=== PATIENT | female | born 1950 | race Caucasian/White ===

== ENCOUNTER 2016-03-28 08:00 | Outpatient (CLI) | payer MEDICARE, OTHER | END 2016-03-28 08:01 | disposition home or self-care (01) | DX: Z79.899 Other long term (current) drug therapy (principal); I48.91 Unspecified atrial fibrillation ==

== ENCOUNTER 2016-04-11 12:36 | Outpatient (CLI) | payer MEDICARE, OTHER | END 2016-04-11 12:37 | disposition home or self-care (01) | DX: I48.91 Unspecified atrial fibrillation (principal); Z79.899 Other long term (current) drug therapy ==

== ENCOUNTER 2016-04-17 12:35 | Outpatient (CLI) | payer MEDICARE, OTHER | END 2016-04-17 12:36 | disposition home or self-care (01) | DX: I48.91 Unspecified atrial fibrillation (principal); Z79.899 Other long term (current) drug therapy ==

== ENCOUNTER 2016-05-06 12:35 | Outpatient (CLI) | payer MEDICARE, OTHER | END 2016-05-06 12:36 | disposition home or self-care (01) | DX: I48.91 Unspecified atrial fibrillation (principal); Z79.899 Other long term (current) drug therapy ==

== ENCOUNTER 2016-05-27 12:36 | Outpatient (CLI) | payer MEDICARE, OTHER | END 2016-05-27 12:37 | disposition home or self-care (01) | DX: I48.91 Unspecified atrial fibrillation (principal); Z79.899 Other long term (current) drug therapy ==

== ENCOUNTER 2016-06-27 12:37 | Outpatient (CLI) | payer MEDICARE, OTHER | END 2016-06-27 12:38 | disposition home or self-care (01) | DX: I48.91 Unspecified atrial fibrillation (principal); Z79.899 Other long term (current) drug therapy ==

== ENCOUNTER 2016-08-05 12:35 | Outpatient (CLI) | payer MEDICARE, OTHER | END 2016-08-05 12:36 | disposition home or self-care (01) | LOC: LAB.F 12:35 | PROVIDERS: ATTEND Nurse Practitioner Family | DX: I48.91 Unspecified atrial fibrillation (principal); Z79.899 Other long term (current) drug therapy | CPT/HCPCS: 85610 ==

== ENCOUNTER 2016-09-15 08:00 | Outpatient (CLI) | payer MEDICARE, OTHER | END 2016-09-15 08:01 | disposition home or self-care (01) | LOC: LAB.F 08:00 | PROVIDERS: ATTEND Nurse Practitioner Family | DX: I48.91 Unspecified atrial fibrillation (principal); Z79.899 Other long term (current) drug therapy | CPT/HCPCS: 85610 ==

== ENCOUNTER 2016-10-01 10:57 | Outpatient (CLI) | payer MEDICARE, OTHER ==
[2016-10-01 18:39] LABS: BASOPHILS # (AUTO) 0.1 10^3/uL (0.0-0.1); BASOPHILS % (AUTO) 0.9 %; EOSINOPHILS # (AUTO) 0.1 10^3/uL (0.0-0.7); HCT - HEMATOCRIT 46.6 % (37.0-47.0); HGB - HEMOGLOBIN 15.1 g/dL (12.0-16.0); LYMPHOCYTES # (AUTO) 1.3 10^3/uL (1.5-3.5); LYMPHOCYTES % (AUTO) 16.8 %; MEAN CORPUSCULAR HEMOGLOBIN 30.8 pg (27.0-31.0); MEAN CORPUSCULAR HGB CONC 32.4 g/dL (32.0-36.0); MEAN CORPUSCULAR VOLUME 95.1 fL (81.0-99.0); MEAN PLATELET VOLUME 7.9 fL (7.9-10.8); MONOCYTES # (AUTO) 0.6 10^3/uL (0.0-1.0); MONOCYTES % (AUTO) 7.7 %; NEUTROPHILS # (AUTO) 5.9 10^3/uL (1.5-6.6); NEUTROPHILS % (AUTO) 73.6 %; NUCLEATED RED BLOOD CELLS AUTO 0.1 /100WBC; RED CELL DISTRIBUTION WIDTH 13.7 % (12.0-15.0)
[2016-10-01 18:59] LABS: BILIRUBIN,TOTAL 0.6 mg/dL (0.2-1.0); BUN - BLOOD UREA NITROGEN 18 mg/dL (6-20); CALCIUM 9.1 mg/dL (8.5-10.3); CARBON DIOXIDE - CO2 30 mmol/L (21-32); CHLORIDE 100 mmol/L (101-111); CHOL/HDL RATIO 3.5 (<4.4); CHOLESTEROL 162 mg/dL; CREATININE 0.8 mg/dL (0.4-1.0); GFR - MDRD 72 (>89); GLUCOSE 117 mg/dL (70-100); HDL CHOLESTEROL 46 mg/dL; IRON 88 ug/dL (28-170); LDL/HDL RATIO 1.7 (<4.4); SODIUM 139 mmol/L (135-145); TOTAL IRON BINDING CAPACITY 419 ug/dL (250-450); TOTAL PROTEIN 7.3 g/dL (6.7-8.2); TRANSFERRIN 299 mg/dL (192-382); TRIGLYCERIDES 179 mg/dL; VLDL CHOLESTEROL 36 mg/dL
[2016-10-01 19:20] LABS: HEMOGLOBIN A1C 0.77 g/dL
== END 2016-10-01 10:58 | disposition home or self-care (01) ==
LOC: LAB.F 10:57
PROVIDERS: ATTEND Nurse Practitioner Family
DX: I50.9 Heart failure, unspecified (principal); E11.9 Type 2 diabetes mellitus without complications; R53.83 Other fatigue
CPT/HCPCS: 36415; 80053; 80061; 80162; 82043; 83036; 83540; 83880; 84443; 84466; 85025

== ENCOUNTER 2016-10-02 08:00 | Outpatient (CLI) | payer MEDICARE, OTHER | END 2016-10-02 08:01 | disposition home or self-care (01) | LOC: LAB.R 08:00 | PROVIDERS: ATTEND Nurse Practitioner Family | DX: E11.9 Type 2 diabetes mellitus without complications (principal) | CPT/HCPCS: 82043 ==

== ENCOUNTER 2016-10-07 09:46 | Outpatient (CLI) | payer MEDICARE, OTHER ==
--- NOTE | 2016-10-07 13:47 | XRAY Report ---
TWO-VIEW CHEST: 10/07/2016 CLINICAL INDICATION: Cough. FINDINGS: Frontal and lateral views of the chest demonstrate a normal cardiac silhouette. Calcified mediastinal nodes are noted, compatible with old granulomatous disease. The lungs are clear. No ef fusion or pneumothorax is present. IMPRESSION: NO EVIDENCE OF ACUTE CARDIOPULMONARY DISEASE. JOB #: [id number] EXT JOB #:[id number]
== END 2016-10-07 09:47 | disposition home or self-care (01) ==
LOC: DI.S 09:46
PROVIDERS: ATTEND Nurse Practitioner Family
DX: R05 Cough (principal); R06.02 Shortness of breath
CPT/HCPCS: 71020; 93005

== ENCOUNTER 2016-10-15 12:47 | Outpatient (CLI) | payer MEDICARE, OTHER | END 2016-10-15 12:48 | disposition home or self-care (01) | LOC: LAB.F 12:47 | PROVIDERS: ATTEND Nurse Practitioner Family | DX: I48.91 Unspecified atrial fibrillation (principal); Z79.899 Other long term (current) drug therapy | CPT/HCPCS: 85610 ==

== ENCOUNTER 2016-10-20 10:33 | Outpatient (CLI) | payer MEDICARE, OTHER ==
--- NOTE | 2016-10-31 14:29 | Mammography Report ---
DIGITAL SCREENING MAMMOGRAM: 10/20/2016 CLINICAL INDICATION: A 66-year-old nulliparous patient for screening. The patient reports having had previous mammograms in [place], [place], but films are not yet avai lable for direct comparison. If they become available, an addendum will be issued. Otherwise, this will serve as a new baseline. TECHNIQUE: Routine CC and MLO projections were obtained of the breasts. FINDINGS: The breasts demonstrate scattered fibroglandular densities bilaterally. Coarse and puncta te, typically benign calcifications are present. No suspicious masses, clustered microcalcifications , or regions of architectural distortion are identified. IMPRESSION: BENIGN FINDINGS. RECOMMENDATION: Routine annual screening unless otherwise clinically indicated. BIRADS CATEGORY 2 - BENIGN FINDINGS. STANDARD QUALIFYING STATEMENTS 1. This examination was reviewed with the aid of Computer-Aided Detection (CAD). 2. A negative or benign imaging report should not delay biopsy if clinically suspicious findings are present. Consider surgical consultation if warranted. More than 5% of cancers are not identified by i maging. 3. Dense breasts may obscure an underlying neoplasm. JOB #: [id number] EXT JOB #:[id number]
== END 2016-10-20 10:34 | disposition home or self-care (01) ==
LOC: DI.S 10:33
PROVIDERS: ATTEND Nurse Practitioner Family
DX: Z12.31 Encounter for screening mammogram for malignant neoplasm of breast (principal)
CPT/HCPCS: 77067; 85610

== ENCOUNTER 2016-11-12 11:21 | Outpatient (CLI) | payer MEDICARE, OTHER | END 2016-11-12 11:22 | disposition home or self-care (01) | LOC: LAB.F 11:21 | PROVIDERS: ATTEND Nurse Practitioner Family | DX: I48.91 Unspecified atrial fibrillation (principal); Z79.899 Other long term (current) drug therapy | CPT/HCPCS: 85610 ==

== ENCOUNTER 2016-12-10 10:29 | Outpatient (CLI) | payer MEDICARE, OTHER | END 2016-12-10 10:30 | disposition home or self-care (01) | LOC: LAB.F 10:29 | PROVIDERS: ATTEND Nurse Practitioner Family | DX: I48.91 Unspecified atrial fibrillation (principal); Z79.899 Other long term (current) drug therapy | CPT/HCPCS: 85610 ==

== ENCOUNTER 2017-02-12 12:32 | Outpatient (CLI) | payer MEDICARE, OTHER | END 2017-02-12 12:33 | disposition home or self-care (01) | LOC: LAB.F 12:32 | PROVIDERS: ATTEND Nurse Practitioner Family | DX: I48.91 Unspecified atrial fibrillation (principal); Z79.899 Other long term (current) drug therapy | CPT/HCPCS: 85610 ==

== ENCOUNTER 2017-03-19 11:01 | Outpatient (CLI) | payer MEDICARE, OTHER ==
[2017-03-19 17:54] LABS: BASOPHILS # (AUTO) 0.1 10^3/uL (0.0-0.1); BASOPHILS % (AUTO) 0.9 %; EOSINOPHILS # (AUTO) 0.2 10^3/uL (0.0-0.7); EOSINOPHILS % (AUTO) 1.9 %; HGB - HEMOGLOBIN 14.6 g/dL (12.0-16.0); LYMPHOCYTES # (AUTO) 1.4 10^3/uL (1.5-3.5); LYMPHOCYTES % (AUTO) 18.4 %; MEAN CORPUSCULAR HEMOGLOBIN 30.9 pg (27.0-31.0); MEAN CORPUSCULAR HGB CONC 32.5 g/dL (32.0-36.0); MEAN CORPUSCULAR VOLUME 95.2 fL (81.0-99.0); MEAN PLATELET VOLUME 8.1 fL (7.9-10.8); MONOCYTES # (AUTO) 0.6 10^3/uL (0.0-1.0); MONOCYTES % (AUTO) 7.7 %; NEUTROPHILS # (AUTO) 5.6 10^3/uL (1.5-6.6); NEUTROPHILS % (AUTO) 71.1 %; PLT - PLATELET COUNT 245 10^3/uL (130-450); RED BLOOD COUNT 4.74 10^6/uL (4.20-5.40); RED CELL DISTRIBUTION WIDTH 13.6 % (12.0-15.0); WHITE BLOOD COUNT 7.8 x10^3/uL (4.8-10.8)
[2017-03-19 18:24] LABS: % IRON SATURATION 17 % (20-50); ALBUMIN 3.7 g/dL (3.2-5.5); ALBUMIN/GLOBULIN RATIO 0.9 (1.0-2.2); ALKALINE PHOSPHATASE 93 IU/L (42-121); ALT ALANINE AMINOTRANSFERASE 14 IU/L (10-60); AST ASPARTATE AMINOTRANSFERASE 18 IU/L (10-42); BILIRUBIN,TOTAL 0.5 mg/dL (0.2-1.0); BUN - BLOOD UREA NITROGEN 17 mg/dL (6-20); CALCIUM 9.2 mg/dL (8.5-10.3); CARBON DIOXIDE - CO2 33 mmol/L (21-32); CHLORIDE 98 mmol/L (101-111); CHOL/HDL RATIO 3.3 (<4.4); CHOLESTEROL 146 mg/dL; CREATININE 0.8 mg/dL (0.4-1.0); GFR - MDRD 72 (>89); GLUCOSE 115 mg/dL (70-100); HDL CHOLESTEROL 44 mg/dL; IRON 67 ug/dL (28-170); LDL CHOLESTEROL,CALCULATED 74 mg/dL; LDL/HDL RATIO 1.7 (<4.4); SODIUM 140 mmol/L (135-145); TOTAL IRON BINDING CAPACITY 403 ug/dL (250-450); TOTAL PROTEIN 7.9 g/dL (6.7-8.2); TRANSFERRIN 288 mg/dL (192-382); VLDL CHOLESTEROL 28 mg/dL
[2017-03-19 18:29] LABS: THYROID STIMULATING HORMONE 1.05 uIU/mL (0.34-5.60)
[2017-03-19 18:35] LABS: FERRITIN 84.1 ng/mL (11.0-306.8)
[2017-03-19 18:46] LABS: HB2 TOTAL 15.4 g/dL; HEMOGLOBIN A1C 0.74 g/dL; HEMOGLOBIN A1C % 6.5 % (4.6-6.2)
== END 2017-03-19 11:02 | disposition home or self-care (01) ==
LOC: LAB.F 11:01
PROVIDERS: ATTEND Nurse Practitioner Family
DX: R06.02 Shortness of breath (principal); I50.9 Heart failure, unspecified; E11.9 Type 2 diabetes mellitus without complications; E78.1 Pure hyperglyceridemia; I48.91 Unspecified atrial fibrillation; Z79.899 Other long term (current) drug therapy
CPT/HCPCS: 36415; 80053; 80061; 82728; 83036; 83540; 84443; 84466; 85025; 85610

== ENCOUNTER 2017-04-13 09:04 | Outpatient (CLI) | payer MEDICARE, OTHER ==
[2017-04-13] MEDS ORDERED: ALBUTEROL NEB 2.5 MG/3 ML INH ONE (10:45)
== END 2017-04-13 09:05 | disposition home or self-care (01) ==
LOC: RT 09:04
PROVIDERS: ATTEND Nurse Practitioner Family
DX: R05 Cough (principal)
CPT/HCPCS: 94060; 94664; J7613

== ENCOUNTER 2017-04-23 12:36 | Outpatient (CLI) | payer MEDICARE, OTHER | END 2017-04-23 12:37 | disposition home or self-care (01) | LOC: LAB.F 12:36 | PROVIDERS: ATTEND Nurse Practitioner Family | DX: Z79.899 Other long term (current) drug therapy (principal); I48.91 Unspecified atrial fibrillation | CPT/HCPCS: 85610 ==

== ENCOUNTER 2017-04-30 11:55 | Outpatient (CLI) | payer MEDICARE, OTHER ==
--- NOTE | 2017-04-30 17:12 | CT Report ---
CT CHEST WITHOUT CONTRAST: 04/30/2017 CLINICAL INDICATION: Shortness of breath. TECHNIQUE: Axial CT images of the chest were obtained without intravenous contrast. In accordance with CT protocol optimization, one or more of the following dose reduction techniques were utilized for this exam: Automated exposure control, adjustment of mA and/or KV based on patient size, or use of iterative reconstructive technique. No previous CT is available for comparison. FINDINGS: The heart and great vessels are unremarkable. Calcifications of previous granulomatous disease are noted. There is minimal dependent atelectasis present. No suspicious pulmonary nodule or mass lesion is appreciated. No effusion or pneumothorax is present. Limited evaluation of upper abdominal structures demonstrates calcified granulomas in the spleen and hepatic cysts as well as cholelithiasis. The adrenal glands are unremarkable. IMPRESSION: CHANGES OF OLD GRANULOMATOUS DISEASE. NO EVIDENCE OF ACUTE CARDIOPULMONARY DISEASE. TD: 04/30/2017 17:10
== END 2017-04-30 11:56 | disposition home or self-care (01) ==
LOC: DI 11:55
PROVIDERS: ATTEND Nurse Practitioner Family
DX: R06.02 Shortness of breath (principal)
CPT/HCPCS: 71250

== ENCOUNTER 2017-05-22 12:25 | Outpatient (CLI) | payer MEDICARE, OTHER | END 2017-05-22 12:26 | disposition home or self-care (01) | LOC: LAB.S 12:25 | PROVIDERS: ATTEND Nurse Practitioner Family | DX: I48.91 Unspecified atrial fibrillation (principal); Z79.899 Other long term (current) drug therapy | CPT/HCPCS: 85610 ==

== ENCOUNTER 2017-05-28 12:35 | Outpatient (CLI) | payer MEDICARE, OTHER | END 2017-05-28 12:36 | disposition home or self-care (01) | LOC: LAB.F 12:35 | PROVIDERS: ATTEND Nurse Practitioner Family | DX: I48.91 Unspecified atrial fibrillation (principal); Z79.899 Other long term (current) drug therapy | CPT/HCPCS: 85610 ==

== ENCOUNTER 2017-06-30 10:35 | Outpatient (CLI) | payer MEDICARE, OTHER | END 2017-06-30 10:36 | disposition home or self-care (01) | LOC: LAB.F 10:35 | PROVIDERS: ATTEND Nurse Practitioner Family | DX: I48.91 Unspecified atrial fibrillation (principal); Z79.899 Other long term (current) drug therapy | CPT/HCPCS: 85610 ==

== ENCOUNTER 2017-08-12 11:00 | Outpatient (CLI) | payer MEDICARE, OTHER | END 2017-08-12 11:01 | disposition home or self-care (01) | LOC: LAB.F 11:00 | PROVIDERS: ATTEND Nurse Practitioner Family | DX: I48.91 Unspecified atrial fibrillation (principal); Z79.899 Other long term (current) drug therapy | CPT/HCPCS: 85610 ==

== ENCOUNTER 2017-09-09 12:45 | Outpatient (CLI) | payer MEDICARE, OTHER ==
[2017-09-09 18:09] LABS: HB2 TOTAL 15.6 g/dL; HEMOGLOBIN A1C 0.78 g/dL; HEMOGLOBIN A1C % 6.7 % (4.6-6.2)
== END 2017-09-09 12:46 | disposition home or self-care (01) ==
LOC: LAB.F 12:45
PROVIDERS: ATTEND Nurse Practitioner Family
DX: I48.91 Unspecified atrial fibrillation (principal); E11.9 Type 2 diabetes mellitus without complications; Z79.899 Other long term (current) drug therapy
CPT/HCPCS: 36415; 83036; 85610

== ENCOUNTER 2017-10-12 10:58 | Outpatient (CLI) | payer MEDICARE, OTHER | END 2017-10-12 10:59 | disposition home or self-care (01) | LOC: LAB.F 10:58 | PROVIDERS: ATTEND Nurse Practitioner Family | DX: I48.91 Unspecified atrial fibrillation (principal); Z79.899 Other long term (current) drug therapy | CPT/HCPCS: 85610 ==

== ENCOUNTER 2017-12-03 10:58 | Outpatient (CLI) | payer MEDICARE, OTHER | END 2017-12-03 10:59 | disposition home or self-care (01) | LOC: LAB.F 10:58 | PROVIDERS: ATTEND Nurse Practitioner Family | DX: I48.91 Unspecified atrial fibrillation (principal); Z79.899 Other long term (current) drug therapy | CPT/HCPCS: 85610 ==

== ENCOUNTER → 2017-12-22 | Outpatient (CLI) | payer MEDICARE, OTHER | LOC: LAB.F 08:00 | PROVIDERS: ATTEND Nurse Practitioner Family | DX: Z79.899 Other long term (current) drug therapy (principal); I48.91 Unspecified atrial fibrillation | CPT/HCPCS: 85610 ==

== ENCOUNTER 2018-01-28 11:35 | Outpatient (CLI) | payer MEDICARE, OTHER ==
[2018-01-28 18:51] LABS: INR 2.3 (0.8-1.2); PT - PROTHROMBIN TIME 25.7 secs (9.9-12.6)
== END 2018-01-28 11:36 | disposition home or self-care (01) ==
LOC: LAB.F 11:35
PROVIDERS: ATTEND Nurse Practitioner Family
DX: I48.91 Unspecified atrial fibrillation (principal); Z79.899 Other long term (current) drug therapy
CPT/HCPCS: 36415; 85610

== ENCOUNTER 2018-02-22 10:13 | Outpatient (CLI) | payer MEDICARE, OTHER ==
[2018-02-22 18:36] LABS: BASOPHILS # (AUTO) 0.1 10^3/uL (0.0-0.1); BASOPHILS % (AUTO) 0.9 %; EOSINOPHILS # (AUTO) 0.1 10^3/uL (0.0-0.7); EOSINOPHILS % (AUTO) 1.4 %; HGB - HEMOGLOBIN 14.8 g/dL (12.0-16.0); LYMPHOCYTES # (AUTO) 1.4 10^3/uL (1.5-3.5); LYMPHOCYTES % (AUTO) 19.5 %; MEAN CORPUSCULAR HEMOGLOBIN 30.4 pg (27.0-31.0); MEAN CORPUSCULAR HGB CONC 32.2 g/dL (32.0-36.0); MEAN CORPUSCULAR VOLUME 94.5 fL (81.0-99.0); MONOCYTES # (AUTO) 0.5 10^3/uL (0.0-1.0); MONOCYTES % (AUTO) 6.8 %; NEUTROPHILS # (AUTO) 5.3 10^3/uL (1.5-6.6); NEUTROPHILS % (AUTO) 71.4 %; PLT - PLATELET COUNT 277 10^3/uL (130-450); RED BLOOD COUNT 4.88 10^6/uL (4.20-5.40); RED CELL DISTRIBUTION WIDTH 13.7 % (12.0-15.0); WHITE BLOOD COUNT 7.4 x10^3/uL (4.8-10.8)
[2018-02-22 18:53] LABS: ALBUMIN 3.6 g/dL (3.2-5.5); ALBUMIN/GLOBULIN RATIO 0.9 (1.0-2.2); ALKALINE PHOSPHATASE 90 IU/L (42-121); ALT ALANINE AMINOTRANSFERASE 16 IU/L (10-60); AST ASPARTATE AMINOTRANSFERASE 15 IU/L (10-42); BILIRUBIN,TOTAL 0.7 mg/dL (0.2-1.0); BUN - BLOOD UREA NITROGEN 16 mg/dL (6-20); CALCIUM 8.9 mg/dL (8.5-10.3); CARBON DIOXIDE - CO2 29 mmol/L (21-32); CHLORIDE 100 mmol/L (101-111); CHOL/HDL RATIO 3.9 (<4.4); CHOLESTEROL 158 mg/dL; CREATININE 0.8 mg/dL (0.4-1.0); GFR - MDRD 72 (>89); GLUCOSE 134 mg/dL (70-100); HDL CHOLESTEROL 41 mg/dL; LDL CHOLESTEROL,CALCULATED 74 mg/dL; LDL/HDL RATIO 1.8 (<4.4); SODIUM 137 mmol/L (135-145); TOTAL PROTEIN 7.7 g/dL (6.7-8.2); VLDL CHOLESTEROL 43 mg/dL
[2018-02-22 18:55] LABS: HB2 TOTAL 15.5 g/dL; HEMOGLOBIN A1C 0.87 g/dL; HEMOGLOBIN A1C % 7.3 % (4.6-6.2)
== END 2018-02-22 10:14 | disposition home or self-care (01) ==
LOC: LAB.F 10:13
PROVIDERS: ATTEND Nurse Practitioner Family
DX: I48.91 Unspecified atrial fibrillation (principal); Z79.899 Other long term (current) drug therapy; I50.9 Heart failure, unspecified; E11.9 Type 2 diabetes mellitus without complications; E78.1 Pure hyperglyceridemia; I48.2 Chronic atrial fibrillation; R53.83 Other fatigue
CPT/HCPCS: 36415; 80053; 80061; 82043; 83036; 83721; 84443; 85025; 85610

== ENCOUNTER 2018-03-24 10:50 | Outpatient (CLI) | payer MEDICARE, OTHER ==
[2018-03-24 19:23] LABS: RHEUMATOID FACTOR NEGATIVE (Negative)
== END 2018-03-24 10:51 | disposition home or self-care (01) ==
LOC: LAB.F 10:50
PROVIDERS: ATTEND Nurse Practitioner Family
DX: I48.2 Chronic atrial fibrillation (principal); R53.83 Other fatigue
CPT/HCPCS: 36415; 85610; 85651; 86038; 86140; 86430

== ENCOUNTER 2018-04-08 11:04 | Outpatient (CLI) | payer MEDICARE, OTHER | END 2018-04-08 11:05 | disposition home or self-care (01) | LOC: LAB.F 11:04 | PROVIDERS: ATTEND Nurse Practitioner Family | DX: I48.2 Chronic atrial fibrillation (principal) | CPT/HCPCS: 85610 ==

== ENCOUNTER 2018-04-15 10:08 | Outpatient (CLI) | payer MEDICARE, OTHER | END 2018-04-15 10:09 | disposition home or self-care (01) | LOC: LAB.F 10:08 | PROVIDERS: ATTEND Nurse Practitioner Family | DX: I48.2 Chronic atrial fibrillation (principal) | CPT/HCPCS: 85610 ==

== ENCOUNTER 2018-05-25 11:05 | Outpatient (CLI) | payer MEDICARE, OTHER | END 2018-05-25 11:06 | disposition home or self-care (01) | LOC: LAB.F 11:05 | PROVIDERS: ATTEND Registered Nurse | DX: I48.2 Chronic atrial fibrillation (principal) | CPT/HCPCS: 85610 ==

== ENCOUNTER 2018-05-28 10:57 | Outpatient (CLI) | payer MEDICARE, OTHER ==
[2018-05-28 18:12] LABS: BASOPHILS # (AUTO) 0.1 10^3/uL (0.0-0.1); BASOPHILS % (AUTO) 1.1 %; EOSINOPHILS # (AUTO) 0.1 10^3/uL (0.0-0.7); EOSINOPHILS % (AUTO) 1.4 %; HGB - HEMOGLOBIN 14.6 g/dL (12.0-16.0); LYMPHOCYTES # (AUTO) 1.4 10^3/uL (1.5-3.5); LYMPHOCYTES % (AUTO) 21.2 %; MEAN CORPUSCULAR HEMOGLOBIN 30.6 pg (27.0-31.0); MEAN CORPUSCULAR HGB CONC 32.8 g/dL (32.0-36.0); MEAN CORPUSCULAR VOLUME 93.3 fL (81.0-99.0); MEAN PLATELET VOLUME 7.9 fL (7.9-10.8); MONOCYTES # (AUTO) 0.5 10^3/uL (0.0-1.0); MONOCYTES % (AUTO) 7.5 %; NEUTROPHILS # (AUTO) 4.6 10^3/uL (1.5-6.6); NEUTROPHILS % (AUTO) 68.8 %; PLT - PLATELET COUNT 263 10^3/uL (130-450); RED BLOOD COUNT 4.78 10^6/uL (4.20-5.40); RED CELL DISTRIBUTION WIDTH 13.5 % (12.0-15.0); WHITE BLOOD COUNT 6.7 x10^3/uL (4.8-10.8)
[2018-05-28 18:38] LABS: CRP - C-REACTIVE PROTEIN 1.3 mg/dL (0-1.0)
[2018-05-28 19:53] LABS: CREATININE 0.8 mg/dL (0.4-1.0)
[2018-05-31 23:37] LABS: ANCA SCREEN NEGATIVE (NEGATIVE)
== END 2018-05-28 10:58 | disposition home or self-care (01) ==
LOC: LAB.F 10:57
PROVIDERS: ATTEND Internal Medicine Rheumatology
DX: M25.50 Pain in unspecified joint (principal)
CPT/HCPCS: 36415; 82164; 82565; 84460; 85025; 85651; 86021; 86140; 86200

== ENCOUNTER 2018-06-21 11:53 | Outpatient (CLI) | payer MEDICARE, OTHER ==
--- NOTE | 2018-06-21 14:55 | XRAY Report ---
Reason: PAIN IN RIGHT SHOULDER Procedure Date: 06/21/2018 Accession Number: [id number] / [id number] Procedure: XR - Cervical Spine 2 View CPT Code: FULL RESULT: EXAM: CERVICAL SPINE RADIOGRAPHY EXAM DATE: 06/21/2018 12:13 PM. CLINICAL HISTORY: Pain in right shoulder. COMPARISONS: None. TECHNIQUE: 3 views. FINDINGS: Alignment: Normal. No spondylolisthesis or scoliosis. Bones: The cervical vertebral bodies and posterior elements are well visualized from the skull base through C6-C7. No fractures or bone lesions. Disks: Multilevel degenerative disk disease which is most pronounced at C4-C6 with disk osteophyte complex formation. Facets: Multilevel facet and lateral mass hypertrophy also most pronounced in the lower cervical spine. Soft Tissues: Normal. No prevertebral soft tissue swelling. The visualized lung apices are clear. IMPRESSION: Degenerative changes. RADIA
== END 2018-06-21 11:54 | disposition home or self-care (01) ==
LOC: DI 11:53
PROVIDERS: ATTEND Registered Nurse
DX: M25.511 Pain in right shoulder (principal); M50.321 Other cervical disc degeneration at C4-C5 level; M25.78 Osteophyte, vertebrae
CPT/HCPCS: 72040

== ENCOUNTER 2018-07-08 13:20 | Outpatient (CLI) | payer MEDICARE, OTHER | END 2018-07-08 13:21 | disposition home or self-care (01) | LOC: LAB.F 13:20 | PROVIDERS: ATTEND Registered Nurse | DX: I48.2 Chronic atrial fibrillation (principal) | CPT/HCPCS: 85610 ==

== ENCOUNTER 2018-08-17 14:41 | Outpatient (CLI) | payer MEDICARE, OTHER ==
[2018-08-17 17:45] LABS: BASOPHILS # (AUTO) 0.1 10^3/uL (0.0-0.1); BASOPHILS % (AUTO) 0.8 %; EOSINOPHILS # (AUTO) 0.1 10^3/uL (0.0-0.7); HGB - HEMOGLOBIN 15.7 g/dL (12.0-16.0); LYMPHOCYTES # (AUTO) 1.6 10^3/uL (1.5-3.5); LYMPHOCYTES % (AUTO) 20.6 %; MEAN CORPUSCULAR HEMOGLOBIN 30.8 pg (27.0-31.0); MEAN CORPUSCULAR HGB CONC 32.5 g/dL (32.0-36.0); MEAN CORPUSCULAR VOLUME 94.7 fL (81.0-99.0); MEAN PLATELET VOLUME 7.6 fL (7.9-10.8); MONOCYTES # (AUTO) 0.7 10^3/uL (0.0-1.0); MONOCYTES % (AUTO) 8.5 %; NEUTROPHILS # (AUTO) 5.5 10^3/uL (1.5-6.6); NEUTROPHILS % (AUTO) 69.1 %; PLT - PLATELET COUNT 298 10^3/uL (130-450); RED BLOOD COUNT 5.12 10^6/uL (4.20-5.40); RED CELL DISTRIBUTION WIDTH 13.6 % (12.0-15.0); WHITE BLOOD COUNT 7.9 x10^3/uL (4.8-10.8)
[2018-08-17 17:55] LABS: CALCIUM 8.9 mg/dL (8.5-10.3); CREATININE 0.8 mg/dL (0.4-1.0)
== END 2018-08-17 14:42 | disposition home or self-care (01) ==
LOC: LAB.F 14:41
PROVIDERS: ATTEND Registered Nurse
DX: R06.02 Shortness of breath (principal); R53.83 Other fatigue; I48.2 Chronic atrial fibrillation
CPT/HCPCS: 36415; 80048; 83880; 84484; 85025; 85610

== ENCOUNTER 2018-08-20 12:24 | Outpatient (CLI) | payer MEDICARE, OTHER | END 2018-08-20 12:25 | disposition home or self-care (01) | LOC: LAB.F 12:24 | PROVIDERS: ATTEND Registered Nurse | DX: I48.2 Chronic atrial fibrillation (principal) | CPT/HCPCS: 85610 ==

== ENCOUNTER 2018-09-07 14:39 | Outpatient (CLI) | payer MEDICARE, OTHER ==
[2018-09-07 17:37] LABS: BASOPHILS # (AUTO) 0.1 10^3/uL (0.0-0.1); BASOPHILS % (AUTO) 0.9 %; EOSINOPHILS # (AUTO) 0.1 10^3/uL (0.0-0.7); EOSINOPHILS % (AUTO) 1.9 %; HGB - HEMOGLOBIN 15.6 g/dL (12.0-16.0); LYMPHOCYTES # (AUTO) 1.3 10^3/uL (1.5-3.5); LYMPHOCYTES % (AUTO) 19.4 %; MEAN CORPUSCULAR HEMOGLOBIN 29.7 pg (27.0-31.0); MEAN CORPUSCULAR HGB CONC 31.1 g/dL (32.0-36.0); MEAN CORPUSCULAR VOLUME 95.6 fL (81.0-99.0); MEAN PLATELET VOLUME 10.6 fL (7.9-10.8); MONOCYTES # (AUTO) 0.7 10^3/uL (0.0-1.0); MONOCYTES % (AUTO) 10.4 %; NEUTROPHILS # (AUTO) 4.5 10^3/uL (1.5-6.6); NEUTROPHILS % (AUTO) 67.1 %; PLT - PLATELET COUNT 241 10^3/uL (130-450); RED BLOOD COUNT 5.25 10^6/uL (4.20-5.40); RED CELL DISTRIBUTION WIDTH 13.7 % (12.0-15.0); WHITE BLOOD COUNT 6.8 x10^3/uL (4.8-10.8)
[2018-09-07 18:01] LABS: ALBUMIN 3.5 g/dL (3.2-5.5); ALBUMIN/GLOBULIN RATIO 0.9 (1.0-2.2); BILIRUBIN,TOTAL 0.8 mg/dL (0.2-1.0); CALCIUM 8.9 mg/dL (8.5-10.3); CREATININE 0.9 mg/dL (0.4-1.0); TOTAL PROTEIN 7.5 g/dL (6.7-8.2)
== END 2018-09-07 14:40 | disposition home or self-care (01) ==
LOC: LAB.F 14:39
PROVIDERS: ATTEND Internal Medicine Rheumatology
DX: I48.2 Chronic atrial fibrillation (principal); M06.9 Rheumatoid arthritis, unspecified
CPT/HCPCS: 36415; 80053; 85025; 85610; 85651

== ENCOUNTER 2018-09-09 14:32 | Outpatient (CLI) | payer MEDICARE, OTHER | END 2018-09-09 14:33 | disposition home or self-care (01) | LOC: LAB.F 14:32 | PROVIDERS: ATTEND Registered Nurse | DX: I48.2 Chronic atrial fibrillation (principal) | CPT/HCPCS: 85610 ==

== ENCOUNTER 2018-09-13 11:36 | Outpatient (CLI) | payer MEDICARE, OTHER | END 2018-09-13 11:37 | disposition home or self-care (01) | LOC: LAB.S 11:36 | PROVIDERS: ATTEND Registered Nurse | DX: I48.2 Chronic atrial fibrillation (principal) | CPT/HCPCS: 85610 ==

== ENCOUNTER 2018-09-21 10:51 | Outpatient (CLI) | payer MEDICARE, OTHER | END 2018-09-21 10:52 | disposition home or self-care (01) | LOC: LAB.S 10:51 | PROVIDERS: ATTEND Registered Nurse | DX: I48.2 Chronic atrial fibrillation (principal) | CPT/HCPCS: 85610 ==

== ENCOUNTER 2018-09-27 14:07 | Outpatient (CLI) | payer MEDICARE, OTHER | END 2018-09-27 14:08 | disposition home or self-care (01) | LOC: LAB.S 14:07 | PROVIDERS: ATTEND Registered Nurse | DX: I48.2 Chronic atrial fibrillation (principal) | CPT/HCPCS: 85610 ==

== ENCOUNTER 2018-10-04 14:28 | Outpatient (CLI) | payer MEDICARE, OTHER | END 2018-10-04 14:29 | disposition home or self-care (01) | LOC: LAB.S 14:28 | PROVIDERS: ATTEND Registered Nurse | DX: I48.2 Chronic atrial fibrillation (principal) | CPT/HCPCS: 85610 ==

== ENCOUNTER 2018-10-11 14:27 | Outpatient (CLI) | payer MEDICARE, OTHER | END 2018-10-11 14:28 | disposition home or self-care (01) | LOC: LAB.S 14:27 | PROVIDERS: ATTEND Registered Nurse | DX: I48.2 Chronic atrial fibrillation (principal) | CPT/HCPCS: 85610 ==

== ENCOUNTER 2018-10-19 14:19 | Outpatient (CLI) | payer MEDICARE, OTHER | END 2018-10-19 14:20 | disposition home or self-care (01) | LOC: LAB.S 14:19 | PROVIDERS: ATTEND Registered Nurse | DX: I48.2 Chronic atrial fibrillation (principal) | CPT/HCPCS: 85610 ==

== ENCOUNTER 2018-10-27 11:41 | Emergency (ER) | payer MEDICARE, OTHER ==
[2018-10-27] MEDS ORDERED: SODIUM CHLORIDE 0.9% 1,000 ML IV ONE (12:29)
[2018-10-27] MEDS ORDERED: PIPERACILLIN/TAZOBACTAM 4.5 GM in SODIUM CHLORIDE 0.9% MINIBAG 100 ML IV STA (12:29)
[2018-10-27] MEDS ORDERED: VANCOMYCIN INJ 2 GM in SODIUM CHLORIDE 0.9% 500 ML IV STA (12:30)
[2018-10-27] MEDS ORDERED: CLINDAMYCIN 900 MG/50 ML 50 ML IV ONE (12:30)
--- NOTE | 2018-10-27 12:31 | ED Physician Documentation ---
History of Present Illness - Stated complaint Stated Complaint: SOA - Chief complaint Chief Complaint: Resp - History obtained from History obtained from: Patient - History of Present Illness Timing: Today (This is a very pleasant 68-year-old woman with borderline diabetes, history of CHF, atrial fibrillation on warfarin who has allergic asthma. Over the last 3 days she is been more short of breath and normal without cough, chest pain, or pedal edema. Last night she was quite diaphoretic and chilled at the same time and she has had a little wound that she described as a blackhead on the left side of the pubis that came open today with a foul smell.) Review of Systems Ten Systems: 10 systems reviewed and negative Constitutional: reports: Fever, Chills, Myalgias, Fatigue Cardiac: denies: Chest pain / pressure, Palpitations, Pedal edema, Calf pain Respiratory: reports: Dyspnea. denies: Cough PD PAST MEDICAL HISTORY - Past Medical History Past Medical History: Yes Cardiovascular: Congestive heart failure, Atrial fibrillation Respiratory: Asthma - Allergies Allergies/Adverse Reactions: Allergies Allergy/AdvReac Type Severity Reaction Status Date / Time codeine Allergy Hallucinati Verified 10/27/18 13:15 ons - Living Situation Living Situation: reports: Alone - Social History Does the pt drink ETOH?: No Does the pt have substance abuse?: No - Family History Family history: reports: Non contributory PD ED PE NORMAL - Vitals Vital signs reviewed: Yes - General General: Alert and oriented X 3, Other (She is a pleasant but morbidly obese 68-year-old woman laying in bed and appears comfortable, she is modestly hypotensive and diaphoretic. There is a foul smell about her.) - HEENT HEENT: PERRL, EOMI - Neck Neck: Supple, no meningeal sign, No bony TTP - Cardiac Cardiac: Other (Irregularly irregular without murmur) - Respiratory Respiratory: Other (Diminished throughout) - Abdomen Abdomen: Soft, Non tender - Female Female : Kaiako Kura [place] present (Suha PRATHER), Other (There is a pinpoint wound to the left of midline over the mons pubis that is draining foul-smelling thin liquid with some redness of the mons itself. 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 although she does not have pain out of proportion to examination or crepitance.) - Extremities Extremities: No edema, No calf tenderness / cord - Neuro Neuro: Alert and oriented X 3, Normal speech Results - Vitals Vitals: Vital Signs - 24 hr 10/27/18 10/27/18 10/27/18 11:56 13:07 13:13 Temperature 36 C L 37.4 C Heart Rate 102 H 98 104 H Respiratory 24 16 22 Rate Blood Pressure 84/61 L 127/108 H 101/54 L O2 Saturation 95 96 94 Oxygen O2 Source Room air - EKG (time done) 1212 Rate: Rate (enter#) (101) Rhythm: Atrial fibrillation [place]: Normal Ischemia: ST depression (She has significant ST depression especially V2 through V6 which is new compared with an EKG on file from 2 years ago.) Computer interpretation: Agree with computer - Labs Labs: Laboratory Tests 10/27/18 10/27/18 10/27/18 12:55 12:55 12:55 WBC 20.0 H RBC 4.52 Hgb 13.8 Hct 42.1 MCV 93.1 MCH 30.5 MCHC 32.8 RDW 13.8 Plt Count 229 MPV 9.5 Neut # (Auto) Not Reportable Lymph # (Auto) Not Reportable Maver[place] # (Auto) Not Reportable Eos # (Auto) Not Reportable Baso # (Auto) Not Reportable Absolute Nucleated RBC Not Reportable Total Counted 100 Band Neuts % (Manual) 13 H Abnorm Lymph % (Manual) 0 Nucleated RBC % Not Reportable Neutrophils # (Manual) 17.4 H Lymphocytes # (Manual) 1.6 Monocytes # (Manual) 0.8 Eosinophils # (Manual) 0.0 Basophils # (Manual) 0.2 H Differential Comment MANUAL DIFFERENTIAL WBC Morphology 1+ DOHLE BODIES Platelet Estimate NORMAL (130-450,000) Platelet Morphology NORMAL APPEARANCE RBC Morph Micro Appear 1+ POLYCHROMASIA PT 30.0 H INR 2.7 H Sodium 135 Potassium 3.1 L Chloride 93 L Carbon Dioxide 25 Anion Gap 17.0 H BUN 17 Creatinine 1.5 H Estimated GFR (MDRD) 35 L Glucose 170 H Lactic Acid Calcium 8.4 L Total Bilirubin 1.0 AST 39 ALT 19 Alkaline Phosphatase 70 Troponin I High Sens B-Natriuretic Peptide Total Protein 7.2 Albumin 2.9 L Globulin 4.3 H Albumin/Globulin Ratio 0.7 L Lipase 19 L 10/27/18 10/27/18 10/27/18 12:55 12:55 12:55 WBC RBC Hgb Hct MCV MCH MCHC RDW Plt Count MPV Neut # (Auto) Lymph # (Auto) Maverick # (Auto) Eos # (Auto) Baso # (Auto) Absolute Nucleated RBC Total Counted Band Neuts % (Manual) Abnorm Lymph % (Manual) Nucleated RBC % Neutrophils # (Manual) Lymphocytes # (Manual) Monocytes # (Manual) Eosinophils # (Manual) Basophils # (Manual) Differential Comment WBC Morphology Platelet Estimate Platelet Morphology RBC Morph Micro Appear PT INR Sodium Potassium Chloride Carbon Dioxide Anion Gap BUN Creatinine Estimated GFR (MDRD) Glucose Lactic Acid 3.4 H* Calcium Total Bilirubin AST ALT Alkaline Phosphatase Troponin I High Sens 21.2 H* B-Natriuretic Peptide 337 H Total Protein Albumin Globulin Albumin/Globulin Ratio Lipase - Rads (name of study) CT A/P Radiology: EMP read contemporaneously (Irregular gas collections within the subcutaneous fat of the perineum without organized fluid collection to suggest abscess, this is consistent with necrotizing soft tissue infection such as Anselmo's gangrene.) PD MEDICAL DECISION MAKING - ED course ED course: This is a 68-year-old woman with history of atrial fibrillation, CHF, and allergic rate asthma who presents with shortness of breath without cough or chest pain. 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 She was administered Zosyn, Clindamycin, vancomycin after blood cultures were obtained, CT will be obtained. Her EKG is ischemic, but the overall picture would suggest more of a demand ischemia from infection as opposed to a primary cardiac insult. 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 [facility] was contacted and she was accepted there by Dr. Welch at 3:05 PM. She received Zosyn 4.5 g, clindamycin, 900 mg, and vancomycin, 2 g. The surgeon requested 300 more milligrams of clindamycin and 2 units of FFP prior to transport. Unfortunately the time course of flying the FFP was prohibitive prior to transport and she did not receive this, but she did receive the clindamycin. 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
[2018-10-27] MEDS ORDERED: LACTATED RINGERS 2,000 ML IV STA (12:46)
--- NOTE | 2018-10-27 13:00 | XRAY Report ---
Reason: shortness of breath, congestion, hx asthma Procedure Date: 10/27/2018 Accession Number: [id number] / [id number] Procedure: XR - Chest 1 View X-Ray CPT Code: 65413 FULL RESULT: EXAM: CHEST RADIOGRAPHY EXAM DATE: 10/27/2018 12:20 PM. CLINICAL HISTORY: Shortness of breath, congestion, hx asthma. COMPARISON: CHEST 2 VIEW PA/LAT 10/07/2016 9:59 AM CHEST W/O 04/30/2017 12:13 PM. TECHNIQUE: 1 view. FINDINGS: Lungs/Pleura: There is mild pulmonary vascular congestion. There is mild streaky opacity at the right lung base. The patient is mildly rotated. There is mild symmetric elevation of the right hemidiaphragm. No pleural effusion or pneumothorax. Mediastinum: There is stable borderline enlargement of the cardiac silhouette, which may be exaggerated by mild patient rotation. Calcified left hilar/mediastinal nodes are again noted, consistent with prior granulomatous disease. Other: No acute osseous abnormality. IMPRESSION: 1. Mild pulmonary vascular congestion. 2. Mild streaky opacity at the right lung base may represent subsegmental atelectasis, edema, pneumonia, or aspiration in the appropriate medical context. There is mild asymmetric elevation of the right hemidiaphragm. 3. Borderline enlargement of the cardiac silhouette, which may be exaggerated by mild patient rotation. RADIA
[2018-10-27 13:03] LABS: BASOPHILS % (AUTO) 0.7 %; EOSINOPHILS % (AUTO) 0.1 %; HGB - HEMOGLOBIN 13.8 g/dL (12.0-16.0); LYMPHOCYTES % (AUTO) 5.2 %; MEAN CORPUSCULAR HEMOGLOBIN 30.5 pg (27.0-31.0); MEAN CORPUSCULAR HGB CONC 32.8 g/dL (32.0-36.0); MEAN CORPUSCULAR VOLUME 93.1 fL (81.0-99.0); MEAN PLATELET VOLUME 9.5 fL (7.9-10.8); MONOCYTES % (AUTO) 8.3 %; NEUTROPHILS % (AUTO) 84.3 %; PLT - PLATELET COUNT 229 10^3/uL (130-450); RED BLOOD COUNT 4.52 10^6/uL (4.20-5.40); RED CELL DISTRIBUTION WIDTH 13.8 % (12.0-15.0)
[2018-10-27 13:05] LABS: ABNORMAL LYMPHS % (MANUAL) 0 %
[2018-10-27] MEDS ORDERED: IOVERSOL 320 100 ML VIAL IVP ONE ×2 (13:10→18:09)
[2018-10-27 13:11] LABS: INR 2.7 (0.8-1.2)
[2018-10-27 13:22] LABS: ALBUMIN 2.9 g/dL (3.2-5.5); ALBUMIN/GLOBULIN RATIO 0.7 (1.0-2.2); CALCIUM 8.4 mg/dL (8.5-10.3); CREATININE 1.5 mg/dL (0.4-1.0); TOTAL PROTEIN 7.2 g/dL (6.7-8.2)
[2018-10-27 13:55] LABS: BAND NEUTROPHILS % (MANUAL) 13 %; BASOPHILS # (MANUAL) 0.2 10^3/uL (0-0.1); BASOPHILS % (MANUAL) 1 %; LYMPHOCYTES # (MANUAL) 1.6 10^3/uL (1.5-3.5); LYMPHOCYTES % (MANUAL) 8 %; MONOCYTES # (MANUAL) 0.8 10^3/uL (0.0-1.0)
[2018-10-27 13:56] LABS: DIFFERENTIAL COMMENT MANUAL DIFFERENTIAL; PLATELET ESTIMATE, MANUAL NORMAL (130-450,000) (NORMAL); PLATELET MORPHOLOGY NORMAL APPEARANCE (NORMAL); RBC MORPHOLOGY (MULTIPLE) 1+ POLYCHROMASIA (NORMAL)
--- NOTE | 2018-10-27 15:26 | CT Report ---
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 CLINICAL HISTORY: L groin wound, suspect clarisse's. COMPARISONS: None available. TECHNIQUE: Routine helical CT imaging was performed through the abdomen and pelvis. IV contrast: OPTI 320 100 mL. Enteric contrast: No. Reconstructions: Coronal and sagittal. In accordance with CT protocol optimization, one or more of the following dose reduction techniques were utilized for this exam: automated exposure control, adjustment of mA and/or KV based on patient size, or use of iterative reconstructive technique. FINDINGS: Lung Bases: Unremarkable. Liver: There are a few hypodense lesions scattered in the liver with the larger lesions measuring simple fluid density. These likely represent cysts. Gallbladder/Bile Ducts: There are small calcified stones within the gallbladder. No gallbladder wall thickening or pericholecystic fluid. Spleen: Small calcified granulomas scattered throughout the spleen likely from prior granulomatous disease. Pancreas: Normal. Adrenal Glands: Normal. Kidneys: Symmetric renal perfusion. No hydronephrosis or nephrolithiasis. Peritoneal Cavity/Bowel: Nonobstructive bowel gas pattern. No free air or free fluid. The appendix is well visualized and normal. Pelvic Organs: Unremarkable by CT. Vasculature: Scattered calcified plaques in the abdominal aorta and iliac arteries without evidence of aneurysm. Bones: No acute fracture or dislocation. Degenerative disk disease at L3-L4 and L4-L5. Other: There are irregular gas collections within the perineum mostly involving the left perineum subcutaneous fat. Small locules of gas are also seen in the labial folds, left greater than right. There is stranding/inflammation to the subcutaneous fat at these locations. No drainable fluid collections to suggest abscess. IMPRESSION: Irregular gas collections within the subcutaneous fat of the perineum, as described above. No organized fluid collections suggestive of abscess. But his could be secondary to a necrotizing infection, such as Clarisse's gangrene. Cholelithiasis. No CT evidence of acute cholecystitis. RADIA The call report notification system was initiated by Dr. Jewel Cruz at 03:19 PM on 10/27/2018. The above call report findings were discussed with Carl Hess by Dr. Jewel Cruz at 03:24 PM on 10/27/2018.
[2018-10-27 15:39] VITALS: BP 70/48
[2018-10-27] MEDS ORDERED: CLINDAMYCIN 600 MG/50 ML IV ONE (16:00)
== END 2018-10-27 15:40 | disposition short-term general hospital (02) ==
LOC: ED 11:41
DX: N76.89 Other specified inflammation of vagina and vulva (principal); R73.03 Prediabetes
CPT/HCPCS: 36415; 71045; 74177; 80053; 83605; 83690; 83880; 84484; 85025; 85610; 87040; 93005; 96365; 96366; 96368; 96375; 99285; 99291; J3370; J7120; Q9967; 86900; 86901

== ENCOUNTER 2018-11-08 14:21 | Outpatient (CLI) | payer MEDICARE, OTHER | END 2018-11-08 14:22 | disposition home or self-care (01) | LOC: LAB.S 14:21 | PROVIDERS: ATTEND Registered Nurse | DX: I48.2 Chronic atrial fibrillation (principal) | CPT/HCPCS: 85610 ==

== ENCOUNTER 2018-11-19 14:21 | Outpatient (CLI) | payer MEDICARE, OTHER ==
[2018-11-19 17:25] LABS: ALBUMIN 3.2 g/dL (3.2-5.5); ALBUMIN/GLOBULIN RATIO 0.8 (1.0-2.2); BILIRUBIN,TOTAL 0.8 mg/dL (0.2-1.0); CALCIUM 8.5 mg/dL (8.5-10.3); CREATININE 1.1 mg/dL (0.4-1.0)
== END 2018-11-19 14:22 | disposition home or self-care (01) ==
LOC: LAB.S 14:21
PROVIDERS: ATTEND Registered Nurse
DX: I48.2 Chronic atrial fibrillation (principal); E87.6 Hypokalemia
CPT/HCPCS: 36415; 80053; 85610

== ENCOUNTER 2018-12-03 14:25 | Outpatient (CLI) | payer MEDICARE, OTHER ==
[2018-12-03 17:43] LABS: CREATININE 1.4 mg/dL (0.4-1.0)
[2018-12-03 18:16] LABS: HB2 TOTAL 12.8 g/dL; HEMOGLOBIN A1C 0.6 g/dL; HEMOGLOBIN A1C % 6.4 % (4.6-6.2)
== END 2018-12-03 14:26 | disposition home or self-care (01) ==
LOC: LAB.S 14:25
PROVIDERS: ATTEND Registered Nurse
DX: I48.2 Chronic atrial fibrillation (principal); E87.6 Hypokalemia; R73.9 Hyperglycemia, unspecified
CPT/HCPCS: 36415; 80048; 82043; 82570; 83036; 85610

== ENCOUNTER 2019-01-03 11:58 | Outpatient (CLI) | payer MEDICARE, OTHER | END 2019-01-03 11:59 | disposition home or self-care (01) | LOC: LAB.S 11:58 | PROVIDERS: ATTEND Registered Nurse | DX: I48.91 Unspecified atrial fibrillation (principal) ==

== ENCOUNTER 2019-01-07 14:35 | Outpatient (CLI) | payer MEDICARE, OTHER | END 2019-01-07 14:36 | disposition home or self-care (01) | LOC: LAB.S 14:35 | PROVIDERS: ATTEND Registered Nurse | DX: I48.91 Unspecified atrial fibrillation (principal) | CPT/HCPCS: 85610 ==

== ENCOUNTER 2019-02-09 11:31 | Outpatient (CLI) | payer MEDICARE, OTHER ==
[2019-02-09 17:14] LABS: BASOPHILS # (AUTO) 0.1 10^3/uL (0.0-0.1); BASOPHILS % (AUTO) 1.1 %; EOSINOPHILS # (AUTO) 0.1 10^3/uL (0.0-0.7); EOSINOPHILS % (AUTO) 1.1 %; LYMPHOCYTES # (AUTO) 1.4 10^3/uL (1.5-3.5); LYMPHOCYTES % (AUTO) 15.4 %; MEAN CORPUSCULAR HEMOGLOBIN 30.5 pg (27.0-31.0); MEAN CORPUSCULAR HGB CONC 30.6 g/dL (32.0-36.0); MEAN CORPUSCULAR VOLUME 99.8 fL (81.0-99.0); MEAN PLATELET VOLUME 10.5 fL (7.9-10.8); MONOCYTES # (AUTO) 0.5 10^3/uL (0.0-1.0); NEUTROPHILS # (AUTO) 6.8 10^3/uL (1.5-6.6); NEUTROPHILS % (AUTO) 75.8 %; PLT - PLATELET COUNT 255 10^3/uL (130-450); RED BLOOD COUNT 4.59 10^6/uL (4.20-5.40); RED CELL DISTRIBUTION WIDTH 13.6 % (12.0-15.0)
[2019-02-09 17:41] LABS: ALBUMIN 3.6 g/dL (3.2-5.5); ALBUMIN/GLOBULIN RATIO 0.9 (1.0-2.2); BILIRUBIN,TOTAL 0.6 mg/dL (0.2-1.0); CALCIUM 8.8 mg/dL (8.5-10.3); TOTAL PROTEIN 7.5 g/dL (6.7-8.2)
== END 2019-02-09 11:32 | disposition home or self-care (01) ==
LOC: LAB.S 11:31
PROVIDERS: ATTEND Registered Nurse
DX: M06.9 Rheumatoid arthritis, unspecified (principal); I48.91 Unspecified atrial fibrillation
CPT/HCPCS: 36415; 80053; 85025; 85610; 85651

== ENCOUNTER 2019-02-24 09:45 | Outpatient (CLI) | payer MEDICARE, OTHER ==
[2019-02-24 17:41] LABS: CALCIUM 8.9 mg/dL (8.5-10.3); CREATININE 0.9 mg/dL (0.4-1.0)
[2019-02-24 17:47] LABS: HB2 TOTAL 14.2 g/dL; HEMOGLOBIN A1C 0.83 g/dL; HEMOGLOBIN A1C % 7.5 % (4.6-6.2)
[2019-02-24 17:48] LABS: CREATININE,URINE 42.6 mg/dL; MICROALBUM/CREATININE RATIO,UR 9.4 ug/mg (<30.0); MICROALBUMIN,URINE 0.4 mg/dL (0-300.0)
== END 2019-02-24 09:46 | disposition home or self-care (01) ==
LOC: LAB.S 09:45
PROVIDERS: ATTEND Registered Nurse
DX: E11.9 Type 2 diabetes mellitus without complications (principal)
CPT/HCPCS: 36415; 80048; 82043; 82570; 83036

== ENCOUNTER 2019-03-21 11:46 | Outpatient (CLI) | payer MEDICARE, OTHER | END 2019-03-21 11:47 | disposition home or self-care (01) | LOC: LAB.S 11:46 | PROVIDERS: ATTEND Registered Nurse | DX: I48.91 Unspecified atrial fibrillation (principal) | CPT/HCPCS: 85610 ==

== ENCOUNTER 2019-03-30 10:19 | Outpatient (CLI) | payer MEDICARE, OTHER | END 2019-03-30 10:20 | disposition home or self-care (01) | LOC: LAB.S 10:19 | PROVIDERS: ATTEND Registered Nurse | DX: I48.91 Unspecified atrial fibrillation (principal) | CPT/HCPCS: 85610 ==

== ENCOUNTER 2019-04-07 11:30 | Outpatient (CLI) | payer MEDICARE, OTHER | END 2019-04-07 11:31 | disposition home or self-care (01) | LOC: LAB.S 11:30 | PROVIDERS: ATTEND Registered Nurse | DX: I48.91 Unspecified atrial fibrillation (principal) | CPT/HCPCS: 85610 ==

== ENCOUNTER 2019-04-15 11:17 | Outpatient (CLI) | payer MEDICARE, OTHER | END 2019-04-15 11:18 | disposition home or self-care (01) | LOC: LAB.S 11:17 | PROVIDERS: ATTEND Registered Nurse | DX: I48.91 Unspecified atrial fibrillation (principal) | CPT/HCPCS: 85610 ==

== ENCOUNTER 2019-04-26 10:11 | Outpatient (CLI) | payer MEDICARE, OTHER | END 2019-04-26 10:12 | disposition home or self-care (01) | LOC: LAB.S 10:11 | PROVIDERS: ATTEND Registered Nurse | DX: I48.91 Unspecified atrial fibrillation (principal) | CPT/HCPCS: 85610 ==

== ENCOUNTER 2019-05-11 11:44 | Outpatient (CLI) | payer MEDICARE, OTHER | END 2019-05-11 11:45 | disposition home or self-care (01) | LOC: LAB.S 11:44 | PROVIDERS: ATTEND Registered Nurse | DX: I48.91 Unspecified atrial fibrillation (principal) | CPT/HCPCS: 85610 ==

== ENCOUNTER 2019-08-24 09:40 | Outpatient (CLI) | payer MEDICARE, OTHER ==
[2019-08-24 15:12] LABS: BASOPHILS # (AUTO) 0.1 10^3/uL (0.0-0.1); BASOPHILS % (AUTO) 0.8 %; EOSINOPHILS # (AUTO) 0.1 10^3/uL (0.0-0.7); HGB - HEMOGLOBIN 13.8 g/dL (12.0-16.0); LYMPHOCYTES # (AUTO) 1.5 10^3/uL (1.5-3.5); LYMPHOCYTES % (AUTO) 17.3 %; MEAN CORPUSCULAR HEMOGLOBIN 28.6 pg (27.0-31.0); MEAN CORPUSCULAR HGB CONC 30.7 g/dL (32.0-36.0); MEAN CORPUSCULAR VOLUME 93.2 fL (81.0-99.0); MEAN PLATELET VOLUME 9.8 fL (7.9-10.8); MONOCYTES # (AUTO) 0.6 10^3/uL (0.0-1.0); MONOCYTES % (AUTO) 6.3 %; NEUTROPHILS # (AUTO) 6.5 10^3/uL (1.5-6.6); NEUTROPHILS % (AUTO) 74.1 %; PLT - PLATELET COUNT 291 10^3/uL (130-450); RED BLOOD COUNT 4.82 10^6/uL (4.20-5.40); RED CELL DISTRIBUTION WIDTH 14.2 % (12.0-15.0); WHITE BLOOD COUNT 8.7 x10^3/uL (4.8-10.8)
[2019-08-24 15:41] LABS: HB2 TOTAL 14.6 g/dL; HEMOGLOBIN A1C 0.78 g/dL
[2019-08-24 15:47] LABS: ALBUMIN 3.7 g/dL (3.2-5.5); ALBUMIN/GLOBULIN RATIO 0.9 (1.0-2.2); ALKALINE PHOSPHATASE 84 IU/L (42-121); ALT ALANINE AMINOTRANSFERASE 12 IU/L (10-60); AST ASPARTATE AMINOTRANSFERASE 14 IU/L (10-42); BILIRUBIN,TOTAL 0.5 mg/dL (0.2-1.0); BUN - BLOOD UREA NITROGEN 19 mg/dL (6-20); CARBON DIOXIDE - CO2 27 mmol/L (21-32); CHLORIDE 102 mmol/L (101-111); CHOLESTEROL 170 mg/dL; GLUCOSE 152 mg/dL (70-100); HDL CHOLESTEROL 43 mg/dL; LDL CHOLESTEROL,CALCULATED 84 mg/dL; SODIUM 138 mmol/L (135-145); TOTAL PROTEIN 7.7 g/dL (6.7-8.2); VLDL CHOLESTEROL 43 mg/dL
== END 2019-08-24 09:41 | disposition home or self-care (01) ==
LOC: LAB.S 09:40
PROVIDERS: ATTEND Registered Nurse
DX: E11.51 Type 2 diabetes mellitus with diabetic peripheral angiopathy without gangrene (principal); G47.30 Sleep apnea, unspecified; M06.9 Rheumatoid arthritis, unspecified; R05 Cough; E66.9 Obesity, unspecified; Z79.01 Long term (current) use of anticoagulants; I48.0 Paroxysmal atrial fibrillation; I50.9 Heart failure, unspecified
CPT/HCPCS: 36415; 80053; 80061; 83036; 83721; 84443; 85025; 85651

== ENCOUNTER 2020-01-05 11:00 | Outpatient (CLI) | payer MEDICARE, OTHER ==
[2020-01-05 15:25] LABS: BASOPHILS # (AUTO) 0.1 10^3/uL (0.0-0.1); BASOPHILS % (AUTO) 0.7 %; EOSINOPHILS # (AUTO) 0.1 10^3/uL (0.0-0.7); EOSINOPHILS % (AUTO) 1.1 %; LYMPHOCYTES # (AUTO) 1.6 10^3/uL (1.5-3.5); LYMPHOCYTES % (AUTO) 21.4 %; MEAN CORPUSCULAR HEMOGLOBIN 29.2 pg (27.0-31.0); MEAN CORPUSCULAR HGB CONC 30.6 g/dL (32.0-36.0); MEAN CORPUSCULAR VOLUME 95.4 fL (81.0-99.0); MEAN PLATELET VOLUME 9.8 fL (7.9-10.8); MONOCYTES # (AUTO) 0.5 10^3/uL (0.0-1.0); MONOCYTES % (AUTO) 6.8 %; NEUTROPHILS # (AUTO) 5.2 10^3/uL (1.5-6.6); NEUTROPHILS % (AUTO) 69.6 %; PLT - PLATELET COUNT 266 10^3/uL (130-450); RED BLOOD COUNT 4.79 10^6/uL (4.20-5.40); WHITE BLOOD COUNT 7.5 x10^3/uL (4.8-10.8)
[2020-01-05 15:31] LABS: ALT ALANINE AMINOTRANSFERASE 12 IU/L (10-60); AST ASPARTATE AMINOTRANSFERASE 12 IU/L (10-42)
== END 2020-01-05 11:01 | disposition home or self-care (01) ==
LOC: LAB.S 11:00
PROVIDERS: ATTEND Registered Nurse
DX: M25.50 Pain in unspecified joint (principal); M06.9 Rheumatoid arthritis, unspecified
CPT/HCPCS: 36415; 84450; 84460; 85025; 85651

== ENCOUNTER 2020-06-21 10:58 | Outpatient (CLI) | payer MEDICARE, OTHER ==
[2020-06-21 15:18] LABS: BASOPHILS # (AUTO) 0.1 10^3/uL (0.0-0.1); BASOPHILS % (AUTO) 0.9 %; EOSINOPHILS # (AUTO) 0.1 10^3/uL (0.0-0.7); EOSINOPHILS % (AUTO) 1.1 %; HCT - HEMATOCRIT 51.4 % (37.0-47.0); HGB - HEMOGLOBIN 15.2 g/dL (12.0-16.0); LYMPHOCYTES # (AUTO) 1.4 10^3/uL (1.5-3.5); LYMPHOCYTES % (AUTO) 21.6 %; MEAN CORPUSCULAR HEMOGLOBIN 28.7 pg (27.0-31.0); MEAN CORPUSCULAR HGB CONC 29.6 g/dL (32.0-36.0); MEAN CORPUSCULAR VOLUME 97.2 fL (81.0-99.0); MEAN PLATELET VOLUME 9.9 fL (7.9-10.8); MONOCYTES # (AUTO) 0.5 10^3/uL (0.0-1.0); MONOCYTES % (AUTO) 7.7 %; NEUTROPHILS # (AUTO) 4.5 10^3/uL (1.5-6.6); NEUTROPHILS % (AUTO) 68.4 %; PLT - PLATELET COUNT 268 10^3/uL (130-450); RED BLOOD COUNT 5.29 10^6/uL (4.20-5.40); WHITE BLOOD COUNT 6.6 x10^3/uL (4.8-10.8)
[2020-06-21 15:55] LABS: ALBUMIN/GLOBULIN RATIO 1.1 (1.0-2.2); BILIRUBIN,TOTAL 0.5 mg/dL (0.2-1.0); CREATININE 0.9 mg/dL (0.4-1.0); TOTAL PROTEIN 7.7 g/dL (6.7-8.2)
== END 2020-06-21 10:59 | disposition home or self-care (01) ==
LOC: LAB.S 10:58
PROVIDERS: ATTEND Registered Nurse
DX: M25.50 Pain in unspecified joint (principal); M06.9 Rheumatoid arthritis, unspecified
CPT/HCPCS: 36415; 80053; 85025; 85651

== ENCOUNTER 2020-10-04 10:01 | Outpatient (CLI) | payer MEDICARE, OTHER ==
[2020-10-04 14:41] LABS: BASOPHILS % (AUTO) 0.6 %; EOSINOPHILS # (AUTO) 0.1 10^3/uL (0.0-0.7); HCT - HEMATOCRIT 45.7 % (37.0-47.0); LYMPHOCYTES # (AUTO) 1.5 10^3/uL (1.5-3.5); LYMPHOCYTES % (AUTO) 21.9 %; MEAN CORPUSCULAR HGB CONC 30.6 g/dL (32.0-36.0); MEAN CORPUSCULAR VOLUME 94.6 fL (81.0-99.0); MEAN PLATELET VOLUME 9.7 fL (7.9-10.8); MONOCYTES # (AUTO) 0.5 10^3/uL (0.0-1.0); MONOCYTES % (AUTO) 7.6 %; NEUTROPHILS # (AUTO) 4.7 10^3/uL (1.5-6.6); NEUTROPHILS % (AUTO) 68.5 %; PLT - PLATELET COUNT 261 10^3/uL (130-450); RED BLOOD COUNT 4.83 10^6/uL (4.20-5.40); WHITE BLOOD COUNT 6.9 x10^3/uL (4.8-10.8)
[2020-10-04 15:17] LABS: ALBUMIN 3.6 g/dL (3.2-5.5); ALBUMIN/GLOBULIN RATIO 1.1 (1.0-2.2); ALKALINE PHOSPHATASE 78 IU/L (42-121); ALT ALANINE AMINOTRANSFERASE 12 IU/L (10-60); AST ASPARTATE AMINOTRANSFERASE 11 IU/L (10-42); BILIRUBIN,TOTAL 0.8 mg/dL (0.2-1.0); BUN - BLOOD UREA NITROGEN 16 mg/dL (6-20); CALCIUM 8.9 mg/dL (8.5-10.3); CARBON DIOXIDE - CO2 28 mmol/L (21-32); CHLORIDE 97 mmol/L (101-111); CHOL/HDL RATIO 3.8 (<4.4); CHOLESTEROL 166 mg/dL; CREATININE 0.9 mg/dL (0.4-1.0); GFR - MDRD 62 (>89); GLUCOSE 127 mg/dL (70-100); HDL CHOLESTEROL 44 mg/dL; LDL CHOLESTEROL,CALCULATED 84 mg/dL; LDL/HDL RATIO 1.9 (<4.4); POTASSIUM 3.8 mmol/L (3.5-5.0); SODIUM 137 mmol/L (135-145); TOTAL PROTEIN 6.9 g/dL (6.7-8.2); TRIGLYCERIDES 189 mg/dL; VLDL CHOLESTEROL 38 mg/dL
[2020-10-04 15:41] LABS: THYROID STIMULATING HORMONE 1.63 uIU/mL (0.34-5.60)
[2020-10-04 20:35] LABS: ESTIMATED AVERAGE GLUCOSE 154 mg/dL (70-100)
== END 2020-10-04 10:02 | disposition home or self-care (01) ==
LOC: LAB.S 10:01
PROVIDERS: ATTEND Internal Medicine Rheumatology
DX: M25.50 Pain in unspecified joint (principal); M06.9 Rheumatoid arthritis, unspecified; E11.59 Type 2 diabetes mellitus with other circulatory complications; I48.0 Paroxysmal atrial fibrillation; I50.9 Heart failure, unspecified; Z79.01 Long term (current) use of anticoagulants
CPT/HCPCS: 36415; 80053; 80061; 81599; 82043; 82570; 83036; 83721; 84443; 85025; 85598; 85613; 85651; 85730

== ENCOUNTER 2020-10-23 09:27 | Outpatient (CLI) | payer MEDICARE, OTHER | END 2020-10-23 09:28 | disposition home or self-care (01) | LOC: LAB.S 09:27 | PROVIDERS: ATTEND Registered Nurse | DX: M25.50 Pain in unspecified joint (principal); M06.9 Rheumatoid arthritis, unspecified | CPT/HCPCS: 36415; 85651 ==

== ENCOUNTER 2020-10-26 08:00 | Outpatient (CLI) | payer MEDICARE, OTHER ==
[2020-10-26 15:37] LABS: CREATININE,URINE 92.6 mg/dL; MICROALBUM/CREATININE RATIO,UR 4.3 ug/mg (<30.0); MICROALBUMIN,URINE 0.4 mg/dL (0-300.0)
== END 2020-10-26 23:59 | disposition home or self-care (01) ==
LOC: LAB.S 08:00
PROVIDERS: ATTEND Registered Nurse
DX: E11.59 Type 2 diabetes mellitus with other circulatory complications (principal); I48.0 Paroxysmal atrial fibrillation; I50.9 Heart failure, unspecified
CPT/HCPCS: 82043; 82570

== ENCOUNTER 2021-05-22 14:06 | Outpatient (CLI) | payer MEDICARE, OTHER ==
[2021-05-22 20:06] LABS: BASOPHILS % (AUTO) 0.5 %; EOSINOPHILS # (AUTO) 0.1 10^3/uL (0.0-0.7); HCT - HEMATOCRIT 45.8 % (37.0-47.0); HGB - HEMOGLOBIN 14.3 g/dL (12.0-16.0); LYMPHOCYTES # (AUTO) 1.7 10^3/uL (1.5-3.5); LYMPHOCYTES % (AUTO) 18.9 %; MEAN CORPUSCULAR HGB CONC 31.2 g/dL (32.0-36.0); MEAN CORPUSCULAR VOLUME 92.9 fL (81.0-99.0); MEAN PLATELET VOLUME 9.7 fL (7.9-10.8); MONOCYTES # (AUTO) 0.7 10^3/uL (0.0-1.0); MONOCYTES % (AUTO) 8.2 %; NEUTROPHILS # (AUTO) 6.3 10^3/uL (1.5-6.6); NEUTROPHILS % (AUTO) 71.2 %; PLT - PLATELET COUNT 297 10^3/uL (130-450); RED BLOOD COUNT 4.93 10^6/uL (4.20-5.40); RED CELL DISTRIBUTION WIDTH 14.5 % (12.0-15.0); WHITE BLOOD COUNT 8.8 x10^3/uL (4.8-10.8)
[2021-05-22 20:27] LABS: CALCIUM 9.3 mg/dL (8.5-10.3); POTASSIUM 4.2 mmol/L (3.5-5.0); TOTAL PROTEIN 7.3 g/dL (6.7-8.2)
[2021-05-22 20:54] LABS: ALBUMIN 3.6 g/dL (3.2-5.5); BILIRUBIN,TOTAL 0.6 mg/dL (0.2-1.0); CREATININE 0.9 mg/dL (0.4-1.0); CRP - C-REACTIVE PROTEIN 1.4 mg/dL (0-1.0)
== END 2021-05-22 14:07 | disposition home or self-care (01) ==
LOC: LAB.S 14:06
PROVIDERS: ATTEND Internal Medicine Rheumatology
DX: M06.9 Rheumatoid arthritis, unspecified (principal)
CPT/HCPCS: 36415; 80053; 85025; 85651; 86140

== ENCOUNTER 2021-09-18 10:57 | Outpatient (CLI) | payer MEDICARE, OTHER ==
[2021-09-18 14:26] LABS: BASOPHILS # (AUTO) 0.1 10^3/uL (0.0-0.1); BASOPHILS % (AUTO) 0.6 %; EOSINOPHILS # (AUTO) 0.1 10^3/uL (0.0-0.7); EOSINOPHILS % (AUTO) 0.8 %; HCT - HEMATOCRIT 43.8 % (37.0-47.0); HGB - HEMOGLOBIN 13.6 g/dL (12.0-16.0); LYMPHOCYTES # (AUTO) 1.4 10^3/uL (1.5-3.5); LYMPHOCYTES % (AUTO) 17.9 %; MEAN CORPUSCULAR HEMOGLOBIN 28.8 pg (27.0-31.0); MEAN CORPUSCULAR HGB CONC 31.1 g/dL (32.0-36.0); MEAN CORPUSCULAR VOLUME 92.6 fL (81.0-99.0); MEAN PLATELET VOLUME 9.2 fL (7.9-10.8); MONOCYTES # (AUTO) 0.6 10^3/uL (0.0-1.0); MONOCYTES % (AUTO) 7.6 %; NEUTROPHILS # (AUTO) 5.7 10^3/uL (1.5-6.6); NEUTROPHILS % (AUTO) 72.6 %; PLT - PLATELET COUNT 256 10^3/uL (130-450); RED BLOOD COUNT 4.73 10^6/uL (4.20-5.40); WHITE BLOOD COUNT 7.9 x10^3/uL (4.8-10.8)
[2021-09-18 14:45] LABS: ALBUMIN 3.6 g/dL (3.2-5.5); ALBUMIN/GLOBULIN RATIO 1.1 (1.0-2.2); BILIRUBIN,TOTAL 0.7 mg/dL (0.2-1.0); CALCIUM 9.2 mg/dL (8.5-10.3); CRP - C-REACTIVE PROTEIN 1.7 mg/dL (0-1.0); TOTAL PROTEIN 6.9 g/dL (6.7-8.2)
== END 2021-09-18 10:58 | disposition home or self-care (01) ==
LOC: LAB.S 10:57
PROVIDERS: ATTEND Internal Medicine Rheumatology
DX: M06.9 Rheumatoid arthritis, unspecified (principal); M25.50 Pain in unspecified joint
CPT/HCPCS: 36415; 80053; 85025; 85651; 86140

== ENCOUNTER 2022-01-17 11:03 | Outpatient (CLI) | payer MEDICARE, OTHER ==
[2022-01-17 14:51] LABS: BASOPHILS # (AUTO) 0.1 10^3/uL (0.0-0.1); BASOPHILS % (AUTO) 0.7 %; EOSINOPHILS # (AUTO) 0.1 10^3/uL (0.0-0.7); EOSINOPHILS % (AUTO) 0.9 %; HCT - HEMATOCRIT 44.4 % (37.0-47.0); HGB - HEMOGLOBIN 13.1 g/dL (12.0-16.0); LYMPHOCYTES # (AUTO) 1.3 10^3/uL (1.5-3.5); LYMPHOCYTES % (AUTO) 18.7 %; MEAN CORPUSCULAR HEMOGLOBIN 27.7 pg (27.0-31.0); MEAN CORPUSCULAR HGB CONC 29.5 g/dL (32.0-36.0); MEAN CORPUSCULAR VOLUME 93.9 fL (81.0-99.0); MEAN PLATELET VOLUME 9.9 fL (7.9-10.8); MONOCYTES # (AUTO) 0.6 10^3/uL (0.0-1.0); MONOCYTES % (AUTO) 8.7 %; NEUTROPHILS # (AUTO) 4.9 10^3/uL (1.5-6.6); NEUTROPHILS % (AUTO) 70.6 %; PLT - PLATELET COUNT 254 10^3/uL (130-450); RED BLOOD COUNT 4.73 10^6/uL (4.20-5.40); RED CELL DISTRIBUTION WIDTH 14.9 % (12.0-15.0)
[2022-01-17 15:13] LABS: ALBUMIN 3.6 g/dL (3.2-5.5); ALBUMIN/GLOBULIN RATIO 1.1 (1.0-2.2); ALKALINE PHOSPHATASE 93 IU/L (42-121); ALT ALANINE AMINOTRANSFERASE 15 IU/L (10-60); AST ASPARTATE AMINOTRANSFERASE 13 IU/L (10-42); BILIRUBIN,TOTAL 0.7 mg/dL (0.2-1.0); BUN - BLOOD UREA NITROGEN 18 mg/dL (6-20); CALCIUM 8.8 mg/dL (8.5-10.3); CARBON DIOXIDE - CO2 28 mmol/L (21-32); CHLORIDE 101 mmol/L (101-111); CHOLESTEROL 162 mg/dL; CREATININE 0.9 mg/dL (0.4-1.0); GFR - MDRD 62 (>89); GLUCOSE 125 mg/dL (70-100); HDL CHOLESTEROL 54 mg/dL; LDL CHOLESTEROL,CALCULATED 65 mg/dL; LDL/HDL RATIO 1.2 (<4.4); SODIUM 138 mmol/L (135-145); TOTAL PROTEIN 6.8 g/dL (6.7-8.2); TRIGLYCERIDES 215 mg/dL; VLDL CHOLESTEROL 43 mg/dL
[2022-01-17 16:07] LABS: THYROID STIMULATING HORMONE 1.77 uIU/mL (0.34-5.60)
[2022-01-17 18:58] LABS: ESTIMATED AVERAGE GLUCOSE 166 mg/dL (70-100); HEMOGLOBIN A1c% 7.4 % (4.27-6.07)
== END 2022-01-17 11:04 | disposition home or self-care (01) ==
LOC: LAB.S 11:03
PROVIDERS: ATTEND Registered Nurse
DX: E11.59 Type 2 diabetes mellitus with other circulatory complications (principal); Z79.01 Long term (current) use of anticoagulants; I48.0 Paroxysmal atrial fibrillation; I50.9 Heart failure, unspecified
CPT/HCPCS: 36415; 80053; 80061; 83036; 83721; 84443; 85025

== ENCOUNTER 2022-06-26 11:40 | Outpatient (CLI) | payer MEDICARE, OTHER | END 2022-06-26 23:59 | disposition critical access hospital (66) | LOC: EMS 11:40 | DX: U07.1 COVID-19 (principal); R06.02 Shortness of breath; R46.4 Slowness and poor responsiveness | CPT/HCPCS: A0425; A0427 ==

== ENCOUNTER 2022-06-26 12:24 | Inpatient (IN) | payer MEDICARE, OTHER ==
--- NOTE | 2022-06-26 13:03 | ED Physician Documentation ---
History of Present Illness - Stated complaint Stated Complaint: C+ SOA - History obtained from History obtained from: EMS - Additonal information Additional information: Patient presents to the emergency department with decreased responsiveness, increased difficulty breathing and shallow respirations. EMS does not know any of her medical history. They state they did bring a bag of medications. They state that she was from a private residence where there were 2 other people but they did not ask who those people were. They do not know if she has a POLST form. No other history is available currently. Upon chart review, it appears that she has a history of congestive heart failure and atrial fibrillation. She had been on warfarin in the past, unclear if she is still on warfarin or not. Medication review shows that she picked up Paxlovid on 24 June. She also appears to be on omeprazole, diltiazem, sulfasalazine, famotidine, bisoprolol, furosemide, metformin. Review of Systems Unable to obtain: Unresponsive PD PAST MEDICAL HISTORY - Past Medical History Cardiovascular: Congestive heart failure, Atrial fibrillation Respiratory: Asthma - Present Medications Home Medications: Ambulatory Orders Medication Instructions Recorded Confirmed Digoxin [Lanoxin] 125 mcg PO DAILY 06/26/22 06/26/22 Famotidine 40 mg PO DAILY 06/26/22 06/26/22 Furosemide [Lasix] 80 mg PO BIDDIURETIC 06/26/22 06/26/22 Losartan Potassium 25 mg PO DAILY 06/26/22 06/26/22 Metoprolol Tartrate [Lopressor] 100 mg PO BID 06/26/22 06/26/22 Omeprazole 40 mg PO QDAC 06/26/22 06/26/22 Pravastatin [Pravachol] 40 mg PO QPM 06/26/22 06/26/22 Warfarin [Coumadin] 2.5 mg PO WESA 06/26/22 06/26/22 Warfarin [Coumadin] 5 mg PO SUMOTUTHFR 06/26/22 06/26/22 bisoproloL fumarate [Bisoprolol 10 mg PO DAILY 06/26/22 06/26/22 Fumarate] dilTIAZem HCL [Diltiazem 24Hr ER 180 mg PO DAILY 06/26/22 06/26/22 (Xr)] metFORMIN [Glucophage] 500 mg PO BIDWM 06/26/22 06/26/22 sulfaSALAzine [Azulfidine] 750 mg PO BIDWM 06/26/22 06/26/22 - Allergies Allergies/Adverse Reactions: Allergies Allergy/AdvReac Type Severity Reaction Status Date / Time codeine Allergy Hallucinati Verified 10/27/18 13:15 ons - Social History Does the pt smoke?: No Smoking Status: Never smoker Does the pt drink ETOH?: No Does the pt have substance abuse?: No PD ED PE NORMAL - Vitals Vital signs reviewed: Yes - General General: Other (Patient is minimally responsive) - HEENT HEENT: Moist mucous membranes, Pharynx benign, Other (Pupils pinpoint bilaterally) - Neck Neck: Supple, no meningeal sign - Cardiac Cardiac: Other (Irregular heartbeat) - Respiratory Respiratory: Other (Very shallow respirations, diminished breath sounds bilaterally) - Abdomen Abdomen: Soft, Non tender, Non distended - Derm Derm: Warm and dry - Extremities Extremities: Other (Obese female, no discrete edema) - Neuro Eye Opening: None Motor: None Verbal: Incomprehensible GCS Score: 4 Results - Vitals Vitals: Vital Signs - 24 hr 06/26/22 06/26/22 06/26/22 13:09 13:48 13:50 Temperature 35.2 C L Heart Rate 82 58 L 88 Respiratory 26 H Rate Blood Pressure 98/83 H O2 Saturation 80 L 06/26/22 06/26/22 15:18 15:55 Temperature 35.1 C L Heart Rate 58 L 77 Respiratory 21 Rate Blood Pressure 93/72 O2 Saturation 90 L Oxygen O2 Source BIPAP Oxygen Flow Rate 15 - EKG (time done) 1342 EKG releavant findings:: EKG personally interpreted by author of this note. Relevant findings are: Rate: Rate (enter#) (78) Rhythm: Atrial fibrillation [place]: Normal Intervals: Wide QRS Ischemia: Normal ST segments - Labs Labs: Laboratory Tests 06/26/22 06/26/22 06/26/22 13:10 13:58 14:52 WBC 11.1 H RBC 5.00 Hgb 13.5 Hct 46.5 MCV 93.0 MCH 27.0 MCHC 29.0 L RDW 15.8 H Plt Count 315 MPV 8.8 Neut # (Auto) 9.8 H Lymph # (Auto) 0.6 L [place] # (Auto) 0.5 Eos # (Auto) 0.0 Baso # (Auto) 0.0 Absolute Nucleated RBC 0.04 Nucleated RBC % 0.4 Bld Gas Analysis Time 1316 Sample Site LEFT RADIAL ABG pH 7.06 L* ABG pCO2 95 H* ABG pO2 112 H ABG HCO3 26.2 H ABG Total CO2 29.1 H ABG O2 Saturation 97 ABG Base Excess -6.6 L [place] Test POSITIVE Respiration Rate 16 O2 Delivery Device BiPAP FiO2 100.00 EPAP IPAP Sodium Potassium Chloride Carbon Dioxide Anion Gap BUN Creatinine Estimated GFR (MDRD) Glucose Lactic Acid Calcium Total Bilirubin AST ALT Alkaline Phosphatase Troponin I High Sens B-Natriuretic Peptide Total Protein Albumin Globulin Albumin/Globulin Ratio Urine Color Urine Clarity Urine pH Ur Specific [place] Urine Protein Urine Glucose (UA) Urine Ketones Urine Occult Blood Urine Nitrite Urine Bilirubin Urine Urobilinogen Ur Leukocyte Esterase Urine RBC Urine WBC Ur Squamous Epith Cells Urine Bacteria Urine Casts Urine Culture Comments Nasal Adenovirus (PCR) NOT DETECTED Nasal B. parapertussis DNA (PCR) NOT DETECTED Nasal Coronavir 229E PCR NOT DETECTED Nasal Coronavir HKU1 PCR NOT DETECTED Nasal Coronavir NL63 PCR NOT DETECTED Nasal Coronavir OC43 PCR NOT DETECTED Nasal Enterovir/Rhinovir PCR NOT DETECTED Nasal Influenza B PCR NOT DETECTED Nasal Influenza A PCR NOT DETECTED Nasal Parainfluen 1 PCR NOT DETECTED Nasal Parainfluen 2 PCR NOT DETECTED Nasal Parainfluen 3 PCR NOT DETECTED Nasal Parainfluen 4 PCR NOT DETECTED Nasal RSV (PCR) NOT DETECTED Nasal B.pertussis DNA PCR NOT DETECTED Nasal C.pneumoniae (PCR) NOT DETECTED Nba Human Metapneumo PCR NOT DETECTED Nasal M.pneumoniae (PCR) NOT DETECTED Nasal SARS-CoV-2 (PCR) DETECTED A Salicylates Urine Opiates Screen Ur Oxycodone Screen Urine Methadone Screen Ur Propoxyphene Screen Acetaminophen Ur Barbiturates Screen Ur Tricyclics Screen Ur Phencyclidine Scrn Ur Amphetamine Screen U Methamphetamines Scrn U Benzodiazepines Scrn Urine Cocaine Screen U Cannabinoids Screen Ethyl Alcohol 06/26/22 06/26/22 06/26/22 14:52 14:52 14:52 WBC RBC Hgb Hct MCV MCH MCHC RDW Plt Count MPV Neut # (Auto) Lymph # (Auto) [place] # (Auto) Eos # (Auto) Baso # (Auto) Absolute Nucleated RBC Nucleated RBC % Bld Gas Analysis Time Sample Site ABG pH ABG pCO2 ABG pO2 ABG HCO3 ABG Total CO2 ABG O2 Saturation ABG Base Excess Clemente Test Respiration Rate O2 Delivery Device FiO2 EPAP IPAP Sodium 138 Potassium 5.1 H Chloride 99 L Carbon Dioxide 30 Anion Gap 9.0 BUN 35 H Creatinine 1.8 H Estimated GFR (MDRD) 28 L Glucose 156 H Lactic Acid 2.4 H Calcium 8.3 L Total Bilirubin 0.4 AST 516 H ALT 356 H Alkaline Phosphatase 84 Troponin I High Sens B-Natriuretic Peptide 305 H Total Protein 5.5 L Albumin 3.1 L Globulin 2.4 Albumin/Globulin Ratio 1.3 Urine Color Urine Clarity Urine pH Ur Specific [place] Urine Protein Urine Glucose (UA) Urine Ketones Urine Occult Blood Urine Nitrite Urine Bilirubin Urine Urobilinogen Ur Leukocyte Esterase Urine RBC Urine WBC Ur Squamous Epith Cells Urine Bacteria Urine Casts Urine Culture Comments Nasal Adenovirus (PCR) Nasal B. parapertussis DNA (PCR) Nasal Coronavir 229E PCR Nasal Coronavir HKU1 PCR Nasal Coronavir NL63 PCR Nasal Coronavir OC43 PCR Nasal Enterovir/Rhinovir PCR Nasal Influenza B PCR Nasal Influenza A PCR Nasal Parainfluen 1 PCR Nasal Parainfluen 2 PCR Nasal Parainfluen 3 PCR Nasal Parainfluen 4 PCR Nasal RSV (PCR) Nasal B.pertussis DNA PCR Nasal C.pneumoniae (PCR) Nba Human Metapneumo PCR Nasal M.pneumoniae (PCR) Nasal SARS-CoV-2 (PCR) Salicylates 10.9 Urine Opiates Screen Ur Oxycodone Screen Urine Methadone Screen Ur Propoxyphene Screen Acetaminophen < 10 L Ur Barbiturates Screen Ur Tricyclics Screen Ur Phencyclidine Scrn Ur Amphetamine Screen U Methamphetamines Scrn U Benzodiazepines Scrn Urine Cocaine Screen U Cannabinoids Screen Ethyl Alcohol < 5.0 06/26/22 06/26/22 06/26/22 14:52 15:10 15:30 WBC RBC Hgb Hct MCV MCH MCHC RDW Plt Count MPV Neut # (Auto) Lymph # (Auto) [place] # (Auto) Eos # (Auto) Baso # (Auto) Absolute Nucleated RBC Nucleated RBC % Bld Gas Analysis Time 1515 Sample Site LEFT RADIAL ABG pH 7.19 L* ABG pCO2 70 H* ABG pO2 109 H ABG HCO3 25.9 ABG Total CO2 28.0 ABG O2 Saturation 97 ABG Base Excess -4.0 L [place] Test POSITIVE Respiration Rate O2 Delivery Device BiPAP FiO2 100.00 EPAP 5 IPAP 16 Sodium Potassium Chloride Carbon Dioxide Anion Gap BUN Creatinine Estimated GFR (MDRD) Glucose Lactic Acid Calcium Total Bilirubin AST ALT Alkaline Phosphatase Troponin I High Sens 42.2 H* B-Natriuretic Peptide Total Protein Albumin Globulin Albumin/Globulin Ratio Urine Color DARK YELLOW Urine Clarity HAZY Urine pH 5.5 Ur Specific [place] >=1.030 H Urine Protein 100 H Urine Glucose (UA) NEGATIVE Urine Ketones NEGATIVE Urine Occult Blood NEGATIVE Urine Nitrite NEGATIVE Urine Bilirubin NEGATIVE Urine Urobilinogen 0.2 (NORMAL) Ur Leukocyte Esterase NEGATIVE Urine RBC 0-5 Urine WBC 0-3 Ur Squamous Epith Cells FEW Squamous Urine Bacteria Few Urine Casts 0-2 Hyaline Casts Urine Culture Comments NOT INDICATED Nasal Adenovirus (PCR) Nasal B. parapertussis DNA (PCR) Nasal Coronavir 229E PCR Nasal Coronavir HKU1 PCR Nasal Coronavir NL63 PCR Nasal Coronavir OC43 PCR Nasal Enterovir/Rhinovir PCR Nasal Influenza B PCR Nasal Influenza A PCR Nasal Parainfluen 1 PCR Nasal Parainfluen 2 PCR Nasal Parainfluen 3 PCR Nasal Parainfluen 4 PCR Nasal RSV (PCR) Nasal B.pertussis DNA PCR Nasal C.pneumoniae (PCR) Nba Human Metapneumo PCR Nasal M.pneumoniae (PCR) Nasal SARS-CoV-2 (PCR) Salicylates Urine Opiates Screen Ur Oxycodone Screen Urine Methadone Screen Ur Propoxyphene Screen Acetaminophen Ur Barbiturates Screen Ur Tricyclics Screen Ur Phencyclidine Scrn Ur Amphetamine Screen U Methamphetamines Scrn U Benzodiazepines Scrn Urine Cocaine Screen U Cannabinoids Screen Ethyl Alcohol 06/26/22 15:30 WBC RBC Hgb Hct MCV MCH MCHC RDW Plt Count MPV Neut # (Auto) Lymph # (Auto) [place] # (Auto) Eos # (Auto) Baso # (Auto) Absolute Nucleated RBC Nucleated RBC % Bld Gas Analysis Time Sample Site ABG pH ABG pCO2 ABG pO2 ABG HCO3 ABG Total CO2 ABG O2 Saturation ABG Base Excess Clemente Test Respiration Rate O2 Delivery Device FiO2 EPAP IPAP Sodium Potassium Chloride Carbon Dioxide Anion Gap BUN Creatinine Estimated GFR (MDRD) Glucose Lactic Acid Calcium Total Bilirubin AST ALT Alkaline Phosphatase Troponin I High Sens B-Natriuretic Peptide Total Protein Albumin Globulin Albumin/Globulin Ratio Urine Color Urine Clarity Urine pH Ur Specific [place] Urine Protein Urine Glucose (UA) Urine Ketones Urine Occult Blood Urine Nitrite Urine Bilirubin Urine Urobilinogen Ur Leukocyte Esterase Urine RBC Urine WBC Ur Squamous Epith Cells Urine Bacteria Urine Casts Urine Culture Comments Nasal Adenovirus (PCR) Nasal B. parapertussis DNA (PCR) Nasal Coronavir 229E PCR Nasal Coronavir HKU1 PCR Nasal Coronavir NL63 PCR Nasal Coronavir OC43 PCR Nasal Enterovir/Rhinovir PCR Nasal Influenza B PCR Nasal Influenza A PCR Nasal Parainfluen 1 PCR Nasal Parainfluen 2 PCR Nasal Parainfluen 3 PCR Nasal Parainfluen 4 PCR Nasal RSV (PCR) Nasal B.pertussis DNA PCR Nasal C.pneumoniae (PCR) Nba Human Metapneumo PCR Nasal M.pneumoniae (PCR) Nasal SARS-CoV-2 (PCR) Salicylates Urine Opiates Screen NEGATIVE Ur Oxycodone Screen NEGATIVE Urine Methadone Screen NEGATIVE Ur Propoxyphene Screen NEGATIVE Acetaminophen Ur Barbiturates Screen NEGATIVE Ur Tricyclics Screen NEGATIVE Ur Phencyclidine Scrn NEGATIVE Ur Amphetamine Screen NEGATIVE U Methamphetamines Scrn NEGATIVE U Benzodiazepines Scrn NEGATIVE Urine Cocaine Screen NEGATIVE U Cannabinoids Screen NEGATIVE Ethyl Alcohol - Rads (name of study) cxr Relevant Findings:: Final report received, See rad report Procedures - Central Line - Major Central Line Preparation: Unable to obtain consent, Time out completed, Ultrasound used, Sterile prep and drape Central line location: Right IJ Central line type: Triple lumen Central line aftercare: Chlorhexidine disc placed, Secured, Placement confirmed, No pneumothorax, No complications, Bundle checklist complete, Pt tolerated well PD Medical Decision Making - ED course Complexity details: reviewed results, re-evaluated patient, considered differential, d/w patient, d/w 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 PCO2 95 with a base excess of -6.6. Her repeat ABG had improved to a pH of 7.19, PCO2 of 70, base excess -4. Her initial chemistry showed a mildly el evated potassium of 5.1, creatinine 1.8 and elevated lactate at 2.4. She has elevations of her liver function tests as well, AST 516, ALT 356. BNP is also elevated at 305. Her high sensitive troponin was mildly elevated, 42.2, but not significant to be considered a non-STEMI. Urinalysis was concentrated. Respiratory PCR is positive for COVID. Toxicology screen does show a positive salicylate at 10.9, otherwise negative. ED course: 72-year-old female presents to the emergency department after being positive for COVID 2 days ago, started on Paxlovid yesterday. She was noted to have decreased responsiveness today and 911 was called. Patient is essentially GCS 4 on arrival. Due to her body habitus, no IV access was able to be established. Therefore a right-sided central line was placed in her IJ. Patient was placed on BiPAP as well. Gradually her PCO2 decreased, her acidosis improved and her mental status improved. After approximately 2 hours, she is able to speak and respond to questions. GCS is up to a 14. We will admit the patient for respiratory failure, CHF and COVID. Discussed the case with Dr. Rodriguez, hospitalist who accepts This document was made in part using voice recognition software. While efforts are made to proofread this document, sound alike and grammatical errors may occur. - Critical Care Time(min): 45 Time Includes: Direct patient care Data interpretation: See progress note Procedures excluded from critical care time: Central IV, See progress note Departure - Departure Disposition: 66 [facility] DC/Xfer Clinical Impression: COVID-19, Metabolic acidosis Respiratory failure Qualifiers: Chronicity: acute Respiratory failure complication: hypoxia and hypercapnia Qualified Code(s): J96.01 - Acute respiratory failure with hypoxia Condition: Serious Discharge Date/Time: 06/26/22 18:13
--- OUTSIDE RECORDS SUMMARY | 2022-06-26 13:03 | EXTERNAL MEDICAL SUMMARY RPT | Continuity of Care Document ---
:1950 Author Organization [facility] Address [address] [place] [address] Phone Care Team Providers Name Role Phone Unavailable Unavailable Unavailable Daniela Grant Unavailable Unavailable Allergies No information. Encounters No information. Functional Status No information. Immunizations No information. Medications date description facility 2022-05-15 00:00 diltiazem hcl All 2022-05-15 00:00 diltiazem hcl All 2022-05-15 00:00 diltiazem hcl All 2022-05-15 00:00 diltiazem hcl All Problems date description facility 2022-03-28 00:00 Shoulder joint pain All 2022-03-28 00:00 Hypertriglyceridemia All 2022-03-28 00:00 Anticoagulant control - finding All 2022-03-28 00:00 Impaired fasting glycemia All 2022-03-28 00:00 Obesity All 2022-03-28 00:00 Atrial fibrillation All 2022-03-28 00:00 Congestive heart failure, unspecified All 2022-03-28 00:00 Pain in joint involving shoulder region All 2022-03-28 00:00 Chronic congestive heart failure All 2022-03-28 00:00 Obesity, unspecified All 2022-03-28 00:00 Pure hyperglyceridemia All 2022-03-28 00:00 Chronic atrial fibrillation All 2022-03-28 00:00 Heart failure, unspecified All 2022-03-28 00:00 Pain in left shoulder All 2022-03-28 00:00 Impaired fasting glucose All 2022-03-28 00:00 Long-term (current) use of anticoagulan ts All 2022-03-28 00:00 intermediate card tender (current) use of anticoagulan ts All 2022-04-02 00:00 Shoulder joint pain All 2022-04-02 00:00 Hypertriglyceridemia All 2022-04-02 00:00 Anticoagulant control - finding All 2022-04-02 00:00 Impaired fasting glycemia All 2022-04-02 00:00 Obesity All 2022-04-02 00:00 Atrial fibrillation All 2022-04-02 00:00 Congestive heart failure, unspecified All 2022-04-02 00:00 Pain in joint involving shoulder region All 2022-04-02 00:00 Chronic congestive heart failure All 2022-04-02 00:00 Obesity, unspecified All 2022-04-02 00:00 Pure hyperglyceridemia All 2022-04-02 00:00 Chronic atrial fibrillation All 2022-04-02 00:00 Heart failure, unspecified All 2022-04-02 00:00 Pain in left shoulder All 2022-04-02 00:00 Impaired fasting glucose All 2022-04-02 00:00 Long-term (current) use of anticoagulan ts All 2022-04-02 00:00 intermediate card tender (current) use of anticoagulan ts All 2022-04-03 00:00 Shoulder joint pain All 2022-04-03 00:00 Hypertriglyceridemia All 2022-04-03 00:00 Anticoagulant control - finding All 2022-04-03 00:00 Impaired fasting glycemia All 2022-04-03 00:00 Obesity All 2022-04-03 00:00 Atrial fibrillation All 2022-04-03 00:00 Congestive heart failure, unspecified All 2022-04-03 00:00 Pain in joint involving shoulder region All 2022-04-03 00:00 Chronic congestive heart failure All 2022-04-03 00:00 Obesity, unspecified All 2022-04-03 00:00 Pure hyperglyceridemia All 2022-04-03 00:00 Chronic atrial fibrillation All 2022-04-03 00:00 Heart failure, unspecified All 2022-04-03 00:00 Pain in left shoulder All 2022-04-03 00:00 Impaired fasting glucose All 2022-04-03 00:00 Long-term (current) use of anticoagulan ts All 2022-04-03 00:00 detention (current) use of anticoagulan ts All 2022-04-10 00:00 Shoulder joint pain All 2022-04-10 00:00 Hypertriglyceridemia All 2022-04-10 00:00 Anticoagulant control - finding All 2022-04-10 00:00 Impaired fasting glycemia All 2022-04-10 00:00 Obesity All 2022-04-10 00:00 Atrial fibrillation All 2022-04-10 00:00 Congestive heart failure, unspecified All 2022-04-10 00:00 Pain in joint involving shoulder region All 2022-04-10 00:00 Chronic congestive heart failure All 2022-04-10 00:00 Obesity, unspecified All 2022-04-10 00:00 Pure hyperglyceridemia All 2022-04-10 00:00 Chronic atrial fibrillation All 2022-04-10 00:00 Heart failure, unspecified All 2022-04-10 00:00 Pain in left shoulder All 2022-04-10 00:00 Impaired fasting glucose All 2022-04-10 00:00 Long-term (current) use of anticoagulan ts All 2022-04-10 00:00 intermediate card tender (current) use of anticoagulan ts All 2022-04-17 00:00 Shoulder joint pain All 2022-04-17 00:00 Hypertriglyceridemia All 2022-04-17 00:00 Anticoagulant control - finding All 2022-04-17 00:00 Impaired fasting glycemia All 2022-04-17 00:00 Obesity All 2022-04-17 00:00 Atrial fibrillation All 2022-04-17 00:00 Congestive heart failure, unspecified All 2022-04-17 00:00 Pain in joint involving shoulder region All 2022-04-17 00:00 Chronic congestive heart failure All 2022-04-17 00:00 Obesity, unspecified All 2022-04-17 00:00 Pure hyperglyceridemia All 2022-04-17 00:00 Chronic atrial fibrillation All 2022-04-17 00:00 Heart failure, unspecified All 2022-04-17 00:00 Pain in left shoulder All 2022-04-17 00:00 Impaired fasting glucose All 2022-04-17 00:00 Long-term (current) use of anticoagulan ts All 2022-04-17 00:00 intermediate card tender (current) use of anticoagulan ts All 2022-04-18 00:00 Shoulder joint pain All 2022-04-18 00:00 Hypertriglyceridemia All 2022-04-18 00:00 Anticoagulant control - finding All 2022-04-18 00:00 Impaired fasting glycemia All 2022-04-18 00:00 Obesity All 2022-04-18 00:00 Atrial fibrillation All 2022-04-18 00:00 Congestive heart failure, unspecified All 2022-04-18 00:00 Pain in joint involving shoulder region All 2022-04-18 00:00 Chronic congestive heart failure All 2022-04-18 00:00 Obesity, unspecified All 2022-04-18 00:00 Pure hyperglyceridemia All 2022-04-18 00:00 Chronic atrial fibrillation All 2022-04-18 00:00 Heart failure, unspecified All 2022-04-18 00:00 Pain in left shoulder All 2022-04-18 00:00 Impaired fasting glucose All 2022-04-18 00:00 Long-term (current) use of anticoagulan ts All 2022-04-18 00:00 detention (current) use of anticoagulan ts All 2022-04-25 00:00 Shoulder joint pain All 2022-04-25 00:00 Hypertriglyceridemia All 2022-04-25 00:00 Anticoagulant control - finding All 2022-04-25 00:00 Impaired fasting glycemia All 2022-04-25 00:00 Obesity All 2022-04-25 00:00 Atrial fibrillation All 2022-04-25 00:00 Congestive heart failure, unspecified All 2022-04-25 00:00 Pain in joint involving shoulder region All 2022-04-25 00:00 Chronic congestive heart failure All 2022-04-25 00:00 Obesity, unspecified All 2022-04-25 00:00 Pure hyperglyceridemia All 2022-04-25 00:00 Chronic atrial fibrillation All 2022-04-25 00:00 Heart failure, unspecified All 2022-04-25 00:00 Pain in left shoulder All 2022-04-25 00:00 Impaired fasting glucose All 2022-04-25 00:00 Long-term (current) use of anticoagulan ts All 2022-04-25 00:00 detention (current) use of anticoagulan ts All 2022-04-28 00:00 Shoulder joint pain All 2022-04-28 00:00 Hypertriglyceridemia All 2022-04-28 00:00 Anticoagulant control - finding All 2022-04-28 00:00 Impaired fasting glycemia All 2022-04-28 00:00 Obesity All 2022-04-28 00:00 Atrial fibrillation All 2022-04-28 00:00 Congestive heart failure, unspecified All 2022-04-28 00:00 Pain in joint involving shoulder region All 2022-04-28 00:00 Chronic congestive heart failure All 2022-04-28 00:00 Obesity, unspecified All 2022-04-28 00:00 Pure hyperglyceridemia All 2022-04-28 00:00 Chronic atrial fibrillation All 2022-04-28 00:00 Heart failure, unspecified All 2022-04-28 00:00 Pain in left shoulder All 2022-04-28 00:00 Impaired fasting glucose All 2022-04-28 00:00 Long-term (current) use of anticoagulan ts All 2022-04-28 00:00 intermediate card tender (current) use of anticoagulan ts All 2022-05-07 00:00 Shoulder joint pain All 2022-05-07 00:00 Hypertriglyceridemia All 2022-05-07 00:00 Anticoagulant control - finding All 2022-05-07 00:00 Impaired fasting glycemia All 2022-05-07 00:00 Obesity All 2022-05-07 00:00 Atrial fibrillation All 2022-05-07 00:00 Congestive heart failure, unspecified All 2022-05-07 00:00 Pain in joint involving shoulder region All 2022-05-07 00:00 Chronic congestive heart failure All 2022-05-07 00:00 Obesity, unspecified All 2022-05-07 00:00 Pure hyperglyceridemia All 2022-05-07 00:00 Chronic atrial fibrillation All 2022-05-07 00:00 Heart failure, unspecified All 2022-05-07 00:00 Pain in left shoulder All 2022-05-07 00:00 Impaired fasting glucose All 2022-05-07 00:00 Long-term (current) use of anticoagulan ts All 2022-05-07 00:00 detention (current) use of anticoagulan ts All 2022-05-15 00:00 Shoulder joint pain All 2022-05-15 00:00 Hypertriglyceridemia All 2022-05-15 00:00 Anticoagulant control - finding All 2022-05-15 00:00 Impaired fasting glycemia All 2022-05-15 00:00 Obesity All 2022-05-15 00:00 Atrial fibrillation All 2022-05-15 00:00 Congestive heart failure, unspecified All 2022-05-15 00:00 Pain in joint involving shoulder region All 2022-05-15 00:00 Chronic congestive heart failure All 2022-05-15 00:00 Obesity, unspecified All 2022-05-15 00:00 Pure hyperglyceridemia All 2022-05-15 00:00 Chronic atrial fibrillation All 2022-05-15 00:00 Heart failure, unspecified All 2022-05-15 00:00 Pain in left shoulder All 2022-05-15 00:00 Impaired fasting glucose All 2022-05-15 00:00 Long-term (current) use of anticoagulan ts All 2022-05-15 00:00 detention (current) use of anticoagulan ts All 2022-05-22 00:00 Shoulder joint pain All 2022-05-22 00:00 Hypertriglyceridemia All 2022-05-22 00:00 Anticoagulant control - finding All 2022-05-22 00:00 Impaired fasting glycemia All 2022-05-22 00:00 Obesity All 2022-05-22 00:00 Atrial fibrillation All 2022-05-22 00:00 Congestive heart failure, unspecified All 2022-05-22 00:00 Pain in joint involving shoulder region All 2022-05-22 00:00 Chronic congestive heart failure All 2022-05-22 00:00 Obesity, unspecified All 2022-05-22 00:00 Pure hyperglyceridemia All 2022-05-22 00:00 Chronic atrial fibrillation All 2022-05-22 00:00 Heart failure, unspecified All 2022-05-22 00:00 Pain in left shoulder All 2022-05-22 00:00 Impaired fasting glucose All 2022-05-22 00:00 Long-term (current) use of anticoagulan ts All 2022-05-22 00:00 intermediate card tender (current) use of anticoagulan ts All Procedures date description facility 2022-04-02 00:00 ANTICOAG MGMT PT WARFARIN All 2022-04-17 00:00 ANTICOAG MGMT PT WARFARIN All 2022-04-25 00:00 ANTICOAG MGMT PT WARFARIN All 2022-05-06 00:00 ANTICOAG MGMT PT WARFARIN All 2022-05-07 00:00 ANTICOAG MGMT PT WARFARIN All 2022-05-14 00:00 ANTICOAG MGMT PT WARFARIN All Results/Labs test date author facility value unit interpret ation Result panel 1 (unknown) (no date) (unknown) All (no value) (units unknown ) (unknown) Result panel 2 (unknown) (no date) (unknown) All (no value) (units unknown ) (unknown) Result panel 3 (unknown) (no date) (unknown) All (no value) (units unknown ) (unknown) Result panel 4 (unknown) (no date) (unknown) All (no value) (units unknown ) (unknown) Result panel 5 (unknown) (no date) (unknown) All (no value) (units unknown ) (unknown) Result panel 6 (unknown) (no date) (unknown) All (no value) (units unknown ) (unknown) Result panel 7 (unknown) (no date) (unknown) All (no value) (units unknown ) (unknown) Result panel 8 (unknown) (no date) (unknown) All (no value) (units unknown ) (unknown) Result panel 9 (unknown) (no date) (unknown) All (no value) (units unknown ) (unknown) Result panel 10 (unknown) (no date) (unknown) All (no value) (units unknown ) (unknown) Result panel 11 (unknown) (no date) (unknown) All (no value) (units unknown ) (unknown) Result panel 12 (unknown) (no date) (unknown) All (no value) (units unknown ) (unknown) Result panel 13 (unknown) (no date) (unknown) All (no value) (units unknown ) (unknown) Result panel 14 (unknown) (no date) (unknown) All (no value) (units unknown ) (unknown) Social History No information. Vital Signs No information.
[2022-06-26 13:22] LABS: ABG BASE EXCESS -6.6 mmol/L (-2.0-3.0); ABG HCO3 26.2 mmol/L (22.0-26.0); ABG OXYGEN SATURATION 97 % (94-98); ABG PO2 112 mmHg (80-100); ABG TCO2 29.1 MMOL/L (21.0-29.0)
[2022-06-26 13:23] LABS: ABG RESPIRATORY RATE 16 b/min; ALLEN TEST POSITIVE
[2022-06-26 13:26] LABS: ABG PCO2 95 mmHg (34-45); ABG PH 7.06 (7.35-7.45)
[2022-06-26] MEDS ORDERED: SODIUM CHLORIDE 0.9% 1,000 ML IV STA (14:28)
--- NOTE | 2022-06-26 14:37 | XRAY Report ---
PROCEDURE: Chest 1 View X-Ray INDICATIONS: Sepsis TECHNIQUE: One view of the chest was acquired. COMPARISON: 10/27/2018 FINDINGS: Surgical changes and devices: None. Lungs and pleura: Diffuse interstitial prominence bilaterally. Asymmetric right hemidiaphragm elevat ion. Small focal lateral right midlung opacity. Probable right pleural effusion. No pneumothorax. Mediastinum: Moderately enlarged heart. Stable mediastinal contour. Congested central venous structu res. Bones and chest wall: No suspicious bony lesions. Overlying soft tissues appear unremarkable. IMPRESSION: 1. Cardiomegaly, central vascular and interstitial congestion suggests CHF. 2. Right lung opacity and effusion may indicate pulmonary edema or pneumonia. 3. Small focal right lateral lung opacity is new and of uncertain etiology. Consider chest CT for fur ther evaluation once acute disease clears. Reviewed by: Azalia Hoskins MD on 06/26/2022 2:36 PM PDT Approved by: Azalia Hoskins MD on 06/26/2022 2:36 PM PDT Station ID: [id number]
[2022-06-26 15:00] LABS: BASOPHILS % (AUTO) 0.1 %; HCT - HEMATOCRIT 46.5 % (37.0-47.0); HGB - HEMOGLOBIN 13.5 g/dL (12.0-16.0); LYMPHOCYTES # (AUTO) 0.6 10^3/uL (1.5-3.5); LYMPHOCYTES % (AUTO) 5.7 %; MEAN PLATELET VOLUME 8.8 fL (7.9-10.8); MONOCYTES # (AUTO) 0.5 10^3/uL (0.0-1.0); MONOCYTES % (AUTO) 4.9 %; NEUTROPHILS # (AUTO) 9.8 10^3/uL (1.5-6.6); NEUTROPHILS % (AUTO) 88.4 %; NRBC ABSOLUTE COUNT (AUTO) 0.04 x10^3/uL; NUCLEATED RED BLOOD CELLS AUTO 0.4 /100WBC; PLT - PLATELET COUNT 315 10^3/uL (130-450); RED CELL DISTRIBUTION WIDTH 15.8 % (12.0-15.0); WHITE BLOOD COUNT 11.1 x10^3/uL (4.8-10.8)
[2022-06-26 15:08] LABS: CORONAVIRUS 229E-RESP PCR NOT DETECTED; CORONAVIRUS HKU1-RESP PCR NOT DETECTED; CORONAVIRUS NL63-RESP PCR NOT DETECTED; CORONAVIRUS OC43-RESP PCR NOT DETECTED
[2022-06-26 15:09] LABS: B. PARAPERTUSSIS- RESP PCR PAN NOT DETECTED; B. PERTUSSIS- RESP PCR PANEL NOT DETECTED; C. PNEUMONIAE- RESP PCR PANEL NOT DETECTED; HUMAN METAPNEUMOVIRUS NOT DETECTED; INFLUENZA A- RESP PCR PANEL NOT DETECTED; INFLUENZA B - RESP PCR PANEL NOT DETECTED; M. PNEUMONIAE- RESP PCR PANEL NOT DETECTED; PARAINFLUENZA VIRUS 1 NOT DETECTED; PARAINFLUENZA VIRUS 2 NOT DETECTED; PARAINFLUENZA VIRUS 3 NOT DETECTED; PARAINFLUENZA VIRUS 4 NOT DETECTED; RHINOVIRUS/ENTEROVIRUS NOT DETECTED; RSV- RESP PCR PANEL NOT DETECTED; SARS-CoV-2 -RESP PCR PANEL DETECTED
[2022-06-26 15:12] LABS: LACTIC ACID, VENOUS 2.4 mmol/L (0.5-2.2)
[2022-06-26 15:22] LABS: ABG HCO3 25.9 mmol/L (22.0-26.0); ABG PO2 109 mmHg (80-100)
[2022-06-26 15:23] LABS: ABG OXYGEN SATURATION 97 % (94-98); ALLEN TEST POSITIVE
[2022-06-26 15:24] LABS: ABG PH 7.19 (7.35-7.45)
[2022-06-26 15:25] LABS: ABG PCO2 70 mmHg (34-45)
[2022-06-26 15:29] LABS: ACETAMINOPHEN < 10 ug/mL (10-30); ALBUMIN 3.1 g/dL (3.2-5.5); ALBUMIN/GLOBULIN RATIO 1.3 (1.0-2.2); ALKALINE PHOSPHATASE 84 IU/L (42-121); ALT ALANINE AMINOTRANSFERASE 356 IU/L (10-60); AST ASPARTATE AMINOTRANSFERASE 516 IU/L (10-42); BILIRUBIN,TOTAL 0.4 mg/dL (0.2-1.0); BUN - BLOOD UREA NITROGEN 35 mg/dL (6-20); CALCIUM 8.3 mg/dL (8.5-10.3); CARBON DIOXIDE - CO2 30 mmol/L (21-32); CHLORIDE 99 mmol/L (101-111); CREATININE 1.8 mg/dL (0.4-1.0); ETOH - ETHANOL < 5.0 mg/dL; GFR - MDRD 28 (>89); GLUCOSE 156 mg/dL (70-100); POTASSIUM 5.1 mmol/L (3.5-5.0); SALICYLATE 10.9 mg/dL; SODIUM 138 mmol/L (135-145); TOTAL PROTEIN 5.5 g/dL (6.7-8.2)
--- NOTE | 2022-06-26 15:32 | XRAY Report ---
PROCEDURE: Chest for Line Placement INDICATIONS: s/p R IJ central line TECHNIQUE: One view of the chest was acquired. COMPARISON: 06/26/2022 at 1323 hours FINDINGS: Surgical changes and devices: New right IJ central venous line. The tip projects in the expected loc ation of the cavoatrial junction. Lungs and pleura: Diffuse interstitial thickening and hazy left perihilar and infrahilar alveolar op acity. Dense right infrahilar opacity. Probable small right pleural effusion and fluid in the right m inor fissure. No pneumothorax. Mediastinum: Moderate cardiomegaly and congested central vasculature. Stable aorta. Bones and chest wall: No suspicious bony lesions. Overlying soft tissues appear unremarkable. IMPRESSION: 1. Adequate position of right IJ central venous line. 2. Stable findings of probable CHF/volume overload. Reviewed by: Azalia Hoskins MD on 06/26/2022 3:31 PM PDT Approved by: Azalia Hoskins MD on 06/26/2022 3:31 PM PDT Station ID: [id number]
[2022-06-26 15:43] LABS: MUDS CUTOFF CONCENTRATIONS CUTOFF CONC BELOW:
[2022-06-26 15:45] LABS: BILIRUBIN,URINE NEGATIVE (NEGATIVE); GLUCOSE, URINE (UA) NEGATIVE (NEGATIVE); KETONES,URINE (UA) NEGATIVE (NEGATIVE); LEUKOCYTE ESTERASE, URINE NEGATIVE (NEGATIVE); NITRITE,URINE NEGATIVE (NEGATIVE); OCCULT BLOOD,URINE NEGATIVE (NEGATIVE); PH,URINE 5.5 PH (5.0-7.5); PROTEIN,URINE 100 mg/dL (NEGATIVE); UROBILINOGEN,URINE 0.2 (NORMAL) E.U./dL (NORMAL)
[2022-06-26 15:47] LABS: CLARITY,URINE HAZY (CLEAR)
[2022-06-26 16:00] LABS: AMPHETAMINE SCREEN,URINE NEGATIVE (NEGATIVE); BACTERIA,URINE Few /HPF (None Seen); BARBITURATE SCREEN,UR NEGATIVE (NEGATIVE); BENZODIAZEPINES SCREEN, URINE NEGATIVE (NEGATIVE); CASTS, URINE 0-2 Hyaline Casts /LPF; COCAINE SCREEN URINE NEGATIVE (NEGATIVE); METHADONE SCREEN, URINE NEGATIVE (NEGATIVE); METHAMPHETAMINES SCREEN, URINE NEGATIVE (NEGATIVE); OPIATE SCREEN, URINE NEGATIVE (NEGATIVE); OXYCODONE SCREEN, URINE NEGATIVE (NEGATIVE); RBC,URINE 0-5 /HPF (0-5); SQUAMOUS EPITHELIAL CELL,UR FEW Squamous (<= Few); THC CANNABINOID SCREEN, URINE NEGATIVE (NEGATIVE); TRICYCLIC ANTIDEPRESSANT,URINE NEGATIVE (NEGATIVE); WBC,URINE 0-3 /HPF (0-5)
[2022-06-26 16:01] LABS: PROPOXYPHENE SCREEN, URINE NEGATIVE (NEGATIVE)
[2022-06-26] MEDS ORDERED: FUROSEMIDE 40 MG/4 ML VIAL IVP STA (16:03)
[2022-06-26] MEDS ORDERED: ONDANSETRON ODT 4 MG TABLET TL PRN (16:03)
[2022-06-26] MEDS ORDERED: oxyCODONE 5 MG TABLET PO PRN (16:03)
[2022-06-26] MEDS ORDERED: MORPHINE 2 MG/ML CARPUJECT IVP PRN (16:03)
[2022-06-26] MEDS ORDERED: ACETAMINOPHEN 325 MG TABLET PO PRN (16:03)
[2022-06-26] MEDS ORDERED: SODIUM CHLORIDE FLUSH 0.9% 10 ML SYRINGE IVP PRN (16:03)
[2022-06-26] MEDS ORDERED: ONDANSETRON 4 MG/2 ML VIAL IVP PRN (16:03)
--- NOTE | 2022-06-26 17:17 | PHARMACY PROGRESS NOTE ---
- Best Possible Medication History Admit Date and Time: 06/26/22 Processed by: Pharmacy Medication History completed: Yes Patient Interview: Pt unable to participate Secondary Source(s): Physician records, Pharmacy records, Insurance records As the person ultimately responsible for medication therapy, providers are able to order a medication from an existing home medication list in [facility] via the "Reconcile Routine" prior to Confirmation of that medication by network support engineer. Such practice is discouraged except when the physician, in their clinical judgment, deems that a medical need exists for a medication without regard to previous use.
[2022-06-26] MEDS: SODIUM CHLORIDE FLUSH 0.9% 10 ML SYRINGE IVP SCH (18:16)
[2022-06-26] MEDS: DEXAMETHASONE 10 MG/ML VIAL IVP SCH (18:23)
--- NOTE | 2022-06-26 18:25 | HISTORY & PHYSICAL EXAMINATION ---
Chief Complaint - Chief Complaint Chief Complaint: Altered mental status, breathing difficulty History of Present Illness - Admitted From Admitted From:: Emergency department - History Obtained From History obtained from: Patient, ED physician Exam Limitations: Patient's mentation, poor recall, BiPAP during admission interview - History of Present Illness HPI Comment/Other: Patient is a 72-year-old female with morbid obesity, history of A-fib on warfarin, type 2 diabetes, GERD, who was brought to the ED by paramedics after she was found confused, unresponsive and showing difficulty breathing at home. Patient is not aware of her circumstances requiring admission and has no memory of recent events and is unable to provide much history. Paramedics were not able to obtain much history. Limited history is provided by ED physician. Patient was immediately assessed to have acute respiratory failure in the ED. She was also hypotensive. A central line was placed. Chest x-ray shows evidence of fluid overload suggestive of heart failure. COVID test came back positive. Patient gives conflicting information stating that she does recall a positive COVID test, then stating she does not recall this. A Paxlovid prescription was picked up 2 days ago. In the ED, patient had no fever. Heart rates were normal in the 80s. Respiratory rates in the 20s. Blood pressure in the 90s over 70s. Patient was responding to BiPAP at 15 L oxygen.Initial blood gas was pH of 7.06, PCO2 of 95, and PO2 of 112.This was taken shortly after being placed on BiPAP.Patient's blood work also remarkable for elevated LFTs, troponin of 42, lactic acid of 2 .4, creatinine of 1.8. Chest x-ray in the ED shows cardiomegaly with interstitial congestion and right lung opacity and effusion suggestive of either pulmonary edema or pneumonia. Given the acute respiratory failure with hypoxia, positive COVID, requiring BiPAP, hospital admission ICU was requested. History - Past Medical History Cardiovascular: reports: Congestive heart failure, Atrial fibrillation Respiratory: reports: Asthma Endocrine/Autoimmune: reports: Type 2 diabetes GI: reports: GERD MRSA Hx?: No Meds/Allgy - Home Medications Home Medications: Ambulatory Orders Medication Instructions Recorded Confirmed Digoxin [Lanoxin] 125 mcg PO DAILY 06/26/22 06/26/22 Famotidine 40 mg PO DAILY 06/26/22 06/26/22 Furosemide [Lasix] 80 mg PO BIDDIURETIC 06/26/22 06/26/22 Losartan Potassium 25 mg PO DAILY 06/26/22 06/26/22 Metoprolol Tartrate [Lopressor] 100 mg PO BID 06/26/22 06/26/22 Omeprazole 40 mg PO QDAC 06/26/22 06/26/22 Pravastatin [Pravachol] 40 mg PO QPM 06/26/22 06/26/22 Warfarin [Coumadin] 2.5 mg PO WESA 06/26/22 06/26/22 Warfarin [Coumadin] 5 mg PO SUMOTUTHFR 06/26/22 06/26/22 bisoproloL fumarate [Bisoprolol 10 mg PO DAILY 06/26/22 06/26/22 Fumarate] dilTIAZem HCL [Diltiazem 24Hr ER 180 mg PO DAILY 06/26/22 06/26/22 (Xr)] metFORMIN [Glucophage] 500 mg PO BIDWM 06/26/22 06/26/22 sulfaSALAzine [Azulfidine] 750 mg PO BIDWM 06/26/22 06/26/22 - Allergies Allergies/Adverse Reactions: Allergies Allergy/AdvReac Type Severity Reaction Status Date / Time codeine Allergy Hallucinati Verified 10/27/18 13:15 ons Review of Systems - Other Findings Other Findings: Unable to obtain reliable review of systems due to patient's still confused status, and poor memory recall. However at the time of admission patient denies any chest pain or shortness of breath or other acute complaints despite her level of illness and respiratory failure requiring BiPAP Prior Level of Functionality: Unknown, lives with her sister Exam - Vital Signs Reviewed Vital Signs: Yes Vital Signs: Vital Signs x48h Temp Pulse Resp BP Pulse Ox 06/26/22 18:10 66 06/26/22 17:19 36.0 C L 93 24 91/73 88 L 06/26/22 16:48 35.7 C L 80 22 94/71 90 L 06/26/22 15:55 35.1 C L 77 21 93/72 90 L 06/26/22 15:18 58 L 06/26/22 13:50 88 06/26/22 13:48 58 L 06/26/22 13:09 35.2 C L 82 26 H 98/83 H 80 L - Physical Exam General Appearance: positive: Mild distress, Lethargic, Other (Moderately confused, morbidly obese) Eyes Bilateral: positive: EOMI ENT: positive: ENT inspection nml Neck: positive: Nml inspection. negative: Lymphadenopathy (R), Lymphadenopathy (L), Stiff neck Respiratory: positive: Other (Diminished breath sounds bilaterally) Cardiovascular: positive: No murmur, No gallop, Irregularly irregular Abdomen: positive: Non-tender, No organomegaly, Nml bowel sounds Skin: positive: Other (Multiple areas of ecchymosis, purpura, various stages of healing, varicose veins of the lower extremities, dry skin with mild mottling) Extremities: positive: Other (Mild lower extremity edema, cool to touch) Neurologic/Psychiatric: positive: Disoriented to time, Other (Mildly confused). negative: Disoriented to person, Disoriented to place Sepsis Event Note (H) - Evaluation Current Stage of Sepsis: Sepsis Possible source of Sepsis: positive: Pulmonary - Sepsis Criteria Sepsis Criteria: Suspected or Documented, Recorded Respiratory Rate greater than 20, Respiratory: Increasing oxygen requirements, Metabolic: lactate > 2 mmol/L Conclusion/Plan - Problem List (1) Sepsis Conclusion/Plan: Patient meets sepsis criteria given hypotension, tachypnea, respiratory failure, lactic acid elevation. Likely secondary to COVID Further exacerbated by acute heart failure exacerbation Given heart failure and fluid overload on chest x-ray, will defer IV fluid resuscitation pending repeat lactic acid levels (2) Acute exacerbation of congestive heart failure Conclusion/Plan: Patient with acute respiratory failure with hypoxia in the setting of COVID as well as findings suggestive of acute heart failure exacerbation, likely triggered by COVID infection Mild elevation in troponin, will trend Given blood pressure soft, hold off on Lasix pending improvement in blood pressure. With BiPAP, fluid redistribution may help support blood pressure at which point diuresis can be reattempted in the morning if blood pressure allows Check echocardiogram (3) Type 2 diabetes mellitus Conclusion/Plan: Patient takes metformin at home Hold metformin in the setting of lactic acidosis and respiratory failure as well as MORRO Insulin sliding scale N.p.o. while on BiPAP then diabetic diet (4) Hypertension Conclusion/Plan: Patient with primary hypertension currently blood pressures are soft Hold home medications (5) Atrial fibrillation Conclusion/Plan: Patient with what appears to be persistent atrial fibrillation on warfarin Given current hypotension, hold digoxin, diltiazem, metoprolol Pending overnight vitals, may need to restart medications if heart rate increase s and if blood pressure allows (7) COVID-19 Conclusion/Plan: Chest x-ray consistent with fluid overload and possible focal pneumonia For now, start remdesivir and Decadron We will determine pending clinical course if patient meets criteria for antibiotic therapy as well (8) Respiratory failure Qualifiers: Chronicity: acute Respiratory failure complication: hypoxia and hypercapnia Qualified Code(s): J96.01 - Acute respiratory failure with hypoxia; J96.02 - Acute respiratory failure with hypercapnia; J96.02 - Acute respiratory failure with hypercapnia - Lab Results Lab results reviewed: Yes Fish Bones: 06/26/22 14:52 06/26/22 14:52 - Diagnostic Imaging Results Diagnostic Imaging Results: positive: Final report reviewed - EKG Results EKG Interpreted Independently: Yes Core Measures - Anticipated LOS I expect patient to be DC'd or transferred within 96 hours.: Yes - DVT/VTE - Prophylaxis VTE/DVT Device ordered at admit?: Yes
[2022-06-26] MEDS ORDERED: REMDESIVIR 100MG VIAL 200 MG in SODIUM CHLORIDE 0.9% 250 ML IV ONE (19:00)
[2022-06-26 20:51] LABS: ABG BASE EXCESS -2.1 mmol/L (-2.0-3.0); ABG HCO3 28.7 mmol/L (22.0-26.0); ABG OXYGEN SATURATION 99 % (94-98); ABG TCO2 31.2 MMOL/L (21.0-29.0); ALLEN TEST POSITIVE
[2022-06-26 20:52] LABS: ABG MODE OF VENTILATION SYNCHRONOUS/TIMES; ABG RESPIRATORY RATE 24 b/min
[2022-06-26 20:59] LABS: ABG PCO2 82 mmHg (34-45); ABG PH 7.16 (7.35-7.45); ABG PO2 171 mmHg (80-100)
[2022-06-26] MEDS ORDERED: HEPARIN 5,000 UNIT/ML VIAL SUBQ SCH (21:00)
[2022-06-26] MEDS: INSULIN LISPRO 300 UNIT/3 ML PEN SUBQ SCH (22:17)
[2022-06-26] MEDS: CHLORHEXIDINE GLUCONATE 15 ML UDC PO SCH (22:18)
[2022-06-26 23:09] LABS: ABG BASE EXCESS -1.8 mmol/L (-2.0-3.0); ABG HCO3 29.3 mmol/L (22.0-26.0); ABG OXYGEN SATURATION 99 % (94-98); ABG TCO2 31.9 MMOL/L (21.0-29.0)
[2022-06-26 23:10] LABS: ALLEN TEST POSITIVE
[2022-06-26 23:11] LABS: ABG MODE OF VENTILATION SYNCHRONOUS/TIMES; ABG PCO2 84 mmHg (34-45); ABG PH 7.16 (7.35-7.45); ABG RESPIRATORY RATE 28 b/min
[2022-06-26 23:12] LABS: ABG PO2 159 mmHg (80-100)
[2022-06-26] MEDS ORDERED: MIDAZOLAM 2 MG/2 ML VIAL ONE (23:37)
[2022-06-26] MEDS ORDERED: PROPOFOL 200 MG/20 ML VIAL IVP ONE (23:38)
[2022-06-26] MEDS ORDERED: SUCCINYLCHOLINE 200 MG/10 ML VIAL ONE (23:38)
[2022-06-26] MEDS ORDERED: PROPOFOL 1000 MG/100 ML 1,000 MG/100 ML BOTTLE IV ONE (23:38)
[2022-06-26] MEDS ORDERED: ROCURONIUM 50 MG/5 ML VIAL ONE (23:38)
[2022-06-26] MEDS ORDERED: KETAMINE 500 MG/10 ML VIAL ONE (23:38)
[2022-06-26] MEDS ORDERED: ETOMIDATE 40 MG/20 ML VIAL IVP ONE ×2 (23:38→23:52)
[2022-06-26] MEDS ORDERED: SUCCINYLCHOLINE 200 MG/10 ML VIAL IVP ONE (23:52)
--- NOTE | 2022-06-26 23:55 | ED Physician Documentation ---
ED Addendum - Addendum Addendum: Patient was admitted during dayshift for hypoxia in the setting of COVID infection. Patient has Continued to be acidotic despite BiPAP with no improvement and has declined over the past several hours in regards to her mentation. [facility] had asked ICU staff to reach out to me for intubation. I also spoke with Dr. Morales To confirm that he would like us to intubate this patient. Patient is found to be on BiPAP, nonresponsive to any stimuli. Blood sugar had recently been checked by RN and was reportedly normal.Patient has a triple-lumen central line.Appears to be oxygenating adequately based on ABG. Patient was intubated without any difficulty. Please see procedure note. Postintubation chest x-ray was also reviewed. ET tube appears to be in appropriate position. Procedures - Intubation - Major Provider: Emergency physician Medications: Etomidate, Succinylcholine Blade: Glidescope Tube: Size-enter number (8), Cuffed Route: Oral Confirmation: Direct visualization, Bilateral breath sounds, End tidal CO2, Pulse ox, Chest xray Complications: No compications
[2022-06-27] MEDS: PROPOFOL 1000 MG/100 ML 1,000 MG/100 ML BOTTLE IV SCH ×8 (00:10→21:18)
[2022-06-27] MEDS: SODIUM CHLORIDE FLUSH 0.9% 10 ML SYRINGE IVP SCH ×3 (00:21→17:11)
--- NOTE | 2022-06-27 00:24 | XRAY Report ---
PROCEDURE: Chest for Line Placement INDICATIONS: post intubation placement check TECHNIQUE: One view of the chest was acquired. COMPARISON: CXR 06/26/2022 at 2:36 PM and 1:23 PM. FINDINGS: Surgical changes and devices: Endotracheal tube in the mid trachea. Right IJ central venous line wit h the catheter tip at the lower third of the SVC.. Lungs and pleura: No pleural effusions or pneumothorax. Patchy opacity most pronounced in the left l mani. Mediastinum: Mediastinal contours appear normal. Heart size is normal. Bones and chest wall: No suspicious bony lesions. Overlying soft tissues appear unremarkable. IMPRESSION: Tubes and lines project in the expected location. No pneumothorax. Patchy opacity most passed in the left lung is similar. Reviewed by: Sonu Marquez MD on 06/27/2022 12:23 AM PDT Approved by: Sonu Marquez MD on 06/27/2022 12:23 AM PDT Station ID: [id number]
[2022-06-27] MEDS ORDERED: fentaNYL 100 MCG/2 ML VIAL IVP PRN (00:34)
--- NOTE | 2022-06-27 00:34 | PROVIDER PROGRESS NOTE ---
Academic Support Coordinator Note - Academic Support Coordinator Note Academic Support Coordinator Note: I was called by RN with ABG which shows Ph of 7.16, co2 of 82, had a nice and lengthy discussion with CRESCENCIO Fuentes, patient was discussed in detail with RN. I spoke with RT Marcos, we tried to adjust her Bipap but based on her current setting not much room we still tried to see if patient improves, patient continues to be letahrgic and obtunded as per RN patient has declined and at this time to protect the airway, we decided to intubate patient, I appreciate the assitance by ER MD Dr Mena who graciously helped with intubation, patient PO2 is in acceptable range, but she is getting more hypercapneic Patient intubated and started on sedtation with propofol and fentanyl, I called the RN and have confirmed she has all the orders needed for now. Repeat ABG in an hour and call the data conversion operator MD and RT to discuss the vent settings and adjust as per the ABG.
--- NOTE | 2022-06-27 01:07 | PROVIDER PROGRESS NOTE ---
Preschool Assistant Note - Preschool Assistant Note Preschool Assistant Note: CXr reviewed and ET tube in right place, continue current management
[2022-06-27 01:32] LABS: ABG PCO2 44 mmHg (34-45); ABG PH 7.37 (7.35-7.45); ABG PO2 123 mmHg (80-100)
[2022-06-27 01:33] LABS: ABG BASE EXCESS -0.7 mmol/L (-2.0-3.0); ABG HCO3 24.7 mmol/L (22.0-26.0); ABG OXYGEN SATURATION 98 % (94-98); ALLEN TEST POSITIVE
[2022-06-27 01:34] LABS: ABG MODE OF VENTILATION ASSIST/CONTROL; ABG RESPIRATORY RATE 24 b/min
[2022-06-27] MEDS: CHLORHEXIDINE GLUCONATE 15 ML UDC PO SCH ×2 (04:30→20:25)
[2022-06-27 05:15] LABS: BASOPHILS % (AUTO) 0.1 %; HGB - HEMOGLOBIN 11.9 g/dL (12.0-16.0); LYMPHOCYTES # (AUTO) 0.7 10^3/uL (1.5-3.5); LYMPHOCYTES % (AUTO) 7.2 %; MEAN CORPUSCULAR HGB CONC 30.5 g/dL (32.0-36.0); MEAN CORPUSCULAR VOLUME 88.6 fL (81.0-99.0); MEAN PLATELET VOLUME 9.1 fL (7.9-10.8); MONOCYTES # (AUTO) 0.3 10^3/uL (0.0-1.0); MONOCYTES % (AUTO) 3.3 %; NEUTROPHILS # (AUTO) 8.4 10^3/uL (1.5-6.6); NRBC ABSOLUTE COUNT (AUTO) 0.02 x10^3/uL; NUCLEATED RED BLOOD CELLS AUTO 0.2 /100WBC; PLT - PLATELET COUNT 236 10^3/uL (130-450); RED CELL DISTRIBUTION WIDTH 15.2 % (12.0-15.0); WHITE BLOOD COUNT 9.5 x10^3/uL (4.8-10.8)
[2022-06-27 05:21] LABS: PT - PROTHROMBIN TIME 59.8 secs (9.9-12.6)
[2022-06-27 05:22] LABS: CREATININE 1.8 mg/dL (0.4-1.0); POTASSIUM 4.5 mmol/L (3.5-5.0)
[2022-06-27 05:33] LABS: INR 5.9 (0.8-1.2)
[2022-06-27] MEDS ORDERED: FUROSEMIDE 40 MG/4 ML VIAL IVP SCH (06:00)
[2022-06-27 06:17] LABS: ABG PCO2 32 mmHg (34-45); ABG PH 7.49 (7.35-7.45)
[2022-06-27 06:18] LABS: ABG BASE EXCESS 1.3 mmol/L (-2.0-3.0); ABG HCO3 23.9 mmol/L (22.0-26.0); ABG MODE OF VENTILATION ASSIST/CONTROL; ABG OXYGEN SATURATION 99 % (94-98); ABG PO2 137 mmHg (80-100); ABG RESPIRATORY RATE 24 b/min; ABG TCO2 24.9 MMOL/L (21.0-29.0); ALLEN TEST POSITIVE
[2022-06-27] MEDS: PANTOPRAZOLE 40 MG VIAL IVP SCH (06:58)
[2022-06-27] MEDS ORDERED: NON FORMULARY MED (Omeprazole [Omeprazole] 40 MG Capsule.Dr) PO SCH (07:00)
[2022-06-27] MEDS: DEXAMETHASONE 10 MG/ML VIAL IVP SCH (08:31)
[2022-06-27] MEDS: INSULIN LISPRO 300 UNIT/3 ML PEN SUBQ SCH ×4 (08:36→21:38)
--- NOTE | 2022-06-27 10:15 | XRAY Report ---
PROCEDURE: Abdomen 1 View X-Ray INDICATIONS: og tube placement TECHNIQUE: One view of the abdomen acquired. COMPARISON: None FINDINGS: Surgical changes and devices: Orogastric tube tip projects in the distal body of the stomach. Bowel: Transverse colon is prominent Soft tissues: No suspicious abdominal calcifications. Visualized solid organ contours appear normal in size. Bones: No suspicious bony lesions. IMPRESSION: Orogastric tube tip projects of the distal body of the stomach. Reviewed by: Akin Ny MD on 06/27/2022 10:14 AM PDT Approved by: Akin Ny MD on 06/27/2022 10:14 AM PDT Station ID: [id number]
[2022-06-27] MEDS ORDERED: FUROSEMIDE 20 MG/2 ML VIAL IVP ONE (13:30)
[2022-06-27] MEDS ORDERED: WARFARIN 5 MG TABLET PO SCH (14:00)
[2022-06-27] MEDS: REMDESIVIR 100MG VIAL 100 MG in SODIUM CHLORIDE 0.9% 100ML 100 ML IV SCH (15:01)
--- NOTE | 2022-06-27 17:33 | PROVIDER PROGRESS NOTE ---
Assessment/Plan - Problem List (1) Sepsis Qualifiers: Sepsis type: sepsis due to unspecified organism Sepsis acute organ dysfunction status: with acute organ dysfunction Severe sepsis acute organ dysfunction type: acute respiratory failure Acute respiratory failure type: with hypoxia Severe sepsis shock status: without septic shock Qualified Code(s): A41.9 - Sepsis, unspecified organism; R65.20 - Severe sepsis without septic shock; J96.01 - Acute respiratory failure with hypoxia Assessment/Plan: Sepsis present on admission Likely secondary to COVID-pneumonia Patient had deteriorating respiratory status last night, required intubation Currently critical condition in the ICU mechanically ventilated Blood gas has been reassuring Continue supportive care, no vent settings changes at this time Blood pressure has somewhat improved, will continue to follow cultures and fever curve Given COVID and lack of evidence of bacterial pneumonia or consolidation, defer antibiotics for now (2) Acute exacerbation of congestive heart failure Qualifiers: Heart failure type: unspecified Qualified Code(s): I50.9 - Heart failure, unspecified Assessment/Plan: Patient with clinical evidence of fluid overload, with respiratory failure requiring intubation Initially patient hypotensive, making diuresis somewhat difficult Blood pressure improved somewhat today, allowing a trial of Lasix 20 mg IV BP has responded well We will continue Lasix 20 mg IV twice daily pending clinical course (3) Type 2 diabetes mellitus Qualifiers: Diabetes mellitus detention insulin use: without detention use Diabetes mellitus complication status: without complication Qualified Code(s): E11.9 - Type 2 diabetes mellitus without complications Assessment/Plan: Patient currently n.p.o. due to intubated status Continue Accu-Cheks We will start TPN tomorrow at low rate to avoid fluid overload Insulin sliding scale for n.p.o. (4) Hypertension Qualifiers: Hypertension type: primary hypertension Qualified Code(s): I10 - Essential (primary) hypertension Assessment/Plan: Due to relative hypotension home blood pressure medications have been held (5) Atrial fibrillation Assessment/Plan: Patient with what appears to be persistent atrial fibrillation on warfarin Given current hypotension, hold digoxin, diltiazem, metoprolol INR 5, hold warfarin tonight (6) GERD (gastroesophageal reflux disease) Assessment/Plan: Continue IV Protonix (7) COVID-19 Assessment/Plan: Chest x-ray consistent with fluid overload and possible focal pneumonia For now, start remdesivir and Decadron We will determine pending clinical course if patient meets criteria for antibiotic therapy as well (8) Respiratory failure Qualifiers: Chronicity: acute Respiratory failure complication: hypoxia and hypercapnia Qualified Code(s): J96.01 - Acute respiratory failure with hypoxia; J96.02 - Acute respiratory failure with hypercapnia; J96.02 - Acute respiratory failure with hypercapnia - Current Meds Current Meds: Current Medications Generic Name Dose Route Start Last Admin Trade Name Freq PRN Reason Stop Dose Admin Acetaminophen 650 mg 06/26/22 16:03 06/27/22 11:32 Acetaminophen 325 Mg Tablet PO 650 mg Q4HR PRN Administration Pain 1 to 4, or Fever Chlorhexidine Gluconate 15 ml 06/26/22 21:00 06/27/22 04:30 Chlorhexidine Gluconate 15 Ml Udc PO 15 ml BID WILIAM Administration Dexamethasone Sodium Phosphate 6 mg 06/26/22 19:00 06/27/22 08:31 Dexamethasone 10 Mg/Ml Vial IVP 6 mg DAILY WILIAM Administration Fentanyl 25 mcg 06/27/22 00:34 06/27/22 17:14 Fentanyl 100 Mcg/2 Ml Vial IVP 25 mcg Q1HR PRN Administration Anesthesia Remdesivir 100 mg/ Sodium 100 mls @ 200 mls/hr 06/27/22 14:00 06/27/22 15:34 Chloride IV 06/30/22 09:29 Infused DAILY WILIAM Infusion Propofol 1,000 mg in 100 mls @ 10.26 mls/hr 06/27/22 01:00 06/27/22 14:42 Diprivan IV 25 mcg/kg/min .Q9H45M WILIAM 25.65 mls/hr Administration Protocol 10 MCG/KG/MIN Insulin Human Lispro 1 - 5 unit 06/26/22 21:00 06/27/22 17:15 Insulin Lispro 300 Unit/3 Ml Pen SUBQ 1 unit 0800,1200,1700,2100 WILIAM Administration Protocol Pantoprazole Sodium 40 mg 06/27/22 07:00 06/27/22 06:58 Pantoprazole 40 Mg Vial IVP 40 mg QDAC WILIAM Administration Sodium Chloride 10 ml 06/27/22 01:00 06/27/22 17:11 Sodium Chloride Flush 0.9% 10 Ml Syringe IVP 10 ml 0100,0900,1700 WILIAM Administration - Lab Result Fish Bone Diagrams: 06/27/22 04:32 06/27/22 04:32 - Additional Planning Condition/Complexity: Critical My Orders: My Active Orders 06/26/22 18:15 RT - Obtain Arterial Specimen [RC] .ONCE 06/26/22 19:00 dexAMETHasone [Decadron] 6 mg IVP DAILY 06/26/22 21:00 Chlorhexidine [Peridex] 15 ml PO BID Insulin Lispro [Humalog Kwikpen U-100] 1 - 5 unit SUBQ 0800,1200,1700,2100 06/27/22 01:00 Sodium Chloride Flush 0.9% [Normal Saline Flush 0.9%] 10 ml IVP 0100,0900,1700 06/27/22 07:00 Pantoprazole [Protonix] 40 mg IVP QDAC 06/27/22 08:00 Echo Transthoracic Complete [ECHO] Routine 06/27/22 14:00 Remdesivir 100Mg Vial [Veklury] 100 mg Sodium Chloride 0.9% 100Ml [Normal Saline 0.9% 100Ml] 100 ml IV DAILY Warfarin [Coumadin] 5 mg PO QDWARFARIN 06/27/22 16:47 Daily Weight [RC] DAILY IO [RC] QSHIFT Tube Feeding [RC] QSHIFT 06/27/22 17:09 VITAMIN D 25-HYDROXY [REFLAB] Routine 06/28/22 05:00 BMP - BASIC METABOLIC PANEL [CHEM] DAILYLAB CBC - COMP BLD CT W/AUTO DIFF [HEME] DAILYLAB COMPREHENSIVE METABOLIC PANEL [CHEM] Timed MAGNESIUM [CHEM] Timed PHOSPHORUS [CHEM] Timed PREALBUMIN [CHEM] Timed PT WITH INR [COAG] DAILYLAB VENOUS BLOOD GAS [BG] DAILYLAB 06/28/22 09:00 Chest 1 View X-Ray [XR] DAILY ABG - ARTERIAL BLOOD GAS [BG] DAILY 06/29/22 05:00 BMP - BASIC METABOLIC PANEL [CHEM] DAILYLAB CBC - COMP BLD CT W/AUTO DIFF [HEME] DAILYLAB PT WITH INR [COAG] DAILYLAB 06/29/22 09:00 ABG - ARTERIAL BLOOD GAS [BG] DAILY 06/30/22 05:00 CBC - COMP BLD CT W/AUTO DIFF [HEME] DAILYLAB COMPREHENSIVE METABOLIC PANEL [CHEM] Timed MAGNESIUM [CHEM] Timed PHOSPHORUS [CHEM] Timed PREALBUMIN [CHEM] Timed PT WITH INR [COAG] DAILYLAB 06/30/22 09:00 ABG - ARTERIAL BLOOD GAS [BG] DAILY 07/01/22 05:00 PT WITH INR [COAG] DAILYLAB 07/01/22 09:00 ABG - ARTERIAL BLOOD GAS [BG] DAILY 07/02/22 09:00 ABG - ARTERIAL BLOOD GAS [BG] DAILY 07/03/22 05:00 COMPREHENSIVE METABOLIC PANEL [CHEM] Timed MAGNESIUM [CHEM] Timed PHOSPHORUS [CHEM] Timed PREALBUMIN [CHEM] Timed Objective Vital Signs: Vital Signs - 24 hr 06/26/22 06/26/22 06/26/22 18:10 18:44 19:00 Temperature 36.3 C L 36.3 C L Heart Rate 66 91 Heart Rate [ 91 88 Monitoring electrodes] Respiratory 24 24 Rate Blood Pressure 121/78 100/89 H [Left Radial artery] Blood Pressure [Right Brachial artery] O2 Saturation 100 100 06/26/22 06/26/22 06/26/22 19:30 20:00 21:00 Temperature 36.4 C L 36.4 C L 36.5 C Heart Rate Heart Rate [ 88 88 87 Monitoring electrodes] Respiratory 21 22 24 Rate Blood Pressure 110/80 86/56 L 86/62 L [Left Radial artery] Blood Pressure [Right Brachial artery] O2 Saturation 98 100 97 06/26/22 06/26/22 06/26/22 21:30 22:00 23:00 Temperature 36.5 C 36.6 C Heart Rate 94 Heart Rate [ 101 H 101 H Monitoring electrodes] Respiratory 22 28 H Rate Blood Pressure 95/65 92/72 [Left Radial artery] Blood Pressure [Right Brachial artery] O2 Saturation 94 06/26/22 06/27/22 06/27/22 23:55 00:00 00:15 Temperature 36.9 C 36.9 C Heart Rate 120 H Heart Rate [ 108 H 118 H Monitoring electrodes] Respiratory 19 24 Rate Blood Pressure 127/75 [Left Radial artery] Blood Pressure 127/75 [Right Brachial artery] O2 Saturation 92 06/27/22 06/27/22 06/27/22 00:30 00:45 01:00 Temperature 37.0 C 37.1 C 37.1 C Heart Rate Heart Rate [ 113 H 116 H 104 H Monitoring electrodes] Respiratory 24 24 21 Rate Blood Pressure [Left Radial artery] Blood Pressure 114/59 L 106/57 L 119/74 [Right Brachial artery] O2 Saturation 99 100 06/27/22 06/27/22 06/27/22 01:15 01:30 01:45 Temperature 37.0 C 37.1 C 37.3 C Heart Rate 120 H Heart Rate [ 112 H 115 H 114 H Monitoring electrodes] Respiratory 21 23 21 Rate Blood Pressure [Left Radial artery] Blood Pressure 119/74 106/89 H 113/79 [Right Brachial artery] O2 Saturation 100 99 100 06/27/22 06/27/22 06/27/22 02:00 03:00 03:50 Temperature 37.4 C 37.7 C Heart Rate 112 H Heart Rate [ 111 H 124 H Monitoring electrodes] Respiratory 24 21 Rate Blood Pressure [Left Radial artery] Blood Pressure 113/59 L 116/74 [Right Brachial artery] O2 Saturation 99 100 06/27/22 06/27/22 06/27/22 04:00 05:00 06:00 Temperature 38.0 C H Heart Rate Heart Rate [ 117 H 123 H 108 H Monitoring electrodes] Respiratory 24 24 24 Rate Blood Pressure [Left Radial artery] Blood Pressure 112/72 127/72 106/69 [Right Brachial artery] O2 Saturation 100 100 100 06/27/22 06/27/22 06/27/22 06:20 07:00 07:30 Temperature 37.9 C 37.9 C Heart Rate 118 H Heart Rate [ 121 H Monitoring electrodes] Respiratory 18 18 Rate Blood Pressure [Left Radial artery] Blood Pressure 102/64 [Right Brachial artery] O2 Saturation 99 99 06/27/22 06/27/22 06/27/22 08:00 08:30 09:00 Temperature 37.8 C 37.9 C Heart Rate Heart Rate [ 107 H 104 H Monitoring electrodes] Respiratory 18 18 21 Rate Blood Pressure [Left Radial artery] Blood Pressure 97/63 105/62 [Right Brachial artery] O2 Saturation 100 99 96 06/27/22 06/27/22 06/27/22 09:06 09:30 10:00 Temperature Heart Rate 106 H 106 H Heart Rate [ 106 H Monitoring electrodes] Respiratory 19 Rate Blood Pressure [Left Radial artery] Blood Pressure 114/75 [Right Brachial artery] O2 Saturation 100 06/27/22 06/27/22 06/27/22 10:30 11:00 11:30 Temperature Heart Rate Heart Rate [ 111 H Monitoring electrodes] Respiratory 19 18 18 Rate Blood Pressure [Left Radial artery] Blood Pressure 104/74 [Right Brachial artery] O2 Saturation 100 95 95 06/27/22 06/27/22 06/27/22 11:48 11:54 12:00 Temperature 38 C H 37.8 C Heart Rate 104 H Heart Rate [ 108 H Monitoring electrodes] Respiratory 18 Rate Blood Pressure [Left Radial artery] Blood Pressure 121/91 H [Right Brachial artery] O2 Saturation 97 06/27/22 06/27/22 06/27/22 12:30 13:14 13:30 Temperature 37.8 C 37.4 C Heart Rate Heart Rate [ 107 H Monitoring electrodes] Respiratory 18 18 18 Rate Blood Pressure [Left Radial artery] Blood Pressure 109/66 [Right Brachial artery] O2 Saturation 97 96 96 06/27/22 06/27/22 06/27/22 14:00 15:00 15:19 Temperature 37.6 C Heart Rate 106 H Heart Rate [ 106 H 98 Monitoring electrodes] Respiratory 18 18 Rate Blood Pressure [Left Radial artery] Blood Pressure 106/73 113/78 [Right Brachial artery] O2 Saturation 96 97 06/27/22 06/27/22 06/27/22 16:00 16:30 17:00 Temperature 37.5 C 37.5 C Heart Rate Heart Rate [ 106 H 103 H Monitoring electrodes] Respiratory 18 18 18 Rate Blood Pressure [Left Radial artery] Blood Pressure 103/69 111/74 [Right Brachial artery] O2 Saturation 97 97 97 Oxygen O2 Source Mechanical ventilator Oxygen Flow Rate 15 I&O (Last 24 Hrs): Intake and Output Totals x24h 06/25/22 06/26/22 06/27/22 23:59 23:59 23:59 Intake Total 1715.050 Output Total 235 765 Balance -235 950.050 General: Other (Sedated) HEENT: Atraumatic Neuro: Other (Sedated) Cardiovascular: Normal S1, Normal S2, Other (Irregularly Irregular) Respiratory: Other (Breath sounds diminished) Abdomen: Soft Extremities: No clubbing, No cyanosis, Other (Moderate non-pitting bilateral lower extremity edema) - Results Results: Laboratory Results WBC 9.5 x10^3/uL (4.8-10.8) 06/27/22 04:32 RBC 4.40 10^6/uL (4.20-5.40) 06/27/22 04:32 Hgb 11.9 g/dL (12.0-16.0) L 06/27/22 04:32 Hct 39.0 % (37.0-47.0) 06/27/22 04:32 MCV 88.6 fL (81.0-99.0) 06/27/22 04:32 MCH 27.0 pg (27.0-31.0) 06/27/22 04:32 MCHC 30.5 g/dL (32.0-36.0) L 06/27/22 04:32 RDW 15.2 % (12.0-15.0) H 06/27/22 04:32 Plt Count 236 10^3/uL (130-450) 06/27/22 04:32 MPV 9.1 fL (7.9-10.8) 06/27/22 04:32 Neut # (Auto) 8.4 10^3/uL (1.5-6.6) H 06/27/22 04:32 Lymph # (Auto) 0.7 10^3/uL (1.5-3.5) L 06/27/22 04:32 Gilchrist # (Auto) 0.3 10^3/uL (0.0-1.0) 06/27/22 04:32 Eos # (Auto) 0.0 10^3/uL (0.0-0.7) 06/27/22 04:32 Baso # (Auto) 0.0 10^3/uL (0.0-0.1) 06/27/22 04:32 Absolute Nucleated RBC 0.02 x10^3/uL 06/27/22 04:32 Nucleated RBC % 0.2 /100WBC 06/27/22 04:32 PT 59.8 secs (9.9-12.6) H 06/27/22 04:32 INR 5.9 (0.8-1.2) H* 06/27/22 04:32 Bld Gas Analysis Time 0616 06/27/22 06:07 Sample Site RIGHT RADIAL 06/27/22 06:07 ABG pH 7.49 (7.35-7.45) H 06/27/22 06:07 ABG pCO2 32 mmHg (34-45) L 06/27/22 06:07 ABG pO2 137 mmHg (80-100) H 06/27/22 06:07 ABG HCO3 23.9 mmol/L (22.0-26.0) 06/27/22 06:07 ABG Total CO2 24.9 MMOL/L (21.0-29.0) 06/27/22 06:07 ABG O2 Saturation 99 % (94-98) H 06/27/22 06:07 ABG Base Excess 1.3 mmol/L (-2.0-3.0) 06/27/22 06:07 [place]e Test POSITIVE 06/27/22 06:07 Respiration Rate 24 b/min 06/27/22 06:07 O2 Delivery Device VENTILATOR 06/27/22 06:07 Vent Mode ASSIST/CONTROL 06/27/22 06:07 FiO2 80.00 06/27/22 06:07 Tidal Volume 550 mL 06/27/22 06:07 PEEP 5 cmH2O 06/27/22 06:07 Pressure Support Vent 11 cmH2O 06/26/22 22:50 EPAP 5 cmH2O 06/26/22 22:50 IPAP 16 cmH2O 06/26/22 22:50 Sodium 141 mmol/L (135-145) 06/27/22 04:32 Potassium 4.5 mmol/L (3.5-5.0) 06/27/22 04:32 Chloride 103 mmol/L (101-111) 06/27/22 04:32 Carbon Dioxide 25 mmol/L (21-32) 06/27/22 04:32 Anion Gap 13.0 (6-13) 06/27/22 04:32 BUN 50 mg/dL (6-20) H 06/27/22 04:32 Creatinine 1.8 mg/dL (0.4-1.0) H 06/27/22 04:32 Estimated GFR (MDRD) 28 (>89) L 06/27/22 04:32 Glucose 153 mg/dL (70-100) H 06/27/22 04:32 Lactic Acid 1.1 mmol/L (0.5-2.2) 06/26/22 18:30 Calcium 8.0 mg/dL (8.5-10.3) L 06/27/22 04:32 Phosphorus 3.7 mg/dL (2.5-4.6) 06/27/22 04:32 Total Bilirubin 0.4 mg/dL (0.2-1.0) 06/26/22 14:52 AST 516 IU/L (10-42) H 06/26/22 14:52 ALT 356 IU/L (10-60) H 06/26/22 14:52 Alkaline Phosphatase 84 IU/L (42-121) 06/26/22 14:52 Troponin I High Sens 48.7 ng/L (2.3-14.8) H* 06/26/22 20:20 B-Natriuretic Peptide 305 pg/mL (5-100) H 06/26/22 14:52 Total Protein 5.5 g/dL (6.7-8.2) L 06/26/22 14:52 Albumin 3.1 g/dL (3.2-5.5) L 06/26/22 14:52 Globulin 2.4 g/dL (2.1-4.2) 06/26/22 14:52 Albumin/Globulin Ratio 1.3 (1.0-2.2) 06/26/22 14:52 Triglycerides 126 mg/dL (-149) 06/27/22 04:32 Urine Color DARK YELLOW 06/26/22 15:30 Urine Clarity HAZY (CLEAR) 06/26/22 15:30 Urine pH 5.5 PH (5.0-7.5) 06/26/22 15:30 Ur Specific [place] >=1.030 (1.002-1.030) H 06/26/22 15:30 Urine Protein 100 mg/dL (NEGATIVE) H 06/26/22 15:30 Urine Glucose (UA) NEGATIVE mg/dL (NEGATIVE) 06/26/22 15:30 Urine Ketones NEGATIVE mg/dL (NEGATIVE) 06/26/22 15:30 Urine Occult Blood NEGATIVE (NEGATIVE) 06/26/22 15:30 Urine Nitrite NEGATIVE (NEGATIVE) 06/26/22 15:30 Urine Bilirubin NEGATIVE (NEGATIVE) 06/26/22 15:30 Urine Urobilinogen 0.2 (NORMAL) E.U./dL (NORMAL) 06/26/22 15:30 Ur Leukocyte Esterase NEGATIVE (NEGATIVE) 06/26/22 15:30 Urine RBC 0-5 /HPF (0-5) 06/26/22 15:30 Urine WBC 0-3 /HPF (0-5) 06/26/22 15:30 Ur Squamous Epith Cells FEW Squamous (<= Few) 06/26/22 15:30 Urine Bacteria Few /HPF (None Seen) 06/26/22 15:30 Urine Casts 0-2 Hyaline Casts /LPF 06/26/22 15:30 Urine Culture Comments NOT INDICATED 06/26/22 15:30 Nasal Adenovirus (PCR) NOT DETECTED 06/26/22 13:58 Nasal B. parapertussis DNA (PCR) NOT DETECTED 06/26/22 13:58 Nasal Coronavir 229E PCR NOT DETECTED 06/26/22 13:58 Nasal Coronavir HKU1 PCR NOT DETECTED 06/26/22 13:58 Nasal Coronavir NL63 PCR NOT DETECTED 06/26/22 13:58 Nasal Coronavir OC43 PCR NOT DETECTED 06/26/22 13:58 Nasal Enterovir/Rhinovir PCR NOT DETECTED 06/26/22 13:58 Nasal Influenza B PCR NOT DETECTED 06/26/22 13:58 Nasal Influenza A PCR NOT DETECTED 06/26/22 13:58 Nasal Parainfluen 1 PCR NOT DETECTED 06/26/22 13:58 Nasal Parainfluen 2 PCR NOT DETECTED 06/26/22 13:58 Nasal Parainfluen 3 PCR NOT DETECTED 06/26/22 13:58 Nasal Parainfluen 4 PCR NOT DETECTED 06/26/22 13:58 Nasal RSV (PCR) NOT DETECTED 06/26/22 13:58 Nasal Screen MRSA (PCR) NEGATIVE (NEGATIVE) 06/26/22 16:47 Nasal B.pertussis DNA PCR NOT DETECTED 06/26/22 13:58 Nasal C.pneumoniae (PCR) NOT DETECTED 06/26/22 13:58 Nba Human Metapneumo PCR NOT DETECTED 06/26/22 13:58 Nasal M.pneumoniae (PCR) NOT DETECTED 06/26/22 13:58 Nasal SARS-CoV-2 (PCR) DETECTED A 06/26/22 13:58 Salicylates 10.9 mg/dL 06/26/22 14:52 Urine Opiates Screen NEGATIVE (NEGATIVE) 06/26/22 15:30 Ur Oxycodone Screen NEGATIVE (NEGATIVE) 06/26/22 15:30 Urine Methadone Screen NEGATIVE (NEGATIVE) 06/26/22 15:30 Ur Propoxyphene Screen NEGATIVE (NEGATIVE) 06/26/22 15:30 Acetaminophen < 10 ug/mL (10-30) L 06/26/22 14:52 Ur Barbiturates Screen NEGATIVE (NEGATIVE) 06/26/22 15:30 Ur Tricyclics Screen NEGATIVE (NEGATIVE) 06/26/22 15:30 Ur Phencyclidine Scrn NEGATIVE (NEGATIVE) 06/26/22 15:30 Ur Amphetamine Screen NEGATIVE (NEGATIVE) 06/26/22 15:30 U Methamphetamines Scrn NEGATIVE (NEGATIVE) 06/26/22 15:30 U Benzodiazepines Scrn NEGATIVE (NEGATIVE) 06/26/22 15:30 Urine Cocaine Screen NEGATIVE (NEGATIVE) 06/26/22 15:30 U Cannabinoids Screen NEGATIVE (NEGATIVE) 06/26/22 15:30 Ethyl Alcohol < 5.0 mg/dL 06/26/22 14:52 Sepsis Event Note (H) - Evaluation Current Stage of Sepsis: Sepsis Possible source of Sepsis: positive: Pulmonary - Sepsis Criteria Sepsis Criteria: Suspected or Documented, Recorded Respiratory Rate greater than 20, Respiratory: Increasing oxygen requirements, Metabolic: lactate > 2 mmol/L ABX Reporting Has patient been on IV antibiotics over the past 48 hours?: No Current Medications - Current Medications Current Medications: Active Medications Generic Name Dose Route Start Last Admin Trade Name Freq PRN Reason Stop Dose Admin Acetaminophen 650 mg 06/26/22 16:03 06/27/22 11:32 Acetaminophen 325 Mg Tablet PO 650 mg Q4HR PRN Administration Pain 1 to 4, or Fever Chlorhexidine Gluconate 15 ml 06/26/22 21:00 06/27/22 04:30 Chlorhexidine Gluconate 15 Ml Udc PO 15 ml BID WILIAM Administration Dexamethasone Sodium Phosphate 6 mg 06/26/22 19:00 06/27/22 08:31 Dexamethasone 10 Mg/Ml Vial IVP 6 mg DAILY WILIAM Administration Fentanyl 25 mcg 06/27/22 00:34 06/27/22 17:14 Fentanyl 100 Mcg/2 Ml Vial IVP 25 mcg Q1HR PRN Administration Anesthesia Furosemide 20 mg 06/27/22 21:00 Furosemide 20 Mg/2 Ml Vial IVP BID WILIAM Remdesivir 100 mg/ Sodium 100 mls @ 200 mls/hr 06/27/22 14:00 06/27/22 15:34 Chloride IV 06/30/22 09:29 Infused DAILY WILIAM Infusion Propofol 1,000 mg in 100 mls @ 10.26 mls/hr 06/27/22 01:00 06/27/22 14:42 Diprivan IV 25 mcg/kg/min .Q9H45M [facility] 25.65 mls/hr Administration Protocol 10 MCG/KG/MIN Insulin Human Lispro 1 - 5 unit 06/26/22 21:00 06/27/22 17:15 Insulin Lispro 300 Unit/3 Ml Pen SUBQ 1 unit 0800,1200,1700,2100 [facility] Administration Protocol Morphine Sulfate 2 mg 06/26/22 16:03 Morphine 2 Mg/Ml Carpuject IVP Q2HR PRN Pain 8 to 10 Ondansetron HCl 4 mg 06/26/22 16:03 Ondansetron Odt 4 Mg Tablet TL Q6HR PRN Nausea / Vomiting Ondansetron HCl 4 mg 06/26/22 16:03 Ondansetron 4 Mg/2 Ml Vial IVP Q6HR PRN Nausea / Vomiting Oxycodone HCl 5 mg 06/26/22 16:03 Oxycodone 5 Mg Tablet PO Q4HR PRN Pain 5 to 7 Pantoprazole Sodium 40 mg 06/27/22 07:00 06/27/22 06:58 Pantoprazole 40 Mg Vial IVP 40 mg QDAC WILIAM Administration Sodium Chloride 10 ml 06/27/22 01:00 06/27/22 17:11 Sodium Chloride Flush 0.9% 10 Ml Syringe IVP 10 ml 0100,0900,1700 WILIAM Administration Sodium Chloride 10 ml 06/26/22 16:03 Sodium Chloride Flush 0.9% 10 Ml Syringe IVP PRN PRN NEEDED PER PROVIDER ORDERS Warfarin Sodium 5 mg 06/27/22 14:00 Warfarin 5 Mg Tablet PO QDWARFARIN [facility] Digoxin [Lanoxin] 125 mcg PO DAILY 06/26/22 Famotidine 40 mg PO DAILY 06/26/22 Furosemide [Lasix] 80 mg PO BIDDIURETIC 06/26/22 Losartan Potassium 25 mg PO DAILY 06/26/22 Metoprolol Tartrate [Lopressor] 100 mg PO BID 06/26/22 Omeprazole 40 mg PO QDAC 06/26/22 Pravastatin [Pravachol] 40 mg PO QPM 06/26/22 Warfarin [Coumadin] 2.5 mg PO WESA 06/26/22 Warfarin [Coumadin] 5 mg PO SUMOTUTHFR 06/26/22 bisoproloL fumarate [Bisoprolol Fumarate] 10 mg PO DAILY 06/26/22 dilTIAZem HCL [Diltiazem 24Hr ER (Xr)] 180 mg PO DAILY 06/26/22 metFORMIN [Glucophage] 500 mg PO BIDWM 06/26/22 sulfaSALAzine [Azulfidine] 750 mg PO BIDWM 06/26/22
[2022-06-27] MEDS ORDERED: FUROSEMIDE 20 MG/2 ML VIAL IVP SCH (21:00)
[2022-06-28] MEDS: PROPOFOL 1000 MG/100 ML 1,000 MG/100 ML BOTTLE IV SCH ×3 (00:03→06:30)
[2022-06-28] MEDS: INSULIN LISPRO 300 UNIT/3 ML PEN SUBQ SCH ×4 (00:08→20:32)
[2022-06-28] MEDS: SODIUM CHLORIDE FLUSH 0.9% 10 ML SYRINGE IVP SCH ×4 (02:58→22:50)
[2022-06-28 05:30] LABS: BASOPHILS % (AUTO) 0.1 %; HCT - HEMATOCRIT 36.8 % (37.0-47.0); HGB - HEMOGLOBIN 11.6 g/dL (12.0-16.0); LYMPHOCYTES # (AUTO) 0.5 10^3/uL (1.5-3.5); LYMPHOCYTES % (AUTO) 6.6 %; MEAN CORPUSCULAR HEMOGLOBIN 26.7 pg (27.0-31.0); MEAN CORPUSCULAR HGB CONC 31.5 g/dL (32.0-36.0); MEAN CORPUSCULAR VOLUME 84.8 fL (81.0-99.0); MEAN PLATELET VOLUME 9.1 fL (7.9-10.8); MONOCYTES # (AUTO) 0.4 10^3/uL (0.0-1.0); MONOCYTES % (AUTO) 5.1 %; NEUTROPHILS # (AUTO) 6.2 10^3/uL (1.5-6.6); NEUTROPHILS % (AUTO) 87.5 %; PLT - PLATELET COUNT 243 10^3/uL (130-450); RED BLOOD COUNT 4.34 10^6/uL (4.20-5.40); RED CELL DISTRIBUTION WIDTH 15.3 % (12.0-15.0); VBG PCO2 35.3 mmHg (41-51); VBG PH 7.419 (7.31-7.41); VBG PO2 71.7 mmHg (25-47); WHITE BLOOD COUNT 7.1 x10^3/uL (4.8-10.8)
[2022-06-28 05:31] LABS: VBG BASE EXCESS -1.6 mmol/L (-2 - +2); VBG HCO3 22.3 mmol/L (23-28); VBG OXYGEN SATURATION 93.9 % (60-80); VBG TOTAL CO2 23.4 mmol/L (24-29)
[2022-06-28 05:32] LABS: INR 2.7 (0.8-1.2); PT - PROTHROMBIN TIME 28.2 secs (9.9-12.6)
[2022-06-28 05:44] LABS: ALBUMIN 2.7 g/dL (3.2-5.5); ALBUMIN/GLOBULIN RATIO 0.8 (1.0-2.2); BILIRUBIN,TOTAL 0.7 mg/dL (0.2-1.0); CALCIUM 8.2 mg/dL (8.5-10.3); CREATININE 1.9 mg/dL (0.4-1.0); MAGNESIUM 2.5 mg/dL (1.7-2.8); PHOSPHORUS 3.4 mg/dL (2.5-4.6); POTASSIUM 3.6 mmol/L (3.5-5.0); TOTAL PROTEIN 5.9 g/dL (6.7-8.2)
[2022-06-28] MEDS: PANTOPRAZOLE 40 MG VIAL IVP SCH (05:51)
[2022-06-28] MEDS ORDERED: POTASSIUM CHLOR 20 MEQ/100 ML 20 MEQ/100 ML BAG IV ONE (06:19)
--- NOTE | 2022-06-28 07:10 | XRAY Report ---
PROCEDURE: Chest 1 View X-Ray INDICATIONS: Intubated, respiratory failure TECHNIQUE: One view of the chest was acquired. COMPARISON: 06/27/2022, 06/26/2022. FINDINGS: Surgical changes and devices:ET tube tip is approximately 1.4 cm above the erica. Enteric tube tip i s below the lower edge of the study and is in the expected location of stomach lumen. Right internal jugular central venous catheter tip is in SVC. Lungs and pleura: Hazy airspace opacities are seen scattered in bilateral lung beavers more prominent on the left side. Pulmonary vascular congestion is also seen. No significant pleural effusion. No gr oss pneumothorax. Mediastinum: Mediastinal contours appear normal. Heart size is enlarged. Bones and chest wall: No suspicious bony lesions. Overlying soft tissues appear unremarkable. IMPRESSION: Congestive changes and pulmonary vascular congestion. Suggestion of pulmonary edema. Underlying bilat eral patchy pulmonary infiltrates cannot be excluded. No significant pleural effusion or pneumothorax . Reviewed by: Josef Coughlin MD on 06/28/2022 7:08 AM PDT Approved by: Josef Coughlin MD on 06/28/2022 7:08 AM PDT Station ID: [id number]
[2022-06-28] MEDS: CHLORHEXIDINE GLUCONATE 15 ML UDC PO SCH ×2 (08:37→20:28)
[2022-06-28] MEDS: DEXAMETHASONE 10 MG/ML VIAL IVP SCH (08:37)
[2022-06-28] MEDS: FUROSEMIDE 40 MG/4 ML VIAL IVP SCH ×2 (08:37→20:28)
[2022-06-28] MEDS ORDERED: CHOLECALCIFEROL 5,000 UNIT CAPSULE PO SCH (09:00)
[2022-06-28] MEDS: REMDESIVIR 100MG VIAL 100 MG in SODIUM CHLORIDE 0.9% 100ML 100 ML IV SCH (09:51)
[2022-06-28 10:12] LABS: ABG PCO2 36 mmHg (34-45); ABG PH 7.48 (7.35-7.45)
[2022-06-28 10:13] LABS: ABG BASE EXCESS 2.9 mmol/L (-2.0-3.0); ABG HCO3 26.2 mmol/L (22.0-26.0); ABG OXYGEN SATURATION 94 % (94-98); ABG PO2 70 mmHg (80-100); ABG TCO2 27.3 MMOL/L (21.0-29.0); ALLEN TEST POSITIVE
[2022-06-28 10:14] LABS: ABG MODE OF VENTILATION CPAP
[2022-06-28] MEDS: LOSARTAN 50 MG TABLET PO SCH (12:30)
[2022-06-28] MEDS: DIGOXIN 125 MCG TABLET PO SCH (12:30)
[2022-06-28] MEDS: METOPROLOL TARTRATE 50 MG TABLET PO SCH ×2 (12:31→20:28)
[2022-06-28 12:44] LABS: CALCIUM, IONIZED 1.1 mmol/L (1.15-1.33); VBG PH 7.418 (7.31-7.41)
[2022-06-28 12:59] LABS: MAGNESIUM 2.5 mg/dL (1.7-2.8); PHOSPHORUS 3.1 mg/dL (2.5-4.6); POTASSIUM 3.9 mmol/L (3.5-5.0)
--- NOTE | 2022-06-28 14:39 | PROVIDER PROGRESS NOTE ---
Assessment/Plan - Problem List (1) Sepsis Qualifiers: Sepsis type: sepsis due to unspecified organism Sepsis acute organ dysfunction status: with acute organ dysfunction Severe sepsis acute organ dysfunction type: acute respiratory failure Acute respiratory failure type: with hypoxia Severe sepsis shock status: without septic shock Qualified Code(s): A41.9 - Sepsis, unspecified organism; R65.20 - Severe sepsis without septic shock; J96.01 - Acute respiratory failure with hypoxia Assessment/Plan: Patient met sepsis criteria on admission likely secondary to acute respiratory failure that is combined with COVID as well as CHF. Patient improved and no longer meets sepsis criteria. (2) Acute exacerbation of congestive heart failure Qualifiers: Heart failure type: unspecified Qualified Code(s): I50.9 - Heart failure, unspecified Assessment/Plan: Patient with respiratory failure and fluid overload on chest x-ray Consistent with acute CHF exacerbation possibly triggered by COVID infection Unfortunately, we do not have access to echocardiogram for several days We will treat empirically with Lasix which seems to have helped already Patient intubated overnight on 06/26/2022, extubated successfully this afternoon on high flow oxygen with no respiratory distress We will continue supportive care, diuresis, and follow-up echocardiogram when possible (3) Type 2 diabetes mellitus Qualifiers: Diabetes mellitus care home insulin use: without care home use Diabetes mellitus complication status: without complication Qualified Code(s): E11.9 - Type 2 diabetes mellitus without complications Assessment/Plan: Patient was n.p.o. due to intubated status, now extubated Continue Accu-Cheks Stop TPN If passes swallow eval, start carb controlled diet (4) Hypertension Qualifiers: Hypertension type: primary hypertension Qualified Code(s): I10 - Essential (primary) hypertension Assessment/Plan: Patient was initially hypotensive and home medications have been held. Blood pressure slowly increasing, will slowly reintroduce antihypertensive medication starting at half her home dose of metoprolol, full dose of diltiazem and holding losartan pending blood pressure response (5) Atrial fibrillation Assessment/Plan: As above, slowly reintroduce home medications. Resumed metoprolol at half dose. We will resume diltiazem in the a.m., sooner if heart rate trends up. Continue warfarin (6) GERD (gastroesophageal reflux disease) Assessment/Plan: Continue PPI (7) COVID-19 Assessment/Plan: Respiratory status improved Continue remdesivir Continue Decadron Continue supportive care, currently 4 L by nasal cannula (8) Respiratory failure Qualifiers: Chronicity: acute Respiratory failure complication: hypoxia and hypercapnia Qualified Code(s): J96.01 - Acute respiratory failure with hypoxia; J96.02 - Acute respiratory failure with hypercapnia; J96.02 - Acute respiratory failure with hypercapnia Assessment/Plan: As above, improved. Secondary to heart failure and COVID Continue supportive care Continue wean oxygen as able Continue diuresis - Current Meds Current Meds: Current Medications Generic Name Dose Route Start Last Admin Trade Name Freq PRN Reason Stop Dose Admin Acetaminophen 650 mg 06/26/22 16:03 06/27/22 11:32 Acetaminophen 325 Mg Tablet PO 650 mg Q4HR PRN Administration Pain 1 to 4, or Fever Chlorhexidine Gluconate 15 ml 06/26/22 21:00 06/28/22 08:37 Chlorhexidine Gluconate 15 Ml Udc PO 15 ml BID WILIAM Administration Dexamethasone Sodium Phosphate 6 mg 06/26/22 19:00 06/28/22 08:37 Dexamethasone 10 Mg/Ml Vial IVP 6 mg DAILY WILIAM Administration Digoxin 125 mcg 06/28/22 12:30 06/28/22 12:30 Digoxin 125 Mcg Tablet PO 125 mcg DAILY WILIAM Administration Fentanyl 25 mcg 06/27/22 00:34 06/27/22 17:14 Fentanyl 100 Mcg/2 Ml Vial IVP 25 mcg Q1HR PRN Administration Anesthesia Furosemide 40 mg 06/28/22 09:00 06/28/22 08:37 Furosemide 40 Mg/4 Ml Vial IVP 40 mg BID WILIAM Administration Remdesivir 100 mg/ Sodium 100 mls @ 200 mls/hr 06/27/22 14:00 06/28/22 09:51 Chloride IV 06/30/22 09:29 200 mls/hr DAILY WILIAM Administration Propofol 1,000 mg in 100 mls @ 10.26 mls/hr 06/27/22 01:00 06/28/22 08:05 Diprivan IV 0 mcg/kg/min .[id number] WILIAM 0 mls/hr Titration Protocol 10 MCG/KG/MIN Insulin Human Lispro 1 - 5 unit 06/26/22 21:00 06/28/22 05:55 Insulin Lispro 300 Unit/3 Ml Pen SUBQ 2 unit 0800,1200,1700,2100 WILIAM Administration Protocol Losartan Potassium 25 mg 06/28/22 12:30 06/28/22 12:30 Losartan 50 Mg Tablet PO 25 mg DAILY WILIAM Administration Metoprolol Tartrate 50 mg 06/28/22 12:15 06/28/22 12:31 Metoprolol Tartrate 50 Mg Tablet PO 50 mg BID WILIAM Administration Pantoprazole Sodium 40 mg 06/27/22 07:00 06/28/22 05:51 Pantoprazole 40 Mg Vial IVP 40 mg QDAC WILIAM Administration Sodium Chloride 10 ml 06/27/22 01:00 06/28/22 08:38 Sodium Chloride Flush 0.9% 10 Ml Syringe IVP 10 ml 0100,0900,1700 WILIAM Administration - Lab Result Lab results reviewed: Yes Fish Bone Diagrams: 06/28/22 04:30 06/28/22 12:45 - EKG Results EKG Interpreted Independently: Yes - Additional Planning Condition/Complexity: Improved My Orders: My Active Orders 06/27/22 14:00 Remdesivir 100Mg Vial [Veklury] 100 mg Sodium Chloride 0.9% 100Ml [Normal Saline 0.9% 100Ml] 100 ml IV DAILY 06/28/22 Clinical Swallow Evaluation [ST] Routine 06/28/22 09:00 FUROSEMIDE INJ 40mg VIAL [LASIX INJ 40 mg VIAL] 40 mg IVP BID 06/28/22 10:07 RT - Obtain Arterial Specimen [RC] .ONCE 06/28/22 12:15 Metoprolol Tartrate [Lopressor] 50 mg PO BID 06/28/22 12:30 Digoxin [Lanoxin] 125 mcg PO DAILY Losartan [Cozaar] 25 mg PO DAILY 06/28/22 14:00 Warfarin [Coumadin] 2.5 mg PO [id number] 06/29/22 05:00 BMP - BASIC METABOLIC PANEL [CHEM] DAILYLAB CBC - COMP BLD CT W/AUTO DIFF [HEME] DAILYLAB PT WITH INR [COAG] DAILYLAB 06/29/22 09:00 ABG - ARTERIAL BLOOD GAS [BG] DAILY 06/29/22 14:00 Warfarin [Coumadin] 5 mg PO SuTuTh 06/30/22 05:00 CBC - COMP BLD CT W/AUTO DIFF [HEME] DAILYLAB COMPREHENSIVE METABOLIC PANEL [CHEM] Timed MAGNESIUM [CHEM] Timed PHOSPHORUS [CHEM] Timed PREALBUMIN [CHEM] Timed PT WITH INR [COAG] DAILYLAB 06/30/22 09:00 ABG - ARTERIAL BLOOD GAS [BG] DAILY 07/01/22 05:00 PT WITH INR [COAG] DAILYLAB 07/01/22 09:00 ABG - ARTERIAL BLOOD GAS [BG] DAILY 07/02/22 09:00 ABG - ARTERIAL BLOOD GAS [BG] DAILY 07/03/22 05:00 COMPREHENSIVE METABOLIC PANEL [CHEM] Timed MAGNESIUM [CHEM] Timed PHOSPHORUS [CHEM] Timed PREALBUMIN [CHEM] Timed Subjective - Subjective Patient Reports: Feeling Better Objective Vital Signs: Vital Signs - 24 hr 06/27/22 06/27/22 06/27/22 15:00 15:19 16:00 Temperature 37.6 C 37.5 C Heart Rate 106 H Heart Rate [ 98 106 H Monitoring electrodes] Respiratory 18 18 Rate Blood Pressure Blood Pressure 113/78 103/69 [Right Brachial artery] Blood Pressure [Right Radial artery] O2 Saturation 97 97 If not protocol : Oxygen Flow, liters/minute 06/27/22 06/27/22 06/27/22 16:30 17:00 17:30 Temperature 37.5 C Heart Rate Heart Rate [ 103 H Monitoring electrodes] Respiratory 18 18 18 Rate Blood Pressure Blood Pressure 111/74 [Right Brachial artery] Blood Pressure [Right Radial artery] O2 Saturation 97 97 97 If not protocol : Oxygen Flow, liters/minute 06/27/22 06/27/22 06/27/22 17:53 18:00 18:30 Temperature Heart Rate 97 Heart Rate [ 111 H Monitoring electrodes] Respiratory 18 18 Rate Blood Pressure Blood Pressure 103/68 [Right Brachial artery] Blood Pressure [Right Radial artery] O2 Saturation 96 96 If not protocol : Oxygen Flow, liters/minute 06/27/22 06/27/22 06/27/22 19:00 20:00 20:04 Temperature 37.5 C 37.5 C Heart Rate 107 H Heart Rate [ 103 H Monitoring electrodes] Respiratory 18 18 Rate Blood Pressure Blood Pressure 101/63 108/65 [Right Brachial artery] Blood Pressure [Right Radial artery] O2 Saturation 96 98 If not protocol : Oxygen Flow, liters/minute 06/27/22 06/27/22 06/27/22 21:00 21:57 22:00 Temperature 37.3 C 37.2 C Heart Rate 101 H Heart Rate [ 93 92 Monitoring electrodes] Respiratory 18 18 Rate Blood Pressure Blood Pressure 97/59 L 100/71 [Right Brachial artery] Blood Pressure [Right Radial artery] O2 Saturation 95 94 If not protocol : Oxygen Flow, liters/minute 06/27/22 06/28/22 06/28/22 23:00 00:00 00:09 Temperature 37.1 C 37.0 C Heart Rate 93 Heart Rate [ 90 86 Monitoring electrodes] Respiratory 18 18 Rate Blood Pressure Blood Pressure 110/70 108/62 [Right Brachial artery] Blood Pressure [Right Radial artery] O2 Saturation 94 96 If not protocol : Oxygen Flow, liters/minute 06/28/22 06/28/22 06/28/22 01:00 02:00 02:05 Temperature 36.9 C 36.9 C Heart Rate 87 Heart Rate [ 91 90 Monitoring electrodes] Respiratory 16 18 Rate Blood Pressure Blood Pressure 123/77 119/79 [Right Brachial artery] Blood Pressure [Right Radial artery] O2 Saturation 97 96 If not protocol : Oxygen Flow, liters/minute 06/28/22 06/28/22 06/28/22 03:00 04:00 05:00 Temperature 36.7 C 36.5 C 36.5 C Heart Rate 90 Heart Rate [ 87 76 82 Monitoring electrodes] Respiratory 18 18 18 Rate Blood Pressure Blood Pressure 105/68 117/66 128/77 [Right Brachial artery] Blood Pressure [Right Radial artery] O2 Saturation 97 99 98 If not protocol : Oxygen Flow, liters/minute 06/28/22 06/28/22 06/28/22 05:58 06:00 07:00 Temperature 36.5 C 36.4 C L Heart Rate 88 Heart Rate [ 79 73 Monitoring electrodes] Respiratory 18 18 Rate Blood Pressure Blood Pressure 126/75 114/72 [Right Brachial artery] Blood Pressure [Right Radial artery] O2 Saturation 96 97 If not protocol : Oxygen Flow, liters/minute 06/28/22 06/28/22 06/28/22 07:06 08:00 08:24 Temperature 36.4 C L Heart Rate 76 86 Heart Rate [ 80 Monitoring electrodes] Respiratory 17 Rate Blood Pressure Blood Pressure 127/76 [Right Brachial artery] Blood Pressure [Right Radial artery] O2 Saturation 99 If not protocol : Oxygen Flow, liters/minute 06/28/22 06/28/22 06/28/22 08:30 08:47 09:00 Temperature 36.4 C L 36.4 C L Heart Rate 94 Heart Rate [ 95 100 Monitoring electrodes] Respiratory 18 20 Rate Blood Pressure Blood Pressure 131/77 H 139/87 H [Right Brachial artery] Blood Pressure [Right Radial artery] O2 Saturation 95 97 If not protocol : Oxygen Flow, liters/minute 06/28/22 06/28/22 06/28/22 09:10 09:30 09:57 Temperature 36.6 C 36.6 C Heart Rate 104 H Heart Rate [ 95 100 Monitoring electrodes] Respiratory 19 16 Rate Blood Pressure Blood Pressure 155/89 H 150/92 H [Right Brachial artery] Blood Pressure [Right Radial artery] O2 Saturation 96 96 If not protocol : Oxygen Flow, liters/minute 06/28/22 06/28/22 06/28/22 11:00 12:00 12:31 Temperature 36.6 C 37 C Heart Rate Heart Rate [ 109 H 130 H Monitoring electrodes] Respiratory 18 32 H Rate Blood Pressure 147/95 H Blood Pressure 167/99 H 147/95 H [Right Brachial artery] Blood Pressure [Right Radial artery] O2 Saturation 95 96 If not protocol 6 6 : Oxygen Flow, liters/minute 06/28/22 06/28/22 13:00 14:00 Temperature 37 C 37.1 C Heart Rate Heart Rate [ 113 H 102 H Monitoring electrodes] Respiratory 22 18 Rate Blood Pressure Blood Pressure [Right Brachial artery] Blood Pressure 149/97 H [Right Radial artery] O2 Saturation 96 97 If not protocol 6 6 : Oxygen Flow, liters/minute Oxygen O2 Source Oxymask Oxygen Flow Rate 15 I&O (Last 24 Hrs): Intake and Output Totals x24h 06/26/22 06/27/22 06/28/22 23:59 23:59 23:59 Intake Total 1884.340 422.642 Output Total 235 1255 2370 Balance -235 629.340 -1947.358 General: Alert, Oriented x3 HEENT: Atraumatic Neuro: Alert, CN 2-12 Grossly Intact Cardiovascular: Regular rate, Normal S1, Normal S2 Respiratory: Chest non-tender, No respiratory distress, Breath sounds nml Abdomen: Normal bowel sounds Extremities: No clubbing, No cyanosis, No edema Skin: No rashes - Results Results: Laboratory Results WBC 7.1 x10^3/uL (4.8-10.8) 06/28/22 04:30 RBC 4.34 10^6/uL (4.20-5.40) 06/28/22 04:30 Hgb 11.6 g/dL (12.0-16.0) L 06/28/22 04:30 Hct 36.8 % (37.0-47.0) L 06/28/22 04:30 MCV 84.8 fL (81.0-99.0) 06/28/22 04:30 MCH 26.7 pg (27.0-31.0) L 06/28/22 04:30 MCHC 31.5 g/dL (32.0-36.0) L 06/28/22 04:30 RDW 15.3 % (12.0-15.0) H 06/28/22 04:30 Plt Count 243 10^3/uL (130-450) 06/28/22 04:30 MPV 9.1 fL (7.9-10.8) 06/28/22 04:30 Neut # (Auto) 6.2 10^3/uL (1.5-6.6) 06/28/22 04:30 Lymph # (Auto) 0.5 10^3/uL (1.5-3.5) L 06/28/22 04:30 [place] # (Auto) 0.4 10^3/uL (0.0-1.0) 06/28/22 04:30 Eos # (Auto) 0.0 10^3/uL (0.0-0.7) 06/28/22 04:30 Baso # (Auto) 0.0 10^3/uL (0.0-0.1) 06/28/22 04:30 Absolute Nucleated RBC 0.00 x10^3/uL 06/28/22 04:30 Nucleated RBC % 0.0 /100WBC 06/28/22 04:30 PT 28.2 secs (9.9-12.6) H 06/28/22 04:30 INR 2.7 (0.8-1.2) H 06/28/22 04:30 Bld Gas Analysis Time 1011 06/28/22 09:55 Sample Site RIGHT RADIAL 06/28/22 09:55 ABG pH 7.48 (7.35-7.45) H 06/28/22 09:55 ABG pCO2 36 mmHg (34-45) 04/15/23 09:55 ABG pO2 70 mmHg (80-100) L 06/28/22 09:55 ABG HCO3 26.2 mmol/L (22.0-26.0) H 06/28/22 09:55 ABG Total CO2 27.3 MMOL/L (21.0-29.0) 06/28/22 09:55 ABG O2 Saturation 94 % (94-98) 06/28/22 09:55 ABG Base Excess 2.9 mmol/L (-2.0-3.0) 06/28/22 09:55 [place] Test POSITIVE 06/28/22 09:55 VBG pH 7.418 (7.31-7.41) H 06/28/22 12:35 VBG pCO2 35.3 mmHg (41-51) L 06/28/22 04:30 VBG pO2 71.7 mmHg (25-47) H 06/28/22 04:30 VBG HCO3 22.3 mmol/L (23-28) L 06/28/22 04:30 VBG Total CO2 23.4 mmol/L (24-29) L 06/28/22 04:30 VBG O2 Saturation 93.9 % (60-80) H 06/28/22 04:30 VBG Base Excess -1.6 mmol/L (-2 - +2) 06/28/22 04:30 Ionized Calcium 1.10 mmol/L (1.15-1.33) L 06/28/22 12:35 Respiration Rate 24 b/min 06/27/22 06:07 O2 Delivery Device VENTILATOR 06/28/22 09:55 Vent Mode CPAP 06/28/22 09:55 FiO2 40.00 06/28/22 09:55 Tidal Volume 550 mL 06/27/22 06:07 PEEP 5 cmH2O 06/28/22 09:55 Pressure Support Vent 14 cmH2O 06/28/22 09:55 EPAP 5 cmH2O 06/26/22 22:50 IPAP 16 cmH2O 06/26/22 22:50 Sodium 139 mmol/L (135-145) 06/28/22 04:30 Potassium 3.9 mmol/L (3.5-5.0) 06/28/22 12:45 Chloride 101 mmol/L (101-111) 06/28/22 04:30 Carbon Dioxide 26 mmol/L (21-32) 06/28/22 04:30 Anion Gap 12.0 (6-13) 06/28/22 04:30 BUN 67 mg/dL (6-20) H 06/28/22 04:30 Creatinine 1.9 mg/dL (0.4-1.0) H 06/28/22 04:30 Estimated GFR (MDRD) 26 (>89) L 06/28/22 04:30 Glucose 192 mg/dL (70-100) H 06/28/22 04:30 Lactic Acid 1.1 mmol/L (0.5-2.2) 06/26/22 18:30 Calcium 8.2 mg/dL (8.5-10.3) L 06/28/22 04:30 Phosphorus 3.1 mg/dL (2.5-4.6) 06/28/22 12:45 Magnesium 2.5 mg/dL (1.7-2.8) 06/28/22 12:45 Total Bilirubin 0.7 mg/dL (0.2-1.0) 06/28/22 04:30 AST 347 IU/L (10-42) H 06/28/22 04:30 ALT 539 IU/L (10-60) H 06/28/22 04:30 Alkaline Phosphatase 72 IU/L (42-121) 06/28/22 04:30 Troponin I High Sens 48.7 ng/L (2.3-14.8) H* 06/26/22 20:20 B-Natriuretic Peptide 305 pg/mL (5-100) H 06/26/22 14:52 Total Protein 5.9 g/dL (6.7-8.2) L 06/28/22 04:30 Albumin 2.7 g/dL (3.2-5.5) L 06/28/22 04:30 Globulin 3.2 g/dL (2.1-4.2) 06/28/22 04:30 Albumin/Globulin Ratio 0.8 (1.0-2.2) L 06/28/22 04:30 Prealbumin 11 mg/dL (18-45) L 06/28/22 04:30 Triglycerides 126 mg/dL (-149) 06/27/22 04:32 Vitamin D 25-Hydroxy 6.7 ng/mL (30.0-100.0) L 06/27/22 17:09 Urine Color DARK YELLOW 06/26/22 15:30 Urine Clarity HAZY (CLEAR) 06/26/22 15:30 Urine pH 5.5 PH (5.0-7.5) 06/26/22 15:30 Ur Specific [place] >=1.030 (1.002-1.030) H 06/26/22 15:30 Urine Protein 100 mg/dL (NEGATIVE) H 06/26/22 15:30 Urine Glucose (UA) NEGATIVE mg/dL (NEGATIVE) 06/26/22 15:30 Urine Ketones NEGATIVE mg/dL (NEGATIVE) 06/26/22 15:30 Urine Occult Blood NEGATIVE (NEGATIVE) 06/26/22 15:30 Urine Nitrite NEGATIVE (NEGATIVE) 06/26/22 15:30 Urine Bilirubin NEGATIVE (NEGATIVE) 06/26/22 15:30 Urine Urobilinogen 0.2 (NORMAL) E.U./dL (NORMAL) 06/26/22 15:30 Ur Leukocyte Esterase NEGATIVE (NEGATIVE) 06/26/22 15:30 Urine RBC 0-5 /HPF (0-5) 06/26/22 15:30 Urine WBC 0-3 /HPF (0-5) 06/26/22 15:30 Ur Squamous Epith Cells FEW Squamous (<= Few) 06/26/22 15:30 Urine Bacteria Few /HPF (None Seen) 06/26/22 15:30 Urine Casts 0-2 Hyaline Casts /LPF 06/26/22 15:30 Urine Culture Comments NOT INDICATED 06/26/22 15:30 Nasal Adenovirus (PCR) NOT DETECTED 06/26/22 13:58 Nasal B. parapertussis DNA (PCR) NOT DETECTED 06/26/22 13:58 Nasal Coronavir 229E PCR NOT DETECTED 06/26/22 13:58 Nasal Coronavir HKU1 PCR NOT DETECTED 06/26/22 13:58 Nasal Coronavir NL63 PCR NOT DETECTED 06/26/22 13:58 Nasal Coronavir OC43 PCR NOT DETECTED 06/26/22 13:58 Nasal Enterovir/Rhinovir PCR NOT DETECTED 06/26/22 13:58 Nasal Influenza B PCR NOT DETECTED 06/26/22 13:58 Nasal Influenza A PCR NOT DETECTED 06/26/22 13:58 Nasal Parainfluen 1 PCR NOT DETECTED 06/26/22 13:58 Nasal Parainfluen 2 PCR NOT DETECTED 06/26/22 13:58 Nasal Parainfluen 3 PCR NOT DETECTED 06/26/22 13:58 Nasal Parainfluen 4 PCR NOT DETECTED 06/26/22 13:58 Nasal RSV (PCR) NOT DETECTED 06/26/22 13:58 Nasal Screen MRSA (PCR) NEGATIVE (NEGATIVE) 06/26/22 16:47 Nasal B.pertussis DNA PCR NOT DETECTED 06/26/22 13:58 Nasal C.pneumoniae (PCR) NOT DETECTED 06/26/22 13:58 Nba Human Metapneumo PCR NOT DETECTED 06/26/22 13:58 Nasal M.pneumoniae (PCR) NOT DETECTED 06/26/22 13:58 Nasal SARS-CoV-2 (PCR) DETECTED A 06/26/22 13:58 Salicylates 10.9 mg/dL 06/26/22 14:52 Urine Opiates Screen NEGATIVE (NEGATIVE) 06/26/22 15:30 Ur Oxycodone Screen NEGATIVE (NEGATIVE) 06/26/22 15:30 Urine Methadone Screen NEGATIVE (NEGATIVE) 06/26/22 15:30 Ur Propoxyphene Screen NEGATIVE (NEGATIVE) 06/26/22 15:30 Acetaminophen < 10 ug/mL (10-30) L 06/26/22 14:52 Ur Barbiturates Screen NEGATIVE (NEGATIVE) 06/26/22 15:30 Ur Tricyclics Screen NEGATIVE (NEGATIVE) 06/26/22 15:30 Ur Phencyclidine Scrn NEGATIVE (NEGATIVE) 06/26/22 15:30 Ur Amphetamine Screen NEGATIVE (NEGATIVE) 06/26/22 15:30 U Methamphetamines Scrn NEGATIVE (NEGATIVE) 06/26/22 15:30 U Benzodiazepines Scrn NEGATIVE (NEGATIVE) 06/26/22 15:30 Urine Cocaine Screen NEGATIVE (NEGATIVE) 06/26/22 15:30 U Cannabinoids Screen NEGATIVE (NEGATIVE) 06/26/22 15:30 Ethyl Alcohol < 5.0 mg/dL 06/26/22 14:52 Sepsis Event Note (H) - Evaluation Current Stage of Sepsis: Sepsis Possible source of Sepsis: positive: Pulmonary - Sepsis Criteria Sepsis Criteria: Suspected or Documented, Recorded Respiratory Rate greater than 20, Respiratory: Increasing oxygen requirements, Metabolic: lactate > 2 mmol/L ABX Reporting Has patient been on IV antibiotics over the past 48 hours?: No
[2022-06-28] MEDS: WARFARIN 2.5 MG TABLET PO SCH (16:46)
[2022-06-28] MEDS ORDERED: METOPROLOL TARTRATE 50 MG TABLET PO SCH (21:00)
[2022-06-29 04:47] LABS: BASOPHILS % (AUTO) 0.1 %; HCT - HEMATOCRIT 40.7 % (37.0-47.0); HGB - HEMOGLOBIN 12.6 g/dL (12.0-16.0); LYMPHOCYTES # (AUTO) 0.5 10^3/uL (1.5-3.5); LYMPHOCYTES % (AUTO) 5.5 %; MEAN CORPUSCULAR HEMOGLOBIN 26.7 pg (27.0-31.0); MEAN CORPUSCULAR VOLUME 86.2 fL (81.0-99.0); MEAN PLATELET VOLUME 8.6 fL (7.9-10.8); MONOCYTES # (AUTO) 0.7 10^3/uL (0.0-1.0); MONOCYTES % (AUTO) 7.8 %; NEUTROPHILS # (AUTO) 7.7 10^3/uL (1.5-6.6); NEUTROPHILS % (AUTO) 85.8 %; PLT - PLATELET COUNT 277 10^3/uL (130-450); RED BLOOD COUNT 4.72 10^6/uL (4.20-5.40); RED CELL DISTRIBUTION WIDTH 15.3 % (12.0-15.0)
[2022-06-29 04:49] LABS: CALCIUM, IONIZED 1.14 mmol/L (1.15-1.33); VBG PH 7.387 (7.31-7.41)
[2022-06-29 05:00] LABS: CALCIUM 8.5 mg/dL (8.5-10.3); CREATININE 1.3 mg/dL (0.4-1.0); MAGNESIUM 2.5 mg/dL (1.7-2.8); PHOSPHORUS 3.8 mg/dL (2.5-4.6); POTASSIUM 3.8 mmol/L (3.5-5.0)
[2022-06-29 05:07] LABS: INR 1.9 (0.8-1.2); PT - PROTHROMBIN TIME 20.2 secs (9.9-12.6)
[2022-06-29] MEDS: PANTOPRAZOLE 40 MG VIAL IVP SCH (06:52)
[2022-06-29] MEDS ORDERED: POTASSIUM CHLORIDE 20 MEQ TABLET PO ONE (08:00)
[2022-06-29] MEDS ORDERED: DILTIAZEM HCL 180 MG PO SCH (09:00)
[2022-06-29] MEDS: INSULIN LISPRO 300 UNIT/3 ML PEN SUBQ SCH ×4 (09:14→21:18)
[2022-06-29] MEDS: CHLORHEXIDINE GLUCONATE 15 ML UDC PO SCH ×2 (09:15→21:00)
[2022-06-29] MEDS: DIGOXIN 125 MCG TABLET PO SCH (09:15)
[2022-06-29] MEDS: FUROSEMIDE 40 MG/4 ML VIAL IVP SCH ×2 (09:15→21:10)
[2022-06-29] MEDS: DEXAMETHASONE 10 MG/ML VIAL IVP SCH (09:15)
[2022-06-29] MEDS: diltiaZEM CD 180 MG CAPSULE PO SCH (09:16)
[2022-06-29] MEDS: METOPROLOL TARTRATE 50 MG TABLET PO SCH ×2 (09:16→21:10)
[2022-06-29] MEDS: LOSARTAN 50 MG TABLET PO SCH (09:16)
[2022-06-29] MEDS: SODIUM CHLORIDE FLUSH 0.9% 10 ML SYRINGE IVP SCH ×2 (09:17→17:05)
[2022-06-29] MEDS: REMDESIVIR 100MG VIAL 100 MG in SODIUM CHLORIDE 0.9% 100ML 100 ML IV SCH (09:17)
[2022-06-29] MEDS: DOCUSATE SODIUM 250 MG CAPSULE PO SCH (11:22)
[2022-06-29] MEDS: polyethylene glycoL 3350 17 GM PACKET PO SCH (11:22)
[2022-06-29] MEDS: WARFARIN 5 MG TABLET PO SCH (14:39)
--- NOTE | 2022-06-29 15:47 | PROVIDER PROGRESS NOTE ---
Assessment/Plan - Problem List (1) Sepsis Qualifiers: Sepsis type: sepsis due to unspecified organism Sepsis acute organ dysfunction status: with acute organ dysfunction Severe sepsis acute organ dysfunction type: acute respiratory failure Acute respiratory failure type: with hypoxia Severe sepsis shock status: without septic shock Qualified Code(s): A41.9 - Sepsis, unspecified organism; R65.20 - Severe sepsis without septic shock; J96.01 - Acute respiratory failure with hypoxia Assessment/Plan: Patient met sepsis criteria on admission likely secondary to acute respiratory failure that is combined with COVID as well as CHF. Patient improved and no longer meets sepsis criteria. (2) Acute exacerbation of congestive heart failure Qualifiers: Heart failure type: unspecified Qualified Code(s): I50.9 - Heart failure, unspecified Assessment/Plan: Patient with respiratory failure and fluid overload on chest x-ray Consistent with acute CHF exacerbation possibly triggered by COVID infection Unfortunately, we do not have access to echocardiogram for several days We will treat empirically with Lasix which seems to have helped already Patient intubated overnight on 06/26/2022, extubated successfully on 06/28 and now on 2L NC We will continue supportive care, diuresis, and follow-up echocardiogram when possible, on Saturday 07/01 (3) Type 2 diabetes mellitus Qualifiers: Diabetes mellitus terminal clerk insulin use: without terminal clerk use Diabetes mellitus complication status: without complication Qualified Code(s): E11.9 - Type 2 diabetes mellitus without complications Assessment/Plan: Carb controlled diet Insulin sliding scale (4) Hypertension Qualifiers: Hypertension type: primary hypertension Qualified Code(s): I10 - Essential (primary) hypertension Assessment/Plan: Well controlled Resume home meds (5) Atrial fibrillation Assessment/Plan: Rate controlled Cont home meds (6) GERD (gastroesophageal reflux disease) Assessment/Plan: Cont protonix (8) Respiratory failure Qualifiers: Chronicity: acute Respiratory failure complication: hypoxia and hypercapnia Qualified Code(s): J96.01 - Acute respiratory failure with hypoxia; J96.02 - Acute respiratory failure with hypercapnia; J96.02 - Acute respiratory failure with hypercapnia Assessment/Plan: As above, improved. Secondary to heart failure and COVID Continue supportive care Continue wean oxygen as able Continue diuresis - Current Meds Current Meds: Current Medications Generic Name Dose Route Start Last Admin Trade Name Freq PRN Reason Stop Dose Admin Acetaminophen 650 mg 06/26/22 16:03 06/27/22 11:32 Acetaminophen 325 Mg Tablet PO 650 mg Q4HR PRN Administration Pain 1 to 4, or Fever Chlorhexidine Gluconate 15 ml 06/26/22 21:00 06/29/22 09:15 Chlorhexidine Gluconate 15 Ml Udc PO 15 ml BID WILIAM Administration Dexamethasone Sodium Phosphate 6 mg 06/26/22 19:00 06/29/22 09:15 Dexamethasone 10 Mg/Ml Vial IVP 6 mg DAILY WILIAM Administration Digoxin 125 mcg 06/28/22 12:30 06/29/22 09:15 Digoxin 125 Mcg Tablet PO 125 mcg DAILY WILIAM Administration Diltiazem HCl 180 mg 06/29/22 09:00 06/29/22 09:16 Diltiazem Cd 180 Mg Capsule PO 180 mg DAILY WILIAM Administration Docusate Sodium 250 - 500 mg 06/29/22 10:00 06/29/22 11:22 Docusate Sodium 250 Mg Capsule PO 250 mg DAILY WILIAM Administration Fentanyl 25 mcg 06/27/22 00:34 06/27/22 17:14 Fentanyl 100 Mcg/2 Ml Vial IVP 25 mcg Q1HR PRN Administration Anesthesia Furosemide 40 mg 06/28/22 09:00 06/29/22 09:15 Furosemide 40 Mg/4 Ml Vial IVP 40 mg BID WILIAM Administration Remdesivir 100 mg/ Sodium 100 mls @ 200 mls/hr 06/27/22 14:00 06/29/22 09:17 Chloride IV 06/30/22 09:29 200 mls/hr DAILY WILIAM Administration Insulin Human Lispro 1 - 5 unit 06/26/22 21:00 06/29/22 12:25 Insulin Lispro 300 Unit/3 Ml Pen SUBQ 3 unit 0800,1200,1700,2100 WILIAM Administration Protocol Losartan Potassium 25 mg 06/28/22 12:30 06/29/22 09:16 Losartan 50 Mg Tablet PO 25 mg DAILY WILIAM Administration Metoprolol Tartrate 50 mg 06/28/22 12:15 06/29/22 09:16 Metoprolol Tartrate 50 Mg Tablet PO 50 mg BID WILIAM Administration Oxycodone HCl 5 mg 06/26/22 16:03 06/29/22 04:44 Oxycodone 5 Mg Tablet PO 5 mg Q4HR PRN Administration Pain 5 to 7 Pantoprazole Sodium 40 mg 06/27/22 07:00 06/29/22 06:52 Pantoprazole 40 Mg Vial IVP 40 mg QDAC WILIAM Administration Polyethylene Glycol 17 gm 06/29/22 10:00 06/29/22 11:22 Polyethylene Glycol 3350 17 Gm Packet PO 17 gm DAILY WILIAM Administration Sodium Chloride 10 ml 06/27/22 01:00 06/29/22 09:17 Sodium Chloride Flush 0.9% 10 Ml Syringe IVP 10 ml 0100,0900,1700 WILIAM Administration Warfarin Sodium 5 mg 06/29/22 14:00 06/29/22 14:39 Warfarin 5 Mg Tablet PO 5 mg SuTuTh WILIAM Administration Warfarin Sodium 2.5 mg 06/28/22 14:00 06/28/22 16:46 Warfarin 2.5 Mg Tablet PO 2.5 mg MoWeFrSa WILIAM Administration - Lab Result Lab results reviewed: Yes Fish Bone Diagrams: 06/29/22 04:35 06/29/22 04:35 - Additional Planning My Orders: My Active Orders 06/28/22 Dinner Carb-controlled Diet [DIET] 06/29/22 09:00 [email or web address] CD [Cardizem Cd] 180 mg PO DAILY 06/29/22 10:00 Docusate Sodium 250Mg Capsule [Colace 250Mg Capsule] 250 - 500 mg PO DAILY polyethylene glycoL 3350 [Miralax] 17 gm PO DAILY 06/29/22 13:07 O2 [Oxygen Therapy] [RC] .PRN 06/29/22 14:00 Warfarin [Coumadin] 5 mg PO SuTuTh 06/30/22 05:00 CBC - COMP BLD CT W/AUTO DIFF [HEME] DAILYLAB COMPREHENSIVE METABOLIC PANEL [CHEM] Timed MAGNESIUM [CHEM] Timed PHOSPHORUS [CHEM] Timed PREALBUMIN [CHEM] Timed PT WITH INR [COAG] DAILYLAB 07/01/22 05:00 PT WITH INR [COAG] DAILYLAB 07/03/22 05:00 COMPREHENSIVE METABOLIC PANEL [CHEM] Timed MAGNESIUM [CHEM] Timed PHOSPHORUS [CHEM] Timed PREALBUMIN [CHEM] Timed Subjective - Subjective Patient Reports: Feeling Better Objective Vital Signs: Vital Signs - 24 hr 06/28/22 06/28/22 06/28/22 16:00 17:00 18:00 Temperature 37.2 C Heart Rate [ 97 103 H 102 H Monitoring electrodes] Respiratory 23 24 21 Rate Blood Pressure Blood Pressure 127/77 113/84 H 128/86 H [Right Radial artery] O2 Saturation 95 93 92 If not protocol 2 2 2 : Oxygen Flow, liters/minute 06/28/22 06/28/22 06/28/22 19:00 20:00 20:28 Temperature Heart Rate [ 109 H 100 Monitoring electrodes] Respiratory 24 18 Rate Blood Pressure 138/99 H Blood Pressure 142/88 H 138/99 H [Right Radial artery] O2 Saturation 94 95 If not protocol 2 2 : Oxygen Flow, liters/minute 06/28/22 06/28/22 06/28/22 21:00 22:00 23:00 Temperature 37.3 C Heart Rate [ 100 107 H 102 H Monitoring electrodes] Respiratory 19 19 25 H Rate Blood Pressure Blood Pressure 136/93 H 99/70 130/100 H [Right Radial artery] O2 Saturation 94 92 94 If not protocol 2 2 2 : Oxygen Flow, liters/minute 06/29/22 06/29/22 06/29/22 00:00 01:00 02:00 Temperature 37.2 C Heart Rate [ 80 94 99 Monitoring electrodes] Respiratory 20 19 23 Rate Blood Pressure Blood Pressure 131/91 H 148/95 H 148/93 H [Right Radial artery] O2 Saturation 93 94 92 If not protocol 2 2 2 : Oxygen Flow, liters/minute 06/29/22 06/29/22 06/29/22 03:00 04:00 05:00 Temperature 37.2 C Heart Rate [ 97 105 H 90 Monitoring electrodes] Respiratory 22 19 19 Rate Blood Pressure Blood Pressure 153/87 H 154/103 H 156/97 H [Right Radial artery] O2 Saturation 92 94 93 If not protocol 2 3 3 : Oxygen Flow, liters/minute 06/29/22 06/29/22 06/29/22 06:00 07:00 08:00 Temperature 37.0 C Heart Rate [ 96 92 113 H Monitoring electrodes] Respiratory 16 25 H 20 Rate Blood Pressure Blood Pressure 152/94 H 133/85 H 146/94 H [Right Radial artery] O2 Saturation 93 94 94 If not protocol 3 3 3 : Oxygen Flow, liters/minute 06/29/22 06/29/22 06/29/22 09:00 09:16 10:00 Temperature Heart Rate [ 115 H 88 Monitoring electrodes] Respiratory 29 H 26 H Rate Blood Pressure 120/73 Blood Pressure 120/73 132/84 H [Right Radial artery] O2 Saturation 93 92 If not protocol 3 2 : Oxygen Flow, liters/minute 06/29/22 06/29/22 11:00 12:00 Temperature 37.1 C Heart Rate [ 75 Monitoring electrodes] Respiratory 23 Rate Blood Pressure Blood Pressure 132/92 H [Right Radial artery] O2 Saturation 92 If not protocol 2 : Oxygen Flow, liters/minute Oxygen O2 Source Nasal cannula Oxygen Flow Rate 15 I&O (Last 24 Hrs): Intake and Output Totals x24h 06/27/22 06/28/22 06/29/22 23:59 23:59 23:59 Intake Total 1884.340 702.642 610 Output Total 1255 4400 1770 Balance 629.340 -6092.358 -1160 General: Alert, Oriented x3 HEENT: Atraumatic Neuro: Alert, CN 2-12 Grossly Intact Cardiovascular: Regular rate, Normal S1, Normal S2 Abdomen: Normal bowel sounds, No tenderness, No hepatospenomegaly Extremities: No clubbing, Other (Trace bilateral lower extremity edema) - Results Results: Laboratory Results WBC 9.0 x10^3/uL (4.8-10.8) 06/29/22 04:35 RBC 4.72 10^6/uL (4.20-5.40) 06/29/22 04:35 Hgb 12.6 g/dL (12.0-16.0) 06/29/22 04:35 Hct 40.7 % (37.0-47.0) 06/29/22 04:35 MCV 86.2 fL (81.0-99.0) 06/29/22 04:35 MCH 26.7 pg (27.0-31.0) L 06/29/22 04:35 MCHC 31.0 g/dL (32.0-36.0) L 06/29/22 04:35 RDW 15.3 % (12.0-15.0) H 06/29/22 04:35 Plt Count 277 10^3/uL (130-450) 06/29/22 04:35 MPV 8.6 fL (7.9-10.8) 06/29/22 04:35 Neut # (Auto) 7.7 10^3/uL (1.5-6.6) H 06/29/22 04:35 Lymph # (Auto) 0.5 10^3/uL (1.5-3.5) L 06/29/22 04:35 [place] # (Auto) 0.7 10^3/uL (0.0-1.0) 06/29/22 04:35 Eos # (Auto) 0.0 10^3/uL (0.0-0.7) 06/29/22 04:35 Baso # (Auto) 0.0 10^3/uL (0.0-0.1) 06/29/22 04:35 Absolute Nucleated RBC 0.00 x10^3/uL 06/29/22 04:35 Nucleated RBC % 0.0 /100WBC 06/29/22 04:35 PT 20.2 secs (9.9-12.6) H 06/29/22 04:35 INR 1.9 (0.8-1.2) H 06/29/22 04:35 Bld Gas Analysis Time 1011 06/28/22 09:55 Sample Site RIGHT RADIAL 06/28/22 09:55 ABG pH 7.48 (7.35-7.45) H 06/28/22 09:55 ABG pCO2 36 mmHg (34-45) 06/28/22 09:55 ABG pO2 70 mmHg (80-100) L 06/28/22 09:55 ABG HCO3 26.2 mmol/L (22.0-26.0) H 06/28/22 09:55 ABG Total CO2 27.3 MMOL/L (21.0-29.0) 06/28/22 09:55 ABG O2 Saturation 94 % (94-98) 06/28/22 09:55 ABG Base Excess 2.9 mmol/L (-2.0-3.0) 06/28/22 09:55 [place]e Test POSITIVE 06/28/22 09:55 VBG pH 7.387 (7.31-7.41) 06/29/22 04:35 VBG pCO2 35.3 mmHg (41-51) L 06/28/22 04:30 VBG pO2 71.7 mmHg (25-47) H 06/28/22 04:30 VBG HCO3 22.3 mmol/L (23-28) L 06/28/22 04:30 VBG Total CO2 23.4 mmol/L (24-29) L 06/28/22 04:30 VBG O2 Saturation 93.9 % (60-80) H 06/28/22 04:30 VBG Base Excess -1.6 mmol/L (-2 - +2) 06/28/22 04:30 Ionized Calcium 1.14 mmol/L (1.15-1.33) L 06/29/22 04:35 Respiration Rate 24 b/min 06/27/22 06:07 O2 Delivery Device VENTILATOR 06/28/22 09:55 Vent Mode CPAP 06/28/22 09:55 FiO2 40.00 06/28/22 09:55 Tidal Volume 550 mL 06/27/22 06:07 PEEP 5 cmH2O 06/28/22 09:55 Pressure Support Vent 14 cmH2O 06/28/22 09:55 EPAP 5 cmH2O 06/26/22 22:50 IPAP 16 cmH2O 06/26/22 22:50 Sodium 143 mmol/L (135-145) 06/29/22 04:35 Potassium 3.8 mmol/L (3.5-5.0) 06/29/22 04:35 Chloride 103 mmol/L (101-111) 06/29/22 04:35 Carbon Dioxide 31 mmol/L (21-32) 06/29/22 04:35 Anion Gap 9.0 (6-13) 06/29/22 04:35 BUN 59 mg/dL (6-20) H 06/29/22 04:35 Creatinine 1.3 mg/dL (0.4-1.0) H 06/29/22 04:35 Estimated GFR (MDRD) 40 (>89) L 06/29/22 04:35 Glucose 180 mg/dL (70-100) H 06/29/22 04:35 Lactic Acid 1.1 mmol/L (0.5-2.2) 06/26/22 18:30 Calcium 8.5 mg/dL (8.5-10.3) 06/29/22 04:35 Phosphorus 3.8 mg/dL (2.5-4.6) 06/29/22 04:35 Magnesium 2.5 mg/dL (1.7-2.8) 06/29/22 04:35 Total Bilirubin 0.7 mg/dL (0.2-1.0) 06/28/22 04:30 AST 347 IU/L (10-42) H 06/28/22 04:30 ALT 539 IU/L (10-60) H 06/28/22 04:30 Alkaline Phosphatase 72 IU/L (42-121) 06/28/22 04:30 Troponin I High Sens 48.7 ng/L (2.3-14.8) H* 06/26/22 20:20 B-Natriuretic Peptide 305 pg/mL (5-100) H 06/26/22 14:52 Total Protein 5.9 g/dL (6.7-8.2) L 06/28/22 04:30 Albumin 2.7 g/dL (3.2-5.5) L 06/28/22 04:30 Globulin 3.2 g/dL (2.1-4.2) 06/28/22 04:30 Albumin/Globulin Ratio 0.8 (1.0-2.2) L 06/28/22 04:30 Prealbumin 11 mg/dL (18-45) L 06/28/22 04:30 Triglycerides 126 mg/dL (-149) 06/27/22 04:32 Vitamin D 25-Hydroxy 6.7 ng/mL (30.0-100.0) L 06/27/22 17:09 Urine Color DARK YELLOW 06/26/22 15:30 Urine Clarity HAZY (CLEAR) 06/26/22 15:30 Urine pH 5.5 PH (5.0-7.5) 06/26/22 15:30 Ur Specific [place] >=1.030 (1.002-1.030) H 06/26/22 15:30 Urine Protein 100 mg/dL (NEGATIVE) H 06/26/22 15:30 Urine Glucose (UA) NEGATIVE mg/dL (NEGATIVE) 06/26/22 15:30 Urine Ketones NEGATIVE mg/dL (NEGATIVE) 06/26/22 15:30 Urine Occult Blood NEGATIVE (NEGATIVE) 06/26/22 15:30 Urine Nitrite NEGATIVE (NEGATIVE) 06/26/22 15:30 Urine Bilirubin NEGATIVE (NEGATIVE) 06/26/22 15:30 Urine Urobilinogen 0.2 (NORMAL) E.U./dL (NORMAL) 06/26/22 15:30 Ur Leukocyte Esterase NEGATIVE (NEGATIVE) 06/26/22 15:30 Urine RBC 0-5 /HPF (0-5) 06/26/22 15:30 Urine WBC 0-3 /HPF (0-5) 06/26/22 15:30 Ur Squamous Epith Cells FEW Squamous (<= Few) 06/26/22 15:30 Urine Bacteria Few /HPF (None Seen) 06/26/22 15:30 Urine Casts 0-2 Hyaline Casts /LPF 06/26/22 15:30 Urine Culture Comments NOT INDICATED 06/26/22 15:30 Nasal Adenovirus (PCR) NOT DETECTED 06/26/22 13:58 Nasal B. parapertussis DNA (PCR) NOT DETECTED 06/26/22 13:58 Nasal Coronavir 229E PCR NOT DETECTED 06/26/22 13:58 Nasal Coronavir HKU1 PCR NOT DETECTED 06/26/22 13:58 Nasal Coronavir NL63 PCR NOT DETECTED 06/26/22 13:58 Nasal Coronavir OC43 PCR NOT DETECTED 06/26/22 13:58 Nasal Enterovir/Rhinovir PCR NOT DETECTED 06/26/22 13:58 Nasal Influenza B PCR NOT DETECTED 06/26/22 13:58 Nasal Influenza A PCR NOT DETECTED 06/26/22 13:58 Nasal Parainfluen 1 PCR NOT DETECTED 06/26/22 13:58 Nasal Parainfluen 2 PCR NOT DETECTED 06/26/22 13:58 Nasal Parainfluen 3 PCR NOT DETECTED 06/26/22 13:58 Nasal Parainfluen 4 PCR NOT DETECTED 06/26/22 13:58 Nasal RSV (PCR) NOT DETECTED 06/26/22 13:58 Nasal Screen MRSA (PCR) NEGATIVE (NEGATIVE) 06/26/22 16:47 Nasal B.pertussis DNA PCR NOT DETECTED 06/26/22 13:58 Nasal C.pneumoniae (PCR) NOT DETECTED 06/26/22 13:58 Nba Human Metapneumo PCR NOT DETECTED 06/26/22 13:58 Nasal M.pneumoniae (PCR) NOT DETECTED 06/26/22 13:58 Nasal SARS-CoV-2 (PCR) DETECTED A 06/26/22 13:58 Salicylates 10.9 mg/dL 06/26/22 14:52 Urine Opiates Screen NEGATIVE (NEGATIVE) 06/26/22 15:30 Ur Oxycodone Screen NEGATIVE (NEGATIVE) 06/26/22 15:30 Urine Methadone Screen NEGATIVE (NEGATIVE) 06/26/22 15:30 Ur Propoxyphene Screen NEGATIVE (NEGATIVE) 06/26/22 15:30 Acetaminophen < 10 ug/mL (10-30) L 06/26/22 14:52 Ur Barbiturates Screen NEGATIVE (NEGATIVE) 06/26/22 15:30 Ur Tricyclics Screen NEGATIVE (NEGATIVE) 06/26/22 15:30 Ur Phencyclidine Scrn NEGATIVE (NEGATIVE) 06/26/22 15:30 Ur Amphetamine Screen NEGATIVE (NEGATIVE) 06/26/22 15:30 U Methamphetamines Scrn NEGATIVE (NEGATIVE) 06/26/22 15:30 U Benzodiazepines Scrn NEGATIVE (NEGATIVE) 06/26/22 15:30 Urine Cocaine Screen NEGATIVE (NEGATIVE) 06/26/22 15:30 U Cannabinoids Screen NEGATIVE (NEGATIVE) 06/26/22 15:30 Ethyl Alcohol < 5.0 mg/dL 06/26/22 14:52 Sepsis Event Note (H) - Evaluation Current Stage of Sepsis: Sepsis Possible source of Sepsis: positive: Pulmonary - Sepsis Criteria Sepsis Criteria: Suspected or Documented, Recorded Respiratory Rate greater than 20, Respiratory: Increasing oxygen requirements, Metabolic: lactate > 2 mmol/L ABX Reporting Has patient been on IV antibiotics over the past 48 hours?: No
--- NOTE | 2022-06-29 16:46 | PHARMACY PROGRESS NOTE ---
- Monitoring Indication for anticoagulation: Atrial Fibrillation Goal INR: 2-3 Previous home regime: 5MG DAILY EXCEPT 2.5 MG ON THU AND SAT Potentially interacting medications: DEXAMETHASONE Other anticoagulation: None Risk factors for bleed: Renal insufficiency, Age >65, Other - Recommendations Dosing: Anticoagulation Monitoring 06/29/22 06/29/22 06/28/22 04:35 04:35 04:30 Hgb 12.6 Hct 40.7 PT 20.2 H 28.2 H INR 1.9 H 2.7 H 06/28/22 06/27/22 06/27/22 04:30 04:32 04:32 Hgb 11.6 L 11.9 L Hct 36.8 L 39.0 PT 59.8 H INR 5.9 H* 06/26/22 14:52 Hgb 13.5 Hct 46.5 PT INR Last Dose Given: S&S of bleedinMG SUN, TUES, THUR AND 2.5MG ALL OTHER DAYS DUE TO 5.9 INR ON ADMISSION Pharmacy recommendation: Continue current regime
[2022-06-30] MEDS: SODIUM CHLORIDE FLUSH 0.9% 10 ML SYRINGE IVP SCH ×3 (04:48→16:51)
[2022-06-30] MEDS: PANTOPRAZOLE 40 MG VIAL IVP SCH (05:38)
[2022-06-30 06:00] LABS: BASOPHILS % (AUTO) 0.1 %; HCT - HEMATOCRIT 43.9 % (37.0-47.0); HGB - HEMOGLOBIN 13.6 g/dL (12.0-16.0); LYMPHOCYTES # (AUTO) 0.7 10^3/uL (1.5-3.5); LYMPHOCYTES % (AUTO) 5.3 %; MEAN CORPUSCULAR HEMOGLOBIN 26.8 pg (27.0-31.0); MEAN CORPUSCULAR VOLUME 86.4 fL (81.0-99.0); MEAN PLATELET VOLUME 8.6 fL (7.9-10.8); MONOCYTES # (AUTO) 1.3 10^3/uL (0.0-1.0); MONOCYTES % (AUTO) 10.3 %; NEUTROPHILS # (AUTO) 10.6 10^3/uL (1.5-6.6); NEUTROPHILS % (AUTO) 83.6 %; PLT - PLATELET COUNT 283 10^3/uL (130-450); RED BLOOD COUNT 5.08 10^6/uL (4.20-5.40); RED CELL DISTRIBUTION WIDTH 15.3 % (12.0-15.0); WHITE BLOOD COUNT 12.7 x10^3/uL (4.8-10.8)
[2022-06-30 06:06] LABS: INR 2.3 (0.8-1.2); PT - PROTHROMBIN TIME 24.1 secs (9.9-12.6)
[2022-06-30 06:14] LABS: ALBUMIN 3.2 g/dL (3.2-5.5); ALBUMIN/GLOBULIN RATIO 0.9 (1.0-2.2); BILIRUBIN,TOTAL 0.8 mg/dL (0.2-1.0); CALCIUM 8.8 mg/dL (8.5-10.3); CREATININE 1.2 mg/dL (0.4-1.0); MAGNESIUM 2.3 mg/dL (1.7-2.8); PHOSPHORUS 3.4 mg/dL (2.5-4.6); POTASSIUM 3.7 mmol/L (3.5-5.0); TOTAL PROTEIN 6.6 g/dL (6.7-8.2)
[2022-06-30] MEDS: INSULIN LISPRO 300 UNIT/3 ML PEN SUBQ SCH ×4 (08:22→20:44)
[2022-06-30] MEDS: METOPROLOL TARTRATE 50 MG TABLET PO SCH ×2 (08:31→20:42)
[2022-06-30] MEDS: DOCUSATE SODIUM 250 MG CAPSULE PO SCH (08:32)
[2022-06-30] MEDS: diltiaZEM CD 180 MG CAPSULE PO SCH (08:32)
[2022-06-30] MEDS: DIGOXIN 125 MCG TABLET PO SCH (08:32)
[2022-06-30] MEDS: DEXAMETHASONE 10 MG/ML VIAL IVP SCH (08:33)
[2022-06-30] MEDS: LOSARTAN 50 MG TABLET PO SCH (08:33)
[2022-06-30] MEDS: FUROSEMIDE 40 MG/4 ML VIAL IVP SCH ×2 (08:33→20:43)
[2022-06-30] MEDS: polyethylene glycoL 3350 17 GM PACKET PO SCH (08:34)
[2022-06-30] MEDS: CHLORHEXIDINE GLUCONATE 15 ML UDC PO SCH ×2 (08:34→20:43)
[2022-06-30 09:09] LABS: BILIRUBIN,URINE NEGATIVE (NEGATIVE); GLUCOSE, URINE (UA) NEGATIVE (NEGATIVE); KETONES,URINE (UA) NEGATIVE (NEGATIVE); LEUKOCYTE ESTERASE, URINE MODERATE (NEGATIVE); NITRITE,URINE NEGATIVE (NEGATIVE); OCCULT BLOOD,URINE NEGATIVE (NEGATIVE); PH,URINE 5.5 PH (5.0-7.5); PROTEIN,URINE NEGATIVE (NEGATIVE); UROBILINOGEN,URINE 0.2 (NORMAL) E.U./dL (NORMAL)
[2022-06-30 09:10] LABS: CLARITY,URINE HAZY (CLEAR)
[2022-06-30 09:34] LABS: BACTERIA,URINE Many /HPF (None Seen); RBC,URINE 0-5 /HPF (0-5); SQUAMOUS EPITHELIAL CELL,UR MOD Squamous (<= Few); WBC CLUMPS,URINE PRESENT
[2022-06-30 09:35] LABS: YEAST,URINE PRESENT
[2022-06-30] MEDS: REMDESIVIR 100MG VIAL 100 MG in SODIUM CHLORIDE 0.9% 100ML 100 ML IV SCH (10:04)
[2022-06-30] MEDS: CHOLECALCIFEROL 5,000 UNIT CAPSULE PO SCH (10:04)
--- NOTE | 2022-06-30 12:54 | PROVIDER PROGRESS NOTE ---
Assessment/Plan - Problem List (1) Sepsis Qualifiers: Sepsis type: sepsis due to unspecified organism Sepsis acute organ dysfunction status: with acute organ dysfunction Severe sepsis acute organ dysfunction type: acute respiratory failure Acute respiratory failure type: with hypoxia Severe sepsis shock status: without septic shock Qualified Code(s): A41.9 - Sepsis, unspecified organism; R65.20 - Severe sepsis without septic shock; J96.01 - Acute respiratory failure with hypoxia Assessment/Plan: Patient met sepsis criteria on admission likely secondary to acute respiratory failure that is combined with COVID as well as CHF. Patient improved and no longer meets sepsis criteria. (2) Acute exacerbation of congestive heart failure Qualifiers: Heart failure type: unspecified Qualified Code(s): I50.9 - Heart failure, unspecified Assessment/Plan: Patient with respiratory failure and fluid overload on chest x-ray Consistent with acute CHF exacerbation possibly triggered by COVID infection Unfortunately, we do not have access to echocardiogram for several days We will treat empirically with Lasix which seems to have helped already Patient intubated overnight on 06/26/2022, extubated successfully on 06/28 and now on 2L NC We will continue supportive care, diuresis, and follow-up echocardiogram when possible, on Saturday 07/01 Possible discharge home on 07/01/2022, may require an oxygen desaturation test prior to discharge. 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 We will transition from low-dose to high-dose insulin sliding scale (4) Hypertension Qualifiers: Hypertension type: primary hypertension Qualified Code(s): I10 - Essential (primary) hypertension Assessment/Plan: BP has been trending up. Previously was soft so medications were adjusted. At this point given the increase in blood pressure I will resume her previous home dose of metoprolol increasing current 50 mg to 100 mg twice daily (6) GERD (gastroesophageal reflux disease) Assessment/Plan: Well-controlled, continue Protonix, Will switch to p.o. (7) COVID-19 Assessment/Plan: As above, respiratory failure improving. Continue dexamethasone Completed remdesivir (8) Respiratory failure Qualifiers: Chronicity: acute Respiratory failure complication: hypoxia and hypercapnia Qualified Code(s): J96.01 - Acute respiratory failure with hypoxia; J96.02 - Acute respiratory failure with hypercapnia; J96.02 - Acute respiratory failure with hypercapnia Assessment/Plan: As above, improved to 2 L nasal cannula Continue to wean oxygen as able, consider home oxygen desaturation test tomorrow if still requiring oxygen for possible discharge 07/01/2022 pending echocardiogram - Current Meds Current Meds: Current Medications Generic Name Dose Route Start Last Admin Trade Name Freq PRN Reason Stop Dose Admin Acetaminophen 650 mg 06/26/22 16:03 06/27/22 11:32 Acetaminophen 325 Mg Tablet PO 650 mg Q4HR PRN Administration Pain 1 to 4, or Fever Chlorhexidine Gluconate 15 ml 06/26/22 21:00 06/30/22 08:34 Chlorhexidine Gluconate 15 Ml Udc PO 15 ml BID WILIAM Administration Cholecalciferol 5,000 unit 06/30/22 09:00 06/30/22 10:04 Cholecalciferol 5,000 Unit Capsule PO 5,000 unit DAILY WILIAM Administration Dexamethasone Sodium Phosphate 6 mg 06/26/22 19:00 06/30/22 08:33 Dexamethasone 10 Mg/Ml Vial IVP 6 mg DAILY WILIAM Administration Digoxin 125 mcg 06/28/22 12:30 06/30/22 08:32 Digoxin 125 Mcg Tablet PO 125 mcg DAILY WILIAM Administration Diltiazem HCl 180 mg 06/29/22 09:00 06/30/22 08:32 Diltiazem Cd 180 Mg Capsule PO 180 mg DAILY WILIAM Administration Docusate Sodium 250 - 500 mg 06/29/22 10:00 06/30/22 08:32 Docusate Sodium 250 Mg Capsule PO 250 mg DAILY WILIAM Administration Fentanyl 25 mcg 06/27/22 00:34 06/27/22 17:14 Fentanyl 100 Mcg/2 Ml Vial IVP 25 mcg Q1HR PRN Administration Anesthesia Furosemide 40 mg 06/28/22 09:00 06/30/22 08:33 Furosemide 40 Mg/4 Ml Vial IVP 40 mg BID WILIAM Administration Insulin Human Lispro 1 - 5 unit 06/26/22 21:00 06/30/22 08:22 Insulin Lispro 300 Unit/3 Ml Pen SUBQ 2 unit 0800,1200,1700,2100 WILIAM Administration Protocol Losartan Potassium 25 mg 06/28/22 12:30 06/30/22 08:33 Losartan 50 Mg Tablet PO 25 mg DAILY WILIAM Administration Metoprolol Tartrate 50 mg 06/28/22 12:15 06/30/22 08:31 Metoprolol Tartrate 50 Mg Tablet PO 50 mg BID WILIAM Administration Oxycodone HCl 5 mg 06/26/22 16:03 06/29/22 04:44 Oxycodone 5 Mg Tablet PO 5 mg Q4HR PRN Administration Pain 5 to 7 Pantoprazole Sodium 40 mg 06/27/22 07:00 06/30/22 05:38 Pantoprazole 40 Mg Vial IVP 40 mg QDAC WILIAM Administration Polyethylene Glycol 17 gm 06/29/22 10:00 06/30/22 08:34 Polyethylene Glycol 3350 17 Gm Packet PO 17 gm DAILY WILIAM Administration Sodium Chloride 10 ml 06/27/22 01:00 06/30/22 08:35 Sodium Chloride Flush 0.9% 10 Ml Syringe IVP 10 ml 0100,0900,1700 WILIAM Administration Warfarin Sodium 5 mg 06/29/22 14:00 06/29/22 14:39 Warfarin 5 Mg Tablet PO 5 mg SuTuTh [facility] Administration Warfarin Sodium 2.5 mg 06/28/22 14:00 06/28/22 16:46 Warfarin 2.5 Mg Tablet PO 2.5 mg MoWeFrSa [facility] Administration - Lab Result Lab results reviewed: Yes Fish Bone Diagrams: 06/30/22 05:50 06/30/22 05:50 - Additional Planning My Orders: My Active Orders 06/29/22 13:07 O2 [Oxygen Therapy] [RC] .PRN 06/29/22 14:00 Warfarin [Coumadin] 5 mg PO SuTuTh 06/30/22 Evaluate and Treat OT [OT] Routine 06/30/22 07:37 IS [Incentive Spirometry - RT] [RC] TID 06/30/22 09:00 Cholecalciferol [Vitamin D3] 5,000 unit PO DAILY 06/30/22 09:51 Evaluate and Treat PT [PT] Routine 07/01/22 05:00 PT WITH INR [COAG] DAILYLAB 07/03/22 05:00 COMPREHENSIVE METABOLIC PANEL [CHEM] Timed MAGNESIUM [CHEM] Timed PHOSPHORUS [CHEM] Timed PREALBUMIN [CHEM] Timed Subjective - Subjective Patient Reports: Feeling Better Objective Vital Signs: Vital Signs - 24 hr 0406/29/22 06/29/22 16:53 19:13 21:03 Temperature 36.5 C Heart Rate [ 86 Brachial] Heart Rate [ Monitoring electrodes] Heart Rate [ 90 Radial] Respiratory 22 20 Rate Blood Pressure Blood Pressure 127/86 H [Right Brachial artery] Blood Pressure 146/102 H [Right Radial artery] O2 Saturation 2 L 93 If not protocol 2 2 : Oxygen Flow, liters/minute 06/29/22 06/29/22 06/30/22 21:10 23:57 07:36 Temperature 36.2 C L Heart Rate [ Brachial] Heart Rate [ Monitoring electrodes] Heart Rate [ 70 Radial] Respiratory 20 Rate Blood Pressure 146/102 H Blood Pressure [Right Brachial artery] Blood Pressure 116/83 H [Right Radial artery] O2 Saturation 92 If not protocol 3 3 : Oxygen Flow, liters/minute 06/30/22 06/30/22 06/30/22 07:40 08:26 08:31 Temperature 36.4 C L Heart Rate [ Brachial] Heart Rate [ 95 Monitoring electrodes] Heart Rate [ 85 Radial] Respiratory 20 19 Rate Blood Pressure 146/102 H Blood Pressure [Right Brachial artery] Blood Pressure 128/77 145/91 H [Right Radial artery] O2 Saturation 95 94 If not protocol 3 2 : Oxygen Flow, liters/minute 06/30/22 12:18 Temperature 36.4 C L Heart Rate [ Brachial] Heart Rate [ Monitoring electrodes] Heart Rate [ 80 Radial] Respiratory 20 Rate Blood Pressure Blood Pressure [Right Brachial artery] Blood Pressure 124/74 [Right Radial artery] O2 Saturation 94 If not protocol 2 : Oxygen Flow, liters/minute Oxygen O2 Source Nasal cannula Oxygen Flow Rate 15 I&O (Last 24 Hrs): Intake and Output Totals x24h 06/28/22 06/29/22 06/30/22 23:59 23:59 23:59 Intake Total 702.642 850 200 Output Total 4400 1770 300 Balance -3697.358 -920 -100 General: Alert, Oriented x3 HEENT: Atraumatic Neuro: Alert, CN 2-12 Grossly Intact Cardiovascular: Regular rate, Normal S1, Normal S2 Respiratory: Chest non-tender, No respiratory distress, Breath sounds nml Extremities: Other (Trace bilateral lower extremity edema) - Results Results: Laboratory Results WBC 12.7 x10^3/uL (4.8-10.8) H 06/30/22 05:50 RBC 5.08 10^6/uL (4.20-5.40) 06/30/22 05:50 Hgb 13.6 g/dL (12.0-16.0) 06/30/22 05:50 Hct 43.9 % (37.0-47.0) 06/30/22 05:50 MCV 86.4 fL (81.0-99.0) 06/30/22 05:50 MCH 26.8 pg (27.0-31.0) L 06/30/22 05:50 MCHC 31.0 g/dL (32.0-36.0) L 06/30/22 05:50 RDW 15.3 % (12.0-15.0) H 06/30/22 05:50 Plt Count 283 10^3/uL (130-450) 06/30/22 05:50 MPV 8.6 fL (7.9-10.8) 06/30/22 05:50 Neut # (Auto) 10.6 10^3/uL (1.5-6.6) H 06/30/22 05:50 Lymph # (Auto) 0.7 10^3/uL (1.5-3.5) L 06/30/22 05:50 [place] # (Auto) 1.3 10^3/uL (0.0-1.0) H 06/30/22 05:50 Eos # (Auto) 0.0 10^3/uL (0.0-0.7) 06/30/22 05:50 Baso # (Auto) 0.0 10^3/uL (0.0-0.1) 06/30/22 05:50 Absolute Nucleated RBC 0.00 x10^3/uL 06/30/22 05:50 Nucleated RBC % 0.0 /100WBC 06/30/22 05:50 PT 24.1 secs (9.9-12.6) H 06/30/22 05:50 INR 2.3 (0.8-1.2) H 06/30/22 05:50 Bld Gas Analysis Time 1011 06/28/22 09:55 Sample Site RIGHT RADIAL 06/28/22 09:55 ABG pH 7.48 (7.35-7.45) H 06/28/22 09:55 ABG pCO2 36 mmHg (34-45) 06/28/22 09:55 ABG pO2 70 mmHg (80-100) L 06/28/22 09:55 ABG HCO3 26.2 mmol/L (22.0-26.0) H 06/28/22 09:55 ABG Total CO2 27.3 MMOL/L (21.0-29.0) 06/28/22 09:55 ABG O2 Saturation 94 % (94-98) 06/28/22 09:55 ABG Base Excess 2.9 mmol/L (-2.0-3.0) 06/28/22 09:55 Clemente Test POSITIVE 06/28/22 09:55 VBG pH 7.387 (7.31-7.41) 06/29/22 04:35 VBG pCO2 35.3 mmHg (41-51) L 06/28/22 04:30 VBG pO2 71.7 mmHg (25-47) H 06/28/22 04:30 VBG HCO3 22.3 mmol/L (23-28) L 06/28/22 04:30 VBG Total CO2 23.4 mmol/L (24-29) L 06/28/22 04:30 VBG O2 Saturation 93.9 % (60-80) H 06/28/22 04:30 VBG Base Excess -1.6 mmol/L (-2 - +2) 06/28/22 04:30 Ionized Calcium 1.14 mmol/L (1.15-1.33) L 06/29/22 04:35 Respiration Rate 24 b/min 06/27/22 06:07 O2 Delivery Device VENTILATOR 06/28/22 09:55 Vent Mode CPAP 06/28/22 09:55 FiO2 40.00 06/28/22 09:55 Tidal Volume 550 mL 06/27/22 06:07 PEEP 5 cmH2O 06/28/22 09:55 Pressure Support Vent 14 cmH2O 06/28/22 09:55 EPAP 5 cmH2O 06/26/22 22:50 IPAP 16 cmH2O 06/26/22 22:50 Sodium 140 mmol/L (135-145) 06/30/22 05:50 Potassium 3.7 mmol/L (3.5-5.0) 06/30/22 05:50 Chloride 100 mmol/L (101-111) L 06/30/22 05:50 Carbon Dioxide 32 mmol/L (21-32) 06/30/22 05:50 Anion Gap 8.0 (6-13) 06/30/22 05:50 BUN 52 mg/dL (6-20) H 06/30/22 05:50 Creatinine 1.2 mg/dL (0.4-1.0) H 06/30/22 05:50 Estimated GFR (MDRD) 44 (>89) L 06/30/22 05:50 Glucose 189 mg/dL (70-100) H 06/30/22 05:50 Lactic Acid 1.1 mmol/L (0.5-2.2) 06/26/22 18:30 Calcium 8.8 mg/dL (8.5-10.3) 06/30/22 05:50 Phosphorus 3.4 mg/dL (2.5-4.6) 06/30/22 05:50 Magnesium 2.3 mg/dL (1.7-2.8) 06/30/22 05:50 Total Bilirubin 0.8 mg/dL (0.2-1.0) 06/30/22 05:50 AST 45 IU/L (10-42) H 06/30/22 05:50 ALT 262 IU/L (10-60) H 06/30/22 05:50 Alkaline Phosphatase 72 IU/L (42-121) 06/30/22 05:50 Troponin I High Sens 48.7 ng/L (2.3-14.8) H* 06/26/22 20:20 B-Natriuretic Peptide 305 pg/mL (5-100) H 06/26/22 14:52 Total Protein 6.6 g/dL (6.7-8.2) L 06/30/22 05:50 Albumin 3.2 g/dL (3.2-5.5) 06/30/22 05:50 Globulin 3.4 g/dL (2.1-4.2) 06/30/22 05:50 Albumin/Globulin Ratio 0.9 (1.0-2.2) L 06/30/22 05:50 Prealbumin 23 mg/dL (18-45) 06/30/22 05:50 Triglycerides 126 mg/dL (-149) 06/27/22 04:32 Vitamin D 25-Hydroxy 6.7 ng/mL (30.0-100.0) L 06/27/22 17:09 Urine Color YELLOW 06/30/22 07:55 Urine Clarity HAZY (CLEAR) 06/30/22 07:55 Urine pH 5.5 PH (5.0-7.5) 06/30/22 07:55 Ur Specific [employer] 1.020 (1.002-1.030) 06/30/22 07:55 Urine Protein NEGATIVE mg/dL (NEGATIVE) 06/30/22 07:55 Urine Glucose (UA) NEGATIVE mg/dL (NEGATIVE) 06/30/22 07:55 Urine Ketones NEGATIVE mg/dL (NEGATIVE) 06/30/22 07:55 Urine Occult Blood NEGATIVE (NEGATIVE) 06/30/22 07:55 Urine Nitrite NEGATIVE (NEGATIVE) 06/30/22 07:55 Urine Bilirubin NEGATIVE (NEGATIVE) 06/30/22 07:55 Urine Urobilinogen 0.2 (NORMAL) E.U./dL (NORMAL) 06/30/22 07:55 Ur Leukocyte Esterase MODERATE (NEGATIVE) H 06/30/22 07:55 Urine RBC 0-5 /HPF (0-5) 06/30/22 07:55 Urine WBC 11-25 /HPF (0-5) H 06/30/22 07:55 Urine WBC Clumps PRESENT 06/30/22 07:55 Ur Squamous Epith Cells MOD Squamous (<= Few) H 06/30/22 07:55 Urine Bacteria Many /HPF (None Seen) H 06/30/22 07:55 Urine Casts 3-5 Hyaline Casts /LPF3-5 Granular Casts /LPF 06/30/22 07:55 Urine Casts 3-5 Hyaline Casts /LPF3-5 Granular Casts /LPF 06/30/22 07:55 Urine Yeast PRESENT 06/30/22 07:55 Ur Microscopic Review INDICATED 06/30/22 07:55 Urine Culture Comments NOT INDICATED 06/30/22 07:55 Nasal Adenovirus (PCR) NOT DETECTED 06/26/22 13:58 Nasal B. parapertussis DNA (PCR) NOT DETECTED 06/26/22 13:58 Nasal Coronavir 229E PCR NOT DETECTED 06/26/22 13:58 Nasal Coronavir HKU1 PCR NOT DETECTED 06/26/22 13:58 Nasal Coronavir NL63 PCR NOT DETECTED 06/26/22 13:58 Nasal Coronavir OC43 PCR NOT DETECTED 06/26/22 13:58 Nasal Enterovir/Rhinovir PCR NOT DETECTED 06/26/22 13:58 Nasal Influenza B PCR NOT DETECTED 06/26/22 13:58 Nasal Influenza A PCR NOT DETECTED 06/26/22 13:58 Nasal Parainfluen 1 PCR NOT DETECTED 06/26/22 13:58 Nasal Parainfluen 2 PCR NOT DETECTED 06/26/22 13:58 Nasal Parainfluen 3 PCR NOT DETECTED 06/26/22 13:58 Nasal Parainfluen 4 PCR NOT DETECTED 06/26/22 13:58 Nasal RSV (PCR) NOT DETECTED 06/26/22 13:58 Nasal Screen MRSA (PCR) NEGATIVE (NEGATIVE) 06/26/22 16:47 Nasal B.pertussis DNA PCR NOT DETECTED 06/26/22 13:58 Nasal C.pneumoniae (PCR) NOT DETECTED 06/26/22 13:58 Nba Human Metapneumo PCR NOT DETECTED 06/26/22 13:58 Nasal M.pneumoniae (PCR) NOT DETECTED 06/26/22 13:58 Nasal SARS-CoV-2 (PCR) DETECTED A 06/26/22 13:58 Salicylates 10.9 mg/dL 06/26/22 14:52 Urine Opiates Screen NEGATIVE (NEGATIVE) 06/26/22 15:30 Ur Oxycodone Screen NEGATIVE (NEGATIVE) 06/26/22 15:30 Urine Methadone Screen NEGATIVE (NEGATIVE) 06/26/22 15:30 Ur Propoxyphene Screen NEGATIVE (NEGATIVE) 06/26/22 15:30 Acetaminophen < 10 ug/mL (10-30) L 06/26/22 14:52 Ur Barbiturates Screen NEGATIVE (NEGATIVE) 06/26/22 15:30 Ur Tricyclics Screen NEGATIVE (NEGATIVE) 06/26/22 15:30 Ur Phencyclidine Scrn NEGATIVE (NEGATIVE) 06/26/22 15:30 Ur Amphetamine Screen NEGATIVE (NEGATIVE) 06/26/22 15:30 U Methamphetamines Scrn NEGATIVE (NEGATIVE) 06/26/22 15:30 U Benzodiazepines Scrn NEGATIVE (NEGATIVE) 06/26/22 15:30 Urine Cocaine Screen NEGATIVE (NEGATIVE) 06/26/22 15:30 U Cannabinoids Screen NEGATIVE (NEGATIVE) 06/26/22 15:30 Ethyl Alcohol < 5.0 mg/dL 06/26/22 14:52 Sepsis Event Note (H) - Evaluation Current Stage of Sepsis: Sepsis Possible source of Sepsis: positive: Pulmonary - Sepsis Criteria Sepsis Criteria: Suspected or Documented, Recorded Respiratory Rate greater than 20, Respiratory: Increasing oxygen requirements, Metabolic: lactate > 2 mmol/L ABX Reporting Has patient been on IV antibiotics over the past 48 hours?: No
[2022-06-30] MEDS: WARFARIN 2.5 MG TABLET PO SCH (14:30)
[2022-07-01] MEDS: SODIUM CHLORIDE FLUSH 0.9% 10 ML SYRINGE IVP SCH ×3 (04:16→16:59)
[2022-07-01] MEDS: PANTOPRAZOLE 40 MG TABLET PO SCH (06:06)
[2022-07-01 06:28] LABS: INR 2.5 (0.8-1.2)
[2022-07-01] MEDS: polyethylene glycoL 3350 17 GM PACKET PO SCH (08:00)
[2022-07-01] MEDS: CHLORHEXIDINE GLUCONATE 15 ML UDC PO SCH ×2 (08:02→21:17)
[2022-07-01] MEDS: INSULIN LISPRO 300 UNIT/3 ML PEN SUBQ SCH ×4 (08:02→21:20)
[2022-07-01] MEDS: METOPROLOL TARTRATE 50 MG TABLET PO SCH ×2 (08:03→21:16)
[2022-07-01] MEDS: DOCUSATE SODIUM 250 MG CAPSULE PO SCH (08:05)
[2022-07-01] MEDS: diltiaZEM CD 180 MG CAPSULE PO SCH (08:05)
[2022-07-01] MEDS: CHOLECALCIFEROL 5,000 UNIT CAPSULE PO SCH (08:05)
[2022-07-01] MEDS: DIGOXIN 125 MCG TABLET PO SCH (08:06)
[2022-07-01] MEDS: LOSARTAN 50 MG TABLET PO SCH (08:07)
[2022-07-01] MEDS: FUROSEMIDE 40 MG/4 ML VIAL IVP SCH (08:08)
[2022-07-01] MEDS: DEXAMETHASONE 10 MG/ML VIAL IVP SCH (08:09)
[2022-07-01 09:00] LABS: DIGOXIN 0.6 ng/mL
[2022-07-01] MEDS: WARFARIN 5 MG TABLET PO SCH (14:21)
--- NOTE | 2022-07-01 15:08 | PROVIDER PROGRESS NOTE ---
Assessment/Plan - Problem List (1) Acute respiratory failure with hypoxia Assessment/Plan: Patient intubated on 06/26/2022, extubated successfully on 06/28 and now O2 via NC She has improved clinically and she currently needs 2 L O2 via nasal cannula Plan: Continue to wean oxygen as able, will give parameters to continue to titrate down Continue to treat both causes for the hypoxia (CHF and COVID-pneumonia) (2) COVID-19 Assessment/Plan: Completed Remdesivir As above, respiratory failure is improving. Plan: Continue dexamethasone as we try to bring down suppl O2 (3) Acute exacerbation of congestive heart failure Qualifiers: Heart failure type: unspecified Qualified Code(s): I50.9 - Heart failure, unspecified Assessment/Plan: Patient presented with respiratory failure and had fluid overload on chest x- ray. This is consistent with acute CHF exacerbation possibly triggered by COVID infection. She has been treated empirically with Lasix which seems to have helped, as she has been in neg fluid balance for several days (I's and O's were reviewed) Unfortunately, we have not have access to Echocardiogram for several days. [facility] [employer] is here Tues-Thurs. Plan: Still awaiting Echo result, Echo to be done today (it is Tues) Continue diuresis, in anticipation of DCh in the next 1 to 2 dasys, will change to po Lasix after today's a.m. IV dose She will require an oxygen desaturation test on the day of discharge. (4) Type 2 diabetes mellitus Qualifiers: Diabetes mellitus long term care phlebotomist insulin use: without long term care phlebotomist use Diabetes mellitus complication status: without complication Qualified Code(s): E11.9 - Type 2 diabetes mellitus without complications Assessment/Plan: Blood sugars have been elevated, likely exacerbated by Decadron. We have needed to transition from low-dose to high-dose insulin sliding scale Plan: Continue present DM management (5) Hypertension Qualifiers: Hypertension type: primary hypertension Qualified Code(s): I10 - Essential (primary) hypertension Assessment/Plan: BP was trending up. Previously BP was soft We have resumed her previous home dose of metoprolol (6) GERD (gastroesophageal reflux disease) Assessment/Plan: Well-controlled on Protonix p.o. (7) Sepsis Qualifiers: Sepsis type: sepsis due to unspecified organism Sepsis acute organ dysfunction status: with acute organ dysfunction Severe sepsis acute organ dysfunction type: acute respiratory failure Acute respiratory failure type: with hypoxia Severe sepsis shock status: without septic shock Qualified Code(s): A41.9 - Sepsis, unspecified organism; R65.20 - Severe sepsis without septic shock; J96.01 - Acute respiratory failure with hypoxia Assessment/Plan: Resolved Patient met sepsis criteria on admission likely secondary to acute respiratory failure that is combined with COVID as well as CHF. Patient improved and no longer meets sepsis criteria. - Current Meds Current Meds: Current Medications Generic Name Dose Route Start Last Admin Trade Name Freq PRN Reason Stop Dose Admin Acetaminophen 650 mg 06/26/22 16:03 06/27/22 11:32 Acetaminophen 325 Mg Tablet PO 650 mg Q4HR PRN Administration Pain 1 to 4, or Fever Chlorhexidine Gluconate 15 ml 06/26/22 21:00 07/01/22 08:02 Chlorhexidine Gluconate 15 Ml Udc PO 15 ml BID WILIAM Administration Cholecalciferol 5,000 unit 06/30/22 09:00 07/01/22 08:05 Cholecalciferol 5,000 Unit Capsule PO 5,000 unit DAILY WILIAM Administration Dexamethasone Sodium Phosphate 6 mg 06/26/22 19:00 07/01/22 08:09 Dexamethasone 10 Mg/Ml Vial IVP 6 mg DAILY WILIAM Administration Digoxin 125 mcg 06/28/22 12:30 07/01/22 08:06 Digoxin 125 Mcg Tablet PO 125 mcg DAILY WILIAM Administration Diltiazem HCl 180 mg 06/29/22 09:00 07/01/22 08:05 Diltiazem Cd 180 Mg Capsule PO 180 mg DAILY WILIAM Administration Docusate Sodium 250 - 500 mg 06/29/22 10:00 07/01/22 08:05 Docusate Sodium 250 Mg Capsule PO 250 mg DAILY WILIAM Administration Fentanyl 25 mcg 06/27/22 00:34 06/27/22 17:14 Fentanyl 100 Mcg/2 Ml Vial IVP 25 mcg Q1HR PRN Administration Anesthesia Insulin Human Lispro 1 - 5 unit 06/30/22 12:56 07/01/22 11:30 Insulin Lispro 300 Unit/3 Ml Pen SUBQ 2 unit 0800,1200,1700,2100 WILIAM Administration Protocol Losartan Potassium 25 mg 06/28/22 12:30 07/01/22 08:07 Losartan 50 Mg Tablet PO 25 mg DAILY WILIAM Administration Metoprolol Tartrate 100 mg 06/30/22 21:00 07/01/22 08:03 Metoprolol Tartrate 50 Mg Tablet PO 100 mg BID WILIAM Administration Oxycodone HCl 5 mg 06/26/22 16:03 06/29/22 04:44 Oxycodone 5 Mg Tablet PO 5 mg Q4HR PRN Administration Pain 5 to 7 Pantoprazole Sodium 40 mg 07/01/22 07:00 07/01/22 06:06 Pantoprazole 40 Mg Tablet PO 40 mg QDAC WILIAM Administration Polyethylene Glycol 17 gm 06/29/22 10:00 07/01/22 08:00 Polyethylene Glycol 3350 17 Gm Packet PO 17 gm DAILY WILIAM Administration Sodium Chloride 10 ml 06/27/22 01:00 07/01/22 08:15 Sodium Chloride Flush 0.9% 10 Ml Syringe IVP 10 ml 0100,0900,1700 WILIAM Administration Warfarin Sodium 5 mg 06/29/22 14:00 07/01/22 14:21 Warfarin 5 Mg Tablet PO 5 mg SuTuTh WILIAM Administration Warfarin Sodium 2.5 mg 06/28/22 14:00 06/30/22 14:30 Warfarin 2.5 Mg Tablet PO 2.5 mg MoWeFrSa WILIAM Administration - Lab Result Fish Bone Diagrams: 06/30/22 05:50 06/30/22 05:50 - Additional Planning My Orders: My Active Orders 07/01/22 Home Health Referral [CONS] Routine 07/02/22 09:00 Furosemide [Lasix] 40 mg PO DAILY Subjective - Subjective Patient Reports: Feeling Better (Cough remains the same, dyspnea is much improved since admission.) Objective Vital Signs: Vital Signs - 24 hr 06/30/22 06/30/22 06/30/22 16:44 19:47 20:42 Temperature 36.6 C 36.6 C Heart Rate [ 85 98 Radial] Respiratory 20 20 Rate Blood Pressure 130/83 H Blood Pressure 125/75 130/83 H [Right Radial artery] O2 Saturation 91 L 96 If not protocol 2 2 : Oxygen Flow, liters/minute 06/30/22 06/30/22 07/01/22 21:10 23:49 07:46 Temperature 36.2 C L 36.4 C L Heart Rate [ 81 65 Radial] Respiratory 20 18 Rate Blood Pressure Blood Pressure 109/76 116/75 [Right Radial artery] O2 Saturation 94 94 If not protocol 2 2 2 : Oxygen Flow, liters/minute 07/01/22 08:03 Temperature Heart Rate [ Radial] Respiratory Rate Blood Pressure 116/75 Blood Pressure [Right Radial artery] O2 Saturation If not protocol : Oxygen Flow, liters/minute Oxygen O2 Source Nasal cannula Oxygen Flow Rate 15 I&O (Last 24 Hrs): Intake and Output Totals x24h 06/29/22 06/30/22 07/01/22 23:59 23:59 23:59 Intake Total 984 922 1548 Output Total 1770 1800 500 Balance -920 -1130 740 General: Alert, Oriented x3, Other (I visited this patient in her room, at approximately 12 foot distance) HEENT: Mucous membr. moist/pink, Other (Wearing O2 per nasal cannula) Neck: Supple Neuro: Alert, Non Focal Cardiovascular: Regular rate Respiratory: No respiratory distress (On her supplemental O2) - Results Results: Laboratory Results WBC 12.7 x10^3/uL (4.8-10.8) H 06/30/22 05:50 RBC 5.08 10^6/uL (4.20-5.40) 06/30/22 05:50 Hgb 13.6 g/dL (12.0-16.0) 06/30/22 05:50 Hct 43.9 % (37.0-47.0) 06/30/22 05:50 MCV 86.4 fL (81.0-99.0) 06/30/22 05:50 MCH 26.8 pg (27.0-31.0) L 06/30/22 05:50 MCHC 31.0 g/dL (32.0-36.0) L 06/30/22 05:50 RDW 15.3 % (12.0-15.0) H 06/30/22 05:50 Plt Count 283 10^3/uL (130-450) 06/30/22 05:50 MPV 8.6 fL (7.9-10.8) 06/30/22 05:50 Neut # (Auto) 10.6 10^3/uL (1.5-6.6) H 06/30/22 05:50 Lymph # (Auto) 0.7 10^3/uL (1.5-3.5) L 06/30/22 05:50 [place] # (Auto) 1.3 10^3/uL (0.0-1.0) H 06/30/22 05:50 Eos # (Auto) 0.0 10^3/uL (0.0-0.7) 06/30/22 05:50 Baso # (Auto) 0.0 10^3/uL (0.0-0.1) 06/30/22 05:50 Absolute Nucleated RBC 0.00 x10^3/uL 06/30/22 05:50 Nucleated RBC % 0.0 /100WBC 06/30/22 05:50 PT 26.0 secs (9.9-12.6) H 07/01/22 06:13 INR 2.5 (0.8-1.2) H 07/01/22 06:13 Bld Gas Analysis Time 1011 06/28/22 09:55 Sample Site RIGHT RADIAL 06/28/22 09:55 ABG pH 7.48 (7.35-7.45) H 06/28/22 09:55 ABG pCO2 36 mmHg (34-45) 06/28/22 09:55 ABG pO2 70 mmHg (80-100) L 06/28/22 09:55 ABG HCO3 26.2 mmol/L (22.0-26.0) H 06/28/22 09:55 ABG Total CO2 27.3 MMOL/L (21.0-29.0) 06/28/22 09:55 ABG O2 Saturation 94 % (94-98) 06/28/22 09:55 ABG Base Excess 2.9 mmol/L (-2.0-3.0) 06/28/22 09:55 [place] Test POSITIVE 06/28/22 09:55 VBG pH 7.387 (7.31-7.41) 06/29/22 04:35 VBG pCO2 35.3 mmHg (41-51) L 06/28/22 04:30 VBG pO2 71.7 mmHg (25-47) H 06/28/22 04:30 VBG HCO3 22.3 mmol/L (23-28) L 06/28/22 04:30 VBG Total CO2 23.4 mmol/L (24-29) L 06/28/22 04:30 VBG O2 Saturation 93.9 % (60-80) H 06/28/22 04:30 VBG Base Excess -1.6 mmol/L (-2 - +2) 06/28/22 04:30 Ionized Calcium 1.14 mmol/L (1.15-1.33) L 06/29/22 04:35 Respiration Rate 24 b/min 06/27/22 06:07 O2 Delivery Device VENTILATOR 06/28/22 09:55 Vent Mode CPAP 06/28/22 09:55 FiO2 40.00 06/28/22 09:55 Tidal Volume 550 mL 06/27/22 06:07 PEEP 5 cmH2O 06/28/22 09:55 Pressure Support Vent 14 cmH2O 06/28/22 09:55 EPAP 5 cmH2O 06/26/22 22:50 IPAP 16 cmH2O 06/26/22 22:50 Sodium 140 mmol/L (135-145) 06/30/22 05:50 Potassium 3.7 mmol/L (3.5-5.0) 06/30/22 05:50 Chloride 100 mmol/L (101-111) L 06/30/22 05:50 Carbon Dioxide 32 mmol/L (21-32) 06/30/22 05:50 Anion Gap 8.0 (6-13) 06/30/22 05:50 BUN 52 mg/dL (6-20) H 06/30/22 05:50 Creatinine 1.2 mg/dL (0.4-1.0) H 06/30/22 05:50 Estimated GFR (MDRD) 44 (>89) L 06/30/22 05:50 Glucose 189 mg/dL (70-100) H 06/30/22 05:50 POC Whole Bld Glucose 133 mg/dL (70 - 100) H 07/01/22 07:29 Lactic Acid 1.1 mmol/L (0.5-2.2) 06/26/22 18:30 Calcium 8.8 mg/dL (8.5-10.3) 06/30/22 05:50 Phosphorus 3.4 mg/dL (2.5-4.6) 06/30/22 05:50 Magnesium 2.3 mg/dL (1.7-2.8) 06/30/22 05:50 Total Bilirubin 0.8 mg/dL (0.2-1.0) 06/30/22 05:50 AST 45 IU/L (10-42) H 06/30/22 05:50 ALT 262 IU/L (10-60) H 06/30/22 05:50 Alkaline Phosphatase 72 IU/L (42-121) 06/30/22 05:50 Troponin I High Sens 48.7 ng/L (2.3-14.8) H* 06/26/22 20:20 B-Natriuretic Peptide 305 pg/mL (5-100) H 06/26/22 14:52 Total Protein 6.6 g/dL (6.7-8.2) L 06/30/22 05:50 Albumin 3.2 g/dL (3.2-5.5) 06/30/22 05:50 Globulin 3.4 g/dL (2.1-4.2) 06/30/22 05:50 Albumin/Globulin Ratio 0.9 (1.0-2.2) L 06/30/22 05:50 Prealbumin 23 mg/dL (18-45) 06/30/22 05:50 Triglycerides 126 mg/dL (-149) 06/27/22 04:32 Vitamin D 25-Hydroxy 6.7 ng/mL (30.0-100.0) L 06/27/22 17:09 Urine Color YELLOW 06/30/22 07:55 Urine Clarity HAZY (CLEAR) 06/30/22 07:55 Urine pH 5.5 PH (5.0-7.5) 06/30/22 07:55 Ur Specific [place] 1.020 (1.002-1.030) 06/30/22 07:55 Urine Protein NEGATIVE mg/dL (NEGATIVE) 06/30/22 07:55 Urine Glucose (UA) NEGATIVE mg/dL (NEGATIVE) 06/30/22 07:55 Urine Ketones NEGATIVE mg/dL (NEGATIVE) 06/30/22 07:55 Urine Occult Blood NEGATIVE (NEGATIVE) 06/30/22 07:55 Urine Nitrite NEGATIVE (NEGATIVE) 06/30/22 07:55 Urine Bilirubin NEGATIVE (NEGATIVE) 06/30/22 07:55 Urine Urobilinogen 0.2 (NORMAL) E.U./dL (NORMAL) 06/30/22 07:55 Ur Leukocyte Esterase MODERATE (NEGATIVE) H 06/30/22 07:55 Urine RBC 0-5 /HPF (0-5) 06/30/22 07:55 Urine WBC 11-25 /HPF (0-5) H 06/30/22 07:55 Urine WBC Clumps PRESENT 06/30/22 07:55 Ur Squamous Epith Cells MOD Squamous (<= Few) H 06/30/22 07:55 Urine Bacteria Many /HPF (None Seen) H 06/30/22 07:55 Urine Casts 3-5 Hyaline Casts /LPF3-5 Granular Casts /LPF 06/30/22 07:55 Urine Casts 3-5 Hyaline Casts /LPF3-5 Granular Casts /LPF 06/30/22 07:55 Urine Yeast PRESENT 06/30/22 07:55 Ur Microscopic Review INDICATED 06/30/22 07:55 Urine Culture Comments NOT INDICATED 06/30/22 07:55 Nasal Adenovirus (PCR) NOT DETECTED 06/26/22 13:58 Nasal B. parapertussis DNA (PCR) NOT DETECTED 06/26/22 13:58 Nasal Coronavir 229E PCR NOT DETECTED 06/26/22 13:58 Nasal Coronavir HKU1 PCR NOT DETECTED 06/26/22 13:58 Nasal Coronavir NL63 PCR NOT DETECTED 06/26/22 13:58 Nasal Coronavir OC43 PCR NOT DETECTED 06/26/22 13:58 Nasal Enterovir/Rhinovir PCR NOT DETECTED 06/26/22 13:58 Nasal Influenza B PCR NOT DETECTED 06/26/22 13:58 Nasal Influenza A PCR NOT DETECTED 06/26/22 13:58 Nasal Parainfluen 1 PCR NOT DETECTED 06/26/22 13:58 Nasal Parainfluen 2 PCR NOT DETECTED 06/26/22 13:58 Nasal Parainfluen 3 PCR NOT DETECTED 06/26/22 13:58 Nasal Parainfluen 4 PCR NOT DETECTED 06/26/22 13:58 Nasal RSV (PCR) NOT DETECTED 06/26/22 13:58 Nasal Screen MRSA (PCR) NEGATIVE (NEGATIVE) 06/26/22 16:47 Nasal B.pertussis DNA PCR NOT DETECTED 06/26/22 13:58 Nasal C.pneumoniae (PCR) NOT DETECTED 06/26/22 13:58 Nba Human Metapneumo PCR NOT DETECTED 06/26/22 13:58 Nasal M.pneumoniae (PCR) NOT DETECTED 06/26/22 13:58 Nasal SARS-CoV-2 (PCR) DETECTED A 06/26/22 13:58 Last Dose Date 07/01/22 07/01/22 08:25 Last Dose Time 0807/01/22 08:25 Digoxin 0.6 ng/mL 07/01/22 08:25 Salicylates 10.9 mg/dL 06/26/22 14:52 Urine Opiates Screen NEGATIVE (NEGATIVE) 06/26/22 15:30 Ur Oxycodone Screen NEGATIVE (NEGATIVE) 06/26/22 15:30 Urine Methadone Screen NEGATIVE (NEGATIVE) 06/26/22 15:30 Ur Propoxyphene Screen NEGATIVE (NEGATIVE) 06/26/22 15:30 Acetaminophen < 10 ug/mL (10-30) L 06/26/22 14:52 Ur Barbiturates Screen NEGATIVE (NEGATIVE) 06/26/22 15:30 Ur Tricyclics Screen NEGATIVE (NEGATIVE) 06/26/22 15:30 Ur Phencyclidine Scrn NEGATIVE (NEGATIVE) 06/26/22 15:30 Ur Amphetamine Screen NEGATIVE (NEGATIVE) 06/26/22 15:30 U Methamphetamines Scrn NEGATIVE (NEGATIVE) 06/26/22 15:30 U Benzodiazepines Scrn NEGATIVE (NEGATIVE) 06/26/22 15:30 Urine Cocaine Screen NEGATIVE (NEGATIVE) 06/26/22 15:30 U Cannabinoids Screen NEGATIVE (NEGATIVE) 06/26/22 15:30 Ethyl Alcohol < 5.0 mg/dL 06/26/22 14:52 Sepsis Event Note (H) - Evaluation Current Stage of Sepsis: Sepsis Possible source of Sepsis: positive: Pulmonary - Sepsis Criteria Sepsis Criteria: Suspected or Documented, Recorded Respiratory Rate greater than 20, Respiratory: Increasing oxygen requirements, Metabolic: lactate > 2 mmol/L
[2022-07-02] MEDS: SODIUM CHLORIDE FLUSH 0.9% 10 ML SYRINGE IVP SCH ×2 (05:30→08:22)
[2022-07-02] MEDS: PANTOPRAZOLE 40 MG TABLET PO SCH (06:14)
[2022-07-02 07:53] VITALS: BP 111/75
[2022-07-02] MEDS: LOSARTAN 50 MG TABLET PO SCH (08:16)
[2022-07-02] MEDS: DIGOXIN 125 MCG TABLET PO SCH (08:17)
[2022-07-02] MEDS: CHOLECALCIFEROL 5,000 UNIT CAPSULE PO SCH (08:17)
[2022-07-02] MEDS: DOCUSATE SODIUM 250 MG CAPSULE PO SCH (08:17)
[2022-07-02] MEDS: diltiaZEM CD 180 MG CAPSULE PO SCH (08:18)
[2022-07-02] MEDS: DEXAMETHASONE 10 MG/ML VIAL IVP SCH (08:19)
[2022-07-02] MEDS: CHLORHEXIDINE GLUCONATE 15 ML UDC PO SCH (08:19)
[2022-07-02] MEDS: METOPROLOL TARTRATE 50 MG TABLET PO SCH (08:21)
[2022-07-02] MEDS: INSULIN LISPRO 300 UNIT/3 ML PEN SUBQ SCH ×2 (08:26→11:58)
[2022-07-02] MEDS ORDERED: FUROSEMIDE 40 MG TABLET PO SCH ×2 (09:00→14:00)
[2022-07-02] MEDS ORDERED: BISOPROLOL FUMARATE 10 MG PO SCH (09:30)
[2022-07-02] MEDS: polyethylene glycoL 3350 17 GM PACKET PO SCH (11:34)
--- NOTE | 2022-07-02 11:42 | Discharge Plan ---
Discharge Plan Problem Reviewed?: Yes Disposition: Home, Self Care Condition: Stable Prescriptions: Cholecalciferol (Vitamin D3) [Vitamin D3] 50 mcg PO DAILY #30 cap Diet: Regular Shower Restrictions: No Health Concerns: You were hospitalized in critical condition due to respiratory failure. You needed to be on the ventilator in the ICU. We found that you had fluid overload in your chest and also an active COVID pneumonia. You received a course of iv Remdesivir for the COVID and got IV steroids throughout your hospital course. You received IV diuretics to eliminate the fluid and you are being transitioned back to your prior pill doses of Lasix. You are being discharged home today. You were tested to see if you need a new home oxygen order and you do. It needs to be used with any activity, set at 3 L/min. Please see your primary care provider in the next 2 to 4 weeks for hospital follow-up visit and they will check your oxygen, and tell you if you still need to keep using the oxygen during activities. Please resume all your usual pre-Hospital medications. We found you to have a severe vitamin D deficiency. A new prescription for daily vitamin D capsules has been electronically sent to your [facility] pharmacy in [place]. Plan of Treatment: As above. Care Goals: Improvement in symptoms and stabilization of the goals. Assessment: The patient understands and is agreeable with the plan. Additional Instructions or Follow Up instructions: If you have new or worsening symptoms, call your PCP for advice or come to the ER. No Smoking: If you smoke, Please STOP! Call for help. Follow-up with: Daniela Mccrary ARNP [Credentialed Staff Provider] -
--- NOTE | 2022-07-02 11:49 | DISCHARGE SUMMARY ---
Discharge Summary Admit Date: 06/26/22 Discharge Date: 07/02/22 Discharging Provider: Dr Cordelia Palma Primary Care Provider: INES Santiago Code Status: Attempt Resuscitation Condition at Discharge: Stable Discharge Disposition: 01 Home, Self Care - [facility] History of Present Illness: Patient is a 72-year-old female with morbid obesity, history of A-fib on warfarin, type 2 diabetes, GERD, who was brought to the ED by paramedics after she was found confused, unresponsive and showing difficulty breathing at home. Patient is not aware of her circumstances requiring admission and has no memory of recent events and is unable to provide much history. Paramedics were not able to obtain much history. Limited history is provided by ED physician. Patient was immediately assessed to have acute respiratory failure in the ED. She was also hypotensive. A central line was placed. Chest x-ray shows evidence of fluid overload suggestive of heart failure. COVID test came back positive. Patient gives conflicting information stating that she does recall a positive COVID test, then stating she does not recall this. A Paxlovid prescription was picked up 2 days ago. In the ED, patient had no fever. Heart rates were normal in the 80s. Respiratory rates in the 20s. Blood pressure in the 90s over 70s. Patient was responding to BiPAP at 15 L oxygen.Initial blood gas was pH of 7.06, PCO2 of 95, and PO2 of 112.This was taken shortly after being placed on BiPAP.Patient's blood work also remarkable for elevated LFTs, troponin of 42, lactic acid of 2.4, creatinine of 1.8. Chest x-ray in the ED shows cardiomegaly with interstitial congestion and right lung opacity and effusion suggestive of either pulmonary edema or pneumonia. Given the acute respiratory failure with hypoxia, positive COVID, requiring BiPAP, hospital admission ICU was requested. - HOSPITAL COURSE Hospital Course: (1) Sepsis Patient met sepsis criteria on admission likely secondary to acute respiratory failure from COVID (as well as CHF). She was admitted to ICU, was intubated on the vent, received iv antibiotics. Her WBC and Lactic Acid level improved. (2) Acute respiratory failure with hypoxia Patient was intubated on 06/26/2022, and extubated successfully on 06/28, then needed suppl. O2 via NC. She had further slow improvement clinically as she was treated for COVID pneumonia and CHF. On the day of discharge she underwent an oximetry walk test: On room air at rest, her O2 saturation was 91%. On room air with ambulation, her O2 sat was hypoxic at 84%, on 2L/min O2 with ambulation, her O2 sat was still hypoxic at 88%, then on 3L/min O2, with ambulation, her O2 sat was 91%. I am ordering home O2, room air at rest, and to be set at 3L/min with exertion, to treat her COVID pneumonia and her CHF. (3) DSEMONDID-19 Completed Remdesivir course and got iv Decadron until discharge. She was in isolation. Her supplemental O2 was slowly weaned down to room air at rest. (4) Acute exacerbation of congestive heart failure (I50.9 - Heart failure, unspecified) Patient presented with respiratory failure and had fluid overload on chest x- ray, consistent with acute CHF exacerbation possibly triggered by the COVID infection. She was treated empirically with Lasix which helped, and she was in neg fluid balance. She had an Echo which showed normal LV systolic function >55%. (5) Cor pulmonale As per Echo report, her RV was severely dilated with depressed RV function. PA pressure calculated at 47 mmHg. Lasix orally was to be continued after discharge. (6) Type 2 diabetes mellitus (E11.9 - Type 2 diabetes mellitus without complications) Blood sugars were elevated, from being on Decadron. She was on insulin sliding scale and a DM diet. All her usual management was resumed at discharge. (7) Hypertension Initially BP was soft. Eventually we resumed her previous home dose of metoprolol (8) GERD (gastroesophageal reflux disease) Well-controlled on Protonix p.o. (9) Vitamin D deficiency We found her to have a severe vitamin D deficiency (not measurable vit D serum level). A new prescription for daily vitamin D capsules was ordered. (10) Atrial fibrillation Patient has chronic atrial fibrillation on warfarin. - ALLERGIES Allergies/Adverse Reactions: Allergies Allergy/AdvReac Type Severity Reaction Status Date / Time codeine Allergy Hallucinati Verified 10/27/18 13:15 ons - MEDICATIONS Home Medications: Ambulatory Orders Medication Instructions Recorded Confirmed Digoxin [Lanoxin] 125 mcg PO DAILY 06/26/22 06/26/22 Famotidine 40 mg PO DAILY 06/26/22 06/26/22 Furosemide [Lasix] 80 mg PO BIDDIURETIC 06/26/22 06/26/22 Losartan Potassium 25 mg PO DAILY 06/26/22 06/26/22 Metoprolol Tartrate [Lopressor] 100 mg PO BID 06/26/22 06/26/22 Omeprazole 40 mg PO QDAC 06/26/22 06/26/22 Pravastatin [Pravachol] 40 mg PO QPM 06/26/22 06/26/22 Warfarin [Coumadin] 2.5 mg PO WESA 06/26/22 06/26/22 Warfarin [Coumadin] 5 mg PO SUMOTUTHFR 06/26/22 06/26/22 bisoproloL fumarate [Bisoprolol 10 mg PO DAILY 06/26/22 06/26/22 Fumarate] dilTIAZem HCL [Diltiazem 24Hr ER 180 mg PO DAILY 06/26/22 06/26/22 (Xr)] metFORMIN [Glucophage] 500 mg PO BIDWM 06/26/22 06/26/22 sulfaSALAzine [Azulfidine] 1,250 mg PO BIDWM 06/26/22 06/30/22 Cholecalciferol (Vitamin D3) 50 mcg PO DAILY #30 cap 07/02/22 [Vitamin D3] - PHYSICAL EXAM AT DISCHARGE General Appearance: positive: No acute distress, Alert Eyes Bilateral: positive: Normal inspection, EOMI ENT: positive: ENT inspection nml, No signs of dehydration Neck: positive: Nml inspection Respiratory: positive: No respiratory distress Cardiovascular: positive: Regular rate & rhythm Abdomen: positive: No distention, Other (Obese) Skin: positive: Warm, Dry Extremities: positive: Non-tender, Other (Trace pedal edema) Neurologic/Psychiatric: positive: Oriented x3, Motor nml - LABS Result Diagrams: 06/30/22 05:50 06/30/22 05:50 - DIAGNOSTIC IMAGING Diagnostic Imaging Results: Final report reviewed - SEPSIS Current Stage of Sepsis: Sepsis Possible source of Sepsis: Pulmonary Sepsis Criteria: Suspected or Documented, Recorded Respiratory Rate greater than 20, Respiratory: Increasing oxygen requirements, Metabolic: lactate > 2 mmol/L - FOLLOW UP Follow Up: See PCP for hosp F/U visit in 1-2 weeks. - TIME SPENT Time Spent in Discharge (Minutes): 50
[2022-07-02] MEDS: WARFARIN 2.5 MG TABLET PO SCH (14:39)
[2022-07-02] MEDS ORDERED: sulfaSALAzine 500 MG TABLET PO SCH (17:00)
== END 2022-07-02 14:45 | disposition home or self-care (01) | DRG 871 ==
LOC: EDUNIT# → ED 12:24 → ICU 16:03 → MS2 06-29 15:42
PROVIDERS: ADMIT Family Medicine Sports Medicine; ATTEND Internal Medicine
PROC: XW033E5 Introduction of Remdesivir Anti-infective into Peripheral Vein, Percutaneous Approach, New Technology Group 5 (ICD-10-PCS; principal; 2022-06-26)
PROC: 3E0333Z Introduction of Anti-inflammatory into Peripheral Vein, Percutaneous Approach (ICD-10-PCS; 2022-06-26)
PROC: 5A1945Z Respiratory Ventilation, 24-96 Consecutive Hours (ICD-10-PCS; 2022-06-26)
DX: A41.89 Other specified sepsis (principal); J12.82 Pneumonia due to coronavirus disease 2019; E87.20 Acidosis, unspecified; J96.01 Acute respiratory failure with hypoxia; I48.91 Unspecified atrial fibrillation; J45.909 Unspecified asthma, uncomplicated; E66.9 Obesity, unspecified; U07.1 COVID-19; J96.02 Acute respiratory failure with hypercapnia; Z68.43 Body mass index [BMI] 50.0-59.9, adult; I48.20 Chronic atrial fibrillation, unspecified; R65.20 Severe sepsis without septic shock; I27.81 Cor pulmonale (chronic); E11.9 Type 2 diabetes mellitus without complications; I11.0 Hypertensive heart disease with heart failure; I50.9 Heart failure, unspecified; K21.9 Gastro-esophageal reflux disease without esophagitis; E66.01 Morbid (severe) obesity due to excess calories; Z79.01 Long term (current) use of anticoagulants; I95.9 Hypotension, unspecified; E55.9 Vitamin D deficiency, unspecified; Z78.1 Physical restraint status; Z79.84 Long term (current) use of oral hypoglycemic drugs
CPT/HCPCS: 31500; 36415; 36556; 36600; 51702; 71045; 74018; 80048; 80053; 80162; 80306; 80307; 81001; 82306; 82330; 82803; 83605; 83735; 83880; 84100; 84132; 84134; 84478; 84484; 85025; 85610; 87040; 87150; 87633; 93005; 93306; 94002; 94003; 94660; 94761; 97110; 97116; 97161; 97166; 97530; 97535; 99291; A9270; G0480; J0330; 80320; 80329; 81003; 87086; 94770

== ENCOUNTER 2022-10-16 10:49 | Outpatient (CLI) | payer MEDICARE, OTHER ==
[2022-10-16 15:10] LABS: BASOPHILS # (AUTO) 0.1 10^3/uL (0.0-0.1); BASOPHILS % (AUTO) 0.7 %; EOSINOPHILS # (AUTO) 0.1 10^3/uL (0.0-0.7); EOSINOPHILS % (AUTO) 0.8 %; HCT - HEMATOCRIT 42.6 % (37.0-47.0); HGB - HEMOGLOBIN 12.5 g/dL (12.0-16.0); LYMPHOCYTES # (AUTO) 1.5 10^3/uL (1.5-3.5); LYMPHOCYTES % (AUTO) 19.5 %; MEAN CORPUSCULAR HEMOGLOBIN 27.7 pg (27.0-31.0); MEAN CORPUSCULAR HGB CONC 29.3 g/dL (32.0-36.0); MEAN CORPUSCULAR VOLUME 94.2 fL (81.0-99.0); MEAN PLATELET VOLUME 9.7 fL (7.9-10.8); MONOCYTES # (AUTO) 0.6 10^3/uL (0.0-1.0); MONOCYTES % (AUTO) 8.1 %; NEUTROPHILS # (AUTO) 5.3 10^3/uL (1.5-6.6); NEUTROPHILS % (AUTO) 70.6 %; PLT - PLATELET COUNT 280 10^3/uL (130-450); RED BLOOD COUNT 4.52 10^6/uL (4.20-5.40); RED CELL DISTRIBUTION WIDTH 15.1 % (12.0-15.0); WHITE BLOOD COUNT 7.4 x10^3/uL (4.8-10.8)
[2022-10-16 15:55] LABS: ALBUMIN 3.7 g/dL (3.2-5.5); ALBUMIN/GLOBULIN RATIO 1.1 (1.0-2.2); BILIRUBIN,TOTAL 0.4 mg/dL (0.2-1.0); CALCIUM 9.1 mg/dL (8.5-10.3); CREATININE 1.1 mg/dL (0.6-1.3); POTASSIUM 3.8 mmol/L (3.5-4.5)
[2022-10-16 21:03] LABS: ESTIMATED AVERAGE GLUCOSE 143 mg/dL (70-100); HEMOGLOBIN A1c% 6.6 % (4.27-6.07)
== END 2022-10-16 10:50 | disposition home or self-care (01) ==
LOC: LAB.S 10:49
PROVIDERS: ATTEND Registered Nurse
DX: E11.59 Type 2 diabetes mellitus with other circulatory complications (principal); M06.9 Rheumatoid arthritis, unspecified
CPT/HCPCS: 36415; 80053; 82043; 82570; 83036; 85025; 85651

== ENCOUNTER 2023-08-13 09:37 | Outpatient (CLI) | payer MEDICARE, OTHER ==
[2023-08-13 14:38] LABS: BASOPHILS % (AUTO) 0.7 %; EOSINOPHILS % (AUTO) 0.5 %; HGB - HEMOGLOBIN 12.2 g/dL (12.0-16.0); LYMPHOCYTES # (AUTO) 1.1 10^3/uL (1.5-3.5); LYMPHOCYTES % (AUTO) 17.7 %; MEAN CORPUSCULAR HEMOGLOBIN 26.7 pg (27.0-31.0); MEAN CORPUSCULAR VOLUME 91.9 fL (81.0-99.0); MEAN PLATELET VOLUME 9.4 fL (7.9-10.8); MONOCYTES # (AUTO) 0.3 10^3/uL (0.0-1.0); MONOCYTES % (AUTO) 5.6 %; NEUTROPHILS # (AUTO) 4.6 10^3/uL (1.5-6.6); NEUTROPHILS % (AUTO) 75.2 %; PLT - PLATELET COUNT 278 10^3/uL (130-450); RED BLOOD COUNT 4.57 10^6/uL (4.20-5.40); RED CELL DISTRIBUTION WIDTH 17.3 % (12.0-15.0); WHITE BLOOD COUNT 6.1 x10^3/uL (4.8-10.8)
[2023-08-13 15:27] LABS: ESTIMATED AVERAGE GLUCOSE 131 mg/dL (70-100); HEMOGLOBIN A1c% 6.2 % (4.27-6.07)
[2023-08-13 15:29] LABS: PLATELET ESTIMATE, MANUAL NORMAL (130-450,000) (NORMAL); PLATELET MORPHOLOGY NORMAL APPEARANCE (NORMAL); RBC MORPHOLOGY (MULTIPLE) NORMAL APPEARANCE (NORMAL)
[2023-08-13 15:30] LABS: DIFFERENTIAL COMMENT MANUAL=AUTO DIFF
[2023-08-13 15:38] LABS: ALBUMIN 3.8 g/dL (3.2-5.5); ALBUMIN/GLOBULIN RATIO 1.1 (1.0-2.2); ALKALINE PHOSPHATASE 59 IU/L (42-121); ALT ALANINE AMINOTRANSFERASE 8 IU/L (10-60); AST ASPARTATE AMINOTRANSFERASE 11 IU/L (10-42); BILIRUBIN,TOTAL 0.3 mg/dL (0.2-1.0); BUN - BLOOD UREA NITROGEN 30 mg/dL (6-20); CALCIUM 9.4 mg/dL (8.5-10.3); CARBON DIOXIDE - CO2 28 mmol/L (21-32); CHLORIDE 100 mmol/L (101-111); CHOLESTEROL 118 mg/dL; CREATININE 1.3 mg/dL (0.6-1.3); GFR - MDRD 40 (>89); GLUCOSE 132 mg/dL (74-104); HDL CHOLESTEROL 40 mg/dL; LDL CHOLESTEROL,CALCULATED 49 mg/dL; LDL/HDL RATIO 1.2 (<4.4); POTASSIUM 3.4 mmol/L (3.5-4.5); SODIUM 137 mmol/L (135-145); TOTAL PROTEIN 7.2 g/dL (6.4-8.9); TRIGLYCERIDES 146 mg/dL (48-352); VLDL CHOLESTEROL 29 mg/dL
[2023-08-13 15:50] LABS: THYROID STIMULATING HORMONE 1.55 uIU/mL (0.34-5.60)
== END 2023-08-13 09:38 | disposition home or self-care (01) ==
LOC: LAB.S 09:37
PROVIDERS: ATTEND Registered Nurse
DX: E11.9 Type 2 diabetes mellitus without complications (principal); Z13.228 Encounter for screening for other metabolic disorders; Z13.220 Encounter for screening for lipoid disorders; Z13.29 Encounter for screening for other suspected endocrine disorder; Z13.0 Encounter for screening for diseases of the blood and blood-forming organs and certain disorders involving the immune mechanism; Z79.01 Long term (current) use of anticoagulants; I48.0 Paroxysmal atrial fibrillation; M06.9 Rheumatoid arthritis, unspecified
CPT/HCPCS: 36415; 80053; 80061; 83036; 83721; 84443; 85025; 85610; 85651

== ENCOUNTER 2024-03-01 11:00 | Inpatient (IN) ==
--- NOTE | 2024-03-01 11:46 | ED Physician Documentation ---
PD HPI DYSPNEA Stated complaint Stated Complaint: SOA, NAUSEA Chief complaint Chief Complaint: Resp History obtained from History obtained from: Patient and Family History of Present Illness Timing - onset: How many days ago (Patient states 7 to 10 days of progressive dyspnea with pitting edema, orthopnea, poor sleep and dyspnea on exertion. History of CHF. Does not weigh herself at home.) Timing - onset during: Light activity Timing - details: Gradual onset and Still present Inciting event(s): No Out of meds Improved by: O2, Rest (though today was having dyspnea with rest and sitting up. Not improved with these. ) and Sitting up Worsened by: Exertion and Laying flat Associated symptoms: Bilateral edema; No Fever, Cough, Chest pain / discomfort or Palpitations Similar symptoms before: Diagnosis (CHF in the past) Meds/Allgy Home Medications Ambulatory Orders Medication Instructions Recorded Confirmed famotidine 40 mg tablet 40 mg PO DAILY 06/26/22 03/01/24 losartan 25 mg tablet 25 mg PO DAILY 06/26/22 03/01/24 metformin 500 mg tablet 1,000 mg PO BIDWM 06/26/22 03/01/24 omeprazole 40 mg capsule,delayed 40 mg PO QDAC 06/26/22 03/01/24 release pravastatin 40 mg tablet 40 mg PO QPM 06/26/22 03/01/24 sulfasalazine 500 mg tablet 1,500 mg PO BIDWM 06/26/22 03/01/24 cholecalciferol (vitamin D3) 50 50 mcg PO DAILY #30 caps 07/02/22 03/01/24 mcg (2,000 unit) capsule warfarin 5 mg tablet (Jantoven) 5 mg PO QPM 01/15/24 03/01/24 bisoprolol fumarate 10 mg tablet 10 mg PO BID 03/01/24 03/01/24 digoxin 250 mcg (0.25 mg) tablet 0.125 mg PO DAILY 03/01/24 03/01/24 diltiazem HCl 180 mg 180 mg PO DAILY 03/01/24 03/01/24 capsule,extended release 24 hr furosemide 40 mg tablet 80 mg PO BID 03/01/24 03/01/24 montelukast 10 mg tablet 10 mg PO QPM 03/01/24 03/01/24 Allergies Allergies Allergy/AdvReac Type Severity Reaction Status Date / Time codeine Allergy Hallucinati Verified 01/01/24 11:30 [facility] Medical History Medical History (Updated 03/01/24 @ 19:57 by Pato Ramsey MD) Anticoagulated on warfarin Atrial fibrillation Acute exacerbation of congestive heart failure Family history of GERD History of diabetes mellitus History of atrial fibrillation Family History Family History Mother Diabetes Kidney disease Father Cancer Social History Social History Smoking Status: Never smoker Second hand tobacco smoke exposure: No Do you dip or chew tobacco?: No Do you vape?: No Living Condition: Alone Relationship: Level: Assisted Home Mobility Equipment: Wheeled walker Do you feel safe in your home environment?: Yes Suffered physical, verbal, emotional, or financial abuse?: No ETOH Use: None Substance Use: denies use Exam Constitutional normal general appearance, distress noted (moderate) (labored breathing and sats 84% RA, improved with NC at 4 lpm. Less work of breathing. ) and abnormal body habitus (overweight) Respiratory abnormal respiratory effort (labored), auscultation abnormal (diminished breath sound) and (vesicular breath sounds) (both sides lower third), no wheezes and rales noted (base) Cardiovascular normal heart rate noted, rhythm abnormal (irregular), murmur noted (systolic) and (II/) and edema noted (pitting edema both legs. ) Gastrointestinal abdomen soft to palpation and nontender to palpation Neurology no movement abnormality noted and no focal motor deficit noted Psychiatry mental status grossly normal, oriented x3 and thought process normal Results Vitals Vitals: Vital Signs - 24 hr 03/01/24 11:30 03/01/24 12:11 Temperature 36.5 C Temperature Source Temporal Artery Scan Pulse Rate 83 104 H Respiratory Rate 18 22 Blood Pressure 116/74 121/78 O2 Saturation 84 L 91 L O2 Source Room air Nasal cannula If not protocol: Oxygen Flow, liters/minute 3 Pain Intensity 0 0 Oxygen O2 Source Nasal cannula EKG (time done) 12:11: EKG releavant findings:: EKG personally interpreted by author of this note. Relevant findings are: Rate: Rate (enter#) (73) Rhythm: Atrial fibrillation QRS: QRS normal Ischemia: Normal ST segments and Non specific changes (lateral leads, similar to 06/2022.) Labs Labs: Laboratory Tests 03/01/24 03/01/24 03/01/24 12:22 12:34 13:36 WBC 7.4 RBC 4.26 Hgb 11.5 L Hct 39.4 MCV 92.5 MCH 27.0 MCHC 29.2 L RDW 15.6 H Plt Count 256 MPV 9.4 Neut # (Auto) 5.8 Lymph # (Auto) 0.8 L Hoke # (Auto) 0.7 Eos # (Auto) 0.1 Baso # (Auto) 0.1 Absolute Nucleated RBC 0.00 Nucleated RBC % 0.0 PT 81.5 H INR 8.7 H* Sodium 143 Potassium 4.1 Chloride 105 Carbon Dioxide 31 Anion Gap 7.0 BUN 36 H Creatinine 1.4 H Estimated GFR (MDRD) 37 L Glucose 94 Calcium 9.3 Magnesium 2.0 Total Bilirubin 0.3 AST 10 ALT 9 L Alkaline Phosphatase 66 Troponin I High Sens 6.2 B-Natriuretic Peptide 279 H Total Protein 7.0 Albumin 3.7 Globulin 3.3 Albumin/Globulin Ratio 1.1 Lipase 105 H Nasal Adenovirus (PCR) NOT DETECTED Nasal B. parapertussis DNA (PCR) NOT DETECTED Nasal Coronavir 229E PCR NOT DETECTED Nasal Coronavir HKU1 PCR NOT DETECTED Nasal Coronavir NL63 PCR NOT DETECTED Nasal Coronavir OC43 PCR NOT DETECTED Nasal Enterovir/Rhinovir PCR NOT DETECTED Nasal Influenza B PCR NOT DETECTED Nasal Influenza A PCR NOT DETECTED Nasal Parainfluen 1 PCR NOT DETECTED Nasal Parainfluen 2 PCR NOT DETECTED Nasal Parainfluen 3 PCR NOT DETECTED Nasal Parainfluen 4 PCR NOT DETECTED Nasal RSV (PCR) NOT DETECTED Nasal B.pertussis DNA PCR NOT DETECTED Nasal C.pneumoniae (PCR) NOT DETECTED Nba Human Metapneumo PCR NOT DETECTED Nasal M.pneumoniae (PCR) NOT DETECTED Nasal SARS-CoV-2 (PCR) NOT DETECTED Rads (name of study) chest xray: Relevant Findings:: Final report received and EMP independent interpretation of test (increased vascular congestion. moerate heart enlargement. ) PD Medical Decision Making ED course Complexity details: reviewed old records (ECG similar to one june 2022, and her ECHO june 2022 showed EF greater than 55%, severe RA enlargement. ), considered differential (she does not weigh regularly, but has noted edema increase, orthopnea, ZAVALA and history of CHF, without URI symptoms and no feeling of wheezing/asthma. No clinical suspicion for PE. Gave Lasix x 2 with onset of reasonable diuresis. BP is okay so not emphasized NTG. ) and d/w mortgage consultant (pt hyoxic needing 4 lpm initially. BNP not too badly elevated but clinically has CHF. Talked with hospitalist about in hospital treatment. ) Discharge Plan Discharge Patient Disposition: [facility] DC/Xfer Condition: Stable Interventions: ED Admission Assessment Last Done: 03/01/24 14:15
--- NOTE | 2024-03-01 12:19 | XRAY Report ---
PROCEDURE: XR Chest 1V INDICATIONS: Chest pain TECHNIQUE: One view of the chest was acquired. COMPARISON: Chest x-ray June 28, 2022 FINDINGS: Mild consolidation in the left base partially obscures the left hemidiaphragm and left costophrenic a ngle commonly may represent small left pleural effusion, atelectatic changes, pneumonia or other proc ess. Moderate bilateral diffuse peribronchial thickening with diffuse patchy opacities, left greater than right. Bronchitis, viral infection, bronchopneumonia, asthma or other process should be considered. Follow-up suggested. Moderately prominent adriana, pulmonary vascular congestion and/or hilar lymph nodes. Mildly enlarged cardiopericardial silhouette. No pneumothorax, no pleural effusion. IMPRESSION: Findings suspicious for bronchitis, bronchopneumonia, left pleural effusion versus pneumonia or other process similar to the prior exam. Pulmonary vascular congestion and enlarged cardiopericardial silhouette similar to the prior exam. Follow-up is needed. If symptoms persist or worsen, CT chest could be performed. Reviewed by: Robert Mccabe MD on 03/01/2024 12:17 PM PST Approved by: Robert Mccabe MD on 03/01/2024 12:17 PM PST Station ID: [email or web address]
[2024-03-01] MEDS: FUROSEMIDE 40 MG/4 ML VIAL IVP STA ×2 (12:33→13:51)
[2024-03-01 12:39] LABS: BASOPHILS # (AUTO) 0.1 10^3/uL (0.0-0.1); BASOPHILS % (AUTO) 0.8 %; EOSINOPHILS # (AUTO) 0.1 10^3/uL (0.0-0.7); EOSINOPHILS % (AUTO) 1.1 %; HCT - HEMATOCRIT 39.4 % (37.0-47.0); HGB - HEMOGLOBIN 11.5 g/dL (12.0-16.0); LYMPHOCYTES # (AUTO) 0.8 10^3/uL (1.5-3.5); LYMPHOCYTES % (AUTO) 10.1 %; MEAN CORPUSCULAR HGB CONC 29.2 g/dL (32.0-36.0); MEAN CORPUSCULAR VOLUME 92.5 fL (81.0-99.0); MEAN PLATELET VOLUME 9.4 fL (7.9-10.8); MONOCYTES # (AUTO) 0.7 10^3/uL (0.0-1.0); MONOCYTES % (AUTO) 9.3 %; NEUTROPHILS # (AUTO) 5.8 10^3/uL (1.5-6.6); NEUTROPHILS % (AUTO) 78.4 %; PLT - PLATELET COUNT 256 10^3/uL (130-450); RED BLOOD COUNT 4.26 10^6/uL (4.20-5.40); RED CELL DISTRIBUTION WIDTH 15.6 % (12.0-15.0); WHITE BLOOD COUNT 7.4 x10^3/uL (4.8-10.8)
[2024-03-01 12:58] LABS: ALBUMIN 3.7 g/dL (3.2-5.5); ALBUMIN/GLOBULIN RATIO 1.1 (1.0-2.2); BILIRUBIN,TOTAL 0.3 mg/dL (0.2-1.0); CALCIUM 9.3 mg/dL (8.5-10.3); CREATININE 1.4 mg/dL (0.6-1.3); POTASSIUM 4.1 mmol/L (3.5-4.5)
[2024-03-01 13:11] LABS: TROPONIN I HIGH SENSITIVITY 6.2 ng/L (2.3-14.8)
[2024-03-01 13:40] LABS: B. PARAPERTUSSIS- RESP PCR PAN NOT DETECTED; B. PERTUSSIS- RESP PCR PANEL NOT DETECTED; C. PNEUMONIAE- RESP PCR PANEL NOT DETECTED; CORONAVIRUS 229E-RESP PCR NOT DETECTED; CORONAVIRUS HKU1-RESP PCR NOT DETECTED; CORONAVIRUS NL63-RESP PCR NOT DETECTED; CORONAVIRUS OC43-RESP PCR NOT DETECTED; HUMAN METAPNEUMOVIRUS NOT DETECTED; INFLUENZA A- RESP PCR PANEL NOT DETECTED; INFLUENZA B - RESP PCR PANEL NOT DETECTED; M. PNEUMONIAE- RESP PCR PANEL NOT DETECTED; PARAINFLUENZA VIRUS 1 NOT DETECTED; PARAINFLUENZA VIRUS 2 NOT DETECTED; PARAINFLUENZA VIRUS 3 NOT DETECTED; PARAINFLUENZA VIRUS 4 NOT DETECTED; RHINOVIRUS/ENTEROVIRUS NOT DETECTED; RSV- RESP PCR PANEL NOT DETECTED; SARS-CoV-2 -RESP PCR PANEL NOT DETECTED
[2024-03-01 13:55] LABS: PT - PROTHROMBIN TIME 81.5 secs (9.9-12.6)
--- NOTE | 2024-03-01 14:02 | HISTORY & PHYSICAL EXAMINATION ---
Chief Complaint Chief Complaint Chief Complaint: shortness of breath History of Present Illness History Obtained From Records Reviewed: [facility] notes, last admission 06/2022 History obtained from: Patient History of Present Illness HPI Comment/Other: 74-year-old female who presents to the emergency department via POV with shortness of breath. She has a past medical history of atrial fibrillation on warfarin, diabetes, rheumatoid arthritis and reactive airway disease. At home she uses oxygen as needed, and very rarely. She does not guide her oxygen therapy with a pulse oximeter just when she feels short of breath. For the last several days she has felt short of breath and needed oxygen. She has not had any fever or chills she is not having any cough, chest pain. She is having some orthopnea. She has an adjustable bed and has been sleeping with her head up. She has noticed a small amount of peripheral edema. She has been prescribed Jardiance in the past 10 mg daily but has been off of this for about 3 months because she is unable to afford the medication. At home she takes Lasix twice a day, 80 mg She lives at home with her nephew and her sister who has metastatic cancer. Her nephew meets all her care needs. She was intubated a little over a year ago for a CHF exacerbation with coexisting COVID. She was on the ventilator for 2 days and then was able to wean off.This was in June 2022. CODE STATUS: Partial. No CPR. Okay for short-term ventilator.. Meds/Allgy Home Medications Ambulatory Orders Medication Instructions Recorded Confirmed famotidine 40 mg tablet 40 mg PO DAILY 06/26/22 03/01/24 losartan 25 mg tablet 25 mg PO DAILY 06/26/22 03/01/24 metformin 500 mg tablet 1,000 mg PO BIDWM 06/26/22 03/01/24 omeprazole 40 mg capsule,delayed 40 mg PO QDAC 06/26/22 03/01/24 release pravastatin 40 mg tablet 40 mg PO QPM 06/26/22 03/01/24 sulfasalazine 500 mg tablet 1,500 mg PO BIDWM 06/26/22 03/01/24 cholecalciferol (vitamin D3) 50 50 mcg PO DAILY #30 caps 07/02/22 03/01/24 mcg (2,000 unit) capsule diltiazem HCl 180 mg See Rx Instructions .Route 01/15/24 03/01/24 capsule,extended release 24 hr .COMPLEX #90 caps warfarin 5 mg tablet (Jantoven) 5 mg PO QPM 01/15/24 03/01/24 digoxin 250 mcg (0.25 mg) tablet See Rx Instructions .Route 02/01/24 03/01/24 .COMPLEX #45 tabs furosemide 40 mg tablet See Rx Instructions .Route 02/01/24 03/01/24 .COMPLEX #360 tabs bisoprolol fumarate 10 mg tablet 10 mg PO BID 03/01/24 03/01/24 montelukast 10 mg tablet 10 mg PO QPM 03/01/24 03/01/24 Allergies Allergies Allergy/AdvReac Type Severity Reaction Status Date / Time codeine Allergy Hallucinati Verified 01/01/24 11:30 ons [facility] Medical History Medical History Family history of GERD History of diabetes mellitus History of atrial fibrillation Family History Family History Mother Diabetes Kidney disease Father Cancer Social History Social History Smoking Status: Never smoker Second hand tobacco smoke exposure: No Do you dip or chew tobacco?: No Do you vape?: No Living Condition: Alone Relationship: Home Mobility Equipment: Wheeled walker Do you feel safe in your home environment?: Yes Suffered physical, verbal, emotional, or financial abuse?: No ETOH Use: None Substance Use: denies use POLST Patient has POLST: No POLST Status: Limited Interventions (no CPR. short term ventilator OK) Review of Systems Status of ROS: 10 or more systems reviewed and unremarkable except as noted in history and below Constitutional Reports: Fatigue and Malaise; Denies: Fever or Chills Eyes Denies: Change in vision Ears, nose, mouth, and throat Denies: Ear pain, Nasal discharge, Nasal congestion or Throat pain Cardiovascular Reports: edema and shortness of breath with exertion; Denies: chest pain or palpitations Respiratory Reports: Shortness of breath, Orthopnea and SOB at rest; Denies: Cough or Sputum production Gastrointestinal Denies: Abdominal pain Genitourinary Denies: Painful urination Musculoskeletal Denies: Joint swelling or Muscle pain Integumentary/Breast Denies: Rash Neurological Denies: Headache Psychiatric Denies: Depression Endocrine Reports: Fatigue Hematologic/Lymphatic Reports: Anemia Prior Level of Functionality: She does not drive she does not cook or help out with in classroom tutor. She ambulates independently and lives with her sister and her nephew. Her nephew meets most of her care needs. Exam Constitutional normal general appearance and no apparent distress Sitting up on the bed, with her legs in a dependent position, in no acute distress. HENMT normocephalic Eyes PERRL and conjunctivae normal Neck/C-Spine visual inspection normal Lymph no lymphadenopathy noted Chest inspection of chest normal Respiratory Decreased breath sound at the bases. Occasional rhonchi Cardiovascular Irregularly irregular no murmurs appreciated, However it is loud in the emergency department Gastrointestinal abdomen normal to inspection and nondistended Genitourinary no CVA tenderness Back/Pelvis spine normal to inspection Extremities 1+ pitting edema at the ankles Neurology signal intelligence analyst II-XII intact and GCS 15 Psychiatry mental status grossly normal, oriented x3, thought process normal and cooperative Skin skin color normal Conclusion/Plan Problem List (1) Acute respiratory failure with hypoxia: Plan: Acute hypoxic respiratory failure with O2 sat into the 80s at triage in the ED. Has received 80 mg of Lasix IV in the emergency department. Her O2 sats are in the low 90s on 3 L. She is not appear an extremis although has some mild tachycardia. I am admitting her to observation status for her acute respiratory failure secondary to CHF exacerbation. I have discussed this patient with Dr. Ramsey who is requested admission to the hospitalist service. (2) Acute exacerbation of congestive heart failure: Plan: She is on Lasix 80 mg twice daily at home. She has been compliant with her medication. She has had this insidious onset of difficulty breathing at rest and with exertion as well as orthopnea over the last 2 to 3 days. She has been using her home oxygen for several days now. She was previously prescribed Jardiance 10 mg a day. She has been off of this for about 3 months. It is very costly to her, about $1400 a month and she is unable to afford this medication. Last echocardiogram was about a year and 8 months ago. I will repeat echocardiogram. Previous echocardiogram shows right ventricular enlargement which is severe. Right atrial pressure is estimated to be 15 mmHg. In the outpatient environment she sees a assistant toddler teacher Dr. Leonard at [facility] in [place]. Qualifiers: Heart failure type: unspecified Qualified Code(s): I50.9 - Heart failure, unspecified (3) Anticoagulated on warfarin: Plan: Supratherapeutic INR. INR is very elevated on admission. 8.7. I have called the lab to verify. I will give the patient oral vitamin K and recheck the lab in the morning. She does not have any evidence of bleeding at this time. (4) Atrial fibrillation: Plan: Atrial fibrillation on warfarin therapy. She is rate controlled. Her home meds are not reconciled. But these are listed is bisoprolol 10 mg, digoxin 250 mcg diltiazem CD100 and 80 mg, metoprolol tartrate 100 mg. I will resume these with the exception of the warfarin as soon as meds are reconciled. Qualifiers: Atrial fibrillation type: longstanding persistent Qualified Code(s): I 48.11 - Longstanding persistent atrial fibrillation (5) Type 2 diabetes mellitus: Plan: She is on metformin 500 mg twice daily. She tolerates this well. Her last A1c in the outpatient environment was done 02/02/2024 6.4%. I will treat her with sliding scale insulin at this time. I will hold metformin while she is admitted. Qualifiers: Diabetes mellitus complication status: without complication Diabetes mellitus penitentiary insulin use: without penitentiary use Qualified Code(s): E11.9 - Type 2 diabetes mellitus without complications (6) Hypertension: Plan: In addition to her cardiac meds which reduce her blood pressure she is on losartan 25 mg daily. I will watch her renal function and her blood pressure and adjust this medication accordingly. Qualifiers: Hypertension type: primary hypertension Qualified Code(s): I10 - Essential (primary) hypertension (7) GERD (gastroesophageal reflux disease): Plan: She is on famotidine 40 mg a day. We will continue this. Qualifiers: Esophagitis presence: esophagitis presence not specified Qualified Code(s): K21.9 - Gastro-esophageal reflux disease without esophagitis Plan She will be admitted for diuresis and monitoring of renal function. I am putting her in observation status. Additionally we will treat her supratherapeutic INR with vitamin K and hold her warfarin therapy. We will not use chemical DVT prophylaxis.. I have spent 85 minutes in the care of this patient today. This includes time [id number], review and ordering of diagnostic imaging and laboratory studies and consultation with other providers.. Monitoring the patient's signs symptoms, evaluation of medication effectiveness and patient's response to treatment. Lab Results Lab results reviewed: Yes 03/01/24 12:34 03/01/24 12:34 Diagnostic Imaging Results Diagnostic Imaging Results: positive Final report reviewed Diagnostic Imaging Results Comments: Chest x-ray: Suspicious for bronchitis, bronchopneumonia, left pleural effusion versus pneumonia Pulmonary vascular congestion and enlarged pericardial silhouette EKG Results EKG Comparison: Unchanged from prior EKG EKG Findings: Atrial fibrillation Core Measures Anticipated LOS I expect patient to be DC'd or transferred within 96 hours.: Yes Issues Hospital Issues and Management Plan: CHF exacerbation: Diuresis oxygen supportMonitoring of renal function DVT/VTE - Prophylaxis VTE/DVT Device ordered at admit?: Yes VTE/DVT Prophylaxis med ordered at admit?: No Not Ordered - Medical Reason: Not indicated (We will continue warfarin)
[2024-03-01 14:04] LABS: INR 8.7 (0.8-1.2)
[2024-03-01] MEDS ORDERED: ONDANSETRON ODT 4 MG TABLET TL PRN (14:24)
--- NOTE | 2024-03-01 15:40 | PHARMACY PROGRESS NOTE ---
Best Possible Medication History Admit Date and Time: 03/01/24 [id number] Home Medications Medication Instructions Recorded Confirmed Type famotidine 40 mg tablet 40 mg PO DAILY 06/26/22 03/01/24 History losartan 25 mg tablet 25 mg PO DAILY 06/26/22 03/01/24 History metformin 500 mg tablet 1,000 mg PO BIDWM 06/26/22 03/01/24 History omeprazole 40 mg capsule,delayed 40 mg PO QDAC 06/26/22 03/01/24 History release pravastatin 40 mg tablet 40 mg PO QPM 06/26/22 03/01/24 History sulfasalazine 500 mg tablet 1,500 mg PO BIDWM 06/26/22 03/01/24 History cholecalciferol (vitamin D3) 50 50 mcg PO DAILY #30 caps 07/02/22 03/01/24 Rx mcg (2,000 unit) capsule diltiazem HCl 180 mg See Rx Instructions .Route 01/15/24 03/01/24 Rx capsule,extended release 24 hr .COMPLEX #90 caps warfarin 5 mg tablet (Jantoven) 5 mg PO QPM 01/15/24 03/01/24 History digoxin 250 mcg (0.25 mg) tablet See Rx Instructions .Route 02/01/24 03/01/24 Rx .COMPLEX #45 tabs furosemide 40 mg tablet See Rx Instructions .Route 02/01/24 03/01/24 Rx .COMPLEX #360 tabs bisoprolol fumarate 10 mg tablet 10 mg PO BID 03/01/24 03/01/24 History montelukast 10 mg tablet 10 mg PO QPM 03/01/24 03/01/24 History Processed by: Pharmacy (Medication reconciliation completed by pharmacy maira hnicianTunde.) Medications reviewed in ED?: No Medication History completed: Yes Patient Interview: Completed Secondary Source(s): Pharmacy records (Tunde called [facility] mail order pharmacy to confirm filled medications and dosages) and Insurance records [facility] Statement: As the person ultimately responsible for medication therapy, providers are able to order a medication from an existing home medication list in [facility] via the "Reconcile Routine" prior to Confirmation of that medication by production support supervisor. Such practice is discouraged except when the physician, in their clinical judgment, deems that a medical need exists for a medication without regard to p revious use.
[2024-03-01] MEDS: CHERRY SYRUP 10 ML UDC PO ONE (15:51)
[2024-03-01] MEDS: PHYTONADIONE 10 MG/ML AMP PO ONE (15:51)
[2024-03-01] MEDS: FUROSEMIDE 40 MG/4 ML VIAL IVP ONE (16:10)
[2024-03-01] MEDS: SODIUM CHLORIDE FLUSH 0.9% 10 ML SYRINGE IVP SCH (16:15)
[2024-03-01] MEDS: sulfaSALAzine 500 MG TABLET PO SCH (16:59)
[2024-03-01] MEDS: INSULIN LISPRO 300 UNIT/3 ML PEN SUBQ SCH (17:01)
[2024-03-01] MEDS: ACETAMINOPHEN 325 MG TABLET PO PRN (18:55)
[2024-03-01] MEDS: atenoloL 25 MG TABLET PO SCH (22:01)
[2024-03-01] MEDS: MONTELUKAST 10 MG TABLET PO SCH (22:01)
[2024-03-01] MEDS: PRAVASTATIN 40 MG TABLET PO SCH (22:02)
[2024-03-02 05:31] LABS: BASOPHILS # (AUTO) 0.1 10^3/uL (0.0-0.1); BASOPHILS % (AUTO) 0.7 %; EOSINOPHILS # (AUTO) 0.1 10^3/uL (0.0-0.7); EOSINOPHILS % (AUTO) 1.1 %; HCT - HEMATOCRIT 40.3 % (37.0-47.0); HGB - HEMOGLOBIN 11.3 g/dL (12.0-16.0); LYMPHOCYTES # (AUTO) 0.7 10^3/uL (1.5-3.5); LYMPHOCYTES % (AUTO) 8.2 %; MEAN CORPUSCULAR HEMOGLOBIN 26.3 pg (27.0-31.0); MEAN CORPUSCULAR VOLUME 93.7 fL (81.0-99.0); MEAN PLATELET VOLUME 9.2 fL (7.9-10.8); MONOCYTES % (AUTO) 10.9 %; NRBC ABSOLUTE COUNT (AUTO) 0.03 x10^3/uL; NUCLEATED RED BLOOD CELLS AUTO 0.3 /100WBC; PLT - PLATELET COUNT 263 10^3/uL (130-450); RED CELL DISTRIBUTION WIDTH 15.5 % (12.0-15.0)
[2024-03-02 05:45] LABS: INR 2.5 (0.8-1.2)
[2024-03-02 05:53] LABS: CALCIUM 9.2 mg/dL (8.5-10.3); CREATININE 1.4 mg/dL (0.6-1.3); POTASSIUM 4.3 mmol/L (3.5-4.5)
[2024-03-02] MEDS: PANTOPRAZOLE 40 MG TABLET PO SCH (06:13)
[2024-03-02] MEDS: LOSARTAN 50 MG TABLET PO SCH (08:20)
[2024-03-02] MEDS: diltiaZEM CD 180 MG CAPSULE PO SCH (08:20)
[2024-03-02] MEDS: DIGOXIN 125 MCG TABLET PO SCH (08:21)
[2024-03-02] MEDS: CHOLECALCIFEROL 25 MCG TABLET PO SCH (08:21)
[2024-03-02] MEDS: FAMOTIDINE 20 MG TABLET PO SCH (08:21)
[2024-03-02] MEDS ORDERED: DIGOXIN 125 MCG TABLET PO SCH (09:00)
[2024-03-02] MEDS ORDERED: diltiaZEM CD 180 MG CAPSULE PO SCH (09:00)
--- NOTE | 2024-03-02 09:56 | PROVIDER PROGRESS NOTE ---
Subjective Prog Note Date Prog Note Date: 03/02/24 Subjective Pt reports feeling: Improved Subjective: Resting comfortably at time of my interview on 2 L O2 Current Medications Current Medications Current Medications: Current Medications Generic Name Dose Route Start Last Admin Trade Name Freq PRN Reason Stop Dose Admin Acetaminophen 650 mg 03/01/24 14:24 03/02/24 06:13 Acetaminophen 325 Mg Tablet PO 650 mg Q4HR PRN Administration Pain 1 to 4, or Fever Atenolol 50 mg 03/01/24 21:00 03/02/24 08:21 Atenolol 25 Mg Tablet PO 50 mg BID WILIAM Administration Cholecalciferol 50 mcg 03/02/24 09:00 03/02/24 08:21 Cholecalciferol 25 Mcg Tablet PO 50 mcg DAILY WILIAM Administration Digoxin 125 mcg 03/02/24 09:00 03/02/24 08:21 Digoxin 125 Mcg Tablet PO 125 mcg DAILY WILIAM Administration Diltiazem HCl 180 mg 03/02/24 09:00 03/02/24 08:20 Diltiazem Cd 180 Mg Capsule PO 180 mg DAILY WILIAM Administration Famotidine 40 mg 03/02/24 09:00 03/02/24 08:21 Famotidine 20 Mg Tablet PO 40 mg DAILY WILIAM Administration Furosemide 80 mg 03/02/24 10:00 Furosemide 40 Mg/4 Ml Vial IVP BIDDIURETIC [facility] Insulin Human Lispro 1 - 5 unit 03/01/24 17:00 03/02/24 08:20 Insulin Lispro 300 Unit/3 Ml Pen SUBQ Not Given 0800,1200,1700,2100 [facility] Protocol Losartan Potassium 25 mg 03/02/24 09:00 03/02/24 08:20 Losartan 50 Mg Tablet PO 25 mg DAILY WILIAM Administration Montelukast Sodium 10 mg 03/01/24 21:00 03/01/24 22:01 Montelukast 10 Mg Tablet PO 10 mg QPM WILIAM Administration Ondansetron HCl 4 mg 03/01/24 14:24 Ondansetron Odt 4 Mg Tablet TL Q6HR PRN Nausea / Vomiting Oxycodone HCl 5 mg 03/01/24 14:24 Oxycodone 5 Mg Tablet PO Q4HR PRN Pain 5 to 7 Pantoprazole Sodium 40 mg 03/02/24 07:00 03/02/24 06:13 Pantoprazole 40 Mg Tablet PO 40 mg QDAC WILIAM Administration Pravastatin Sodium 40 mg 03/01/24 21:00 03/01/24 22:02 Pravastatin 40 Mg Tablet PO 40 mg QPM WILIAM Administration Sodium Chloride 10 ml 03/01/24 14:24 Sodium Chloride Flush 0.9% 10 Ml Syringe IVP PRN PRN NEEDED PER PROVIDER ORDERS Sodium Chloride 10 ml 03/01/24 17:00 03/02/24 08:22 Sodium Chloride Flush 0.9% 10 Ml Syringe IVP 10 ml 0100,0900,1700 WILIAM Administration Sulfasalazine 1,500 mg 03/01/24 17:00 03/02/24 08:20 Sulfasalazine 500 Mg Tablet PO 1,500 mg BIDWM WILIAM Administration Objective Vital Signs/Intake & Output Reviewed Vital Signs: Yes Vital Signs: Vital Signs x48h Temp Pulse Pulse Resp BP BP Pulse Ox 03/02/24 08:19 36.6 C 87 20 115/70 90 L 03/02/24 04:40 36.7 C 89 18 106/76 92 O2 Flow Rate 03/02/24 08:19 2 03/02/24 04:40 2 Intake & Output: Intake & Output 02/28/24 02/29/24 03/01/24 03/02/24 23:59 23:59 23:59 23:59 Intake Total 500 / 500 250 / 250 Output Total 400 / 400 200 / 200 Balance 100 / 100 50 / 50 Weight (kg) 137.5 kg 137.5 kg Objective General Appearance: positive No acute distress and Alert Eyes Bilateral: positive Normal inspection ENT: positive No signs of dehydration Neck: positive No JVD Respiratory: positive Chest non-tender and No respiratory distress Cardiovascular: positive Irregularly irregular Abdomen: positive Non-tender Back: positive Nml inspection Skin: positive Color nml Extremities: positive Non-tender and Pedal edema Neurologic/Psychiatric: positive Oriented x3 Lab Results 03/02/24 05:22 03/02/24 05:22 Other Labs: Lab Results x24hrs 03/02/24 03/02/24 03/01/24 Range/Units 07:26 05:22 20:33 WBC 9.0 (4.8-10.8) x10^3/uL RBC 4.30 (4.20-5.40) 10^6/uL Hgb 11.3 L (12.0-16.0) g/dL Hct 40.3 (37.0-47.0) % MCV 93.7 (81.0-99.0) fL MCH 26.3 L (27.0-31.0) pg MCHC 28.0 L (32.0-36.0) g/dL RDW 15.5 H (12.0-15.0) % Plt Count 263 (130-450) 10^3/uL MPV 9.2 (7.9-10.8) fL Neut # (Auto) 7.0 H (1.5-6.6) 10^3/uL Lymph # (Auto) 0.7 L (1.5-3.5) 10^3/uL [place] # (Auto) 1.0 (0.0-1.0) 10^3/uL Eos # (Auto) 0.1 (0.0-0.7) 10^3/uL Baso # (Auto) 0.1 (0.0-0.1) 10^3/uL Absolute Nucleated RBC 0.03 x10^3/uL Nucleated RBC % 0.3 /100WBC PT 26.0 H (9.9-12.6) secs INR 2.5 H (0.8-1.2) Sodium 143 (135-145) mmol/L Potassium 4.3 (3.5-4.5) mmol/L Chloride 104 (101-111) mmol/L Carbon Dioxide 34 H (21-32) mmol/L Anion Gap 5.0 L (6-13) BUN 37 H (6-20) mg/dL Creatinine 1.4 H (0.6-1.3) mg/dL Estimated GFR (MDRD) 37 L (>89) Glucose 135 H (74-104) mg/dL POC Whole Bld Glucose 128 111 (70-100) mg/dL Calcium 9.2 (8.5-10.3) mg/dL Magnesium (1.7-2.3) mg/dL Total Bilirubin (0.2-1.0) mg/dL AST (10-42) IU/L ALT (10-60) IU/L Alkaline Phosphatase (42-121) IU/L Troponin I High Sens (2.3-14.8) ng/L B-Natriuretic Peptide (5-100) pg/mL Total Protein (6.4-8.9) g/dL Albumin (3.2-5.5) g/dL Globulin (2.1-4.2) g/dL Albumin/Globulin Ratio (1.0-2.2) Lipase (11-82) U/L Nasal Adenovirus (PCR) Nasal B. parapertussis DNA (PCR) Nasal Coronavir 229E PCR Nasal Coronavir HKU1 PCR Nasal Coronavir NL63 PCR Nasal Coronavir OC43 PCR Nasal Enterovir/Rhinovir PCR Nasal Influenza B PCR Nasal Influenza A PCR Nasal Parainfluen 1 PCR Nasal Parainfluen 2 PCR Nasal Parainfluen 3 PCR Nasal Parainfluen 4 PCR Nasal RSV (PCR) Nasal B.pertussis DNA PCR Nasal C.pneumoniae (PCR) Nba Human Metapneumo PCR Nasal M.pneumoniae (PCR) Nasal SARS-CoV-2 (PCR) 03/01/24 03/01/24 03/01/24 Range/Units 16:48 13:36 12:34 WBC 7.4 (4.8-10.8) x10^3/uL RBC 4.26 (4.20-5.40) 10^6/uL Hgb 11.5 L (12.0-16.0) g/dL Hct 39.4 (37.0-47.0) % MCV 92.5 (81.0-99.0) fL MCH 27.0 (27.0-31.0) pg MCHC 29.2 L (32.0-36.0) g/dL RDW 15.6 H (12.0-15.0) % Plt Count 256 (130-450) 10^3/uL MPV 9.4 (7.9-10.8) fL Neut # (Auto) 5.8 (1.5-6.6) 10^3/uL Lymph # (Auto) 0.8 L (1.5-3.5) 10^3/uL [place] # (Auto) 0.7 (0.0-1.0) 10^3/uL Eos # (Auto) 0.1 (0.0-0.7) 10^3/uL Baso # (Auto) 0.1 (0.0-0.1) 10^3/uL Absolute Nucleated RBC 0.00 x10^3/uL Nucleated RBC % 0.0 /100WBC PT 81.5 H (9.9-12.6) secs INR 8.7 H* (0.8-1.2) Sodium 143 (135-145) mmol/L Potassium 4.1 (3.5-4.5) mmol/L Chloride 105 (101-111) mmol/L Carbon Dioxide 31 (21-32) mmol/L Anion Gap 7.0 (6-13) BUN 36 H (6-20) mg/dL Creatinine 1.4 H (0.6-1.3) mg/dL Estimated GFR (MDRD) 37 L (>89) Glucose 94 (74-104) mg/dL POC Whole Bld Glucose 109 (70-100) mg/dL Calcium 9.3 (8.5-10.3) mg/dL Magnesium 2.0 (1.7-2.3) mg/dL Total Bilirubin 0.3 (0.2-1.0) mg/dL AST 10 (10-42) IU/L ALT 9 L (10-60) IU/L Alkaline Phosphatase 66 (42-121) IU/L Troponin I High Sens 6.2 (2.3-14.8) ng/L B-Natriuretic Peptide 279 H (5-100) pg/mL Total Protein 7.0 (6.4-8.9) g/dL Albumin 3.7 (3.2-5.5) g/dL Globulin 3.3 (2.1-4.2) g/dL Albumin/Globulin Ratio 1.1 (1.0-2.2) Lipase 105 H (11-82) U/L Nasal Adenovirus (PCR) Nasal B. parapertussis DNA (PCR) Nasal Coronavir 229E PCR Nasal Coronavir HKU1 PCR Nasal Coronavir NL63 PCR Nasal Coronavir OC43 PCR Nasal Enterovir/Rhinovir PCR Nasal Influenza B PCR Nasal Influenza A PCR Nasal Parainfluen 1 PCR Nasal Parainfluen 2 PCR Nasal Parainfluen 3 PCR Nasal Parainfluen 4 PCR Nasal RSV (PCR) Nasal B.pertussis DNA PCR Nasal C.pneumoniae (PCR) Nba Human Metapneumo PCR Nasal M.pneumoniae (PCR) Nasal SARS-CoV-2 (PCR) 03/01/24 Range/Units 12:22 WBC (4.8-10.8) x10^3/uL RBC (4.20-5.40) 10^6/uL Hgb (12.0-16.0) g/dL Hct (37.0-47.0) % MCV (81.0-99.0) fL MCH (27.0-31.0) pg MCHC (32.0-36.0) g/dL RDW (12.0-15.0) % Plt Count (130-450) 10^3/uL MPV (7.9-10.8) fL Neut # (Auto) (1.5-6.6) 10^3/uL Lymph # (Auto) (1.5-3.5) 10^3/uL [place] # (Auto) (0.0-1.0) 10^3/uL Eos # (Auto) (0.0-0.7) 10^3/uL Baso # (Auto) (0.0-0.1) 10^3/uL Absolute Nucleated RBC x10^3/uL Nucleated RBC % /100WBC PT (9.9-12.6) secs INR (0.8-1.2) Sodium (135-145) mmol/L Potassium (3.5-4.5) mmol/L Chloride (101-111) mmol/L Carbon Dioxide (21-32) mmol/L Anion Gap (6-13) BUN (6-20) mg/dL Creatinine (0.6-1.3) mg/dL Estimated GFR (MDRD) (>89) Glucose (74-104) mg/dL POC Whole Bld Glucose (70-100) mg/dL Calcium (8.5-10.3) mg/dL Magnesium (1.7-2.3) mg/dL Total Bilirubin (0.2-1.0) mg/dL AST (10-42) IU/L ALT (10-60) IU/L Alkaline Phosphatase (42-121) IU/L Troponin I High Sens (2.3-14.8) ng/L B-Natriuretic Peptide (5-100) pg/mL Total Protein (6.4-8.9) g/dL Albumin (3.2-5.5) g/dL Globulin (2.1-4.2) g/dL Albumin/Globulin Ratio (1.0-2.2) Lipase (11-82) U/L Nasal Adenovirus (PCR) NOT DETECTED Nasal B. parapertussis DNA (PCR) NOT DETECTED Nasal Coronavir 229E PCR NOT DETECTED Nasal Coronavir HKU1 PCR NOT DETECTED Nasal Coronavir NL63 PCR NOT DETECTED Nasal Coronavir OC43 PCR NOT DETECTED Nasal Enterovir/Rhinovir PCR NOT DETECTED Nasal Influenza B PCR NOT DETECTED Nasal Influenza A PCR NOT DETECTED Nasal Parainfluen 1 PCR NOT DETECTED Nasal Parainfluen 2 PCR NOT DETECTED Nasal Parainfluen 3 PCR NOT DETECTED Nasal Parainfluen 4 PCR NOT DETECTED Nasal RSV (PCR) NOT DETECTED Nasal B.pertussis DNA PCR NOT DETECTED Nasal C.pneumoniae (PCR) NOT DETECTED Nba Human Metapneumo PCR NOT DETECTED Nasal M.pneumoniae (PCR) NOT DETECTED Nasal SARS-CoV-2 (PCR) NOT DETECTED Assessment/Plan Problem List (1) Acute respiratory failure with hypoxia: Impression: Has received multiple doses of Lasix Now requiring 2 L O2 No acute distress, tachycardia has resolved I am scheduling 80 mg Lasix IV twice daily, we will need strict I's and O's as well as continued daily BMP (2) Acute exacerbation of congestive heart failure: Impression: She takes 80 mg Lasix twice daily at home 80 mg Lasix IV twice daily while inpatient Strict I/O Check echo Follows Dr. Phan at [facility] [place] outpatient Last echo with EF greater than 55% Qualifiers: Heart failure type: unspecified Qualified Code(s): I50.9 - Heart failure, unspecified (3) Anticoagulated on warfarin: Impression: Was supratherapeutic at 8.7 on presentation Received p.o. vitamin K Today, INR 2.5 Cautiously restart warfarin per pharmacy (4) Atrial fibrillation: Impression: Atenolol 50 mg twice daily as she is on bisoprolol at home. 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
[2024-03-02] MEDS: FUROSEMIDE 40 MG/4 ML VIAL IVP SCH (10:25)
[2024-03-02] MEDS: WARFARIN 2.5 MG TABLET PO SCH (13:59)
[2024-03-02 18:10] LABS: VBG BASE EXCESS 2.9 mmol/L (-2 - +2); VBG HCO3 32.8 mmol/L (23-28); VBG OXYGEN SATURATION 97.5 % (60-80); VBG PCO2 82.8 mmHg (41-51); VBG PH 7.216 (7.31-7.41); VBG TOTAL CO2 35.4 mmol/L (24-29)
--- NOTE | 2024-03-02 18:18 | CT Report ---
PROCEDURE: CT Head W/O Stroke Protocol INDICATIONS: Lethargy, expressive aphasia TECHNIQUE: Noncontrast 4.5 mm thick angled axial sections acquired from the foramen magnum to the vertex, with c oronal reformats. For radiation dose reduction, the following was used: automated exposure control, adjustment of mA and/or kV according to patient size. COMPARISON: None. FINDINGS: Image quality: Excellent. CSF spaces: Basal cisterns are patent. No extra-axial fluid collections. Ventricles are normal in size and shape. Brain: No midline shift. No intracranial masses or hemorrhage. Felipe-white matter interface is norm al. Age-related global volume loss and chronic microvascular ischemic changes. Intracranial atherosc lerotic vascular calcifications. Skull and face: Calvarium and visualized facial bones are intact, without suspicious lesions. Sinuses: Visualized sinuses and mastoids are clear. IMPRESSION: No acute intracranial pathology Findings were discussed with ordering provider on 03/02/2024 at 6:16 PM. This study fulfills neurological imaging criteria for inclusion or exclusion of acute stroke therapie s based on available published neurological imaging guidelines. Reviewed by: Jarod Batista MD on 03/02/2024 6:17 PM PST Approved by: Jarod Batista MD on 03/02/2024 6:17 PM PST Station ID: [id number]
[2024-03-02 23:02] LABS: ABG PH 7.24 (7.35-7.45)
[2024-03-02 23:03] LABS: ABG BASE EXCESS 1.9 mmol/L (-2.0-3.0); ABG HCO3 30.8 mmol/L (22.0-26.0); ABG OXYGEN SATURATION 90 % (94-98); ABG PO2 62 mmHg (80-100); ABG TCO2 33.1 MMOL/L (21.0-29.0)
[2024-03-02 23:04] LABS: ALLEN TEST POSITIVE
[2024-03-02 23:06] LABS: ABG PCO2 73 mmHg (34-45)
[2024-03-02 23:07] LABS: ABG RESPIRATORY RATE 14 b/min
[2024-03-03 05:46] LABS: ABG HCO3 30.1 mmol/L (22.0-26.0); ABG PH 7.32 (7.35-7.45); ABG PO2 74 mmHg (80-100)
[2024-03-03 05:47] LABS: ABG BASE EXCESS 2.9 mmol/L (-2.0-3.0); ABG MODE OF VENTILATION BIPAP; ABG OXYGEN SATURATION 94 % (94-98); ABG RESPIRATORY RATE 20 b/min; ABG TCO2 31.9 MMOL/L (21.0-29.0); ALLEN TEST POSITIVE
[2024-03-03 05:49] LABS: ABG PCO2 60 mmHg (34-45)
[2024-03-03 06:00] LABS: CALCIUM, IONIZED 1.17 mmol/L (1.15-1.33); VBG PH 7.351 (7.31-7.41)
[2024-03-03 06:06] LABS: BASOPHILS % (AUTO) 0.3 %; EOSINOPHILS # (AUTO) 0.1 10^3/uL (0.0-0.7); EOSINOPHILS % (AUTO) 1.4 %; HCT - HEMATOCRIT 35.7 % (37.0-47.0); INR 1.4 (0.8-1.2); LYMPHOCYTES # (AUTO) 0.6 10^3/uL (1.5-3.5); LYMPHOCYTES % (AUTO) 7.9 %; MEAN CORPUSCULAR HEMOGLOBIN 26.3 pg (27.0-31.0); MEAN CORPUSCULAR VOLUME 93.9 fL (81.0-99.0); MEAN PLATELET VOLUME 9.6 fL (7.9-10.8); MONOCYTES # (AUTO) 0.8 10^3/uL (0.0-1.0); MONOCYTES % (AUTO) 11.4 %; NEUTROPHILS # (AUTO) 5.4 10^3/uL (1.5-6.6); NEUTROPHILS % (AUTO) 78.4 %; PLT - PLATELET COUNT 199 10^3/uL (130-450); PT - PROTHROMBIN TIME 15.5 secs (9.9-12.6); RED CELL DISTRIBUTION WIDTH 15.2 % (12.0-15.0); WHITE BLOOD COUNT 6.9 x10^3/uL (4.8-10.8)
[2024-03-03] MEDS: NYSTATIN POWDER 15 GM TOP SCH (06:23)
[2024-03-03 06:44] LABS: CALCIUM 8.9 mg/dL (8.5-10.3); CREATININE 1.2 mg/dL (0.6-1.3); POTASSIUM 4.3 mmol/L (3.5-4.5)
[2024-03-03 06:56] LABS: MAGNESIUM 2.2 mg/dL (1.7-2.3); PHOSPHORUS 3.7 mg/dL (2.5-5.0)
--- NOTE | 2024-03-03 07:48 | MISCELLANEOUS PROVIDER NOTE ---
Miscellaneous Provider Note - Note: 03/02/2024 1700: Notified by nursing staff patient is significantly less arou sable. On assessment, patient is oriented x 1-2, follows commands, but will not open her eyes and talk to us. Of note, patient has not been on her home CPAP at night Code stroke CT ordered, VBG ordered Code stroke CT was negative, but the VBG showed significant CO2 retention She was transferred to the ICU and placed on BiPAP and follow-up ABG was ordered
--- NOTE | 2024-03-03 08:00 | PROVIDER PROGRESS NOTE ---
Subjective Prog Note Date Prog Note Date: 03/03/24 Subjective Pt reports feeling: Improved Subjective: States she feels much better today Current Medications Current Medications Current Medications: Current Medications Generic Name Dose Route Start Last Admin Trade Name Freq PRN Reason Stop Dose Admin Acetaminophen 650 mg 03/01/24 14:24 03/02/24 14:00 Acetaminophen 325 Mg Tablet PO 650 mg Q4HR PRN Administration Pain 1 to 4, or Fever Atenolol 50 mg 03/01/24 21:00 03/02/24 21:17 Atenolol 25 Mg Tablet PO 50 mg BID WILIAM Administration Cholecalciferol 50 mcg 03/02/24 09:00 03/02/24 08:21 Cholecalciferol 25 Mcg Tablet PO 50 mcg DAILY WILIAM Administration Digoxin 125 mcg 03/02/24 09:00 03/02/24 08:21 Digoxin 125 Mcg Tablet PO 125 mcg DAILY WILIAM Administration Diltiazem HCl 180 mg 03/02/24 09:00 03/02/24 08:20 Diltiazem Cd 180 Mg Capsule PO 180 mg DAILY WILIAM Administration Famotidine 40 mg 03/02/24 09:00 03/02/24 08:21 Famotidine 20 Mg Tablet PO 40 mg DAILY WILIAM Administration Furosemide 80 mg 03/02/24 10:00 03/03/24 06:24 Furosemide 40 Mg/4 Ml Vial IVP 80 mg BIDDIURETIC WILIAM Administration Insulin Human Lispro 1 - 5 unit 03/01/24 17:00 03/03/24 07:55 Insulin Lispro 300 Unit/3 Ml Pen SUBQ Not Given 0800,1200,1700,2100 [facility] Protocol Losartan Potassium 25 mg 03/02/24 09:00 03/02/24 08:20 Losartan 50 Mg Tablet PO 25 mg DAILY WILIAM Administration Montelukast Sodium 10 mg 03/01/24 21:00 03/02/24 21:17 Montelukast 10 Mg Tablet PO 10 mg QPM WILIAM Administration Nystatin 1 applic 03/02/24 23:00 03/03/24 06:23 Nystatin Powder 15 Gm TOP 1 applic BID WILIAM Administration Ondansetron HCl 4 mg 03/01/24 14:24 Ondansetron Odt 4 Mg Tablet TL Q6HR PRN Nausea / Vomiting Oxycodone HCl 5 mg 03/01/24 14:24 Oxycodone 5 Mg Tablet PO Q4HR PRN Pain 5 to 7 Pantoprazole Sodium 40 mg 03/02/24 07:00 03/03/24 06:24 Pantoprazole 40 Mg Tablet PO 40 mg QDAC WILIAM Administration Pravastatin Sodium 40 mg 03/01/24 21:00 03/02/24 21:17 Pravastatin 40 Mg Tablet PO 40 mg QPM WILIAM Administration Sodium Chloride 10 ml 03/01/24 14:24 Sodium Chloride Flush 0.9% 10 Ml Syringe IVP PRN PRN NEEDED PER PROVIDER ORDERS Sodium Chloride 10 ml 03/01/24 17:00 03/03/24 06:24 Sodium Chloride Flush 0.9% 10 Ml Syringe IVP 10 ml 0100,0900,1700 WILIAM Administration Sulfasalazine 1,500 mg 03/01/24 17:00 03/02/24 17:34 Sulfasalazine 500 Mg Tablet PO Not Given BIDWM WILIAM Warfarin Sodium 2.5 mg 03/02/24 14:00 03/02/24 13:59 Warfarin 2.5 Mg Tablet PO 2.5 mg QDWARFARIN WILIAM Administration Objective Vital Signs/Intake & Output Reviewed Vital Signs: Yes Vital Signs: Vital Signs x48h Temp Pulse Pulse Resp BP Pulse Ox 03/03/24 07:00 77 21 114/69 96 03/03/24 06:53 77 03/03/24 06:00 75 20 94/62 98 03/03/24 05:09 78 03/03/24 05:00 74 21 120/66 97 03/03/24 04:00 37.4 C 72 21 110/66 96 03/03/24 03:15 73 03/03/24 03:00 78 20 124/70 95 03/03/24 02:00 75 21 121/70 94 03/03/24 01:22 72 03/03/24 01:00 65 20 97/64 95 03/03/24 00:00 78 20 113/60 94 Intake & Output: Intake & Output 02/29/24 03/01/24 03/02/24 03/03/24 23:59 23:59 23:59 23:59 Intake Total 500 / 500 630 / 630 50 / 50 Output Total 400 / 400 420 / 420 0 / 0 Balance 100 / 100 210 / 210 50 / 50 Weight (kg) 137.5 kg 137.5 kg 138 kg Objective General Appearance: positive No acute distress and Alert Eyes Bilateral: positive Normal inspection ENT: positive No signs of dehydration Neck: positive No JVD Respiratory: positive Chest non-tender and No respiratory distress Cardiovascular: positive Irregularly irregular Abdomen: positive Non-tender Back: positive Nml inspection Skin: positive Color nml Extremities: positive Non-tender and Pedal edema Neurologic/Psychiatric: positive Oriented x3 Lab Results 03/03/24 05:20 03/03/24 05:20 Other Labs: Lab Results x24hrs 03/03/24 03/03/24 03/03/24 Range/Units 07:51 05:35 05:20 WBC 6.9 (4.8-10.8) x10^3/uL RBC 3.80 L (4.20-5.40) 10^6/uL Hgb 10.0 L (12.0-16.0) g/dL Hct 35.7 L (37.0-47.0) % MCV 93.9 (81.0-99.0) fL MCH 26.3 L (27.0-31.0) pg MCHC 28.0 L (32.0-36.0) g/dL RDW 15.2 H (12.0-15.0) % Plt Count 199 (130-450) 10^3/uL MPV 9.6 (7.9-10.8) fL Neut # (Auto) 5.4 (1.5-6.6) 10^3/uL Lymph # (Auto) 0.6 L (1.5-3.5) 10^3/uL [place] # (Auto) 0.8 (0.0-1.0) 10^3/uL Eos # (Auto) 0.1 (0.0-0.7) 10^3/uL Baso # (Auto) 0.0 (0.0-0.1) 10^3/uL Absolute Nucleated RBC 0.00 x10^3/uL Nucleated RBC % 0.0 /100WBC PT 15.5 H (9.9-12.6) secs INR 1.4 H (0.8-1.2) Bld Gas Analysis Time 0545 Sample Site RIGHT RADIAL ABG pH 7.32 L (7.35-7.45) ABG pCO2 60 H* (34-45) mmHg ABG pO2 74 L (80-100) mmHg ABG HCO3 30.1 H (22.0-26.0) mmol/L ABG Total CO2 31.9 H (21.0-29.0) MMOL/L ABG O2 Saturation 94 (94-98) % ABG Base Excess 2.9 (-2.0-3.0) mmol/L [place] Test POSITIVE VBG pH 7.351 (7.31-7.41) VBG pCO2 (41-51) mmHg VBG pO2 (25-47) mmHg VBG HCO3 (23-28) mmol/L VBG Total CO2 (24-29) mmol/L VBG O2 Saturation (60-80) % VBG Base Excess (-2 - +2) mmol/L Ionized Calcium 1.17 (1.15-1.33) mmol/L Respiration Rate 20 b/min O2 Delivery Device BiPAP Vent Mode BIPAP FiO2 35.00 EPAP 5 cmH2O IPAP 14 cmH2O Sodium 145 (135-145) mmol/L Potassium 4.3 (3.5-4.5) mmol/L Chloride 107 (101-111) mmol/L Carbon Dioxide 33 H (21-32) mmol/L Anion Gap 5.0 L (6-13) BUN 32 H (6-20) mg/dL Creatinine 1.2 (0.6-1.3) mg/dL Estimated GFR (MDRD) 44 L (>89) Glucose 109 H (74-104) mg/dL POC Whole Bld Glucose 106 (70-100) mg/dL Calcium 8.9 (8.5-10.3) mg/dL Phosphorus 3.7 (2.5-5.0) mg/dL Magnesium 2.2 (1.7-2.3) mg/dL Nasal Screen MRSA (PCR) (NEGATIVE) 03/02/24 03/02/24 03/02/24 Range/Units 22:50 21:03 18:40 WBC (4.8-10.8) x10^3/uL RBC (4.20-5.40) 10^6/uL Hgb (12.0-16.0) g/dL Hct (37.0-47.0) % MCV (81.0-99.0) fL MCH (27.0-31.0) pg MCHC (32.0-36.0) g/dL RDW (12.0-15.0) % Plt Count (130-450) 10^3/uL MPV (7.9-10.8) fL Neut # (Auto) (1.5-6.6) 10^3/uL Lymph # (Auto) (1.5-3.5) 10^3/uL [place] # (Auto) (0.0-1.0) 10^3/uL Eos # (Auto) (0.0-0.7) 10^3/uL Baso # (Auto) (0.0-0.1) 10^3/uL Absolute Nucleated RBC x10^3/uL Nucleated RBC % /100WBC PT (9.9-12.6) secs INR (0.8-1.2) Bld Gas Analysis Time 2259 Sample Site LEFT RADIAL ABG pH 7.24 L (7.35-7.45) ABG pCO2 73 H* (34-45) mmHg ABG pO2 62 L (80-100) mmHg ABG HCO3 30.8 H (22.0-26.0) mmol/L ABG Total CO2 33.1 H (21.0-29.0) MMOL/L ABG O2 Saturation 90 L (94-98) % ABG Base Excess 1.9 (-2.0-3.0) mmol/L [place] Test POSITIVE VBG pH (7.31-7.41) VBG pCO2 (41-51) mmHg VBG pO2 (25-47) mmHg VBG HCO3 (23-28) mmol/L VBG Total CO2 (24-29) mmol/L VBG O2 Saturation (60-80) % VBG Base Excess (-2 - +2) mmol/L Ionized Calcium (1.15-1.33) mmol/L Respiration Rate 14 b/min O2 Delivery Device BiPAP Vent Mode FiO2 35.00 EPAP 5 cmH2O IPAP 12 cmH2O Sodium (135-145) mmol/L Potassium (3.5-4.5) mmol/L Chloride (101-111) mmol/L Carbon Dioxide (21-32) mmol/L Anion Gap (6-13) BUN (6-20) mg/dL Creatinine (0.6-1.3) mg/dL Estimated GFR (MDRD) (>89) Glucose (74-104) mg/dL POC Whole Bld Glucose 97 (70-100) mg/dL Calcium (8.5-10.3) mg/dL Phosphorus (2.5-5.0) mg/dL Magnesium (1.7-2.3) mg/dL Nasal Screen MRSA (PCR) NEGATIVE (NEGATIVE) 03/02/24 03/02/24 03/02/24 Range/Units 17:54 16:40 11:32 WBC (4.8-10.8) x10^3/uL RBC (4.20-5.40) 10^6/uL Hgb (12.0-16.0) g/dL Hct (37.0-47.0) % MCV (81.0-99.0) fL MCH (27.0-31.0) pg MCHC (32.0-36.0) g/dL RDW (12.0-15.0) % Plt Count (130-450) 10^3/uL MPV (7.9-10.8) fL Neut # (Auto) (1.5-6.6) 10^3/uL Lymph # (Auto) (1.5-3.5) 10^3/uL [place] # (Auto) (0.0-1.0) 10^3/uL Eos # (Auto) (0.0-0.7) 10^3/uL Baso # (Auto) (0.0-0.1) 10^3/uL Absolute Nucleated RBC x10^3/uL Nucleated RBC % /100WBC PT (9.9-12.6) secs INR (0.8-1.2) Bld Gas Analysis Time Sample Site ABG pH (7.35-7.45) ABG pCO2 (34-45) mmHg ABG pO2 (80-100) mmHg ABG HCO3 (22.0-26.0) mmol/L ABG Total CO2 (21.0-29.0) MMOL/L ABG O2 Saturation (94-98) % ABG Base Excess (-2.0-3.0) mmol/L [place] Test VBG pH 7.216 L (7.31-7.41) VBG pCO2 82.8 H (41-51) mmHg VBG pO2 109.0 H (25-47) mmHg VBG HCO3 32.8 H (23-28) mmol/L VBG Total CO2 35.4 H (24-29) mmol/L VBG O2 Saturation 97.5 H (60-80) % VBG Base Excess 2.9 H (-2 - +2) mmol/L Ionized Calcium (1.15-1.33) mmol/L Respiration Rate b/min O2 Delivery Device Vent Mode FiO2 EPAP cmH2O IPAP cmH2O Sodium (135-145) mmol/L Potassium (3.5-4.5) mmol/L Chloride (101-111) mmol/L Carbon Dioxide (21-32) mmol/L Anion Gap (6-13) BUN (6-20) mg/dL Creatinine (0.6-1.3) mg/dL Estimated GFR (MDRD) (>89) Glucose (74-104) mg/dL POC Whole Bld Glucose 169 153 (70-100) mg/dL Calcium (8.5-10.3) mg/dL Phosphorus (2.5-5.0) mg/dL Magnesium (1.7-2.3) mg/dL Nasal Screen MRSA (PCR) (NEGATIVE) Assessment/Plan Problem List (1) Acute respiratory failure with hypoxia: Impression: Yesterday, patient experienced CO2 retention so she was transferred to the ICU for BiPAP. I suspect this is secondary to sleep apnea and absence of CPAP therapy. She will have her home CPAP tonight. We will trial her off of her BiPAP for breakfast and then later today transfer to the floor if she is still stable. Continue IV Lasix 80 mg twice daily Strict I's and O's Telemetry (2) Acute exacerbation of congestive heart failure: Impression: She takes 80 mg Lasix twice daily at home 80 mg Lasix IV twice daily while inpatient Strict I/O Check echo Follows Dr. Phan at [facility] [place] outpatient Last echo with EF greater than 55% Qualifiers: Heart failure type: unspecified Qualified Code(s): I50.9 - Heart failure, unspecified (3) Anticoagulated on warfarin: Impression: Was supratherapeutic at 8.7 on presentation Received p.o. vitamin K INR now closer to therapeutic level, restarting warfarin per pharmacy (4) Atrial fibrillation: Impression: Atenolol 50 mg twice daily as she is on bisoprolol at home. Also continue her home dose diltiazem Digoxin 125 mcg daily Warfarin as above Qualifiers: Atrial fibrillation type: longstanding persistent Qualified Code(s): I 48.11 - Longstanding persistent atrial fibrillation (5) Type 2 diabetes mellitus: Impression: SSI A1c 6.4 on 02/02/2024 Resume metformin at DC Qualifiers: Diabetes mellitus pharmacy laboratory technician insulin use: without pharmacy laboratory technician use Diabetes mellitus complication status: without complication Qualified Code(s): E11.9 - Type 2 diabetes mellitus without complications (6) Hypertension: Impression: Rate control meds as above, continue losartan 25 mg daily Qualifiers: Hypertension type: primary hypertension Qualified Code(s): I10 - Essential (primary) hypertension (7) GERD (gastroesophageal reflux disease): Impression: Continue famotidine, Protonix Qualifiers: Esophagitis presence: esophagitis presence not specified Qualified Code(s): K21.9 - Gastro-esophageal reflux disease without esophagitis
[2024-03-03 09:40] LABS: ABG HCO3 30.8 mmol/L (22.0-26.0); ABG PCO2 58 mmHg (34-45); ABG PH 7.34 (7.35-7.45); ABG PO2 77 mmHg (80-100)
[2024-03-03 09:41] LABS: ABG MODE OF VENTILATION S/T; ABG OXYGEN SATURATION 95 % (94-98); ABG TCO2 32.6 MMOL/L (21.0-29.0); ALLEN TEST POSITIVE
[2024-03-03] MEDS: CYANOCOBALAMIN 1,000 MCG/ML VIAL IM ONE (09:53)
[2024-03-03] MEDS: PRENATAL VITAMIN TABLET PO SCH (09:53)
[2024-03-03] MEDS: diphenhydrAMINE INJ 50 MG/ML VIAL IVP SCH (23:11)
[2024-03-03] MEDS: oxyCODONE 5 MG TABLET PO PRN (23:35)
[2024-03-04 05:23] LABS: CALCIUM, IONIZED 1.07 mmol/L (1.15-1.33); VBG PH 7.562 (7.31-7.41)
[2024-03-04 05:28] LABS: BASOPHILS # (AUTO) 0.1 10^3/uL (0.0-0.1); BASOPHILS % (AUTO) 0.7 %; EOSINOPHILS # (AUTO) 0.2 10^3/uL (0.0-0.7); EOSINOPHILS % (AUTO) 2.1 %; HCT - HEMATOCRIT 37.9 % (37.0-47.0); HGB - HEMOGLOBIN 10.9 g/dL (12.0-16.0); LYMPHOCYTES # (AUTO) 1.2 10^3/uL (1.5-3.5); LYMPHOCYTES % (AUTO) 16.7 %; MEAN CORPUSCULAR HEMOGLOBIN 26.5 pg (27.0-31.0); MEAN CORPUSCULAR HGB CONC 28.8 g/dL (32.0-36.0); MEAN CORPUSCULAR VOLUME 92.2 fL (81.0-99.0); MEAN PLATELET VOLUME 9.3 fL (7.9-10.8); MONOCYTES # (AUTO) 1.3 10^3/uL (0.0-1.0); MONOCYTES % (AUTO) 18.3 %; NEUTROPHILS # (AUTO) 4.5 10^3/uL (1.5-6.6); NEUTROPHILS % (AUTO) 61.8 %; PLT - PLATELET COUNT 195 10^3/uL (130-450); RED BLOOD COUNT 4.11 10^6/uL (4.20-5.40); RED CELL DISTRIBUTION WIDTH 15.6 % (12.0-15.0); WHITE BLOOD COUNT 7.2 x10^3/uL (4.8-10.8)
[2024-03-04 05:29] LABS: INR 1.4 (0.8-1.2); PT - PROTHROMBIN TIME 14.7 secs (9.9-12.6)
[2024-03-04 05:30] LABS: ABSOLUTE RETICS # AUTO 0.074 10^6/uL (0.020-0.110); RED BLOOD COUNT 4.11 10^6/uL (4.20-5.40); RETICULOCYTE COUNT % (AUTO) 1.8 % (0.5-2.3)
[2024-03-04 06:05] LABS: MAGNESIUM 2.2 mg/dL (1.7-2.3); PHOSPHORUS 2.6 mg/dL (2.5-5.0)
[2024-03-04 06:47] LABS: CALCIUM 8.9 mg/dL (8.5-10.3); CREATININE 1.3 mg/dL (0.6-1.3); POTASSIUM 4.3 mmol/L (3.5-4.5)
[2024-03-04] MEDS: CALCIUM CARBONATE CHEW 500 MG TABLET PO SCH (09:04)
[2024-03-04] MEDS ORDERED: polyethylene glycoL 3350 17 GM PACKET PO SCH (11:00)
--- NOTE | 2024-03-04 12:24 | OT Plan of Care ---
OT Inpatient POC Diagnosis DIAGNOSIS Diagnosis: Acute respiratory failure Diagnosis: acute respiratory failure Chief Complaint: SOB Onset of Chief Complaint: admit to hospital MEDICAL/SURGICAL HISTORY Medical History (Updated 03/01/24 @ 19:57 by Pato Ramsey MD) Anticoagulated on warfarin Atrial fibrillation Acute exacerbation of congestive heart failure Family history of GERD History of diabetes mellitus History of atrial fibrillation Assessment and Goals ASSESSMENT Assessment: Pt is a 75 y/o female adm with SOB; found to be in Acute respiratory failure with hypoxia requiring supplemental O2 including Bipap. Currently in ICU on 6L Oxymizer VSS during session as follows: Spo2 88%-93%, HR max 80s, RR max 26. Pt performed supine to sit, sit to stand, and SPT bed to recliner MIN Ax1 using 2WW. Currently MIN A ADLs 2/2 fatigue and increased wob with activity. Desat to 88% with EOB sitting, s/p tx, and donning/doffing socks prior to mobility. Overall pt presents with decreased endurance, activity tolerance, and ADL status. Will benefit from cont OT services during acute stay. Rec d/c to SNF vs Home with HHOT/PT pending progressing with therapy. PATIENT/FAMILY GOALS Patient/Family Goals: Pt wants to return home when she is safe to do so. -Activities of Daily Living Improve Upper Extremity Dressing to:: Modified Independent Improve Lower Extremity Dressing to:: Modified Independent Improve Grooming/Hygiene to:: Modified Independent Improve Bathing to:: Modified Independent Improve Toileting to:: Modified Independent OT Inpatient Plan PLAN Treatment Frequency: 1x/day Duration: Until discharge -Discharge Recommendations Discharge Location: Half-Way Facility Recommended Equipment: Raised Toilet Seat, Grab bars, Shower/bath chair, Adaptive Self Care Devices and Other Transport Needs at Discharge: B.L.S Comment: Pending progress with therapy
--- NOTE | 2024-03-04 14:11 | PROVIDER PROGRESS NOTE ---
Subjective Prog Note Date Prog Note Date: 03/04/24 Subjective Pt reports feeling: Improved Subjective: Feeling much better, energetic during conversation Current Medications Current Medications Current Medications: Current Medications Generic Name Dose Route Start Last Admin Trade Name Freq PRN Reason Stop Dose Admin Acetaminophen 650 mg 03/01/24 14:24 03/02/24 14:00 Acetaminophen 325 Mg Tablet PO 650 mg Q4HR PRN Administration Pain 1 to 4, or Fever Atenolol 50 mg 03/01/24 21:00 03/04/24 09:06 Atenolol 25 Mg Tablet PO 50 mg BID WILIAM Administration Cholecalciferol 50 mcg 03/02/24 09:00 03/04/24 09:05 Cholecalciferol 25 Mcg Tablet PO 50 mcg DAILY WILIAM Administration Cyanocobalamin 500 mcg 03/05/24 09:00 Cyanocobalamin 500 Mcg Tablet PO DAILY WILIAM Digoxin 125 mcg 03/02/24 09:00 03/04/24 09:05 Digoxin 125 Mcg Tablet PO 125 mcg DAILY WILIAM Administration Diltiazem HCl 180 mg 03/02/24 09:00 03/04/24 09:06 Diltiazem Cd 180 Mg Capsule PO 180 mg DAILY WILIAM Administration Famotidine 40 mg 03/02/24 09:00 03/04/24 09:06 Famotidine 20 Mg Tablet PO 40 mg DAILY WILIAM Administration Furosemide 80 mg 03/02/24 10:00 03/04/24 06:13 Furosemide 40 Mg/4 Ml Vial IVP 80 mg BIDDIURETIC WILIAM Administration Insulin Human Lispro 1 - 5 unit 03/01/24 17:00 03/04/24 11:48 Insulin Lispro 300 Unit/3 Ml Pen SUBQ Not Given 0800,1200,1700,2100 [facility] Protocol Losartan Potassium 25 mg 03/02/24 09:00 03/04/24 09:05 Losartan 50 Mg Tablet PO 25 mg DAILY WILIAM Administration Montelukast Sodium 10 mg 03/01/24 21:00 03/03/24 21:02 Montelukast 10 Mg Tablet PO 10 mg QPM WILIAM Administration Nystatin 1 applic 03/02/24 23:00 03/04/24 09:15 Nystatin Powder 15 Gm TOP 1 applic BID WILIAM Administration Ondansetron HCl 4 mg 03/01/24 14:24 Ondansetron Odt 4 Mg Tablet TL Q6HR PRN Nausea / Vomiting Oxycodone HCl 5 mg 12/17/24 14:24 03/03/24 23:35 Oxycodone 5 Mg Tablet PO 5 mg Q4HR PRN Administration Pain 5 to 7 Pantoprazole Sodium 40 mg 03/02/24 07:00 03/04/24 06:37 Pantoprazole 40 Mg Tablet PO 40 mg QDAC WILIAM Administration Pravastatin Sodium 40 mg 03/01/24 21:00 03/03/24 21:02 Pravastatin 40 Mg Tablet PO 40 mg QPM WILIAM Administration Multivit/Folic Acid/Iron 1 tab 03/03/24 10:00 03/04/24 09:06 Vitamin Tablet PO 1 tab DAILYWM WILIAM Administration Sodium Chloride 10 ml 03/01/24 14:24 Sodium Chloride Flush 0.9% 10 Ml Syringe IVP PRN PRN NEEDED PER PROVIDER ORDERS Sodium Chloride 10 ml 03/01/24 17:00 03/04/24 09:06 Sodium Chloride Flush 0.9% 10 Ml Syringe IVP 10 ml 0100,0900,1700 WILIAM Administration Sulfasalazine 1,500 mg 03/01/24 17:00 03/04/24 11:45 Sulfasalazine 500 Mg Tablet PO 1,500 mg BIDWM WILIAM Administration Warfarin Sodium 5 mg 03/04/24 14:00 Warfarin 5 Mg Tablet PO QDWARFARIN WILIAM Objective Vital Signs/Intake & Output Reviewed Vital Signs: Yes Vital Signs: Vital Signs x48h Temp Pulse Pulse Resp Resp BP BP 03/04/24 14:00 36.8 C 66 23 143/86 H 03/04/24 12:20 80 26 H 108/64 03/04/24 09:00 67 20 113/62 03/04/24 08:00 36.8 C 89 22 84/68 L 03/04/24 07:00 72 22 109/67 03/04/24 06:22 Pulse Ox Pulse Ox O2 Flow Rate 03/04/24 14:00 91 L 6 03/04/24 12:20 88 L 03/04/24 09:00 94 6 03/04/24 08:00 93 4 03/04/24 07:00 95 4 03/04/24 06:22 4 Intake & Output: Intake & Output 03/01/24 03/02/24 03/03/24 03/04/24 23:59 23:59 23:59 23:59 Intake Total 500 / 500 630 / 630 610 / 610 655 / 655 Output Total 400 / 400 420 / 420 2550 / 2550 800 / 800 Balance 100 / 100 210 / 210 -1940 / -1940 -145 / -145 Weight (kg) 137.5 kg 137.5 kg 138 kg 138 kg Objective General Appearance: positive No acute distress and Alert Eyes Bilateral: positive Normal inspection ENT: positive No signs of dehydration Neck: positive No JVD Respiratory: positive Chest non-tender and No respiratory distress Cardiovascular: positive Irregularly irregular Abdomen: positive Non-tender Back: positive Nml inspection Skin: positive Color nml Extremities: positive Non-tender and Pedal edema (Improving) Neurologic/Psychiatric: positive Oriented x3 Lab Results 03/04/24 05:12 03/04/24 05:12 Other Labs: Lab Results x24hrs 03/04/24 03/04/24 03/04/24 Range/Units 11:48 07:56 05:12 WBC (4.8-10.8) x10^3/uL RBC 4.11 L (4.20-5.40) 10^6/uL Hgb 10.9 L (12.0-16.0) g/dL Hct 37.9 (37.0-47.0) % MCV 92.2 (81.0-99.0) fL MCH 26.5 L (27.0-31.0) pg MCHC 28.8 L (32.0-36.0) g/dL RDW 15.6 H (12.0-15.0) % Plt Count 195 (130-450) 10^3/uL MPV 9.3 (7.9-10.8) fL Reticulocyte % (Auto) 1.80 (0.5-2.3) % Neut # (Auto) 4.5 (1.5-6.6) 10^3/uL Lymph # (Auto) 1.2 L (1.5-3.5) 10^3/uL [place] # (Auto) 1.3 H (0.0-1.0) 10^3/uL Eos # (Auto) 0.2 (0.0-0.7) 10^3/uL Baso # (Auto) 0.1 (0.0-0.1) 10^3/uL Absolute Nucleated RBC 0.00 x10^3/uL Nucleated RBC % 0.0 /100WBC Absolute Retic 0.074 (0.020-0.110) 10^6/uL PT 14.7 H (9.9-12.6) secs INR 1.4 H (0.8-1.2) VBG pH 7.562 H (7.31-7.41) Ionized Calcium 1.07 L (1.15-1.33) mmol/L Sodium 146 H (135-145) mmol/L Potassium 4.3 (3.5-4.5) mmol/L Chloride 105 (101-111) mmol/L Carbon Dioxide 35 H (21-32) mmol/L Anion Gap 6.0 (6-13) BUN 27 H (6-20) mg/dL Creatinine 1.3 (0.6-1.3) mg/dL Estimated GFR (MDRD) 40 L (>89) Glucose 101 (74-104) mg/dL POC Whole Bld Glucose 140 128 (70-100) mg/dL Calcium 8.9 (8.5-10.3) mg/dL Phosphorus 2.6 (2.5-5.0) mg/dL Magnesium 2.2 (1.7-2.3) mg/dL Iron 33 L (50-212) ug/dL TIBC 416 (250-450) ug/dL % Saturation 8 L (20-50) % Transferrin 297 (203-362) mg/dL Ferritin 16.0 (11.0-306.8) ng/mL Lactate Dehydrogenase 173 (140-271) IU/L Vitamin B12 6377 H (180-914) pg/mL 03/04/24 03/03/24 03/03/24 Range/Units 05:12 20:59 17:20 WBC 7.2 (4.8-10.8) x10^3/uL RBC 4.11 L (4.20-5.40) 10^6/uL Hgb (12.0-16.0) g/dL Hct (37.0-47.0) % MCV (81.0-99.0) fL MCH (27.0-31.0) pg MCHC (32.0-36.0) g/dL RDW (12.0-15.0) % Plt Count (130-450) 10^3/uL MPV (7.9-10.8) fL Reticulocyte % (Auto) (0.5-2.3) % Neut # (Auto) (1.5-6.6) 10^3/uL Lymph # (Auto) (1.5-3.5) 10^3/uL [place] # (Auto) (0.0-1.0) 10^3/uL Eos # (Auto) (0.0-0.7) 10^3/uL Baso # (Auto) (0.0-0.1) 10^3/uL Absolute Nucleated RBC x10^3/uL Nucleated RBC % /100WBC Absolute Retic (0.020-0.110) 10^6/uL PT (9.9-12.6) secs INR (0.8-1.2) VBG pH (7.31-7.41) Ionized Calcium (1.15-1.33) mmol/L Sodium (135-145) mmol/L Potassium (3.5-4.5) mmol/L Chloride (101-111) mmol/L Carbon Dioxide (21-32) mmol/L Anion Gap (6-13) BUN (6-20) mg/dL Creatinine (0.6-1.3) mg/dL Estimated GFR (MDRD) (>89) Glucose (74-104) mg/dL POC Whole Bld Glucose 133 107 (70-100) mg/dL Calcium (8.5-10.3) mg/dL Phosphorus (2.5-5.0) mg/dL Magnesium (1.7-2.3) mg/dL Iron (50-212) ug/dL TIBC (250-450) ug/dL % Saturation (20-50) % Transferrin (203-362) mg/dL Ferritin (11.0-306.8) ng/mL Lactate Dehydrogenase (140-271) IU/L Vitamin B12 (180-914) pg/mL Assessment/Plan Problem List (1) Acute respiratory failure with hypoxia: Impression: Respiratory failure secondary to CHF exacerbation. She was admitted and placed on IV diuresis. She experienced CO2 retention with lethargy, likely secondary to absence of CPAP therapy which she uses at home. She was transferred to the ICU and placed on BiPAP overnight with improvement in symptoms in the morning Continue IV Lasix 80 mg twice daily Strict I's and O's Telemetry 03/04/2024: Patient is much improved, transfer out of the ICU. Continue IV Lasix 80 mg twice daily, strict MARIA. Patient is deconditioned, she will be seen by PT/OT today (2) Acute exacerbation of congestive heart failure: Impression: Echocardiogram 03/02/2024 with EF 60 to 65%, severe right ventricular enlargement with normal right event systolic function, moderate tricuspid regurgitation She takes 80 mg Lasix twice daily at home 80 mg Lasix IV twice daily while inpatient Strict I/O Follows Dr. Phan at [facility] in [place] outpatient Qualifiers: Heart failure type: unspecified Qualified Code(s): I50.9 - Heart failure, unspecified (3) Anticoagulated on warfarin: Impression: Was supratherapeutic at 8.7 on presentation Received p.o. vitamin K INR now closer to therapeutic level, restarting warfarin per pharmacy (4) Atrial fibrillation: Impression: Atenolol 50 mg twice daily as she is on bisoprolol at home. Also continue her home dose diltiazem Digoxin 125 mcg daily Warfarin as above Qualifiers: Atrial fibrillation type: longstanding persistent Qualified Code(s): I 48.11 - Longstanding persistent atrial fibrillation (5) Type 2 diabetes mellitus: Impression: SSI A1c 6.4 on 02/02/2024 Resume metformin at [place] Qualifiers: Diabetes mellitus intermediate designer insulin use: without mcfp use Diabetes mellitus complication status: without complication Qualified Code(s): E11.9 - Type 2 diabetes mellitus without complications (6) Hypertension: Impression: Rate control meds as above, continue losartan 25 mg daily Qualifiers: Hypertension type: primary hypertension Qualified Code(s): I10 - Essential (primary) hypertension (7) GERD (gastroesophageal reflux disease): Impression: Continue famotidine, Protonix Qualifiers: Esophagitis presence: esophagitis presence not specified Qualified Code(s): K21.9 - Gastro-esophageal reflux disease without esophagitis
[2024-03-04] MEDS: WARFARIN 5 MG TABLET PO SCH (14:32)
--- NOTE | 2024-03-04 16:11 | PT Plan of Care ---
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 Admitted with SOA found to be in Acute respiratory failure with hypoxia requiring supplemental O2 including Bipap. Pt is [place] at baseline using FWW. Indep aside from driving, lives with nephew and sister, nephew is maintenance truck driver and assists with errands, etc. Currently in ICU on 6L Oxymizer VSS during session as follows: SpO2 88%-93%, HR max 80s, RR max 26. Pt performed supine to sit, sit to stand, and SPT bed to recliner with minAx1 and FWW. Overall pt presenting with decreased endurance and activity tolerance. Pt will benefit from continued PT in acute setting to progress endurance and amb distance. When medically clear, PT rec dc to SNF vs Home with HHOT/PT pending pulmonary status and progress with therapy. GOALS Improve supine to sit to:: Modified Independent Improve sit to stand to:: Modified Independent Improve pivot transfer ability to:: Modified Independent Improve sit to supine to:: Modified Independent Improve gait ability to:: SBA Advance Assistive Device to:: Front Wheeled Walker Increase distance walked to (in feet):: 50 Improve Sitting Balance to:: Good PLAN Frequency: 1-2x/day Duration: Until goals are met DISCHARGE RECOMMENDATIONS Discharge Location: SNF vs home Support/Services Needed: Home Health P.T. DC Equipment Recommended: Front wheeled walker Other Discharge Equipment: has FWW Transport Needs at Discharge: B.L.S Other: BLS at this time d/t high O2 needs. likely progress to POV
--- NOTE | 2024-03-04 16:12 | PT Plan of Care ---
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 Admitted with SOA found to be in Acute respiratory failure with hypoxia requiring supplemental O2 including Bipap. Pt is [place] at baseline using FWW. Indep aside from driving, lives with nephew and sister, nephew is local flatbed driver and assists with errands, etc. Currently in ICU on 6L Oxymizer VSS during session as follows: SpO2 88%-93%, HR max 80s, RR max 26. Pt performed supine to sit, sit to stand, and SPT bed to recliner with minAx1 and FWW. Overall pt presenting with decreased endurance and activity tolerance. Pt will benefit from continued PT in acute setting to progress endurance and amb distance. When medically clear, PT rec dc to SNF vs Home with HHOT/PT pending pulmonary status and progress with therapy. PATIENT/FAMILY GOALS Patient/Family Goals: to go home GOALS Improve supine to sit to:: Modified Independent Improve sit to stand to:: Modified Independent Improve pivot transfer ability to:: Modified Independent Improve sit to supine to:: Modified Independent Improve gait ability to:: SBA Advance Assistive Device to:: Front Wheeled Walker Increase distance walked to (in feet):: 50 Improve Sitting Balance to:: Good PLAN Frequency: 1-2x/day Duration: Until goals are met DISCHARGE RECOMMENDATIONS Discharge Location: SNF vs home Support/Services Needed: Home Health P.T. DC Equipment Recommended: Front wheeled walker Other Discharge Equipment: has FWW Transport Needs at Discharge: B.L.S Other: BLS at this time d/t high O2 needs. likely progress to POV
[2024-03-05 05:49] LABS: BASOPHILS # (AUTO) 0.1 10^3/uL (0.0-0.1); BASOPHILS % (AUTO) 0.9 %; EOSINOPHILS # (AUTO) 0.2 10^3/uL (0.0-0.7); EOSINOPHILS % (AUTO) 2.3 %; HCT - HEMATOCRIT 36.6 % (37.0-47.0); HGB - HEMOGLOBIN 10.5 g/dL (12.0-16.0); LYMPHOCYTES # (AUTO) 0.8 10^3/uL (1.5-3.5); LYMPHOCYTES % (AUTO) 12.7 %; MEAN CORPUSCULAR HEMOGLOBIN 26.3 pg (27.0-31.0); MEAN CORPUSCULAR HGB CONC 28.7 g/dL (32.0-36.0); MEAN CORPUSCULAR VOLUME 91.7 fL (81.0-99.0); MEAN PLATELET VOLUME 9.4 fL (7.9-10.8); MONOCYTES # (AUTO) 0.9 10^3/uL (0.0-1.0); NEUTROPHILS # (AUTO) 4.7 10^3/uL (1.5-6.6); NEUTROPHILS % (AUTO) 70.8 %; PLT - PLATELET COUNT 192 10^3/uL (130-450); RED BLOOD COUNT 3.99 10^6/uL (4.20-5.40); RED CELL DISTRIBUTION WIDTH 15.6 % (12.0-15.0); WHITE BLOOD COUNT 6.6 x10^3/uL (4.8-10.8)
[2024-03-05 05:55] LABS: INR 1.4 (0.8-1.2); PT - PROTHROMBIN TIME 15.2 secs (9.9-12.6); SLIDE REVIEW? Indicated
[2024-03-05 06:18] LABS: CREATININE 1.1 mg/dL (0.6-1.3); POTASSIUM 3.7 mmol/L (3.5-4.5)
[2024-03-05 06:28] LABS: PLATELET ESTIMATE, MANUAL NORMAL (130-450,000) (NORMAL); PLATELET MORPHOLOGY NORMAL APPEARANCE (NORMAL)
[2024-03-05 06:29] LABS: WBC MORPHOLOGY (MULTIPLE) NORMAL APPEARANCE (NORMAL)
[2024-03-05] MEDS: SODIUM CHLORIDE FLUSH 0.9% 10 ML SYRINGE IVP PRN (06:44)
[2024-03-05] MEDS: CYANOCOBALAMIN 500 MCG TABLET PO SCH (08:12)
[2024-03-05] MEDS: WARFARIN 2.5 MG TABLET PO ONE (08:23)
--- NOTE | 2024-03-05 08:27 | PROVIDER PROGRESS NOTE ---
Subjective Prog Note Date Prog Note Date: 03/05/24 Subjective Pt reports feeling: Improved Subjective: Reports she slept well overnight on home CPAP Current Medications Current Medications Current Medications: Current Medications Generic Name Dose Route Start Last Admin Trade Name Freq PRN Reason Stop Dose Admin Acetaminophen 650 mg 03/01/24 14:24 03/02/24 14:00 Acetaminophen 325 Mg Tablet PO 650 mg Q4HR PRN Administration Pain 1 to 4, or Fever Atenolol 25 mg 03/05/24 21:00 Atenolol 25 Mg Tablet PO BID WILIAM Cholecalciferol 50 mcg 03/02/24 09:00 03/05/24 08:12 Cholecalciferol 25 Mcg Tablet PO 50 mcg DAILY WILIAM Administration Cyanocobalamin 500 mcg 03/05/24 09:00 03/05/24 08:12 Cyanocobalamin 500 Mcg Tablet PO 500 mcg DAILY WILIAM Administration Digoxin 125 mcg 03/02/24 09:00 03/05/24 08:12 Digoxin 125 Mcg Tablet PO 125 mcg DAILY WILIAM Administration Diltiazem HCl 180 mg 03/02/24 09:00 03/04/24 09:06 Diltiazem Cd 180 Mg Capsule PO 180 mg DAILY WILIAM Administration Famotidine 40 mg 03/02/24 09:00 03/05/24 08:12 Famotidine 20 Mg Tablet PO 40 mg DAILY WILIAM Administration Furosemide 80 mg 03/02/24 10:00 03/05/24 06:44 Furosemide 40 Mg/4 Ml Vial IVP 80 mg BIDDIURETIC WILIAM Administration Insulin Human Lispro 1 - 5 unit 03/01/24 17:00 03/05/24 07:49 Insulin Lispro 300 Unit/3 Ml Pen SUBQ Not Given 0800,1200,1700,2100 [facility] Protocol Montelukast Sodium 10 mg 03/01/24 21:00 03/04/24 21:43 Montelukast 10 Mg Tablet PO 10 mg QPM WILIAM Administration Nystatin 1 applic 03/02/24 23:00 03/05/24 08:13 Nystatin Powder 15 Gm TOP 1 applic BID WILIAM Administration Ondansetron HCl 4 mg 03/01/24 14:24 Ondansetron Odt 4 Mg Tablet TL Q6HR PRN Nausea / Vomiting Oxycodone HCl 5 mg 03/01/24 14:24 03/03/24 23:35 Oxycodone 5 Mg Tablet PO 5 mg Q4HR PRN Administration Pain 5 to 7 Pantoprazole Sodium 40 mg 03/02/24 07:00 03/05/24 06:44 Pantoprazole 40 Mg Tablet PO 40 mg QDAC WILIAM Administration Pravastatin Sodium 40 mg 03/01/24 21:00 03/04/24 21:43 Pravastatin 40 Mg Tablet PO 40 mg QPM WILIAM Administration Multivit/Folic Acid/Iron 1 tab 03/03/24 10:00 03/05/24 08:12 Vitamin Tablet PO 1 tab DAILYWM WILIAM Administration Sodium Chloride 10 ml 03/01/24 14:24 03/05/24 06:44 Sodium Chloride Flush 0.9% 10 Ml Syringe IVP 10 ml PRN PRN Administration NEEDED PER PROVIDER ORDERS Sodium Chloride 10 ml 03/01/24 17:00 03/05/24 00:51 Sodium Chloride Flush 0.9% 10 Ml Syringe IVP 10 ml 0100,0900,1700 WILIAM Administration Sulfasalazine 1,500 mg 03/01/24 17:00 03/05/24 08:12 Sulfasalazine 500 Mg Tablet PO 1,500 mg BIDWM WILIAM Administration Warfarin Sodium 5 mg 03/04/24 14:00 03/04/24 14:32 Warfarin 5 Mg Tablet PO 5 mg QDWARFARIN WILIAM Administration Warfarin Sodium 2.5 mg 03/05/24 09:00 Warfarin 2.5 Mg Tablet PO 03/05/24 09:01 ONCE ONE Objective Vital Signs/Intake & Output Reviewed Vital Signs: Yes Vital Signs: Vital Signs x48h Temp Pulse Pulse Resp BP Pulse Ox O2 Flow Rate 03/05/24 08:11 36.5 C 66 20 130/77 92 5 03/05/24 08:09 89 91/64 91 L 03/05/24 00:58 36.3 C L 60 20 110/59 L 90 L 6 Intake & Output: Intake & Output 03/02/24 03/03/24 03/04/24 03/05/24 23:59 23:59 23:59 23:59 Intake Total 630 / 630 610 / 610 1095 / 1095 320 / 320 Output Total 420 / 420 2550 / 2550 2100 / 2100 600 / 600 Balance 210 / 210 -1940 / -1940 -1005 / -1005 -280 / -280 Weight (kg) 137.5 kg 138 kg 138 kg 137 kg Objective General Appearance: positive No acute distress and Alert Eyes Bilateral: positive Normal inspection ENT: positive No signs of dehydration Neck: positive No JVD Respiratory: positive Chest non-tender and No respiratory distress Cardiovascular: positive Irregularly irregular Abdomen: positive Non-tender Back: positive Nml inspection Skin: positive Color nml Extremities: positive Non-tender and Pedal edema (Improving) Neurologic/Psychiatric: positive Oriented x3 Lab Results 03/05/24 05:15 03/05/24 05:15 Other Labs: Lab Results x24hrs 03/05/24 03/05/24 03/05/24 Range/Units 07:42 05:15 05:15 WBC 6.6 (4.8-10.8) x10^3/uL RBC 3.99 L (4.20-5.40) 10^6/uL Hgb 10.5 L (12.0-16.0) g/dL Hct 36.6 L (37.0-47.0) % MCV 91.7 (81.0-99.0) fL MCH 26.3 L (27.0-31.0) pg MCHC 28.7 L (32.0-36.0) g/dL RDW 15.6 H (12.0-15.0) % Plt Count 192 (130-450) 10^3/uL MPV 9.4 (7.9-10.8) fL Neut # (Auto) 4.7 (1.5-6.6) 10^3/uL Lymph # (Auto) 0.8 L (1.5-3.5) 10^3/uL [place] # (Auto) 0.9 (0.0-1.0) 10^3/uL Eos # (Auto) 0.2 (0.0-0.7) 10^3/uL Baso # (Auto) 0.1 (0.0-0.1) 10^3/uL Absolute Nucleated RBC 0.00 x10^3/uL Nucleated RBC % 0.0 /100WBC Manual Slide Review Indicated WBC Morphology NORMAL APPEARANCE (NORMAL) Platelet Estimate NORMAL (130-450,000) (NORMAL) Platelet Morphology NORMAL APPEARANCE (NORMAL) RBC Morph Micro Appear 1+ STOMATOCYTES 1+ HYPOCHROMASIA (NORMAL) PT 15.2 H (9.9-12.6) secs INR 1.4 H (0.8-1.2) Sodium 143 (135-145) mmol/L Potassium 3.7 (3.5-4.5) mmol/L Chloride 102 (101-111) mmol/L Carbon Dioxide 39 H* (21-32) mmol/L Anion Gap 2.0 L (6-13) BUN 24 H (6-20) mg/dL Creatinine 1.1 (0.6-1.3) mg/dL Estimated GFR (MDRD) 49 L (>89) Glucose 123 H (74-104) mg/dL POC Whole Bld Glucose 119 (70-100) mg/dL Calcium 9.0 (8.5-10.3) mg/dL Vitamin D 25-Hydroxy (30.0-100.0) ng/mL 03/04/24 03/04/24 03/04/24 Range/Units 20:51 17:14 12:06 WBC (4.8-10.8) x10^3/uL RBC (4.20-5.40) 10^6/uL Hgb (12.0-16.0) g/dL Hct (37.0-47.0) % MCV (81.0-99.0) fL MCH (27.0-31.0) pg MCHC (32.0-36.0) g/dL RDW (12.0-15.0) % Plt Count (130-450) 10^3/uL MPV (7.9-10.8) fL Neut # (Auto) (1.5-6.6) 10^3/uL Lymph # (Auto) (1.5-3.5) 10^3/uL [place] # (Auto) (0.0-1.0) 10^3/uL Eos # (Auto) (0.0-0.7) 10^3/uL Baso # (Auto) (0.0-0.1) 10^3/uL Absolute Nucleated RBC x10^3/uL Nucleated RBC % /100WBC Manual Slide Review WBC Morphology (NORMAL) Platelet Estimate (NORMAL) Platelet Morphology (NORMAL) RBC Morph Micro Appear (NORMAL) PT (9.9-12.6) secs INR (0.8-1.2) Sodium (135-145) mmol/L Potassium (3.5-4.5) mmol/L Chloride (101-111) mmol/L Carbon Dioxide (21-32) mmol/L Anion Gap (6-13) BUN (6-20) mg/dL Creatinine (0.6-1.3) mg/dL Estimated GFR (MDRD) (>89) Glucose (74-104) mg/dL POC Whole Bld Glucose 142 107 (70-100) mg/dL Calcium (8.5-10.3) mg/dL Vitamin D 25-Hydroxy 36.2 (30.0-100.0) ng/mL 03/04/24 Range/Units 11:48 WBC (4.8-10.8) x10^3/uL RBC (4.20-5.40) 10^6/uL Hgb (12.0-16.0) g/dL Hct (37.0-47.0) % MCV (81.0-99.0) fL MCH (27.0-31.0) pg MCHC (32.0-36.0) g/dL RDW (12.0-15.0) % Plt Count (130-450) 10^3/uL MPV (7.9-10.8) fL Neut # (Auto) (1.5-6.6) 10^3/uL Lymph # (Auto) (1.5-3.5) 10^3/uL [place] # (Auto) (0.0-1.0) 10^3/uL Eos # (Auto) (0.0-0.7) 10^3/uL Baso # (Auto) (0.0-0.1) 10^3/uL Absolute Nucleated RBC x10^3/uL Nucleated RBC % /100WBC Manual Slide Review WBC Morphology (NORMAL) Platelet Estimate (NORMAL) Platelet Morphology (NORMAL) RBC Morph Micro Appear (NORMAL) PT (9.9-12.6) secs INR (0.8-1.2) Sodium (135-145) mmol/L Potassium (3.5-4.5) mmol/L Chloride (101-111) mmol/L Carbon Dioxide (21-32) mmol/L Anion Gap (6-13) BUN (6-20) mg/dL Creatinine (0.6-1.3) mg/dL Estimated GFR (MDRD) (>89) Glucose (74-104) mg/dL POC Whole Bld Glucose 140 (70-100) mg/dL Calcium (8.5-10.3) mg/dL Vitamin D 25-Hydroxy (30.0-100.0) ng/mL Assessment/Plan Problem List (1) Acute respiratory failure with hypoxia: Impression: Respiratory failure secondary to CHF exacerbation. She was admitted and placed on IV diuresis. She experienced CO2 retention with lethargy, likely secondary to absence of CPAP therapy which she uses at home. She was transferred to the ICU and placed on BiPAP overnight with improvement in symptoms in the morning Continue IV Lasix 80 mg twice daily Strict I's and O's Telemetry 03/04/2024: Patient is much improved, transfer out of the ICU. Continue IV Lasix 80 mg twice daily, strict MARIA. Patient is deconditioned, she will be seen by PT/OT today 03/05/2024: Did okay on home CPAP last night. Continue Lasix, holding antihypertensives. Requiring 5 L O2 this morning. Will consider CT chest if respiratory status does not improve soon (2) Acute exacerbation of congestive heart failure: Impression: Echocardiogram 03/02/2024 with EF 60 to 65%, severe right ventricular enlargement with normal right event systolic function, moderate tricuspid regurgitation She takes 80 mg Lasix twice daily at home 80 mg Lasix IV twice daily while inpatient Strict I/O Follows Dr. Phan at [facility] in [place] outpatient Qualifiers: Heart failure type: unspecified Qualified Code(s): I50.9 - Heart failure, unspecified (3) Anticoagulated on warfarin: Impression: Was supratherapeutic at 8.7 on presentation Received p.o. vitamin K INR now closer to therapeutic level, restarting warfarin per pharmacy (4) Atrial fibrillation: Impression: Atenolol 50 mg twice daily as she is on bisoprolol at home. Also continue her home dose diltiazem Digoxin 125 mcg daily Warfarin as above Qualifiers: Atrial fibrillation type: longstanding persistent Qualified Code(s): I 48.11 - Longstanding persistent atrial fibrillation (5) Type 2 diabetes mellitus: Impression: SSI A1c 6.4 on 02/02/2024 Resume metformin at [place] Qualifiers: Diabetes mellitus complication status: without complication Diabetes mellitus senior living insulin use: without senior living use Qualified Code(s): E11.9 - Type 2 diabetes mellitus without complications (6) Hypertension: Impression: Rate control meds as above, continue losartan 25 mg daily Qualifiers: Hypertension type: primary hypertension Qualified Code(s): I10 - Essential (primary) hypertension (7) GERD (gastroesophageal reflux disease): Impression: Continue famotidine, Protonix Qualifiers: Esophagitis presence: esophagitis presence not specified Qualified Code(s): K21.9 - Gastro-esophageal reflux disease without esophagitis
--- NOTE | 2024-03-05 11:08 | ADVANCE CARE PLANNING NOTE ---
Advance Care Planning Planning Encounter Date: 03/05/24 Time: 11:03 Purpose: To establish goals of care, long-term. 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 She continued teaching for 1 year after receiving her heart failure diagnosis. She is now retired, and enjoys spending time with her family. She is independent at baseline, but significantly weak on this admission. Physical therapy has suggested that she needs prison facility at discharge. Her goal is to return to normal state of function, so she can spend more time with her family Objective/Medical Story: HFpEF, atrial fibrillation. She had an exacerbation in June of last year, and is now admitted for the same. She has been receiving aggressive IV diuresis but we have been unable to wean her oxygen yet Goals of Care: Her goal is to return to her normal level of function so that she can spend more time with her family. She is aware that heart failure is going to progress eventually to a point where she will not be able to move around on her own, so she is planning on getting her affairs in order after this admission so that she can enjoy time with her family Plan: Optimize functional status, discharge to SNF Code Status: Do Not Attempt Resuscitation Time spent on advance care plannin
[2024-03-05] MEDS: atenoloL 25 MG TABLET PO SCH (20:45)
[2024-03-06 06:10] LABS: BASOPHILS # (AUTO) 0.1 10^3/uL (0.0-0.1); BASOPHILS % (AUTO) 0.8 %; EOSINOPHILS # (AUTO) 0.2 10^3/uL (0.0-0.7); EOSINOPHILS % (AUTO) 2.1 %; HCT - HEMATOCRIT 36.4 % (37.0-47.0); HGB - HEMOGLOBIN 10.4 g/dL (12.0-16.0); LYMPHOCYTES # (AUTO) 0.6 10^3/uL (1.5-3.5); LYMPHOCYTES % (AUTO) 8.9 %; MEAN CORPUSCULAR HEMOGLOBIN 26.1 pg (27.0-31.0); MEAN CORPUSCULAR HGB CONC 28.6 g/dL (32.0-36.0); MEAN CORPUSCULAR VOLUME 91.2 fL (81.0-99.0); MEAN PLATELET VOLUME 9.3 fL (7.9-10.8); MONOCYTES # (AUTO) 0.9 10^3/uL (0.0-1.0); MONOCYTES % (AUTO) 12.5 %; NEUTROPHILS # (AUTO) 5.3 10^3/uL (1.5-6.6); NEUTROPHILS % (AUTO) 75.3 %; PLT - PLATELET COUNT 211 10^3/uL (130-450); RED BLOOD COUNT 3.99 10^6/uL (4.20-5.40); RED CELL DISTRIBUTION WIDTH 15.6 % (12.0-15.0); WHITE BLOOD COUNT 7.1 x10^3/uL (4.8-10.8)
[2024-03-06 06:14] LABS: INR 2.2 (0.8-1.2); PT - PROTHROMBIN TIME 22.7 secs (9.9-12.6)
[2024-03-06 06:18] LABS: SLIDE REVIEW? Indicated
[2024-03-06 06:29] LABS: CALCIUM 9.1 mg/dL (8.5-10.3); CREATININE 1.1 mg/dL (0.6-1.3); POTASSIUM 3.8 mmol/L (3.5-4.5)
--- NOTE | 2024-03-06 11:30 | PROVIDER PROGRESS NOTE ---
Subjective Prog Note Date Prog Note Date: 03/06/24 Subjective Pt reports feeling: Improved Subjective: Feels better this morning. Still desaturates with activity Current Medications Current Medications Current Medications: Current Medications Generic Name Dose Route Start Last Admin Trade Name Freq PRN Reason Stop Dose Admin Acetaminophen 650 mg 03/01/24 14:24 03/02/24 14:00 Acetaminophen 325 Mg Tablet PO 650 mg Q4HR PRN Administration Pain 1 to 4, or Fever Atenolol 25 mg 03/05/24 21:00 03/06/24 08:05 Atenolol 25 Mg Tablet PO 25 mg BID WILIAM Administration Cholecalciferol 50 mcg 03/02/24 09:00 03/06/24 08:05 Cholecalciferol 25 Mcg Tablet PO 50 mcg DAILY WILIAM Administration Cyanocobalamin 500 mcg 03/05/24 09:00 03/06/24 08:06 Cyanocobalamin 500 Mcg Tablet PO 500 mcg DAILY WILIAM Administration Digoxin 125 mcg 03/02/24 09:00 03/06/24 08:07 Digoxin 125 Mcg Tablet PO 125 mcg DAILY WILIAM Administration Diltiazem HCl 180 mg 03/02/24 09:00 03/06/24 08:06 Diltiazem Cd 180 Mg Capsule PO 180 mg DAILY WILIAM Administration Famotidine 40 mg 03/02/24 09:00 03/06/24 08:06 Famotidine 20 Mg Tablet PO 40 mg DAILY WILIAM Administration Furosemide 80 mg 03/02/24 10:00 03/06/24 06:13 Furosemide 40 Mg/4 Ml Vial IVP 80 mg BIDDIURETIC WILIAM Administration Insulin Human Lispro 1 - 5 unit 03/01/24 17:00 03/06/24 07:56 Insulin Lispro 300 Unit/3 Ml Pen SUBQ Not Given 0800,1200,1700,2100 [facility] Protocol Montelukast Sodium 10 mg 03/01/24 21:00 03/05/24 20:44 Montelukast 10 Mg Tablet PO 10 mg QPM WILIAM Administration Nystatin 1 applic 03/02/24 23:00 03/06/24 10:23 Nystatin Powder 15 Gm TOP 1 applic BID WILIAM Administration Ondansetron HCl 4 mg 03/01/24 14:24 Ondansetron Odt 4 Mg Tablet TL Q6HR PRN Nausea / Vomiting Oxycodone HCl 5 mg 03/01/24 14:24 03/03/24 23:35 Oxycodone 5 Mg Tablet PO 5 mg Q4HR PRN Administration Pain 5 to 7 Pantoprazole Sodium 40 mg 03/02/24 07:00 03/06/24 06:13 Pantoprazole 40 Mg Tablet PO 40 mg QDAC WILIAM Administration Pravastatin Sodium 40 mg 03/01/24 21:00 03/05/24 20:44 Pravastatin 40 Mg Tablet PO 40 mg QPM WILIAM Administration Multivit/Folic Acid/Iron 1 tab 03/03/24 10:00 03/06/24 07:57 Vitamin Tablet PO 1 tab DAILYWM WILIAM Administration Sodium Chloride 10 ml 03/01/24 14:24 03/05/24 06:44 Sodium Chloride Flush 0.9% 10 Ml Syringe IVP 10 ml PRN PRN Administration NEEDED PER PROVIDER ORDERS Sodium Chloride 10 ml 03/01/24 17:00 03/06/24 08:12 Sodium Chloride Flush 0.9% 10 Ml Syringe IVP 10 ml 0100,0900,1700 WILIAM Administration Sulfasalazine 1,500 mg 03/01/24 17:00 03/06/24 08:01 Sulfasalazine 500 Mg Tablet PO 1,500 mg BIDWM WILIAM Administration Warfarin Sodium 5 mg 03/04/24 14:00 03/05/24 14:41 Warfarin 5 Mg Tablet PO 5 mg QDWARFARIN WILIAM Administration Objective Vital Signs/Intake & Output Reviewed Vital Signs: Yes Vital Signs: Vital Signs x48h Temp Pulse Pulse Resp BP Pulse Ox O2 Flow Rate 03/06/24 10:24 18 92 3.5 03/06/24 08:02 36.6 C 80 22 157/74 H 93 5 03/06/24 05:00 36.6 C 73 20 142/98 H 93 5 Intake & Output: Intake & Output 03/03/24 03/04/24 03/05/24 03/06/24 23:59 23:59 23:59 23:59 Intake Total 610 / 610 1095 / 1095 1280 / 1280 270 / 270 Output Total 2550 / 2550 2100 / 2100 2875 / 2875 1850 / 1850 Balance -1940 / -1940 -1005 / -1005 -1595 / -1595 -1580 / -1580 Weight (kg) 138 kg 138 kg 137 kg 136.5 kg Objective General Appearance: positive No acute distress and Alert Eyes Bilateral: positive Normal inspection ENT: positive No signs of dehydration Neck: positive No JVD Respiratory: positive Chest non-tender and No respiratory distress Cardiovascular: positive Irregularly irregular Abdomen: positive Non-tender Back: positive Nml inspection Skin: positive Color nml Extremities: positive Non-tender and Pedal edema (Improving) Neurologic/Psychiatric: positive Oriented x3 Lab Results 03/06/24 06:00 03/06/24 06:00 Other Labs: Lab Results x24hrs 03/06/24 03/06/24 03/05/24 Range/Units 07:38 06:00 20:42 WBC 7.1 (4.8-10.8) x10^3/uL RBC 3.99 L (4.20-5.40) 10^6/uL Hgb 10.4 L (12.0-16.0) g/dL Hct 36.4 L (37.0-47.0) % MCV 91.2 (81.0-99.0) fL MCH 26.1 L (27.0-31.0) pg MCHC 28.6 L (32.0-36.0) g/dL RDW 15.6 H (12.0-15.0) % Plt Count 211 (130-450) 10^3/uL MPV 9.3 (7.9-10.8) fL Neut # (Auto) 5.3 (1.5-6.6) 10^3/uL Lymph # (Auto) 0.6 L (1.5-3.5) 10^3/uL [place] # (Auto) 0.9 (0.0-1.0) 10^3/uL Eos # (Auto) 0.2 (0.0-0.7) 10^3/uL Baso # (Auto) 0.1 (0.0-0.1) 10^3/uL Absolute Nucleated RBC 0.00 x10^3/uL Nucleated RBC % 0.0 /100WBC Manual Slide Review Indicated PT 22.7 H (9.9-12.6) secs INR 2.2 H (0.8-1.2) Sodium 144 (135-145) mmol/L Potassium 3.8 (3.5-4.5) mmol/L Chloride 101 (101-111) mmol/L Carbon Dioxide 40 H* (21-32) mmol/L Anion Gap 3.0 L (6-13) BUN 19 (6-20) mg/dL Creatinine 1.1 (0.6-1.3) mg/dL Estimated GFR (MDRD) 49 L (>89) Glucose 127 H (74-104) mg/dL POC Whole Bld Glucose 109 124 (70-100) mg/dL Calcium 9.1 (8.5-10.3) mg/dL 03/05/24 Range/Units 16:48 WBC (4.8-10.8) x10^3/uL RBC (4.20-5.40) 10^6/uL Hgb (12.0-16.0) g/dL Hct (37.0-47.0) % MCV (81.0-99.0) fL MCH (27.0-31.0) pg MCHC (32.0-36.0) g/dL RDW (12.0-15.0) % Plt Count (130-450) 10^3/uL MPV (7.9-10.8) fL Neut # (Auto) (1.5-6.6) 10^3/uL Lymph # (Auto) (1.5-3.5) 10^3/uL [place] # (Auto) (0.0-1.0) 10^3/uL Eos # (Auto) (0.0-0.7) 10^3/uL Baso # (Auto) (0.0-0.1) 10^3/uL Absolute Nucleated RBC x10^3/uL Nucleated RBC % /100WBC Manual Slide Review PT (9.9-12.6) secs INR (0.8-1.2) Sodium (135-145) mmol/L Potassium (3.5-4.5) mmol/L Chloride (101-111) mmol/L Carbon Dioxide (21-32) mmol/L Anion Gap (6-13) BUN (6-20) mg/dL Creatinine (0.6-1.3) mg/dL Estimated GFR (MDRD) (>89) Glucose (74-104) mg/dL POC Whole Bld Glucose 94 (70-100) mg/dL Calcium (8.5-10.3) mg/dL Assessment/Plan Problem List (1) Acute respiratory failure with hypoxia: Impression: Respiratory failure secondary to CHF exacerbation. She was admitted and placed on IV diuresis. She experienced CO2 retention with lethargy, likely secondary to absence of CPAP therapy which she uses at home. She was transferred to the ICU and placed on BiPAP overnight with improvement in symptoms in the morning Continue IV Lasix 80 mg twice daily Strict I's and O's Telemetry 03/04/2024: Patient is much improved, transfer out of the ICU. Continue IV Lasix 80 mg twice daily, strict MARIA. Patient is deconditioned, she will be seen by PT/OT today 03/05/2024: Did okay on home CPAP last night. Continue Lasix, holding antihypertensives. Requiring 5 L O2 this morning. Will consider CT chest if respiratory status does not improve soon 03/06/2024: She is unable to lay flat for CT chest. She has been weaned down to 3.5 L today. Repeat chest x-ray. Continue Lasix. She has an elevated CO2 on her morning chemistry, tomorrow I will add on a VBG to her morning labs. Continues to have good urine output (2) Acute exacerbation of congestive heart failure: Impression: Echocardiogram 03/02/2024 with EF 60 to 65%, severe right ventricular enlargement with normal right event systolic function, moderate tricuspid regurgitation She takes 80 mg Lasix twice daily at home 80 mg Lasix IV twice daily while inpatient Strict I/O Follows Dr. Phan at [facility] in [place] outpatient Qualifiers: Heart failure type: unspecified Qualified Code(s): I50.9 - Heart failure, unspecified (3) Anticoagulated on warfarin: Impression: Was supratherapeutic at 8.7 on presentation Received p.o. vitamin K INR now closer to therapeutic level, restarting warfarin per pharmacy (4) Atrial fibrillation: Impression: Atenolol 50 mg twice daily as she is on bisoprolol at home. Also continue her home dose diltiazem Digoxin 125 mcg daily Warfarin as above Qualifiers: Atrial fibrillation type: longstanding persistent Qualified Code(s): I 48.11 - Longstanding persistent atrial fibrillation (5) Type 2 diabetes mellitus: Impression: SSI A1c 6.4 on 02/02/2024 Resume metformin at [place] Qualifiers: Diabetes mellitus skilled nursing insulin use: without oil heaterman use Diabetes mellitus complication status: without complication Qualified Code(s): E11.9 - Type 2 diabetes mellitus without complications (6) Hypertension: Impression: Rate control meds as above, continue losartan 25 mg daily Qualifiers: Hypertension type: primary hypertension Qualified Code(s): I10 - Essential (primary) hypertension (7) GERD (gastroesophageal reflux disease): Impression: Continue famotidine, Protonix Qualifiers: Esophagitis presence: esophagitis presence not specified Qualified Code(s): K21.9 - Gastro-esophageal reflux disease without esophagitis
--- NOTE | 2024-03-06 12:37 | XRAY Report ---
PROCEDURE: XR Chest 1V INDICATIONS: Follow-up fluid overload TECHNIQUE: One view of the chest was acquired. COMPARISON: 03/01/2024 FINDINGS: Surgical changes and devices: None. Lungs and pleura: No pleural effusions or pneumothorax. No consolidation. Mild generalized intersti tial prominence can be seen, which is similar to the prior examination. Mediastinum: Mediastinal contours appear normal. Heart size is mildly enlarged. Bones and chest wall: No suspicious bony lesions. Overlying soft tissues appear unremarkable. IMPRESSION: Stable cardiomegaly and mild interstitial prominence. When allowances are made for differences in de grees of inspiration, the degree of abnormal interstitial prominence is similar to the prior. Reviewed by: Adarsh Samuels MD on 03/06/2024 11:36 AM [facility] Approved by: Adarsh Samuels MD on 03/06/2024 11:36 AM [facility] Station ID: [id number]
[2024-03-07 05:49] LABS: VBG HCO3 39.8 mmol/L (23-28); VBG PCO2 59.6 mmHg (41-51); VBG PH 7.443 (7.31-7.41); VBG PO2 37.3 mmHg (25-47); VBG TOTAL CO2 41.7 mmol/L (24-29)
[2024-03-07 05:50] LABS: VBG BASE EXCESS 13.5 mmol/L (-2 - +2); VBG OXYGEN SATURATION 72.1 % (60-80)
[2024-03-07 05:53] LABS: BASOPHILS # (AUTO) 0.1 10^3/uL (0.0-0.1); BASOPHILS % (AUTO) 0.7 %; EOSINOPHILS # (AUTO) 0.2 10^3/uL (0.0-0.7); EOSINOPHILS % (AUTO) 2.7 %; HCT - HEMATOCRIT 37.2 % (37.0-47.0); HGB - HEMOGLOBIN 10.6 g/dL (12.0-16.0); LYMPHOCYTES # (AUTO) 0.7 10^3/uL (1.5-3.5); LYMPHOCYTES % (AUTO) 10.8 %; MEAN CORPUSCULAR HEMOGLOBIN 26.4 pg (27.0-31.0); MEAN CORPUSCULAR HGB CONC 28.5 g/dL (32.0-36.0); MEAN CORPUSCULAR VOLUME 92.5 fL (81.0-99.0); MEAN PLATELET VOLUME 9.5 fL (7.9-10.8); MONOCYTES % (AUTO) 14.5 %; NEUTROPHILS # (AUTO) 4.8 10^3/uL (1.5-6.6); PLT - PLATELET COUNT 201 10^3/uL (130-450); RED BLOOD COUNT 4.02 10^6/uL (4.20-5.40); RED CELL DISTRIBUTION WIDTH 15.8 % (12.0-15.0); WHITE BLOOD COUNT 6.7 x10^3/uL (4.8-10.8)
[2024-03-07 06:06] LABS: CALCIUM 9.2 mg/dL (8.5-10.3); CREATININE 1.3 mg/dL (0.6-1.3); POTASSIUM 3.7 mmol/L (3.5-4.5)
[2024-03-07] MEDS ORDERED: FUROSEMIDE 40 MG TABLET PO SCH (08:00)
--- NOTE | 2024-03-07 08:02 | PROVIDER PROGRESS NOTE ---
Subjective Prog Note Date Prog Note Date: 03/07/24 Subjective Pt reports feeling: Improved Subjective: Resting comfortably at time of my interview Current Medications Current Medications Current Medications: Current Medications Generic Name Dose Route Start Last Admin Trade Name Freq PRN Reason Stop Dose Admin Acetaminophen 650 mg 03/01/24 14:24 03/07/24 00:39 Acetaminophen 325 Mg Tablet PO 650 mg Q4HR PRN Administration Pain 1 to 4, or Fever Atenolol 25 mg 03/05/24 21:00 03/06/24 20:59 Atenolol 25 Mg Tablet PO 25 mg BID WILIAM Administration Cholecalciferol 50 mcg 03/02/24 09:00 03/06/24 08:05 Cholecalciferol 25 Mcg Tablet PO 50 mcg DAILY WILIAM Administration Cyanocobalamin 500 mcg 03/05/24 09:00 03/06/24 08:06 Cyanocobalamin 500 Mcg Tablet PO 500 mcg DAILY WILIAM Administration Digoxin 125 mcg 03/02/24 09:00 03/06/24 08:07 Digoxin 125 Mcg Tablet PO 125 mcg DAILY WILIAM Administration Diltiazem HCl 180 mg 03/02/24 09:00 03/06/24 08:06 Diltiazem Cd 180 Mg Capsule PO 180 mg DAILY WILIAM Administration Famotidine 40 mg 03/02/24 09:00 03/06/24 08:06 Famotidine 20 Mg Tablet PO 40 mg DAILY WILIAM Administration Furosemide 80 mg 03/07/24 14:00 Furosemide 40 Mg Tablet PO BIDDIURETIC [facility] Insulin Human Lispro 1 - 5 unit 03/01/24 17:00 03/06/24 20:33 Insulin Lispro 300 Unit/3 Ml Pen SUBQ Not Given 0800,1200,1700,2100 [facility] Protocol Montelukast Sodium 10 mg 03/01/24 21:00 03/06/24 20:59 Montelukast 10 Mg Tablet PO 10 mg QPM WILIAM Administration Nystatin 1 applic 03/02/24 23:00 03/06/24 20:59 Nystatin Powder 15 Gm TOP 1 applic BID WILIAM Administration Ondansetron HCl 4 mg 03/01/24 14:24 Ondansetron Odt 4 Mg Tablet TL Q6HR PRN Nausea / Vomiting Oxycodone HCl 5 mg 03/01/24 14:24 03/03/24 23:35 Oxycodone 5 Mg Tablet PO 5 mg Q4HR PRN Administration Pain 5 to 7 Pantoprazole Sodium 40 mg 03/02/24 07:00 03/07/24 06:59 Pantoprazole 40 Mg Tablet PO 40 mg QDAC WILIAM Administration Polyethylene Glycol 17 gm 03/07/24 09:00 Polyethylene Glycol 3350 17 Gm Packet PO DAILY WILIAM Pravastatin Sodium 40 mg 03/01/24 21:00 03/06/24 20:59 Pravastatin 40 Mg Tablet PO 40 mg QPM WILIAM Administration Multivit/Folic Acid/Iron 1 tab 03/03/24 10:00 03/06/24 07:57 Vitamin Tablet PO 1 tab DAILYWM WILIAM Administration Sodium Chloride 10 ml 03/01/24 14:24 03/07/24 06:59 Sodium Chloride Flush 0.9% 10 Ml Syringe IVP 10 ml PRN PRN Administration NEEDED PER PROVIDER ORDERS Sodium Chloride 10 ml 03/01/24 17:00 03/07/24 00:40 Sodium Chloride Flush 0.9% 10 Ml Syringe IVP 10 ml 0100,0900,1700 WILIAM Administration Sulfasalazine 1,500 mg 03/01/24 17:00 03/06/24 16:19 Sulfasalazine 500 Mg Tablet PO 1,500 mg BIDWM WILIAM Administration Warfarin Sodium 5 mg 03/04/24 14:00 03/06/24 13:59 Warfarin 5 Mg Tablet PO 5 mg QDWARFARIN WILIAM Administration Objective Vital Signs/Intake & Output Reviewed Vital Signs: Yes Vital Signs: Vital Signs x48h Temp Pulse Resp BP Pulse Ox O2 Flow Rate 03/07/24 05:00 36.6 C 73 22 121/68 93 5 03/07/24 01:00 36.7 C 74 20 126/69 91 L 5 Intake & Output: Intake & Output 03/04/24 03/05/24 03/06/24 03/07/24 23:59 23:59 23:59 23:59 Intake Total 1095 / 1095 1280 / 1280 1110 / 1110 150 / 150 Output Total 2099 / 2099 2875 / 2875 2625 / 2625 100 / 100 Balance -1005 / -1005 -1595 / -1595 -1515 / -1515 50 / 50 Weight (kg) 138 kg 137 kg 136.5 kg 137.5 kg Objective General Appearance: positive No acute distress and Alert Eyes Bilateral: positive Normal inspection ENT: positive No signs of dehydration Neck: positive No JVD Respiratory: positive Chest non-tender, No respiratory distress and Breath sounds nml Cardiovascular: positive Irregularly irregular Abdomen: positive Non-tender Back: positive Nml inspection Skin: positive Color nml Extremities: positive Non-tender and Pedal edema (Improving) Neurologic/Psychiatric: positive Oriented x3 Lab Results 03/07/24 05:40 03/07/24 05:40 Other Labs: Lab Results x24hrs 03/07/24 03/06/24 03/06/24 Range/Units 05:40 20:30 16:30 WBC 6.7 (4.8-10.8) x10^3/uL RBC 4.02 L (4.20-5.40) 10^6/uL Hgb 10.6 L (12.0-16.0) g/dL Hct 37.2 (37.0-47.0) % MCV 92.5 (81.0-99.0) fL MCH 26.4 L (27.0-31.0) pg MCHC 28.5 L (32.0-36.0) g/dL RDW 15.8 H (12.0-15.0) % Plt Count 201 (130-450) 10^3/uL MPV 9.5 (7.9-10.8) fL Neut # (Auto) 4.8 (1.5-6.6) 10^3/uL Lymph # (Auto) 0.7 L (1.5-3.5) 10^3/uL Chester # (Auto) 1.0 (0.0-1.0) 10^3/uL Eos # (Auto) 0.2 (0.0-0.7) 10^3/uL Baso # (Auto) 0.1 (0.0-0.1) 10^3/uL Absolute Nucleated RBC 0.00 x10^3/uL Nucleated RBC % 0.0 /100WBC VBG pH 7.443 H (7.31-7.41) VBG pCO2 59.6 H (41-51) mmHg VBG pO2 37.3 (25-47) mmHg VBG HCO3 39.8 H (23-28) mmol/L VBG Total CO2 41.7 H (24-29) mmol/L VBG O2 Saturation 72.1 (60-80) % VBG Base Excess 13.5 H (-2 - +2) mmol/L Sodium 145 (135-145) mmol/L Potassium 3.7 (3.5-4.5) mmol/L Chloride 100 L (101-111) mmol/L Carbon Dioxide 42 H* (21-32) mmol/L Anion Gap 3.0 L (6-13) BUN 22 H (6-20) mg/dL Creatinine 1.3 (0.6-1.3) mg/dL Estimated GFR (MDRD) 40 L (>89) Glucose 125 H (74-104) mg/dL POC Whole Bld Glucose 135 102 (70-100) mg/dL Calcium 9.2 (8.5-10.3) mg/dL 03/06/24 Range/Units 11:34 WBC (4.8-10.8) x10^3/uL RBC (4.20-5.40) 10^6/uL Hgb (12.0-16.0) g/dL Hct (37.0-47.0) % MCV (81.0-99.0) fL MCH (27.0-31.0) pg MCHC (32.0-36.0) g/dL RDW (12.0-15.0) % Plt Count (130-450) 10^3/uL MPV (7.9-10.8) fL Neut # (Auto) (1.5-6.6) 10^3/uL Lymph # (Auto) (1.5-3.5) 10^3/uL Chester # (Auto) (0.0-1.0) 10^3/uL Eos # (Auto) (0.0-0.7) 10^3/uL Baso # (Auto) (0.0-0.1) 10^3/uL Absolute Nucleated RBC x10^3/uL Nucleated RBC % /100WBC VBG pH (7.31-7.41) VBG pCO2 (41-51) mmHg VBG pO2 (25-47) mmHg VBG HCO3 (23-28) mmol/L VBG Total CO2 (24-29) mmol/L VBG O2 Saturation (60-80) % VBG Base Excess (-2 - +2) mmol/L Sodium (135-145) mmol/L Potassium (3.5-4.5) mmol/L Chloride (101-111) mmol/L Carbon Dioxide (21-32) mmol/L Anion Gap (6-13) BUN (6-20) mg/dL Creatinine (0.6-1.3) mg/dL Estimated GFR (MDRD) (>89) Glucose (74-104) mg/dL POC Whole Bld Glucose 125 (70-100) mg/dL Calcium (8.5-10.3) mg/dL Assessment/Plan Problem List (1) Acute respiratory failure with hypoxia: Impression: Respiratory failure secondary to CHF exacerbation. She was admitted and placed on IV diuresis. She experienced CO2 retention with lethargy, likely secondary to absence of CPAP therapy which she uses at home. She was transferred to the ICU and placed on BiPAP overnight with improvement in symptoms in the morning Continue IV Lasix 80 mg twice daily Strict I's and O's Telemetry 03/04/2024: Patient is much improved, transfer out of the ICU. Continue IV Lasix 80 mg twice daily, strict MARIA. Patient is deconditioned, she will be seen by PT/OT today 03/05/2024: Did okay on home CPAP last night. Continue Lasix, holding antihypertensives. Requiring 5 L O2 this morning. Will consider CT chest if respiratory status does not improve soon 03/06/2024: She is unable to lay flat for CT chest. She has been weaned down to 3.5 L today. Repeat chest x-ray. Continue Lasix. She has an elevated CO2 on her morning chemistry, tomorrow I will add on a VBG to her morning labs. Continues to have good urine output 03/07/2024: Still unable to wean her oxygen. She is more comfortable today. She has, in the interim, developed a metabolic alkalosis with respiratory compensation. I am changing her Lasix back to her home dose. UOP still good. She is ordered out of bed to chair multiple times during the day. RT has been working with her. PT/OT on board, they will see her again tomorrow (2) Acute exacerbation of congestive heart failure: Impression: Echocardiogram 03/02/2024 with EF 60 to 65%, severe right ventricular enlargement with normal right event systolic function, moderate tricuspid regurgitation She takes 80 mg Lasix twice daily at home 80 mg Lasix IV twice daily while inpatient Strict I/O Follows Dr. Phan at [facility] in [place] outpatient Qualifiers: Heart failure type: unspecified Qualified Code(s): I50.9 - Heart failure, unspecified (3) Anticoagulated on warfarin: Impression: Was supratherapeutic at 8.7 on presentation Received p.o. vitamin K INR now closer to therapeutic level, restarting warfarin per pharmacy (4) Atrial fibrillation: Impression: Atenolol 50 mg twice daily as she is on bisoprolol at home. Also continue her home dose diltiazem Digoxin 125 mcg daily Warfarin as above Qualifiers: Atrial fibrillation type: longstanding persistent Qualified Code(s): I 48.11 - Longstanding persistent atrial fibrillation (5) Type 2 diabetes mellitus: Impression: SSI A1c 6.4 on 02/02/2024 Resume metformin at [place] Qualifiers: Diabetes mellitus terminal clerk insulin use: without terminal clerk use Diabetes mellitus complication status: without complication Qualified Code(s): E11.9 - Type 2 diabetes mellitus without complications (6) Hypertension: Impression: Rate control meds as above, continue losartan 25 mg daily Qualifiers: Hypertension type: primary hypertension Qualified Code(s): I10 - Essential (primary) hypertension (7) GERD (gastroesophageal reflux disease): Impression: Continue famotidine, Protonix Qualifiers: Esophagitis presence: esophagitis presence not specified Qualified Code(s): K21.9 - Gastro-esophageal reflux disease without esophagitis
[2024-03-07] MEDS: polyethylene glycoL 3350 17 GM PACKET PO SCH (08:29)
[2024-03-07] MEDS: FUROSEMIDE 40 MG TABLET PO SCH (14:22)
[2024-03-08 06:22] LABS: BASOPHILS # (AUTO) 0.1 10^3/uL (0.0-0.1); BASOPHILS % (AUTO) 1.1 %; EOSINOPHILS # (AUTO) 0.2 10^3/uL (0.0-0.7); EOSINOPHILS % (AUTO) 2.7 %; HCT - HEMATOCRIT 35.9 % (37.0-47.0); HGB - HEMOGLOBIN 10.4 g/dL (12.0-16.0); LYMPHOCYTES # (AUTO) 0.8 10^3/uL (1.5-3.5); MEAN CORPUSCULAR HEMOGLOBIN 26.5 pg (27.0-31.0); MEAN CORPUSCULAR VOLUME 91.6 fL (81.0-99.0); MEAN PLATELET VOLUME 9.4 fL (7.9-10.8); MONOCYTES # (AUTO) 0.8 10^3/uL (0.0-1.0); MONOCYTES % (AUTO) 13.6 %; NEUTROPHILS # (AUTO) 3.8 10^3/uL (1.5-6.6); NEUTROPHILS % (AUTO) 67.2 %; PLT - PLATELET COUNT 208 10^3/uL (130-450); RED BLOOD COUNT 3.92 10^6/uL (4.20-5.40); RED CELL DISTRIBUTION WIDTH 16.1 % (12.0-15.0); WHITE BLOOD COUNT 5.6 x10^3/uL (4.8-10.8)
[2024-03-08 06:33] LABS: INR 3.8 (0.8-1.2); PT - PROTHROMBIN TIME 38.3 secs (9.9-12.6)
[2024-03-08 06:40] LABS: CALCIUM 9.2 mg/dL (8.5-10.3); CREATININE 1.2 mg/dL (0.6-1.3); POTASSIUM 3.9 mmol/L (3.5-4.5)
--- NOTE | 2024-03-08 10:30 | Discharge Summary ---
Discharge Summary Admit Date: 03/01/24 Discharge Date: 03/08/24 Discharging Provider: Cody Talavera NP Primary Care Provider: Farzaneh Mccrary Code Status: Do Not Attempt Resuscitation DIAGNOSES Admission Diagnoses: Acute respiratory failure with hypoxemia Acute exacerbation of CHF Supratherapeutic INR Atrial fibrillation Diabetes mellitus Hypertension GERD Discharge Diagnoses with Status of Each Condition: Acute respiratory failure with hypoxemiaresolved Acute exacerbation of CHFresolved Supratherapeutic INRresolved Atrial fibrillationchronic Diabetes mellituschronic Hypertensionchronic GERDchronic HPI History of Present Illness: 74-year-old female who presents to the emergency department via POV with shortness of breath. She has a past medical history of atrial fibrillation on warfarin, diabetes, rheumatoid arthritis and reactive airway disease. At home she uses oxygen as needed, and very rarely. She does not guide her oxygen therapy with a pulse oximeter just when she feels short of breath. For the last several days she has felt short of breath and needed oxygen. She has not had any fever or chills she is not having any cough, chest pain. She is having some orthopnea. She has an adjustable bed and has been sleeping with her head up. She has noticed a small amount of peripheral edema. She has been prescribed Jardiance in the past 10 mg daily but has been off of this for about 3 months because she is unable to afford the medication. At home she takes Lasix twice a day, 80 mg She lives at home with her nephew and her sister who has metastatic cancer. Her nephew meets all her care needs. She was intubated a little over a year ago for a CHF exacerbation with coexisting COVID. She was on the ventilator for 2 days and then was able to wean off.This was in June 2022. CODE STATUS: Partial. No CPR. Okay for short-term ventilator.. HOSPITAL COURSE Hospital Course: She was admitted to the hospital and placed on high-dose IV Lasix. She experienced CO2 retention with lethargy early on in her admission, and spent 1 night in the ICU on BiPAP. Her recovery was very slow, and she is just now down to 2 L oxygen. Her edema has much improved. She developed a metabolic alkalosis from her high-dose Lasix use, so she was de-escalated back to her home dose Lasix 80 mg p.o. twice daily. Today, she is feeling much better, and is able to ambulate within the room on low amounts of oxygen. She is being discharged home with home health PT to stay with her family. While admitted, echocardiogram was performed which showed EF 60 to 65% ALLERGIES Allergies Allergy/AdvReac Type Severity Reaction Status Date / Time codeine Allergy Hallucinati Verified 01/01/24 11:30 ons MEDICATIONS Ambulatory Orders Medication Instructions Recorded Confirmed famotidine 40 mg tablet 40 mg PO DAILY 06/26/22 03/01/24 losartan 25 mg tablet 25 mg PO DAILY 06/26/22 03/01/24 metformin 500 mg tablet 1,000 mg PO BIDWM 06/26/22 03/01/24 omeprazole 40 mg capsule,delayed 40 mg PO QDAC 06/26/22 03/01/24 release pravastatin 40 mg tablet 40 mg PO QPM 06/26/22 03/01/24 sulfasalazine 500 mg tablet 1,500 mg PO BIDWM 06/26/22 03/01/24 cholecalciferol (vitamin D3) 50 50 mcg PO DAILY #30 caps 07/02/22 03/01/24 mcg (2,000 unit) capsule warfarin 5 mg tablet (Jantoven) 5 mg PO QPM 01/15/24 03/01/24 bisoprolol fumarate 10 mg tablet 10 mg PO BID 03/01/24 03/01/24 digoxin 250 mcg (0.25 mg) tablet 0.125 mg PO DAILY 03/01/24 03/01/24 diltiazem HCl 180 mg 180 mg PO DAILY 03/01/24 03/01/24 capsule,extended release 24 hr furosemide 40 mg tablet 80 mg PO BID 03/01/24 03/01/24 montelukast 10 mg tablet 10 mg PO QPM 03/01/24 03/01/24 cyanocobalamin (vitamin B-12) 500 500 mcg PO DAILY 30 days #30 tabs 03/08/24 mcg tablet vit,calcium 27-ferrous 1 tab PO DAILYWM 30 days #30 tabs 03/08/24 fum 60 mg iron-folic acid 1 mg tablet (Trinatal Rx 1) PHYSICAL EXAM AT DISCHARGE General Appearance: positive No acute distress and Alert Eyes Bilateral: positive Normal inspection and PERRL ENT: positive ENT inspection nml and Pharynx nml Neck: positive Nml inspection Respiratory: positive Chest non-tender and No respiratory distress Cardiovascular: positive Regular rate & rhythm Peripheral Pulses: positive 2+ Abdomen: positive Non-tender Skin: positive Color nml Extremities: positive Pedal edema (Mild, much improved) Neurologic/Psychiatric: positive Oriented x3 LABS 03/08/24 06:06 03/08/24 06:06 FOLLOW UP Follow Up: With PCP, preferably within a week. This will be understandably difficult given the holidays TIME SPENT Time Spent in Discharge (Minutes): 35 Discharge Plan Discharge Patient Disposition: Home, Self Care Condition: Stable Medically Cleared Date:: 03/08/24 Prescriptions: New cyanocobalamin (vitamin B-12) 500 mcg Tablet 500 mcg PO DAILY 30 Days Qty: 30 0RF Trinatal Rx 1 60 mg iron-1 mg Tablet 1 tab PO DAILYWM 30 Days Qty: 30 0RF Continued warfarin [Martoven] 5 mg tablet 5 mg PO QPM Protocol: Dose Management Condition: Thursday Dose/Route: 5 mg Instruction: 1 x 5 mg tablet Condition: Thursday Dose/Route: 5 mg Instruction: 1 x 5 mg tablet Condition: Thursday Dose/Route: 2.5 mg Instruction: 0.5 x 5 mg tablets Condition: Thursday Dose/Route: 5 mg Instruction: 1 x 5 mg tablet Condition: Dose/Route: 5 mg Instruction: 1 x 5 mg tablet Condition: Thursday Dose/Route: 5 mg Instruction: 1 x 5 mg tablet Condition: Thursday Dose/Route: 5 mg Instruction: 1 x 5 mg tablet Protocol Text: Adjustment Start Date: Thursday03/02/24 INR Value: 2.5 INR Date: 03/02/24 Recheck Date: 03/30/24 metformin 500 MG tablet 1,000 mg PO BIDWM famotidine 40 MG tablet 40 mg PO DAILY omeprazole 40 MG capsule,delayed release(DR/EC) 40 mg PO QDAC sulfasalazine 500 MG tablet 1,500 mg PO BIDWM pravastatin 40 MG tablet 40 mg PO QPM Patient Comments: Take 1 tablet by mouth once a day losartan 25 MG tablet 25 mg PO DAILY cholecalciferol (vitamin D3) 50 MCG capsule 50 mcg PO DAILY Qty: 30 0RF bisoprolol fumarate 10 mg tablet 10 mg PO BID montelukast 10 mg tablet 10 mg PO QPM Rx Instructions: Take one tablet by mouth once daily for allergies or asthma furosemide 40 mg tablet 80 mg PO BID diltiazem HCl 180 mg capsule,extended release 24hr 180 mg PO DAILY digoxin 250 mcg (0.25 mg) tablet 0.125 mg PO DAILY Activity Restrictions: Activity as Tolerated Diet: Cardiac Health Concerns: You are a 74-year-old female with past medical history significant for heart failure With preserved EF as well as atrial fibrillation. You were admitted to the hospital because you were in a heart failure exacerbation, your legs were swollen and there was extra fluid impairing your ability to breathe. We repeated echocardiogram, which showed your ejection fraction is 60 to 65%. We gave you aggressive IV Lasix diuresis, and the swelling in your legs and arms has much improved. I am sending you home on home oxygen, and I would like for you to continue your medication regimen as it was before you came into the hospital. I am adding on a vitamin B12 supplement as well as a vitamin. The medicines you take for GERD can impair vitamin uptake in your stomach, I am adding a multivitamin with higher doses of folate to combat this. Please follow-up with PCP within a week, Or as soon as possible after the holidays Care Plan Goals: Participate with physical therapy Weigh yourself daily Report weight gain to PCP Assessment: Able to ambulate with assistance and with oxygen. Being discharged home with her family, as well as home health PT and OT. Patient understands medication regimen, and that she is to follow-up with her PCP within a week Plan of Treatment: Continue home regimen Adding B12 supplement and vitamin as she is on PPI and H2 angel for her GERD Home health PT/OT Follow-up with PCP preferably within a week Print Language: Hong [place]er Patient Instructions: Heart Failure Stand Alone Forms: PCP List
[2024-03-08 16:18] VITALS: BP 126/85; TEMP 98.1; O2SAT 92
== END 2024-03-08 16:24 | disposition home or self-care (01) | DRG 189 ==
LOC: MS2 11:00 → ED 11:00 → MS2 14:16 → ICU 03-02 19:11 → MS2 03-04 19:14
PROVIDERS: ADMIT Physician Assistant Medical; ATTEND Nurse Practitioner Acute Care
DX: J96.01 Acute respiratory failure with hypoxia; M06.9 Rheumatoid arthritis, unspecified; Z79.84 Long term (current) use of oral hypoglycemic drugs; I11.0 Hypertensive heart disease with heart failure; K21.9 Gastro-esophageal reflux disease without esophagitis; Z79.01 Long term (current) use of anticoagulants; I50.9 Heart failure, unspecified; E11.9 Type 2 diabetes mellitus without complications; Z99.81 Dependence on supplemental oxygen; Z86.16 Personal history of COVID-19; Z83.3 Family history of diabetes mellitus; G47.30 Sleep apnea, unspecified; I48.11 Longstanding persistent atrial fibrillation; R00.0 Tachycardia, unspecified; I50.33 Acute on chronic diastolic (congestive) heart failure; R79.1 Abnormal coagulation profile; E87.3 Alkalosis